=== PATIENT | female | born 1935 | race Caucasian/White ===

== ENCOUNTER 2017-08-21 16:39 | Emergency (ER) | payer OTHER ==
[~2017-08-21] VITALS: Ht 152.4 cm; Wt 101.0 kg
[~2017-08-21 16:39] MED LIST: ALBUAER2 INH; ASPCH81X PO; EFFSR75 PO; FRRG PO; LEVO137T3 PO; LOSA1TAB38 PO; METO-217 PO; MULT-190 PO; ONDA4TAB7 SL; SIMV20TA2 PO; ULT/50 PO; WARF1TAB PO
--- NOTE | 2017-08-21 16:50 | EMERGENCY ROOM VISIT NOTE ---
History Report prepared by [place]: Yashira La Under the Supervision of: Dr. Elio Nichole M.D. First contact with patient: 16:42 Chief Complaint: FALL Stated Complaint: FALL, ELBOW PAIN, SYNCOPE History of Present Illness The patient is a 82 year old female who presents to the Emergency Room with complaints of an episode of a fall beginning just PCAS. Per EMS the patient was walking out to the dumter at the [place] today and she fell and slipped on the ice. She fell on the ground onto her right hip and elbow. She reports that she has a history of a right hip replacement but she is not having any hip pain now. The patient complains of right elbow pain, LOC, and dizziness. She denies any head injury. The patient reports a history of anxiety and panic attacks. She states that she is not on any blood thinners. Source of History: patient, EMS Onset: just PCAS Position: other (global) Quality: other (fall) Timing: other (episode) Associated Symptoms: + LOC Note: Pt complains of elbow pain and dizziness. Denies any head injury and hip pain. Review of Systems See HPI for pertinent positives & negatives. A total of 10 systems reviewed and were otherwise negative. Past Medical & Surgical Medical Problems: (1) Diverticulitis (2) HYPERTENSION NOS (3) HYPOTHYROIDISM NOS (4) Kidney calculi (5) OBESITY, NOS (6) PURE HYPERCHOLESTEROLEM Family History No pertinent family history stated. Social History Smoking Status: Never Smoker Housing Status: lives with family Occupation Status: retired Current/Historical Medications Scheduled Aspirin (Aspirin Ec), 81 MG PO DAILY Baclofen (Lioresal), 10 MG PO HS Buspirone Hcl (Buspirone Hcl), 5 MG PO BID Docusate Sodium (Colace), 1 CAP PO BID Levothyroxine Sodium (Levothyroxine Sodium), 100 MCG PO QAM Losartan Potassium (Cozaar), 100 MG PO DAILY Metoprolol Succinate (Toprol Xl), 50 MG PO DAILY Ocuvite Preservision (Ocuvite Preservision), 1 TAB PO BID Pantoprazole (Protonix), 40 MG PO DAILY Sennosides (Senokot), 8.6 MG PO HS Simvastatin (Zocor), 20 MG PO DAILY Venlafaxine Hcl (Effexor Xr), 75 MG PO DAILY Venlafaxine Hcl (Effexor Xr), 150 MG PO DAILY Scheduled PRN Lorazepam (Ativan), 0.5 MG PO Q6H PRN for Anxiety Meclizine Hcl (Meclizine Hcl), 25 MG PO TID PRN for Dizziness or Vertigo Oxycodone Immediate Rel Tab (Roxicodone Ir), 1-2 TAB PO Q4H PRN for Severe Pain Tramadol Hcl (Ultram), 50 MG PO Q8 PRN for Pain Allergies Coded Allergies: Ciprofloxacin (Verified Allergy, Intermediate, rash and itchiness, 04/27/13 ) Physical Exam Vital Signs Date Time Temp Pulse Resp B/P (MAP) Pulse Ox O2 Delivery O2 Flow Rate FiO2 08/21/17 20:13 36.7 84 20 144/80 94 08/21/17 18:34 80 20 131/61 96 Room Air 08/21/17 17:04 36.7 81 20 115/61 95 Room Air 08/21/17 16:56 75 08/21/17 16:52 96 Nasal Cannula 08/21/17 16:52 96 Room Air Physical Exam GENERAL: Patient is a healthy-appearing well-nourished [] HEAD: Normocephalic atraumatic EYES: Ocular movements intact pupils equal and react to light OROPHARYNX mucous membranes are moist no exudates present no erythema or edema present NECK: Supple no nuchal rigidity CHEST: Good equal expansion LUNGS: Clear and equal to auscultation CARDIAC: Normal S1 and S2 ABDOMEN: Soft nontender no guarding BACK: No CVA tenderness EXTREMITIES: Normal muscle strength in all groups no clubbing cyanosis. Right elbow is grossly swollen, good range of motion. NEURO: Patient is following commands and answering questions appropriately. Alert and oriented x3 Cranial Nerves 2-12 grossly intact Medical Decision & Procedures ER Provider Diagnostic Interpretation: Radiology results as stated below per my review and radiologist interpretation: PELVIS 1 OR 2 VIEW ROUTINE FINDINGS: Postsurgical changes of total left hip arthroplasty, unchanged from prior. No evidence of a periprosthetic fracture. Evidence of formation of heterotopic ossification along the superior acetabulum and inferior aspect of the femoral neck component. No malalignment. No hardware complication. Degenerative change of the right hip joint has increased from prior. Pubic symphysis and sacroiliac joints congruent. Degenerative changes in the lower lumbar spine. Arcuate lines intact. Bony pelvis intact. Osteopenia suggested. Moderate stool burden in the right colon. IMPRESSION: 1. Osteopenia suggested. No acute osseous injury. 2. Postsurgical changes of total left hip arthroplasty. No hardware complication. Electronically signed by: Adarsh Gonzalez M.D. 08/21/2017 6:24 PM Dictated Date/Time: 08/21/2017 6:22 PM HEAD WITHOUT CONTRAST (CT) CT DOSE (mGy.cm): The estimated cumulative dose is 537.48 mGy.cm. FINDINGS: Stripe Matcher topogram: Unremarkable. Ventricles and sulci normal in size. Periventricular and subcortical white matter hypoattenuation, nonspecific but likely indicative of chronic small vessel ischemic change. No mass effect or midline shift. No hemorrhage or acute territorial infarct. No extra-axial fluid collection. Paranasal sinuses and mastoid air cells clear. Calvarium intact. IMPRESSION: 1. Chronic small vessel ischemic change. No acute intracranial abnormality. Electronically signed by: Adarsh Gonzalez M.D. 08/21/2017 5:47 PM Dictated Date/Time: 08/21/2017 5:45 PM R ELBOW MIN 3 VIEWS ROUTINE FINDINGS: Transversely oriented fracture across the olecranon with retraction of the olecranon apophysis and diastases of the fracture plane over 3 cm. A second fracture fragment is noted along the medial aspect of the elbow at the level of the elbow joint as well as a few small additional osseous fragments. The radiocapitellar articulation and proximal radial ulnar articulation are intact. Prominent soft tissue swelling noted along the medial elbow, likely soft tissue hematoma. IMPRESSION: Comminuted and displaced transversely oriented fracture of the olecranon. Electronically signed by: Adarsh Gonzalez M.D. 08/21/2017 6:20 PM Dictated Date/Time: 08/21/2017 6:18 PM CHEST ONE VIEW PORTABLE FINDINGS: Atherosclerosis of the aortic arch. Moderate enlargement of the cardiac silhouette, unchanged from prior. Retrocardiac double density may relate to left atrial enlargement. Mild prominence of pulmonary vasculature. Lungs and pleural spaces otherwise clear. Degenerative changes of the thoracic spine. Upper abdomen normal. IMPRESSION: 1. Cardiomegaly with left atrial enlargement. 2. Possible mild volume overload. Otherwise no acute cardiopulmonary disease. Electronically signed by: Adarsh Gonzalez M.D. 08/21/2017 6:22 PM Dictated Date/Time: 08/21/2017 6:21 PM Laboratory Results 08/21/17 18:27 Red Blood Count 4.38, Mean Corpuscular Volume 92.9, Mean Corpuscular Hemoglobin 31.3, Mean Corpuscular Hemoglobin Concent 33.7, Mean Platelet Volume 10.3, Neutrophils (%) (Auto) 71.0, Lymphocytes (%) (Auto) 17.5, Monocytes (%) (Auto) 9.9, Eosinophils (%) (Auto) 1.0, Basophils (%) (Auto) 0.3, Neutrophils # (Auto) 8.37, Lymphocytes # (Auto) 2.06, Monocytes # (Auto) 1.16, Eosinophils # (Auto) 0.12, Basophils # (Auto) 0.03 08/21/17 18:27 Test 08/21/17 16:55 08/21/17 18:27 Bedside Glucose 172 mg/dl (70-90) White Blood Count 11.77 K/uL (4.8-10.8) Red Blood Count 4.38 M/uL (4.2-5.4) Hemoglobin 13.7 g/dL (12.0-16.0) Hematocrit 40.7 % (37-47) Mean Corpuscular Volume 92.9 fL (80-100) Mean Corpuscular Hemoglobin 31.3 pg (25-34) Mean Corpuscular Hemoglobin Concent 33.7 g/dl (32-36) Platelet Count 257 K/uL (130-400) Mean Platelet Volume 10.3 fL (7.4-10.4) Neutrophils (%) (Auto) 71.0 % Lymphocytes (%) (Auto) 17.5 % Monocytes (%) (Auto) 9.9 % Eosinophils (%) (Auto) 1.0 % Basophils (%) (Auto) 0.3 % Neutrophils # (Auto) 8.37 K/uL (1.4-6.5) Lymphocytes # (Auto) 2.06 K/uL (1.2-3.4) Monocytes # (Auto) 1.16 K/uL (0.11-0.59) Eosinophils # (Auto) 0.12 K/uL (0-0.5) Basophils # (Auto) 0.03 K/uL (0-0.2) RDW Standard Deviation 45.3 fL (36.4-46.3) RDW Coefficient of Variation 13.3 % (11.5-14.5) Immature Granulocyte % (Auto) 0.3 % Immature Granulocyte # (Auto) 0.03 K/uL (0.00-0.02) Prothrombin Time 10.8 SECONDS (9.0-12.0) Prothromb Time International Ratio 1.0 (0.9-1.1) Anion Gap 9.0 mmol/L (3-11) Est Creatinine Clear Calc Drug Dose 51.6 ml/min Estimated GFR () 67.3 Estimated GFR (Non- 58.0 BUN/Creatinine Ratio 20.8 (10-20) Calcium Level 8.6 mg/dl (8.5-10.1) Total Bilirubin 0.5 mg/dl (0.2-1) Direct Bilirubin 0.1 mg/dl (0-0.2) Aspartate Amino Transf (AST/SGOT) 29 U/L (15-37) Alanine Aminotransferase (ALT/SGPT) 31 U/L (12-78) Alkaline Phosphatase 100 U/L (45-117) Total Protein 7.9 gm/dl (6.4-8.2) Albumin 3.8 gm/dl (3.4-5.0) Thyroid Stimulating Hormone (TSH) 1.660 uIu/ml (0.300-4.500) Labs reviewed by ED physician. Medications Administered Medications (Trade) Dose Ordered Sig/Ana Route Start Time Stop Time Status Last Admin Dose Admin Ondansetron HCl (Zofran Inj) 4 mg NOW STAT IV 08/21/17 17:14 08/21/17 17:15 DC 08/21/17 17:30 4 MG Meclizine HCl (Antivert Tab) 25 mg NOW STAT PO 08/21/17 17:14 08/21/17 17:15 DC 08/21/17 17:30 25 MG Lorazepam (Ativan Inj) 0.5 mg NOW STAT IV 08/21/17 17:19 08/21/17 17:21 DC 08/21/17 17:30 0.5 MG Hydromorphone HCl (Dilaudid Inj) 0.5 mg NOW STAT IV 08/21/17 18:39 08/21/17 18:41 DC 12/17/17 19:06 0.5 MG ECG Indication: other (fall) Rate (beats per minute): 76 Rhythm: normal sinus Findings: RBBB, no acute ischemic change, no ectopy ED Course 1641: Past medical records reviewed. The patient was evaluated in room B12. A complete history and physical examination was performed. 1713: Antivert Tab 25mg PO, Zofran Inj 4mg IV. 1718: Ativan Inj 0.5mg IV. 1836: I spoke to Dr. Clark of orthopedics. He recommends splinting with extra padding on the elbow. He will see her in the office on Tuesday. 1838: Dilaudid Inj 0.5mg IV. 1903: I reevaluated and updated the patient. 2013: Upon reexamination the patient is doing well. I discussed results and treatment plan with the patient. She verbalizes agreement and understanding. The patient is ready for discharge. Medical Decision Differential diagnosis: Etiologies such as fracture, dislocation, intra-abdominal, pneumothorax, intrathoracic , intracranial, neurologic, as well as other traumatic pathologies were entertained. This is an 82-year-old female who presents emergency department complaining of slipping and falling on ice. The patient is complaining of right elbow pain. This was concerning for PROCESS FRACTURE. I did discuss this with the on-call orthopedic surgeon. He has that the patient be placed in a posterior splint with follow-up in clinic on Tuesday. I recommended that the patient go to rehabilitation hospital to prevent her from falling again however the patient is adamantly refusing. She was placed in a splint and then ambulated in the emergency department. She was given Zofran and Ativan as well as Dilaudid for her pain. Repeat examination revealed improvement patient's symptoms. Patient will be given oxycodone for pain at home. Patient was in agreement with the treatment plan. Medication Reconcilliation Current Medication List: was personally reviewed by me Blood Pressure Screening Patient's blood pressure: Normal blood pressure Blood pressure disposition: Did not require urgent referral Consults Time Called: 1833 Consulting Physician: Dr. Clark - Orthopedics Returned Call: [address] Clark of orthopedics. He recommends splinting with extra padding on the elbow. He will see her in the office on Tuesday. Impression Primary Impression: Elbow fracture, right Additional Impression: Fall Scribe Attestation The scribe's documentation has been prepared under my direction and personally reviewed by me in its entirety. I confirm that the note above accurately reflects all work, treatment, procedures, and medical decision making performed by me. Departure Information Dispostion Home / Self-Care Prescriptions Docusate Sodium (COLACE) 100 Mg Cap 1 CAP PO BID for 30 Days, #60 CAP Prov: Elio Nichole MD 08/21/17 Sennosides (SENOKOT) 8.6 Mg Tab 8.6 MG PO HS for 30 Days, #30 TAB Prov: Elio Nichole MD 08/21/17 Oxycodone Immediate Rel Tab (ROXICODONE IR) 5 Mg Tab 1-2 TAB PO Q4H Y for Severe Pain, #24 TAB Prov: Elio Nichole MD 08/21/17 Referrals Trevor Mazariegos M.D. (PCP) Forms HOME CARE DOCUMENTATION FORM, IMPORTANT VISIT INFORMATION Patient Instructions ED Fx Elbow, ED ROSINA, My [facility] Additional Instructions Follow up with Dr Clark's office Cece (call tomorrow morning) You were found to have an elevated blood pressure today (>120 sytolic or >90 diastolic). Per medicare guidelines, you need to follow up with this blood pressure screening with your Primary Care Physician (PCP). For a new PCP call [phone]. You received narcotic or benzodiazepene medication while in the emergency room today. This is an addictive medication that may cause drowziness as well as constipation. Do not drive, operate heavy machinery, or drink alcohol under the influence of this medication. Take 1000 mg Tylenol every 6 hours Take Oxy IR for breakthrough pain You have been examined and treated today on an emergency basis only. This is not a substitute for, or an effort to provide, complete comprehensive medical care. It is impossible to recognize and treat all injuries or illnesses in a single emergency department visit. It is therefore important that you follow up closely with Dr Mazariegos. Call as soon as possible for an appointment. Thank you for your time and consideration. I look forward to speaking with you again soon. Please don't hesitate to call us if you have any questions. Problem Qualifiers Primary Impression: Elbow fracture, right Encounter type: initial encounter Fracture type: closed Qualified Codes: S42.401A - Unspecified fracture of lower end of right humerus, initial encounter for closed fracture Additional Impression: Fall Encounter type: initial encounter Qualified Codes: W19.XXXA - Unspecified fall, initial encounter
[2017-08-21 16:52] VITALS: O2SAT 96
[2017-08-21 17:04] VITALS: Ht 152.4 cm; Wt 101.0 kg
[2017-08-21] MEDS ORDERED: ONDANSETRON INJ 2 MG/ML 2 ML VIAL IV STA (17:14)
[2017-08-21] MEDS ORDERED: MECLIZINE HCL 25 MG TAB PO STA (17:14)
[2017-08-21] MEDS ORDERED: VENL75CA PO (17:17)
[2017-08-21] MEDS ORDERED: VENL150C PO (17:17)
[2017-08-21] MEDS ORDERED: BACL10TA PO (17:17)
[2017-08-21] MEDS ORDERED: LORA-741 PO (17:17)
[2017-08-21] MEDS ORDERED: PANT40TA PO (17:17)
[2017-08-21] MEDS ORDERED: LORAZEPAM 2 MG/ML 1 ML VIAL IV STA (17:19)
[2017-08-21] MEDS ORDERED: LEVO100T7 PO (17:23)
[2017-08-21] MEDS ORDERED: BUSP5TAB59 PO (17:23)
[2017-08-21] MEDS ORDERED: ASPI81TA28 PO (17:23)
--- NOTE | 2017-08-21 17:49 | DIAGNOSTIC IMAGING REPORT ---
HEAD WITHOUT CONTRAST (CT) CLINICAL HISTORY: 82 years-old Female presenting with Pt c/o fall, hit head syncope. TECHNIQUE: Multidetector CT imaging of the head was performed without the use of intravenous contrast. IV contrast: None. A dose lowering technique was used consistent with the principles of ALARA (as low as reasonably achievable). COMPARISON: 02/04/2010. CT DOSE (mGy.cm): The estimated cumulative dose is 537.48 mGy.cm. FINDINGS: Deli Manager topogram: Unremarkable. Ventricles and sulci normal in size. Periventricular and subcortical white matter hypoattenuation, nonspecific but likely indicative of chronic small vessel ischemic change. No mass effect or midline shift. No hemorrhage or acute territorial infarct. No extra-axial fluid collection. Paranasal sinuses and mastoid air cells clear. Calvarium intact. IMPRESSION: 1. Chronic small vessel ischemic change. No acute intracranial abnormality. Electronically signed by: Adarsh Gonzalez M.D. 08/21/2017 5:47 PM Dictated Date/Time: 08/21/2017 5:45 PM
--- NOTE | 2017-08-21 18:22 | DIAGNOSTIC IMAGING REPORT ---
R ELBOW MIN 3 VIEWS ROUTINE CLINICAL HISTORY: 82 years-old Female presenting with Pt c/o Rt elbow pain after fall. TECHNIQUE: Frontal, oblique, and lateral views of the right elbow were obtained. COMPARISON: None. FINDINGS: Transversely oriented fracture across the olecranon with retraction of the olecranon apophysis and diastases of the fracture plane over 3 cm. A second fracture fragment is noted along the medial aspect of the elbow at the level of the elbow joint as well as a few small additional osseous fragments. The radiocapitellar articulation and proximal radial ulnar articulation are intact. Prominent soft tissue swelling noted along the medial elbow, likely soft tissue hematoma. IMPRESSION: Comminuted and displaced transversely oriented fracture of the olecranon. Electronically signed by: Adarsh Gonzalez M.D. 08/21/2017 6:20 PM Dictated Date/Time: 08/21/2017 6:18 PM
--- NOTE | 2017-08-21 18:23 | DIAGNOSTIC IMAGING REPORT ---
CHEST ONE VIEW PORTABLE CLINICAL HISTORY: 82 years-old Female presenting with Pt c/o fall. TECHNIQUE: Portable supine AP view of the chest was obtained. COMPARISON: 12/10/2013. FINDINGS: Atherosclerosis of the aortic arch. Moderate enlargement of the cardiac silhouette, unchanged from prior. Retrocardiac double density may relate to left atrial enlargement. Mild prominence of pulmonary vasculature. Lungs and pleural spaces otherwise clear. Degenerative changes of the thoracic spine. Upper abdomen normal. IMPRESSION: 1. Cardiomegaly with left atrial enlargement. 2. Possible mild volume overload. Otherwise no acute cardiopulmonary disease. Electronically signed by: Adarsh Gonzalez M.D. 08/21/2017 6:22 PM Dictated Date/Time: 08/21/2017 6:21 PM
--- NOTE | 2017-08-21 18:25 | DIAGNOSTIC IMAGING REPORT ---
PELVIS 1 OR 2 VIEW ROUTINE CLINICAL HISTORY: 82 years-old Female presenting with Pt c/o fall. TECHNIQUE: Single frontal view of the pelvis and frontal view of the left hip were obtained. COMPARISON: 12/31/2013. FINDINGS: Postsurgical changes of total left hip arthroplasty, unchanged from prior. No evidence of a periprosthetic fracture. Evidence of formation of heterotopic ossification along the superior acetabulum and inferior aspect of the femoral neck component. No malalignment. No hardware complication. Degenerative change of the right hip joint has increased from prior. Pubic symphysis and sacroiliac joints congruent. Degenerative changes in the lower lumbar spine. Arcuate lines intact. Bony pelvis intact. Osteopenia suggested. Moderate stool burden in the right colon. IMPRESSION: 1. Osteopenia suggested. No acute osseous injury. 2. Postsurgical changes of total left hip arthroplasty. No hardware complication. Electronically signed by: Adarsh Gonzalez M.D. 08/21/2017 6:24 PM Dictated Date/Time: 08/21/2017 6:22 PM
[2017-08-21] MEDS ORDERED: HYDROmorphone INJ 0.5 MG/0.5 ML SYR IV STA (18:39)
[2017-08-21 18:41] LABS: BASO % 0.3 %; BASO ABS # 0.03 K/uL (0-0.2); COMPLETE YES; HEMATOCRIT 40.7 % (37-47); IG% 0.3 %; LYMPH % 17.5 %; LYMPH ABS # 2.06 K/uL (1.2-3.4); MEAN CELL VOLUME 92.9 fL (80-100); MEAN CORPUSCULAR HEMOGLOBIN 31.3 pg (25-34); MEAN CORPUSCULAR HGB CONC 33.7 g/dl (32-36); MEAN PLATELET VOLUME 10.3 fL (7.4-10.4); MONO % 9.9 %; PLATELET COUNT 257 K/uL (130-400); RED BLOOD COUNT 4.38 M/uL (4.2-5.4); WHITE BLOOD COUNT 11.77 K/uL (4.8-10.8)
[2017-08-21 18:53] LABS: PROTHROMBIN TIME (PATIENT) 10.8 SECONDS (9.0-12.0)
[2017-08-21 18:59] LABS: BUN/CREATININE RATIO 20.8 (10-20); CALCIUM 8.6 mg/dl (8.5-10.1); CREATININE 0.93 mg/dl (0.60-1.20); POTASSIUM 3.6 mmol/L (3.5-5.1)
[2017-08-21 19:18] LABS: THYROID STIMULATING HORMONE 1.66 uIu/ml (0.300-4.500)
[2017-08-21] MEDS ORDERED: DOCU-94 PO (19:56)
[2017-08-21] MEDS ORDERED: OXYC1TAB3 PO (19:56)
[2017-08-21] MEDS ORDERED: SENN1TAB77 PO (19:56)
[2017-08-21 20:13] VITALS: BP 144/80; PULSE 84; TEMP 36.7; O2SAT 94
[2017-08-21] MEDS ORDERED: MECL1TAB42 PO (22:10)
== END 2017-08-21 20:14 | disposition home or self-care (01) ==
LOC: EDBD 16:39 → C.EDB 16:40
DX: S52.021A Displaced fracture of olecranon process without intraarticular extension of right ulna, initial encounter for closed fracture (principal); W00.0XXA Fall on same level due to ice and snow, initial encounter; Y93.K1 Activity, walking an animal; Y92.008 Other place in unspecified non-institutional (private) residence as the place of occurrence of the external cause; F41.0 Panic disorder [episodic paroxysmal anxiety]; I10 Essential (primary) hypertension; E03.9 Hypothyroidism, unspecified; E78.00 Pure hypercholesterolemia, unspecified; Z79.82 Long term (current) use of aspirin

== ENCOUNTER 2017-08-25 07:51 | Observation (INO) | payer OTHER ==
--- NOTE | 2017-08-24 10:56 | HISTORY & PHYSICAL EXAMINATION ---
DATE OF ADMISSION: 08/25/2017 CHIEF COMPLAINT: Right elbow pain. HISTORY OF PRESENT ILLNESS: Yovana is a delightful. She is 82. Suffered a traumatic fracture of her right elbow, right olecranon on Tuesday, 3 days ago. Acute first-time injury. She was seen in the Emergency Room. I was consulted, evaluated and treated. We sent her to the office for definitive care. We're scheduling her for fairly urgent surgery on her right elbow. PAST MEDICAL HISTORY: Positive for hypertension, high cholesterol, obesity, sleep apnea, anxiety, kidney stones, degenerative arthritis, and acid reflux. SOCIAL HISTORY: Nonsmoker, non-ET[employer] user. PAST SURGICAL HISTORY: Hip replacement in 2014. ALLERGIES: Negative. PHYSICAL EXAMINATION: GENERAL: She is alert, oriented. Mentation normal. VITAL SIGNS: Blood pressure 130/80, pulse 80, respiratory rate 16. EKG demonstrated sinus rhythm. White cell count 11.7. CARDIAC: Normal S1, S2, no S3, and no ectopy. LUNGS: Clear. ABDOMEN: Soft, nontender, bowel sounds present. EXTREMITIES: Intact x4. Her right elbow is bundled up in a splint and soft padding and sling. NEUROLOGIC: Normal. IMPRESSION: Displaced right olecranon fracture. DISPOSITION: Surgery tomorrow semi-urgent basis on August 25 at [facility]. Instructions, precautions provided and all questions answered. MARCO A
[2017-08-24 13:24] VITALS: BMI 35.0
[2017-08-25] VITALS (9 sets, daily range): BP systolic 111–176; BP diastolic 64–81; PULSE 77–92; TEMP 36.6–36.8; O2SAT 93–98; Ht 152.4 cm; Wt 82.7 kg
[~2017-08-25] VITALS: Ht 152.4 cm; Wt 82.7 kg
[~2017-08-25 07:51] MED LIST changes: -ALBUAER2 INH; -ASPCH81X PO; +ASPI81TA28 PO; +BACL10TA PO; +BUSP5TAB59 PO; +CEFAZOLIN 2000MG IV PUSH 10 ML IV SCH; +DOCU-94 PO; -EFFSR75 PO; -FRRG PO; +LACTATED RINGER'S 1000ML 1,000 ML IV SCH; +LEVO100T7 PO; -LEVO137T3 PO; +LORA-741 PO; +MECL1TAB42 PO; +NSS 1000ML IV SCH; -ONDA4TAB7 SL; +OXYC1TAB3 PO; +PANT40TA PO; +SENN1TAB77 PO; +VENL150C PO; +VENL75CA PO; -WARF1TAB PO
[2017-08-25] MEDS ORDERED: AMLO2.5T PO (08:25)
[2017-08-25] MEDS ORDERED: FENTANYL CITRATE INJ 50 MCG/1 ML 2 ML VIAL ONE ×3 (09:51→12:51)
--- NOTE | 2017-08-25 10:29 | History & Physical Bridge Note ---
H&P Re-Evaluation Bridge Note: I have examined the patient, reviewed the History & Physical and in the interval since the performance of the History & Physical I have noted the following changes of clinical significance: No changes noted
[2017-08-25] MEDS ORDERED: ONDANSETRON INJ 2 MG/ML 2 ML VIAL IV PRN ×2 (10:30→13:15)
[2017-08-25] MEDS ORDERED: KETOROLAC TROMETHAMINE 30 MG/ML VIAL IV. PRN (10:30)
[2017-08-25] MEDS ORDERED: ATROPINE SULFATE 0.1 MG/ML 5ML SYR IV PRN (10:30)
[2017-08-25] MEDS ORDERED: LABETALOL HCL IV 5 MG/ML 20ML IV PRN (10:30)
[2017-08-25] MEDS ORDERED: HYDROmorphone INJ 2 MG/ML SYR/VIAL IV PRN (10:30)
[2017-08-25] MEDS ORDERED: ONDANSETRON INJ 2 MG/ML 2 ML VIAL ONE ×2 (10:35→13:54)
[2017-08-25] MEDS ORDERED: MIDAZOLAM HCL 1 MG/ML 2ML VIAL ONE (10:45)
--- NOTE | 2017-08-25 10:47 | History & Physical Bridge Note ---
H&P Re-Evaluation Bridge Note: I have examined the patient, reviewed the History & Physical and in the interval since the performance of the History & Physical I have noted the following changes of clinical significance: No changes noted OPEN REDUCTION INTERNAL FIXATION RIGHT OLECRONON
[2017-08-25] MEDS ORDERED: PROPOFOL IV EMULSION 10 MG/ML 20 ML VIAL IV ONE ×2 (11:53→13:19)
[2017-08-25] MEDS ORDERED: GLYCOPYRROLATE INJ 0.2 MG/ML VIAL ONE (11:53)
[2017-08-25] MEDS ORDERED: PHENYLEPHRINE 100MCG/ML 5ML SYR ONE (11:53)
[2017-08-25] MEDS ORDERED: EpHEDrine SULFATE 50MG/5ML SYR ONE (11:53)
[2017-08-25] MEDS ORDERED: NEOSTIGMINE METHYLSULFATE 1 MG/ML 10ML VIAL ONE (11:53)
[2017-08-25] MEDS ORDERED: LIDOCAINE HCL 2% 2 ML VIAL (20MG/ML) ONE (11:53)
[2017-08-25] MEDS ORDERED: DEXAMETHASONE SOD INJ 4 MG/ML VIAL ONE (11:53)
[2017-08-25] MEDS ORDERED: LABETALOL HCL IV 5 MG/ML 20ML IV ONE (12:33)
--- NOTE | 2017-08-25 12:58 | DIAGNOSTIC IMAGING REPORT ---
ELBOW 2 VIEWS CLINICAL HISTORY: RT OLECRANON OPEN REDUCTION INTERNAL FIXATION COMPARISON STUDY: Right elbow radiograph August 21, 2017. Fluoroscopy time: 13.9 seconds. FINDINGS: 3 fluoroscopic images demonstrate plate and screw fixation of the right olecranon fracture. Fracture alignment has markedly improved since exam of August 21, 2017 and is now near anatomic. IMPRESSION: Expected findings following internal fixation of the right olecranon fracture. Electronically signed by: Dick Cid M.D. 08/25/2017 12:56 PM Dictated Date/Time: 08/25/2017 12:55 PM
--- NOTE | 2017-08-25 13:07 | [facility] Post Operative Brief Note ---
Immediate Operative Summary Operative Date Aug 25, 2017. Pre-Operative Diagnosis Displaced Right Olecranon Fracture Post-Operative Diagnosis Displaced Right Olecranon Fracture Procedure(s) Performed Right Olecranon Open Reduction Internal Fixation Surgeon Dr. Mendez Clark Crisis Worker Surgeon(s) Larry Hahn PA-C Estimated Blood Loss 100ml Findings comminuted fracture Specimens none noted per Dr. Mendez Clark Complication(s) None Disposition Recovery Room / PACU
[2017-08-25] MEDS ORDERED: MECLIZINE HCL 25 MG TAB PO PRN (13:15)
[2017-08-25] MEDS ORDERED: LORAZEPAM 0.5 MG TAB PO PRN (13:15)
[2017-08-25] MEDS ORDERED: BISACODYL 10 MG SUPP PR PRN (13:15)
[2017-08-25] MEDS ORDERED: MAGNESIUM HYDROXIDE SUSP 30 ML UDC PO PRN (13:15)
--- NOTE | 2017-08-25 13:22 | OPERATIVE REPORT ---
DATE OF OPERATION: 08/25/2017 PREOPERATIVE DIAGNOSIS: Comminuted displaced fracture, right olecranon. POSTOPERATIVE DIAGNOSIS: Same. PROCEDURE: Included an open reduction internal fixation, right olecranon. SURGEON: Dr. Clark. MANAGER MED SURG: Larry Hahn PA-C. IMPLANTS USED: By the [email or web address]. ESTIMATED BLOOD LOSS: 100 mL. COMPLICATIONS: None. OPERATION AND FINDINGS: DESCRIPTION OF PROCEDURE: The patient was taken to the operating room. A general intubated anesthetic provided to the patient, placed in left lateral decubitus position, her right elbow and arm prepped and draped completely sterile. We made a dorsal skin incision dissecting the soft tissue. There are significant amount of hematoma formation and early clot formation. We irrigated out the elbow joint, I did a provisional reduction with a clamp near anatomic reduction of the olecranon. A plate was fashioned over the distal and proximal aspect of the ulna transfixed with cortical and cancellous screws, some self-tapping, some locking. The anatomic reduction was certainly satisfactory. We irrigated and closed in layers. Sterile dressings applied. The patient extubated. Returned to PACU improved stable condition. After closure I felt it was prudent to put in a Ariza catheter. A Ariza catheter was administered. I must add that a formal timeout was taken. I attest to the content of the Intraoperative Record and any orders documented therein. Any exception s are noted below.
[2017-08-25] MEDS ORDERED: HYDROmorphone INJ 1 MG/ML SYR ONE ×3 (13:23→14:09)
[2017-08-25] MEDS ORDERED: KETOROLAC TROMETHAMINE 30 MG/ML VIAL ONE (13:23)
[2017-08-25] MEDS ORDERED: IV FLUIDS COMPLETED PRN (13:45)
--- NOTE | 2017-08-25 14:28 | Anesthesiology Progress Note ---
Anesthesia Post Op Note Date & Time Aug 25, 2017 at 14:28 Vital Signs Vital Signs Past 12 Hours Date Time Temp Pulse Resp B/P (MAP) Pulse Ox O2 Delivery O2 Flow Rate FiO2 08/25/17 14:14 78 22 08/25/17 14:14 77 22 92 08/25/17 14:12 177/83 08/25/17 14:09 82 18 08/25/17 14:09 83 18 96 08/25/17 14:07 186/87 08/25/17 14:04 84 20 08/25/17 14:04 84 20 96 08/25/17 14:02 188/81 08/25/17 13:59 83 22 08/25/17 13:59 83 22 96 08/25/17 13:58 82 25 94 08/25/17 13:58 82 25 08/25/17 13:57 182/82 08/25/17 13:53 81 14 95 08/25/17 13:53 82 14 08/25/17 13:52 181/87 08/25/17 13:48 81 20 08/25/17 13:48 81 20 100 08/25/17 13:47 156/70 08/25/17 13:43 82 19 100 08/25/17 13:43 82 19 08/25/17 13:42 187/76 08/25/17 13:38 80 14 08/25/17 13:38 81 14 100 08/25/17 13:37 165/89 08/25/17 13:33 81 19 100 08/25/17 13:33 82 19 08/25/17 13:32 193/93 08/25/17 13:28 83 13 08/25/17 13:28 82 13 94 08/25/17 13:27 187/117 08/25/17 13:23 84 22 08/25/17 13:23 83 22 99 08/25/17 13:22 197/90 08/25/17 13:18 85 18 98 08/25/17 13:18 85 18 08/25/17 13:17 173/70 08/25/17 13:15 184/94 08/25/17 13:13 36.5 88 16 184/94 98 Oxymask 10 08/25/17 08:15 36.6 82 22 176/64 (101) 98 Room Air Notes Mental Status: alert / awake / arousable, participated in evaluation Pt Amnestic to Procedure: Yes Nausea / Vomiting: adequately controlled Pain: adequately controlled Airway Patency, RR, SpO2: stable & adequate BP & HR: stable & adequate Hydration State: stable & adequate Anesthetic Complications: no major complications apparent
[2017-08-25] MEDS: KETOROLAC TROMETHAMINE 30 MG/ML VIAL IV SCH ×2 (15:39→18:39)
[2017-08-25] MEDS: ACETAMINOPHEN IV 1,000 MG in EMPTY BAG 0 ML IV SCH ×2 (16:10→23:51)
[2017-08-25] MEDS: POTASSIUM CHLORIDE INJ 10 MEQ in SODIUM CHLORIDE 0.9% 1000ML 1,000 ML IV SCH (16:10)
[2017-08-25] MEDS: OXYCODONE HCL IR 5 MG TAB (IMMEDIATE RELEASE) PO PRN ×2 (17:37→23:55)
[2017-08-25] MEDS: MoRPHine SULFATE 4 MG/ML 1 ML CARP\\VIAL IV PRN (18:20)
[2017-08-25] MEDS: CEFAZOLIN IV 2,000 MG in SYRINGE 0 ML IV SCH (18:39)
[2017-08-25] MEDS: DOCUSATE SODIUM 100 MG CAP PO SCH ×2 (20:34→20:37)
[2017-08-25] MEDS: ASPIRIN 325 MG ECTAB PO SCH (20:34)
[2017-08-26] MEDS: MoRPHine SULFATE 4 MG/ML 1 ML CARP\\VIAL IV PRN (01:05)
[2017-08-26] MEDS: KETOROLAC TROMETHAMINE 30 MG/ML VIAL IV SCH ×2 (02:32→07:43)
[2017-08-26] MEDS: POTASSIUM CHLORIDE INJ 10 MEQ in SODIUM CHLORIDE 0.9% 1000ML 1,000 ML IV SCH (02:34)
[2017-08-26] MEDS: CEFAZOLIN IV 2,000 MG in SYRINGE 0 ML IV SCH (02:34)
[2017-08-26 02:49] VITALS: BP 113/68; PULSE 75; TEMP 36.9; O2SAT 95
[2017-08-26] MEDS: OXYCODONE HCL IR 5 MG TAB (IMMEDIATE RELEASE) PO PRN ×2 (05:26→11:23)
[2017-08-26] MEDS ORDERED: LEVOTHYROXINE 100 MCG TAB PO SCH (06:00)
[2017-08-26] MEDS ORDERED: RXC5 PO (07:10)
--- NOTE | 2017-08-26 07:12 | Discharge Instructions ---
Discharge Instructions Date of Service Aug 26, 2017. Admission Reason for Admission: Right Olecranon Fracture Discharge Discharge Diagnosis / Problem: same Discharge Goals Goal(s): Improve function Activity Recommendations Activity Limitations: as noted below Lifting Limitations: gradually increase as tolerated keep all dressings intact until follow up . Current Hospital Diet Patient's current hospital diet: AHA Diet (Heart Healthy) Discharge Diet Recommended Diet: Regular Diet Procedures Procedures Performed: Right Olecranon Open Reduction Internal Fixation Pending Studies Studies pending at discharge: no Medical Emergencies . Who to Call and When: Medical Emergencies: If at any time you feel your situation is an emergency, please call 911 immediately. . Non-Emergent Contact Non-Emergency issues call your: Primary Care Provider . "Provider Documentation" section prepared by Mendez Clark. . VTE Core Measure Inpt VTE Proph given/why not?: Treatment not indicated
[2017-08-26 07:24] VITALS: BP 117/66; PULSE 71; TEMP 36.8; O2SAT 91
[2017-08-26] MEDS ORDERED: COUGH DROP (SUGAR FREE) LOZ 24 LOZ/1 BOX ONE (07:29)
--- NOTE | 2017-08-26 08:02 | Anesthesiology Progress Note ---
Anesthesia Post Op Note Date & Time Aug 26, 2017 at 08:01 Vital Signs Pain Intensity: 6.0 Vital Signs Past 12 Hours Date Time Temp Pulse Resp B/P (MAP) Pulse Ox O2 Delivery O2 Flow Rate FiO2 08/26/17 07:24 36.8 71 19 117/66 (83) 91 Room Air 08/26/17 02:49 36.9 75 16 113/68 (83) 95 Room Air 08/26/17 00:00 Room Air 08/25/17 23:04 36.8 86 16 128/66 (86) 94 Room Air 08/25/17 20:48 94 Room Air Notes Mental Status: alert / awake / arousable, participated in evaluation Pt Amnestic to Procedure: Yes Nausea / Vomiting: adequately controlled Pain: adequately controlled Airway Patency, RR, SpO2: stable & adequate BP & HR: stable & adequate Hydration State: stable & adequate Anesthetic Complications: no major complications apparent
[2017-08-26] MEDS: DOCUSATE SODIUM 100 MG CAP PO SCH (09:00)
[2017-08-26] MEDS: ACETAMINOPHEN IV 1,000 MG in EMPTY BAG 0 ML IV SCH (09:16)
[2017-08-26] MEDS: LOSARTAN POTASSIUM 50 MG TAB PO SCH ×2 (09:17→10:02)
[2017-08-26] MEDS: CEROVITE ADV FORMULA TAB PO SCH ×2 (09:18→10:00)
[2017-08-26] MEDS: VENLAFAXINE HCL XR 150 MG CAPXR PO SCH ×2 (09:18→10:01)
[2017-08-26] MEDS: ASPIRIN 325 MG ECTAB PO SCH ×2 (09:18→10:00)
[2017-08-26] MEDS: SIMVASTATIN 20 MG TAB PO SCH ×2 (09:19→10:01)
[2017-08-26] MEDS: METOPROLOL SUCC 50MG EXT REL TAB PO SCH ×2 (09:19→10:01)
[2017-08-26] MEDS: PANTOprazole SOD 40 MG TAB PO SCH ×2 (09:20→09:59)
[2017-08-26] MEDS: AMLODIPINE BESYLATE 5 MG TAB PO SCH ×2 (09:21→09:59)
[2017-08-26 11:13] VITALS: BP 117/66; PULSE 71; TEMP 36.8; O2SAT 91
[2017-09-01] MEDS ORDERED: OXYC1TAB3 PO (04:17)
--- NOTE | 2017-09-07 13:39 | DISCHARGE SUMMARY ---
HOSPITAL COURSE: The patient was admitted to my service and then discharged home on the in improved, stable condition, this is August. She had a significant fracture of the right olecranon. She had an open reduction and internal fixation. She was discharged home as stated, in improved, stable. Minimal complaints of pain. Vital signs stable. No chest pain, shortness of breath or confusion. Followup examination in the office in approximately 10 days. Prescriptions given for pain.
[2017-09-07] MEDS ORDERED: LVNIS120 SQ (15:16)
[2017-09-07] MEDS ORDERED: BSP5 PO (15:16)
[2017-09-07] MEDS ORDERED: CMD5 PO (15:16)
[2017-09-07] MEDS ORDERED: BUSP-8 PO (15:40)
== END 2017-08-26 11:34 | disposition home health service (06) ==
LOC: C.ACU 07:51 → C.3E 09:00 → ENRESERV 14:22
PROVIDERS: ADMIT Orthopaedic Surgery Orthopaedic Surgery of the Spine; ATTEND Orthopaedic Surgery Orthopaedic Surgery of the Spine
DX: S52.001A Unspecified fracture of upper end of right ulna, initial encounter for closed fracture (principal); I10 Essential (primary) hypertension; E78.00 Pure hypercholesterolemia, unspecified; E66.9 Obesity, unspecified; G47.30 Sleep apnea, unspecified; F41.9 Anxiety disorder, unspecified; Z87.442 Personal history of urinary calculi; K21.9 Gastro-esophageal reflux disease without esophagitis; M06.9 Rheumatoid arthritis, unspecified; M19.90 Unspecified osteoarthritis, unspecified site; E03.9 Hypothyroidism, unspecified; X58.XXXA Exposure to other specified factors, initial encounter

== ENCOUNTER 2017-09-01 02:12 | Inpatient (IN) | payer OTHER ==
[~2017-09-01] VITALS: Ht 152.4 cm; Wt 88.3 kg
[~2017-09-01 02:12] MED LIST changes: -BSP5 PO; -BUSP-8 PO; -CMD5 PO; -DOCU100C31 PO; -ENOXAPARIN 100 MG/1ML SYR ONE; -LVNIS120 SQ; +OXYC-737 PO; -OXYC1TAB3 PO; -SENN-61 PO; -VENL150C PO; +VENL150C2 PO; -VENL75CA PO; +VENL75CA88 PO
[2017-09-01 03:26] LABS: BLOOD UREA NITROGEN 16 mg/dl (7-18); CALCIUM 8.3 mg/dl (8.5-10.1); CARBON DIOXIDE 29 mmol/L (21-32); CKMB 5.2 ng/ml (0.5-3.6); CREATININE 0.86 mg/dl (0.60-1.20); GLUCOSE 159 mg/dl (70-99); HEMATOCRIT 34.6 % (37-47); HEMOGLOBIN 11.1 g/dL (12.0-16.0); MEAN CELL VOLUME 94.3 fL (80-100); MEAN CORPUSCULAR HEMOGLOBIN 30.2 pg (25-34); MEAN CORPUSCULAR HGB CONC 32.1 g/dl (32-36); MEAN PLATELET VOLUME 9.7 fL (7.4-10.4); PLATELET COUNT 384 K/uL (130-400); POTASSIUM 3.7 mmol/L (3.5-5.1); PTT PATIENT 27.5 SECONDS (21.0-31.0); RED CELL DISTRIBUTION WIDTH CV 13.4 % (11.5-14.5); RED CELL DISTRIBUTION WIDTH SD 45.9 fL (36.4-46.3); SODIUM 140 mmol/L (136-145); WHITE BLOOD COUNT 12.89 K/uL (4.8-10.8)
[2017-09-01] MEDS ORDERED: ONDANSETRON INJ 2 MG/ML 2 ML VIAL IV STA (03:53)
[2017-09-01] MEDS ORDERED: MoRPHine SULFATE 4 MG/ML 1 ML CARP\\VIAL IV STA ×2 (03:53→07:30)
[2017-09-01] MEDS ORDERED: OPTIRAY 320 IV PRN (04:00)
[2017-09-01] MEDS ORDERED: DOCU100C31 PO (04:15)
[2017-09-01] MEDS ORDERED: OXYC-90 PO (04:17)
[2017-09-01] MEDS ORDERED: SENN-61 PO (04:21)
[2017-09-01] MEDS ORDERED: ENOXAPARIN 1 MG/KG SQ STA (05:21)
[2017-09-01] MEDS ORDERED: ENOXAPARIN 100 MG/1ML SYR SQ STA (05:31)
--- NOTE | 2017-09-01 05:37 | EMERGENCY ROOM VISIT NOTE ---
History Report prepared by [place]: Pedro Maldonado Under the Supervision of: Dr. Teresa Mejia D.O. First contact with patient: 03:29 Chief Complaint: CHEST PAIN Stated Complaint: CHEST PAIN History of Present Illness The patient is a 82 year old female who presents to the Emergency Room with complaints of worsening intermittent chest pain that began earlier this morning. She rates her pain moderate in severity. Last week, the patient experienced a fall outside. She required pins to be placed in her right arm which she tolerated well. Earlier this morning, the patient suddenly began to experience mid chest pain that radiates into her left shoulder and back. Her pain is exacerbated with deep inhalation. Her pain seems worse in the right lower chest when she takes deep breath. She denies any diagnosed cardiac disease or lung disease. She has been experiencing some cough with mucous production, but states that it is chronic. She was given 4 baby Aspirin en route via EMS. She states that she occasionally has leg cramping at night, but states that it is also chronic. Source of History: patient Onset: earlier this morning Position: chest Symptom Intensity: moderate Quality: ache Timing: constant Modifying Factors (Worsening): breathing Note: Her pain radiates into her left shoulder and back. Review of Systems See HPI for pertinent positives & negatives. A total of 10 systems reviewed and were otherwise negative. Past Medical & Surgical Medical Problems: (1) Diverticulitis (2) HYPERTENSION NOS (3) HYPOTHYROIDISM NOS (4) Kidney calculi (5) OBESITY, NOS (6) Olecranon fracture (7) Pulmonary embolism (8) PURE HYPERCHOLESTEROLEM Family History Omitted secondary to the patient's age. Social History Smoking Status: Never Smoker Smokeless Tobacco Use: No Drug Use: none Housing Status: lives with family Occupation Status: retired Current/Historical Medications Scheduled Amlodipine (Norvasc), 2.5 MG PO DAILY Aspirin (Aspirin Ec), 81 MG PO QAM Baclofen (Lioresal), 10 MG PO HS Buspirone Hcl (Buspirone Hcl), 5 MG PO BID Docusate Sodium (Docusate Sodium), 100 MG PO BID Levothyroxine Sodium (Levothyroxine Sodium), 100 MCG PO QAM Losartan Potassium (Cozaar), 100 MG PO DAILY Metoprolol Succinate (Toprol Xl), 50 MG PO DAILY Ocuvite Preservision (Ocuvite Preservision), 1 TAB PO BID Pantoprazole (Protonix), 40 MG PO QAM Senna (Senokot), 8.6 MG PO HS Simvastatin (Zocor), 20 MG PO DAILY Venlafaxine Hcl (Effexor Xr), 75 MG PO QPM Venlafaxine Hcl (Effexor Xr), 150 MG PO DAILY Scheduled PRN Lorazepam (Ativan), 0.5 MG PO Q6H PRN for Anxiety Meclizine Hcl (Meclizine Hcl), 25 MG PO TID PRN for Dizziness or Vertigo Oxycodone Ir (Roxicodone Ir), 5-10 MG PO Q4H PRN for Severe Pain Tramadol Hcl (Ultram), 50 MG PO Q8 PRN for Pain Allergies Coded Allergies: Ciprofloxacin (Verified Allergy, Intermediate, rash and itchiness, ) Physical Exam Vital Signs Date Time Temp Pulse Resp B/P (MAP) Pulse Ox O2 Delivery O2 Flow Rate FiO2 09/01/17 06:02 82 09/01/17 06:00 82 20 112/62 93 Room Air 09/01/17 05:00 83 18 131/67 97 Nasal Cannula 2.0 09/01/17 04:25 80 20 159/70 95 Room Air 09/01/17 03:24 81 20 125/66 93 Room Air Physical Exam HEENT: Head - normocephalic and atraumatic Pupils are equal, round, and reactive to light. Extraocular eye muscles are intact, and sclera are anicteric. Nose - moist nasal mucosa without discharge. Mouth - moist buccal mucosa. Oropharynx is nonerythematous and there is no tonsillar exudate or edema noted. Neck: Supple; no JVD, nuchal rigidity, cervical lymphadenopathy, or auscultated bruits. Heart: Regular rate and rhythm. There is a normal S1 and S2 with no murmurs, clicks, or gallops appreciated. Lungs: Diminished breath sounds to all lung pringle. Chest: Pain with palpation to the entire sternum. Abdomen: Soft, completely nontender, nondistended, with good bowel sounds. There are no palpable pulsatile masses or hepatosplenomegaly. There is no guarding, rigidity, or rebound noted. Extremities: RUE in a cast. Right hand has normal capillary refill with some edema to the fingers. No evidence of cyanosis, clubbing, or edema on the left . There are easily palpable peripheral pulses. No pain with palpation in the calfs. Skin: warm and dry with good turgor and no rashes. Medical Decision & Procedures ER Provider Diagnostic Interpretation: Radiology results as stated below per my review and the radiologist's interpretation: CHEST X-RAY 1 VIEW: Cardiomegaly, mild pulmonary vascular congestion, atelectasis right lung base. Per me. CTA CHEST: Breathing motion artifact limits evaluation of small peripheral arteries. Query small PE right lower lobe segmental artery. Series 4, images 86, 87. Mild basilar atelectasis. Small left pleural effusion. Radiologist: Kira Sam M.D. Laboratory Results 09/01/17 02:35 09/01/17 02:35 Test 09/01/17 02:35 Red Blood Count 3.67 M/uL (4.2-5.4) Mean Corpuscular Volume 94.3 fL (80-100) Mean Corpuscular Hemoglobin 30.2 pg (25-34) Mean Corpuscular Hemoglobin Concent 32.1 g/dl (32-36) RDW Standard Deviation 45.9 fL (36.4-46.3) RDW Coefficient of Variation 13.4 % (11.5-14.5) Mean Platelet Volume 9.7 fL (7.4-10.4) Prothrombin Time 11.0 SECONDS (9.0-12.0) Prothromb Time International Ratio 1.0 (0.9-1.1) Activated Partial Thromboplast Time 27.5 SECONDS (21.0-31.0) Partial Thromboplastin Ratio 1.1 Anion Gap 5.0 mmol/L (3-11) Estimated GFR () 73.9 Estimated GFR (Non- 63.8 BUN/Creatinine Ratio 18.2 (10-20) Calcium Level 8.3 mg/dl (8.5-10.1) Total Creatine Kinase 145 U/L (26-192) Creatine Kinase MB 5.2 ng/ml (0.5-3.6) Creatine Kinase MB Ratio 3.6 (0-3.0) Troponin I < 0.015 ng/ml (0-0.045) Laboratory results per my review. Medications Administered Medications (Trade) Dose Ordered Sig/Ana Route Start Time Stop Time Status Last Admin Dose Admin Morphine Sulfate (MoRPHine SULFATE INJ) 4 mg NOW STAT IV 09/01/17 03:53 09/01/17 03:55 DC 09/01/17 04:02 4 MG Ondansetron HCl (Zofran Inj) 4 mg NOW STAT IV 09/01/17 03:53 09/01/17 03:55 DC 09/01/17 04:01 4 MG Enoxaparin Sodium (Lovenox Inj) 90 mg NOW STAT SQ 09/01/17 05:31 09/01/17 05:32 DC 09/01/17 05:49 90 MG Procedure Zofran Inj 4 mg IV Morphine Sulfate 4 mg IV Enoxaparin Sodium 1 ea SQ Lovenox Inj 90 mg SQ ECG Indication: chest pain Rate (beats per minute): 86 Rhythm: normal sinus Findings: RBBB, no acute ischemic change, no ectopy Comparison ECG Date: 21 Aug 2017 Change: no significant change ED Course 0329: Past medical records reviewed. The patient was evaluated in room A2. A complete history and physical exam was performed. An IV lock was initiated and labs are drones above. A twelve-lead EKG was obtained as described above. The patient had chest x-ray as described above. 0352: The patient is having severe pain in her chest with any kind of movement of upper body or coughing. She is now willing to take something for her pain. 0353: Ordered Zofran Inj 4 mg IV, Morphine Sulfate 4 mg IV. She will go for CT scan of the chest to rule out PE. 0519: Upon reevaluation, I discussed findings and results with her. She verbalized agreement of the treatment plan. I spoke with Dr. Domínguez of the [facility]. The patient will be evaluated for further management and care. They also recommended Lovenox. 0531: Ordered Lovenox Inj 90 mg SQ Medical Decision The patient is an 82 year old female who presents to the ED with chest pain. Differential diagnosis includes PE, cardiac ischemia, ACS, pneumonia, costochondritis, and pleurisy. Laboratory Results: White blood cell count 12.8, hemoglobin 11.1, normal renal function, glucose 159 , total CK 145, CKMB 3.6, negative troponin, normal coagulation studies. This is an 82-year-old female patient presents to the emergency department with chest pain and shortness of breath. EKG was unremarkable. Cardiac enzymes were negative. Because of the patient's recent surgery and right upper extremity casting, was concern for PE. CT scan of chest revealed a segmental PE on the right. The patient was given a dose of subcutaneous Lovenox. I discussed the case with the [facility] and they will evaluate for further management. Medication Reconcilliation Current Medication List: was personally reviewed by me Blood Pressure Screening Patient's blood pressure: Elevated blood pressure Referred to the hospitalist Consults Time Called: 0515 Consulting Physician: Dr. Domínguez - [facility] Returned Call: 0519 Discussed the patient's case. The patient will be evaluated for further management. They recommended Lovenox. Impression Primary Impression: Right pulmonary embolus Scribe Attestation The scribe's documentation has been prepared under my direction and personally reviewed by me in its entirety. I confirm that the note above accurately reflects all work, treatment, procedures, and medical decision making performed by me. Departure Information Dispostion Being Evaluated By Hospitalist Referrals Trevor Mazariegos M.D. (PCP) Patient Instructions My [facility]
--- NOTE | 2017-09-01 06:58 | DIAGNOSTIC IMAGING REPORT ---
CHEST ONE VIEW PORTABLE CLINICAL HISTORY: CHEST PAIN dysphagia COMPARISON STUDY: 08/21/2017 FINDINGS: Moderate stable cardiomegaly. Diaphragms are smooth. Moderate prominence of pulmonary vasculature. IMPRESSION: Mild congestive heart failure. Moderate stable cardiomegaly. The above report was generated using voice recognition software. It may contain grammatical, syntax or spelling errors. Electronically signed by: Jarret Lemon M.D. 09/01/2017 6:56 AM Dictated Date/Time: 09/01/2017 6:55 AM
--- NOTE | 2017-09-01 07:27 | DIAGNOSTIC IMAGING REPORT ---
CHEST CTA for PULMONARY ARTERIES CT DOSE: 809.20 mGy.cm HISTORY: Atypical chest pain. TECHNIQUE: Multiaxial CT images of the chest were performed following the intravenous administration of contrast to evaluate the pulmonary arteries. Maximal intensity projection images were also obtained. A dose lowering technique was utilized adhering to the principles of ALARA. COMPARISON STUDY: Digitized chest CT dated 06/09/2005. FINDINGS: Heterogeneous perfusion within a single right lower lobe segmental pulmonary artery best seen on images 85 through 91. The vessel appears slightly expanded. Therefore, this could represent a small pulmonary embolus. Remaining pulmonary arteries are patent. The heart is borderline enlarged. Trace left pleural effusion. Normal caliber thoracic aorta with no evidence for dissection. No hepatic or splenic masses. Normal left adrenal gland. No mediastinal or hilar lymphadenopathy. No pneumothorax. The central airways are patent. Calcified left hilar lymph nodes. Bibasilar linear densities favor subsegmental atelectasis. IMPRESSION: 1. Possible pulmonary embolus seen within a single right lower lobe pulmonary artery. 2. Trace left pleural effusion. 3. Bibasilar subsegmental atelectasis. Electronically signed by: Ashok Quintero M.D. 09/01/2017 7:26 AM Dictated Date/Time: 09/01/2017 7:20 AM
--- NOTE | 2017-09-01 08:29 | History and Physical ---
History & Physical Date & Time of Service: Sep 01, 2017 at 08:07 Chief Complaint: Chest Pain Primary Care Physician: Trevor Mazariegos M.D. History of Present Illness Source: patient, family, hospital records 82 year old female with history of recent Olecranon fracture s/p ORIF 08/25/17 presenting with chest pain. Follows with Dr. Mazariegos for PCP and Dr. Clark for Ortho. Patient states she was doing well post op until about 2 days ago when she started to have chest pain more on the left side worsened with taking deep breaths and also associated with mild dyspnea. Denies dizziness, nausea, palpitations. No cough, fever/chills. At the ER, patient was oxygenating well and BP was stable. CT angio showed RLL pulmonary embolism. She was started on Lovenox 90mg SC. On exam, patient seen resting in bed, comfortable. States chest pain is improving. Denies active shortness of breath, palpitations, dizziness, nausea/ vomiting. Reports some pain/discomfort on the right arm, attributed to her cast/dressing. Past Medical/Surgical History Medical Problems: (1) Diverticulitis Status: Chronic (2) HYPERTENSION NOS Status: Chronic (3) HYPOTHYROIDISM NOS Status: Chronic (4) Kidney calculi Status: Chronic (5) OBESITY, NOS Status: Chronic (6) PURE HYPERCHOLESTEROLEM Status: Chronic Family History Cancer - Sister; DM - mother Social History Smoking Status: Never Smoker Smokeless Tobacco Use: No Drug Use: none Occupational Status: retired Immunizations History of Influenza Vaccine: N/A History of Tetanus Vaccine?: UTD History of Pneumococcal: Yes History of Hepatitis B Vaccine: No Multi-Drug Resistant Organisms History of MDRO: No Allergies Coded Allergies: Ciprofloxacin (Verified Allergy, Intermediate, rash and itchiness, ) Home Medications Scheduled Amlodipine (Norvasc), 2.5 MG PO DAILY Aspirin (Aspirin Ec), 81 MG PO QAM Baclofen (Lioresal), 10 MG PO HS Buspirone Hcl (Buspirone Hcl), 5 MG PO BID Docusate Sodium (Docusate Sodium), 100 MG PO BID Levothyroxine Sodium (Levothyroxine Sodium), 100 MCG PO QAM Losartan Potassium (Cozaar), 100 MG PO DAILY Metoprolol Succinate (Toprol Xl), 50 MG PO DAILY Ocuvite Preservision (Ocuvite Preservision), 1 TAB PO BID Pantoprazole (Protonix), 40 MG PO QAM Senna (Senokot), 8.6 MG PO HS Simvastatin (Zocor), 20 MG PO DAILY Venlafaxine Hcl (Effexor Xr), 75 MG PO QPM Venlafaxine Hcl (Effexor Xr), 150 MG PO DAILY Scheduled PRN Lorazepam (Ativan), 0.5 MG PO Q6H PRN for Anxiety Meclizine Hcl (Meclizine Hcl), 25 MG PO TID PRN for Dizziness or Vertigo Oxycodone Ir (Roxicodone Ir), 5-10 MG PO Q4H PRN for Severe Pain Tramadol Hcl (Ultram), 50 MG PO Q8 PRN for Pain Review of Systems Constitutional- no fever; no weight loss Eyes- no acute visual changes ENT- no sinus drainage; no pharyngitis Pulmonary- no cough, no wheezing, (+) shortness of breath Cardiac- (+) chest pain, no palpitations, no orthopnea, no dependent edema GI- no nausea, no vomiting, no diarrhea, no melena, no hematochezia - no dysuria, no hematuria Musculoskeletal- no arthralgias, no myalgias Derm- no rashes, no new skin lesions, no changing skin lesions Hematologic- no unusual bruising, no unusual bleeding Lymphatics- no adenopathy Endocrine- no polyuria or polydipsia; no heat or cold intolerance Neuro- no headaches, no focal neurologic symptoms Psych- no anxiety, no depression Physical Exam Vital Signs Date Time Temp Pulse Resp B/P (MAP) Pulse Ox O2 Delivery O2 Flow Rate FiO2 09/01/17 07:51 81 18 162/74 09/01/17 06:02 82 09/01/17 06:00 82 20 112/62 93 Room Air 09/01/17 05:00 83 18 131/67 97 Nasal Cannula 2.0 09/01/17 04:25 80 20 159/70 95 Room Air 09/01/17 03:24 81 20 125/66 93 Room Air General Appearance: WD/WN, no apparent distress Head: normocephalic, atraumatic Eyes: normal inspection, PERRL, EOMI, sclerae normal ENT: normal ENT inspection, hearing grossly normal, pharynx normal Neck: supple, no adenopathy, thyroid normal, no JVD Respiratory/Chest: chest non-tender, lungs clear, normal breath sounds, no respiratory distress, no accessory muscle use Cardiovascular: regular rate, rhythm, no edema, no JVD, no murmur Abdomen/GI: normal bowel sounds, non tender, soft Back: normal inspection, no CVA tenderness Extremities/Musculoskelatal: + pertinent finding (right arm- cast/dressing in place, no warmth/erythema/tenderness) 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, no motor/sensory deficits, alert, normal reflexes, oriented x 3 Skin: normal color, warm/dry, no rash Lymphatic: no adenopathy Diagnostics Laboratory Results Results Past 24 Hours Test 09/01/17 02:35 Range/Units White Blood Count 12.89 4.8-10.8 K/uL Red Blood Count 3.67 4.2-5.4 M/uL Hemoglobin 11.1 12.0-16.0 g/dL Hematocrit 34.6 37-47 % Mean Corpuscular Volume 94.3 80-100 fL Mean Corpuscular Hemoglobin 30.2 25-34 pg Mean Corpuscular Hemoglobin Concent 32.1 32-36 g/dl RDW Standard Deviation 45.9 36.4-46.3 fL RDW Coefficient of Variation 13.4 11.5-14.5 % Platelet Count 384 130-400 K/uL Mean Platelet Volume 9.7 7.4-10.4 fL Prothrombin Time 11.0 9.0-12.0 SECONDS Prothromb Time International Ratio 1.0 0.9-1.1 Activated Partial Thromboplast Time 27.5 21.0-31.0 SECONDS Partial Thromboplastin Ratio 1.1 Sodium Level 140 136-145 mmol/L Potassium Level 3.7 3.5-5.1 mmol/L Chloride Level 106 98-107 mmol/L Carbon Dioxide Level 29 21-32 mmol/L Anion Gap 5.0 3-11 mmol/L Blood Urea Nitrogen 16 7-18 mg/dl Creatinine 0.86 0.60-1.20 mg/dl Estimated GFR () 73.9 Estimated GFR (Non- 63.8 BUN/Creatinine Ratio 18.2 10-20 Random Glucose 159 70-99 mg/dl Calcium Level 8.3 8.5-10.1 mg/dl Total Creatine Kinase 145 26-192 U/L Creatine Kinase MB 5.2 0.5-3.6 ng/ml Creatine Kinase MB Ratio 3.6 0-3.0 Troponin I < 0.015 0-0.045 ng/ml Diagnostic Radiology CT angio: 1. Possible pulmonary embolus seen within a single right lower lobe pulmonary artery. 2. Trace left pleural effusion. 3. Bibasilar subsegmental atelectasis. CHEST ONE VIEW PORTABLE CLINICAL HISTORY: CHEST PAIN dysphagia COMPARISON STUDY: 08/21/2017 FINDINGS: Moderate stable cardiomegaly. Diaphragms are smooth. Moderate prominence of pulmonary vasculature. IMPRESSION: Mild congestive heart failure. Moderate stable cardiomegaly. EKG HR 86, sinus rhythm, no signs of acute ischemia Impression Assessment and Plan 82 year old female with history of recent Olecranon fracture s/p ORIF 08/25/17 presenting with chest pain. CHEST PAIN LIKELY SECONDARY TO PULMONARY EMBOLISM - risk factor recent surgery - Lovenox BID ordered need to be transitioned to coumadin R/O ACS - CM x 3 echo repeat EKG RIGHT OLECRANON FRACTURE S/P ORIF - patient reports discomfort with her cast will consult Ortho for re-evaluation possible adjustment of cast HTN - continue Metoprolol, Losartan HYPOTHYROIDISM - continue Lthyroxine DEPRESSION - stable FULL CODE as per patient DISPOSITION pending anticipate return to assisted living needs to establish with coumadin clinic PCP, Ortho ff up VTE Prophylaxis VTE Risk Assessment Done? Y/N: Yes Risk Level: Moderate Given or contraindicated: Enoxaparin (Lovenox)SQ
[2017-09-01] MEDS ORDERED: MECLIZINE HCL 12.5 MG TAB PO PRN (08:30)
[2017-09-01] MEDS ORDERED: OXYCODONE HCL IR 5 MG TAB (IMMEDIATE RELEASE) PO PRN (08:30)
[2017-09-01 09:11] LABS: CKMB 3.9 ng/ml (0.5-3.6)
--- NOTE | 2017-09-01 09:29 | DIAGNOSTIC IMAGING REPORT ---
VENOUS DOPPLER UPR EXT BILA HISTORY: Pain. Edema. r/o dvt COMPARISON STUDY: None. FINDINGS: The internal jugular veins are patent. There is normal flow within the subclavian veins. There is normal flow and compressibility within the bilateral axillary, basilic, brachial, radial, ulnar, and visualized cephalic veins. IMPRESSION: No DVT within the upper extremitys. The above report was generated using voice recognition software. It may contain grammatical, syntax or spelling errors. Electronically signed by: Jarret Lemon M.D. 09/01/2017 9:28 AM Dictated Date/Time: 09/01/2017 9:27 AM
--- NOTE | 2017-09-01 09:40 | NUR ---
A: Received patient into room 281-2 at this time via litter. Oriented to room and call michelle system. Code word and fall agreement signed. radiation monitor placed. OOB with 1 assist. Right arm dressing intact from previous ortho surgery. Patient states to use sling, family to bring in. VSS on room air. Will continue to monitor.
[2017-09-01 10:32] VITALS: BP 166/74; PULSE 92; TEMP 36.8; O2SAT 94; Ht 152.4 cm; Wt 88.3 kg
[2017-09-01 11:30] VITALS: BP 128/66; PULSE 99
[2017-09-01] MEDS: CEROVITE ADV FORMULA TAB PO SCH (11:31)
[2017-09-01] MEDS: DOCUSATE SODIUM 100 MG CAP PO SCH ×2 (11:32→20:28)
[2017-09-01] MEDS: LOSARTAN POTASSIUM 50 MG TAB PO SCH (11:32)
[2017-09-01] MEDS: AMLODIPINE BESYLATE 5 MG TAB PO SCH (11:33)
[2017-09-01] MEDS: PANTOprazole SOD 40 MG TAB PO SCH (11:33)
[2017-09-01] MEDS: METOPROLOL SUCC 50MG EXT REL TAB PO SCH (11:33)
[2017-09-01 11:37] VITALS: TEMP 37; O2SAT 94
--- NOTE | 2017-09-01 12:00 | NUR ---
A: Unchanged assessment from previous note. VSS on room air. Surgical dressing to right arm intact. Ortho to come see after surgical center hours. OOB with 1 assist. Tolerating diet well. cardiac monitor technician in place. Will continue to monitor.
[2017-09-01] MEDS ORDERED: NURSING VERBAL MED ORDER ONE (12:45)
[2017-09-01] MEDS ORDERED: OXYCODONE HCL IR 5 MG TAB (IMMEDIATE RELEASE) ONE (12:58)
--- NOTE | 2017-09-01 13:08 | NUR ---
A: Patient to cardiopulmonary at this time.
[2017-09-01 15:22] LABS: CKMB 4.5 ng/ml (0.5-3.6)
[2017-09-01 15:24] VITALS: BP 141/50; PULSE 75; TEMP 36.8; O2SAT 93
--- NOTE | 2017-09-01 15:54 | Medical Consult ---
Consultation Date of Consultation: Sep 01, 2017. Attending Physician: Jamilah Avila D.O. Reason for Consultation: EVALUATION OF SPLINT Past Medical/Surgical History Medical Problems: (1) Elbow fracture, right Status: Acute (2) Fall Status: Acute (3) Right pulmonary embolus Status: Acute Social History Smoking Status: Never Smoker Smokeless Tobacco Use: No Drug Use: none Housing Status: lives with family Occupation Status: retired Allergies Coded Allergies: Ciprofloxacin (Verified Allergy, Intermediate, rash and itchiness, ) Current Inpatient Medications Current Inpatient Medications Medications (Trade) Dose Ordered Sig/Ana Route Start Time Stop Time Status Last Admin Dose Admin Ioversol (Optiray 320) 100 ml UD PRN IV 09/01/17 04:00 09/05/17 03:59 Enoxaparin Sodium (Lovenox Inj) 90 mg Q12H SQ 09/01/17 18:00 10/01/17 17:59 Amlodipine Besylate (Norvasc Tab) 2.5 mg DAILY PO 09/01/17 11:00 10/01/17 10:59 09/01/17 11:33 2.5 MG Baclofen (Lioresal Tab) 10 mg HS PO 09/01/17 21:00 10/01/17 20:59 Buspirone HCl (Buspar Tab) 5 mg BID PO 09/01/17 11:00 10/01/17 10:59 09/01/17 11:32 5 MG Docusate Sodium (coLACE CAP) 100 mg BID PO 09/01/17 11:00 10/01/17 10:59 09/01/17 11:32 100 MG Levothyroxine Sodium (Synthroid Tab) 100 mcg DAILYBB PO 09/02/17 06:30 10/02/17 06:29 Lorazepam (Ativan Tab) 0.5 mg Q6H PRN PO 09/01/17 08:30 10/01/17 08:29 Losartan Potassium (coZAAR TAB) 100 mg DAILY PO 09/01/17 11:00 10/01/17 10:59 09/01/17 11:32 100 MG Meclizine HCl (Antivert Tab) 25 mg TID PRN PO 09/01/17 08:30 10/01/17 08:29 Metoprolol Succinate (Toprol Xl Tab) 50 mg DAILY PO 09/01/17 11:00 10/01/17 10:59 09/01/17 11:33 50 MG Multivitamins/ Minerals (Multivitamin W/ Minerals Tab) 1 tab DAILY PO 09/01/17 11:00 10/01/17 10:59 09/01/17 11:31 1 TAB Pantoprazole Sodium (Protonix Tab) 40 mg QAM PO 09/01/17 09:00 10/01/17 08:59 09/01/17 11:33 40 MG Senna (Senokot Tab) 8.6 mg HS PO 09/01/17 21:00 10/01/17 20:59 Simvastatin (Zocor Tab) 20 mg HS PO 09/01/17 21:00 10/01/17 20:59 Tramadol HCl (Ultram Tab) 50 mg Q8H PRN PO 09/01/17 08:30 10/01/17 08:29 Venlafaxine HCl (effeXOR EXTENDED REL CAP) 75 mg QPM PO 09/01/17 21:00 10/01/17 20:59 Venlafaxine HCl (effeXOR EXTENDED REL CAP) 150 mg PM PO 09/01/17 21:00 10/01/17 20:59 Oxycodone HCl (Roxicodone Immediate Rel Tab) Can give 5 mg for pain ra... Q4H PRN PO 09/01/17 12:00 09/15/17 08:29 Review of Systems Musculoskeletal: + joint pain, + muscle pain, + problem reported ("PAIN WITH SPLINT"), No swelling, No calf pain Neurologic: No numbness/tingling Physical Exam Date Time Temp Pulse Resp B/P (MAP) Pulse Ox O2 Delivery O2 Flow Rate FiO2 09/01/17 15:24 36.8 75 20 141/50 (80) 93 Room Air 09/01/17 12:00 Room Air 09/01/17 11:37 37.0 18 94 Room Air 09/01/17 11:30 99 128/66 (86) 09/01/17 10:32 36.8 92 20 166/74 94 Room Air 09/01/17 08:27 18 135/85 09/01/17 07:51 81 18 162/74 09/01/17 06:02 82 09/01/17 06:00 82 20 112/62 93 Room Air 09/01/17 05:00 83 18 131/67 97 Nasal Cannula 2.0 09/01/17 04:25 80 20 159/70 95 Room Air 09/01/17 03:24 81 20 125/66 93 Room Air SPLINT IS WELL FITTING. THERE ARE SOME FOREIGN MATERIALS THAT WERE APPLIED POST -OPERATIVELY BY THE PATIENT DUE TO "PRICKLY" SENSATION AT THE PROXIMAL AND DISTAL ASPECT OF THE SPLINT. SHE IS ABLE TO FLEX AND EXTEND HER FINGERS, BUT DOES HAVE MODERATE AMOUNT OF SWELLING. SPLINT AND DRESSING WAS REMOVED. SHE HAS A MODERATE AMOUNT OF SWELLING OVER THE UPPER EXTREMITY OF THE RIGHT. SHE IS INTACT TO SENSATION AND HAS LIMITED MOTION OF HER WRIST WITH FLEXION AND EXTENSION DUE TO SWELLING. THERE ARE NO SIGNS OF INFECTION. NO CURRENT DRAINAGE. Laboratory Results Last 24 Hours Test 09/01/17 02:35 09/01/17 08:40 09/01/17 14:27 White Blood Count 12.89 K/uL Red Blood Count 3.67 M/uL Hemoglobin 11.1 g/dL Hematocrit 34.6 % Mean Corpuscular Volume 94.3 fL Mean Corpuscular Hemoglobin 30.2 pg Mean Corpuscular Hemoglobin Concent 32.1 g/dl RDW Standard Deviation 45.9 fL RDW Coefficient of Variation 13.4 % Platelet Count 384 K/uL Mean Platelet Volume 9.7 fL Prothrombin Time 11.0 SECONDS Prothromb Time International Ratio 1.0 Activated Partial Thromboplast Time 27.5 SECONDS Partial Thromboplastin Ratio 1.1 Sodium Level 140 mmol/L Potassium Level 3.7 mmol/L Chloride Level 106 mmol/L Carbon Dioxide Level 29 mmol/L Anion Gap 5.0 mmol/L Blood Urea Nitrogen 16 mg/dl Creatinine 0.86 mg/dl Estimated GFR () 73.9 Estimated GFR (Non- 63.8 BUN/Creatinine Ratio 18.2 Random Glucose 159 mg/dl Calcium Level 8.3 mg/dl Total Creatine Kinase 145 U/L 128 U/L 140 U/L Creatine Kinase MB 5.2 ng/ml 3.9 ng/ml 4.5 ng/ml Creatine Kinase MB Ratio 3.6 3.0 3.2 Troponin I < 0.015 ng/ml < 0.015 ng/ml < 0.015 ng/ml Assessment & Plan THE UPPER EXTREMITY WAS RE-DRESSED WITH NEW 4X4'S WELL 4 INCH WEB-ROLL. A POSTERIOR SPLINT WAS APPLIED, AND HER WRIST WAS LEFT FREE. IT WAS THEN COVERED WITH AN PRANAV WRAP INCLUDING HER HAND. SHE CAN USE HER HAND TOLERATED. SHE IS TO KEEP THE DRESSING AND SPLINT ON UNTIL HER FOLLOW-UP WITH DR. LAM ON Tuesday09/07/2017.
[2017-09-01] MEDS ORDERED: WARFARIN SOD 5 MG TAB PO ONE (16:30)
[2017-09-01] MEDS: OXYCODONE HCL IR 5 MG TAB (IMMEDIATE RELEASE) PO PRN (16:49)
[2017-09-01] MEDS: ENOXAPARIN 100 MG/1ML SYR SQ SCH (18:22)
--- NOTE | 2017-09-01 18:42 | Progress Note ---
Medicine Progress Note Date & Time of Visit: Sep 01, 2017 at 18:40. Subjective Please refer to H&P from this AM for more details. Patient was seen and examined later in the day; states her left arm feels much better since the cast was removed. She still reports feeling anxiety attacks and gets left sided chest pain when she becomes anxious. Pain medications and anxiolytics seem to help. No other complaints at this time. Objective Last 8 Hrs Date Time Temp Pulse Resp B/P (MAP) Pulse Ox O2 Delivery O2 Flow Rate FiO2 09/01/17 16:00 Room Air 09/01/17 15:24 36.8 75 20 141/50 (80) 93 Room Air 09/01/17 12:00 Room Air 09/01/17 11:37 37.0 18 94 Room Air 09/01/17 11:30 99 128/66 (86) Physical Exam: GENERAL: Patient is in no acute distress. HEENT: No acute trauma, normocephalic atraumatic, mucous membranes moist, no nasal congestion, no scleral icterus, conjunctivae clear NECK: No stridor, trachea is midline, no jvd. LUNGS: Clear to auscultation bilaterally, no wheeze, no rhonchi, breath sounds equal. HEART: Without murmurs gallops or rubs, regular rate and rhythm. ABDOMEN: Soft, nontender, bowel sounds positive, obese EXTREMITIES: No cyanosis or edema, RUE in splint NEUROLOGIC: Oriented x 3, no acute motor or sensory deficits, no focal weakness. SKIN: No rash, no jaundice, no diaphoresis. Laboratory Results: Last 24 Hours Test 09/01/17 02:35 09/01/17 08:40 09/01/17 14:27 White Blood Count 12.89 K/uL Red Blood Count 3.67 M/uL Hemoglobin 11.1 g/dL Hematocrit 34.6 % Mean Corpuscular Volume 94.3 fL Mean Corpuscular Hemoglobin 30.2 pg Mean Corpuscular Hemoglobin Concent 32.1 g/dl RDW Standard Deviation 45.9 fL RDW Coefficient of Variation 13.4 % Platelet Count 384 K/uL Mean Platelet Volume 9.7 fL Prothrombin Time 11.0 SECONDS Prothromb Time International Ratio 1.0 Activated Partial Thromboplast Time 27.5 SECONDS Partial Thromboplastin Ratio 1.1 Sodium Level 140 mmol/L Potassium Level 3.7 mmol/L Chloride Level 106 mmol/L Carbon Dioxide Level 29 mmol/L Anion Gap 5.0 mmol/L Blood Urea Nitrogen 16 mg/dl Creatinine 0.86 mg/dl Estimated GFR () 73.9 Estimated GFR (Non- 63.8 BUN/Creatinine Ratio 18.2 Random Glucose 159 mg/dl Calcium Level 8.3 mg/dl Total Creatine Kinase 145 U/L 128 U/L 140 U/L Creatine Kinase MB 5.2 ng/ml 3.9 ng/ml 4.5 ng/ml Creatine Kinase MB Ratio 3.6 3.0 3.2 Troponin I < 0.015 ng/ml < 0.015 ng/ml < 0.015 ng/ml Assessment & Plan Current Inpatient Medications: Current Inpatient Medications Medications (Trade) Dose Ordered Sig/Ana Route Start Time Stop Time Status Last Admin Dose Admin Ioversol (Optiray 320) 100 ml UD PRN IV 09/01/17 04:00 09/05/17 03:59 Enoxaparin Sodium (Lovenox Inj) 90 mg Q12H SQ 09/01/17 18:00 10/01/17 17:59 09/01/17 18:22 90 MG Amlodipine Besylate (Norvasc Tab) 2.5 mg DAILY PO 09/01/17 11:00 10/01/17 10:59 09/01/17 11:33 2.5 MG Baclofen (Lioresal Tab) 10 mg HS PO 09/01/17 21:00 10/01/17 20:59 Buspirone HCl (Buspar Tab) 5 mg BID PO 09/01/17 11:00 10/01/17 10:59 09/01/17 11:32 5 MG Docusate Sodium (coLACE CAP) 100 mg BID PO 09/01/17 11:00 10/01/17 10:59 09/01/17 11:32 100 MG Levothyroxine Sodium (Synthroid Tab) 100 mcg DAILYBB PO 09/02/17 06:30 10/02/17 06:29 Lorazepam (Ativan Tab) 0.5 mg Q6H PRN PO 09/01/17 08:30 10/01/17 08:29 Losartan Potassium (coZAAR TAB) 100 mg DAILY PO 09/01/17 11:00 10/01/17 10:59 09/01/17 11:32 100 MG Meclizine HCl (Antivert Tab) 25 mg TID PRN PO 09/01/17 08:30 10/01/17 08:29 Metoprolol Succinate (Toprol Xl Tab) 50 mg DAILY PO 09/01/17 11:00 10/01/17 10:59 09/01/17 11:33 50 MG Multivitamins/ Minerals (Multivitamin W/ Minerals Tab) 1 tab DAILY PO 09/01/17 11:00 10/01/17 10:59 09/01/17 11:31 1 TAB Pantoprazole Sodium (Protonix Tab) 40 mg QAM PO 09/01/17 09:00 10/01/17 08:59 09/01/17 11:33 40 MG Senna (Senokot Tab) 8.6 mg HS PO 09/01/17 21:00 10/01/17 20:59 Simvastatin (Zocor Tab) 20 mg HS PO 09/01/17 21:00 10/01/17 20:59 Tramadol HCl (Ultram Tab) 50 mg Q8H PRN PO 09/01/17 08:30 10/01/17 08:29 Venlafaxine HCl (effeXOR EXTENDED REL CAP) 75 mg QPM PO 09/01/17 21:00 10/01/17 20:59 Venlafaxine HCl (effeXOR EXTENDED REL CAP) 150 mg PM PO 09/01/17 21:00 10/01/17 20:59 Oxycodone HCl (Roxicodone Immediate Rel Tab) Can give 5 mg for pain ra... Q4H PRN PO 09/01/17 12:00 09/15/17 08:29 09/01/17 16:49 10 MG Warfarin Sodium (Coumadin Tab) 5 mg DAILY@16 PO 09/02/17 16:00 10/02/17 15:59
--- NOTE | 2017-09-01 18:45 | NUR ---
A: patient alert and oriented times four. patient has no complaint of shortness of breath. Patient did report having the same pain as she did last night that radiates from around her left collar bone up through her neck. Dr is aware oral medication was given. Patient is resting with call michelle in reach.
[2017-09-01 19:37] VITALS: BP 114/58; PULSE 72; TEMP 37.1; O2SAT 91
--- NOTE | 2017-09-01 20:00 | NUR ---
A:A: See previous note assessment unchanged.
[2017-09-01] MEDS: SENNA 8.6 MG TAB PO SCH (20:28)
[2017-09-01] MEDS: VENLAFAXINE HCL XR 75 MG CAPXR PO SCH (20:28)
[2017-09-01] MEDS: VENLAFAXINE HCL XR 150 MG CAPXR PO SCH (20:28)
[2017-09-01] MEDS: BACLOFEN 10 MG TAB PO SCH (20:28)
[2017-09-01] MEDS: SIMVASTATIN 20 MG TAB PO SCH (20:28)
[2017-09-01 22:59] VITALS: BP 131/74; PULSE 78; TEMP 37; O2SAT 90
[2017-09-02] VITALS (7 sets, daily range): BP systolic 118–160; BP diastolic 73–76; PULSE 72–84; TEMP 36.6–37; O2SAT 90–95
[2017-09-02] MEDS: OXYCODONE HCL IR 5 MG TAB (IMMEDIATE RELEASE) PO PRN ×3 (01:40→17:55)
--- NOTE | 2017-09-02 04:00 | NUR ---
A: Patient admitted with pulmonary embolism. A&OX4. Denies pain, SOB, N/V. Pt is calm and cooperative. Trace BLE edema, positive pulses. NSR on the monitor. Lungs are clear on room air. Abdomen is obese, soft, nontender, nondistended. Positive bowel sounds. SL left hand. Right arm is in a soft cast/sling. Patient is a one assist OOB. Hourly rounding. Bed alarm on. Encouraged to ring for assistance. Will continue to monitor.
[2017-09-02] MEDS: LEVOTHYROXINE 100 MCG TAB PO SCH (05:44)
[2017-09-02] MEDS: ENOXAPARIN 100 MG/1ML SYR SQ SCH ×2 (05:45→17:57)
[2017-09-02 06:26] LABS: HEMATOCRIT 32.1 % (37-47); HEMOGLOBIN 10.2 g/dL (12.0-16.0); MEAN CELL VOLUME 94.7 fL (80-100); MEAN CORPUSCULAR HEMOGLOBIN 30.1 pg (25-34); MEAN CORPUSCULAR HGB CONC 31.8 g/dl (32-36); MEAN PLATELET VOLUME 9.4 fL (7.4-10.4); PLATELET COUNT 380 K/uL (130-400); RED CELL DISTRIBUTION WIDTH CV 13.6 % (11.5-14.5); WHITE BLOOD COUNT 11.36 K/uL (4.8-10.8)
[2017-09-02 06:35] LABS: INR 1.1 (0.9-1.1)
[2017-09-02 06:59] LABS: CALCIUM 8.6 mg/dl (8.5-10.1); CREATININE 0.9 mg/dl (0.60-1.20); POTASSIUM 3.5 mmol/L (3.5-5.1)
[2017-09-02] MEDS: LOSARTAN POTASSIUM 50 MG TAB PO SCH (07:50)
[2017-09-02] MEDS: CEROVITE ADV FORMULA TAB PO SCH (07:50)
[2017-09-02] MEDS: PANTOprazole SOD 40 MG TAB PO SCH (07:50)
[2017-09-02] MEDS: DOCUSATE SODIUM 100 MG CAP PO SCH ×2 (07:51→20:50)
[2017-09-02] MEDS: AMLODIPINE BESYLATE 5 MG TAB PO SCH (07:51)
[2017-09-02] MEDS: METOPROLOL SUCC 50MG EXT REL TAB PO SCH (07:52)
[2017-09-02] MEDS: TRAMADOL HCL 50 MG TAB PO PRN (07:55)
--- NOTE | 2017-09-02 08:00 | NUR ---
A: Alert and oriented x4. VSS on room air. Reports 3/10 right arm pain, Ultram given for pain. Denies chest pain or shortness of breath. NSR with IVCD noted on monitor. Dangling at bedside for breakfast at this time. Call michelle within reach. Continue to monitor.
--- NOTE | 2017-09-02 09:11 | ECHOCARDIOGRAM REPORT ---
*NOTICE TO RECEIVING LIBERTARIAN AGENCY This information is strictly Confidential and protected under [place] law. [place] law prohibits you from making any further disclosure of this information unless further disclosure is expressly permitted by the written consent of the person to whom it pertains or is authorized by law. A general authorization for the release of medical or other information is not sufficient for this purpose. Hospital accepts no responsibility if the information is made available to any other person, INCLUDING THE PATIENT. Interpretation Summary * Name: VARSHA BELTRÁN Study Date: 09/01/2017 12:55 PM BP: 135/85 mmHg * Patient Location: [facility] HR: 81 * : 1935 (M/d/yyyy) Gender: Female Height: 60 in * Age: 82 yrs Ethnicity: [place] Weight: 206 lb * Ordering Physician: Chandra Domínguez * Referring Physician: Self, Referred * Performed By: Zina Lisa RDCS * * Reason For Study: Chest Pain * BSA: 1.9 m2 * The study was technically difficult. * The study was technically limited. * -- Conclusions -- * The left ventricle is normal in size. * The left ventricular wall motion is normal. * The LV Ejection Fraction = 60-65%. * The right ventricle is normal in size and function. * Mild pulmonary hypertension is present. * The pulmonary artery systolic pressure is calculated to be 45 mm Hg, assuming a right atrial pressure of 3 mm Hg. * There is a non mobile 1 cm x 1 cm echogenicity in the right atrium adherent to the interatrial septum. * This could be due to reverberation artifact from the adjacent tricuspid annulus however, mass or thrombus cannot be excluded. * Recommend follow up limited echo with agitated saline contrast evaluation of the right atrium for further evaluation. Procedure Details * A complete two-dimensional transthoracic echocardiogram was performed (2D, M-mode, Doppler and color flow Doppler). * The study was technically difficult. * The study was technically difficult, but visualization was adequate with the administration of Definity ultrasound contrast. * There were technical limitations due to patient'sbody habitus * A contrast injection of Definity was performed to improve assessment of LV function. * Contrast was injected into an intravenous site in the left arm. * One vial of Definity ultrasound contrast was diluted in normal saline to a total volume of 10 ml. A total of '2' ml of solution was administered during imaging. * Lot # [id number] of Definity utilized for procedure. * Expiration date . * The attending nurse who injected the contrast agent was DIANA Bland. Left Ventricle * The left ventricle is normal in size. * There is no thrombus. * There is normal left ventricular wall thickness. * Ejection Fraction = 60-65%. * The left ventricular wall motion is normal. Right Ventricle * The right ventricle is normal in size and function. Atria * The left atrial size is normal. * Right atrial size is normal. * There is a non mobile 1 cm x 1 cm echogenity in the right atrium adherent to the interatrial septum. This could be due to reverberation artifact from the adjacent tricuspid annulus however, mass or thrombus cannot be excluded. * No ASD detected; PFO is not assessed. Mitral Valve * The mitral valve is not well visualized. * There is no mitral valve stenosis. * Significant mitral regurgitation is absent. Tricuspid Valve * The tricuspid valve is not well visualized. * There is no tricuspid stenosis. * There is trace tricuspid regurgitation. * Mild pulmonary hypertension is present. The pulmonary artery systolic pressure is calculated to be 45 mm Hg, assuming a right atrial pressure of 3 mm Hg. Aortic Valve * The aortic valve is not well visualized. * No hemodynamically significant valvular aortic stenosis. * There is no significant aortic regurgitation. Great Vessels * The aortic root is normal size. Pericardium/Pleural * There is no pericardial effusion. Great Vessels * Normal inferior vena cava size and collapsability with sniff indicates a normal right atrial pressure of 3 mmHg Left Ventricular Diastolic Function * Grade I diastolic dysfunction, (abnormal relaxation pattern). MMode 2D Measurements and Calculations IVSd 1.1 cm LVIDd 5.3 cm LVIDs 3.7 cm LVPWd 1.0 cm IVS/LVPW 1.1 FS 30.2 % EDV(Teich) 133.4 ml ESV(Teich) 57.2 ml EF(Teich) 57.1 % EDV(cubed) 146.1 ml ESV(cubed) 49.7 ml EF(cubed) 66.0 % LV mass(C)d 214.9 grams LV mass(C)dI 113.7 grams/m\S\2 SV(Teich) 76.1 ml SI(Teich) 40.3 ml/m\S\2 SV(cubed) 96.4 ml SI(cubed) 51.0 ml/m\S\2 Ao root diam 2.8 cm Ao root area 6.3 cm\S\2 ACS 1.6 cm LVAd ap4 22.8 cm\S\2 LVLd ap4 7.1 cm EDV(MOD-sp4) 62.8 ml EDV(sp4-el) 62.4 ml LVAs ap4 11.3 cm\S\2 LVLs ap4 5.1 cm ESV(MOD-sp4) 21.8 ml ESV(sp4-el) 21.3 ml EF(MOD-sp4) 65.3 % EF(sp4-el) 65.9 % LVAd ap2 17.6 cm\S\2 LVLd ap2 7.0 cm EDV(MOD-sp2) 38.6 ml EDV(sp2-el) 37.4 ml LVAs ap2 8.2 cm\S\2 LVLs ap2 4.7 cm ESV(MOD-sp2) 12.6 ml ESV(sp2-el) 11.9 ml EF(MOD-sp2) 67.5 % EF(sp2-el) 68.2 % LVLd %diff -1.09 % EDV(MOD-bp) 49.6 ml LVLs %diff -8.25 % ESV(MOD-bp) 17.1 ml EF(MOD-bp) 65.6 % SV(MOD-sp4) 41.0 ml SI(MOD-sp4) 21.7 ml/m\S\2 SV(MOD-sp2) 26.1 ml SI(MOD-sp2) 13.8 ml/m\S\2 SV(MOD-bp) 32.6 ml SI(MOD-bp) 17.2 ml/m\S\2 SV(sp4-el) 41.1 ml SI(sp4-el) 21.7 ml/m\S\2 SV(sp2-el) 25.5 ml SI(sp2-el) 13.5 ml/m\S\2 Doppler Measurements and Calculations MV E max lucas 87.3 cm/sec MV A max lucas 86.3 cm/sec MV E/A 1.0 MV dec time 0.16 sec Ao V2 max 166.1 cm/sec Ao max PG 11.0 mmHg Ao max PG (full) 5.0 mmHg LV V1 max PG 6.1 mmHg LV V1 max 123.2 cm/sec PA V2 max 107.5 cm/sec PA max PG 4.6 mmHg TR max lucas 324.7 cm/sec
--- NOTE | 2017-09-02 12:00 | NUR ---
A: Assessment unchanged. Pt had 7/10 left arm pain, relieved with pain meds. Resting comfortably in bed at this time. Call michelle within reach. Encouraged to ring for assistance. Continue to monitor.
--- NOTE | 2017-09-02 12:22 | NUR ---
Discharge planning consult received. I spoke with the patient at bedside, her son Josef is present, she is alert and oriented x 4. Patient states that she lives alone in her own home. She currently has a walker, wheelchair and cane. Patient had an accident a few days ago where she fell and has a fractured right wrist. She has been receiving home health through [facility]. Prior to this she has been independent with adl's however does have macular degeneration so she is unable to drive and arrange her medications. Her son Josef (POA) assists as needed. She uses the [facility] for transport. She has also been in contact with [facility] and is in the process of applying for the waiver program. Both patient and her son are requesting short term rehab at [facility] as first choice and [facility] as second, referrals made. Patient will need to participate in pt/ot for insurance auth. Case management to follow.
--- NOTE | 2017-09-02 13:21 | ECHOCARDIOGRAM REPORT ---
*NOTICE TO RECEIVING REPUBLICAN AGENCY This information is strictly Confidential and protected under [place] law. [place] law prohibits you from making any further disclosure of this information unless further disclosure is expressly permitted by the written consent of the person to whom it pertains or is authorized by law. A general authorization for the release of medical or other information is not sufficient for this purpose. Hospital accepts no responsibility if the information is made available to any other person, INCLUDING THE PATIENT. Interpretation Summary * Name: VARSHA BELTRÁN Study Date: 09/02/2017 10:35 AM BP: 145/76 mmHg * Patient Location: [facility]\S\N281\S\2 HR: 82 * : 1935 (M/d/yyy) Gender: Female Height: 60 in * Age: 82 yrs Ethnicity: [place] Weight: 199 lb * Ordering Physician: Jamilah Avila * Referring Physician: Self, Referred * Performed By: Tonia Malik RDCS * * Reason For Study: LIMITED WITH SALINE IN RV, SUBCOSTAL * BSA: 1.9 m2 * -- Conclusions -- * A focused study was performed for further visualization of the right atrium. * Limited views wer obtained. * There is a non mobile 1 cm x 1 cm echo density in the right atrium contiguous with the interatrial septum. * This may represent a normal anatomical variant versus atypical right atrial mass. * Consider JOYCE or cardiac MRI for further characterization. Procedure Details * A saline contrast injection was performed to assess for cardiac shunting. * The injection was performed through an intravenous line in the left arm. * The attending nurse who injected the saline contrast was DIANA ENNIS. * A total of 20 cc of agitated saline was given. Atria * There is a non mobile 1 cm x 1 cm echo density in the right atrium contiguous with the interatrial septum. This may represent a normal anatomical variant versus atypical right atrial mass. Consider JOYCE or cardiac MRI for further characterization.
[2017-09-02] MEDS ORDERED: NURSING DECISION MEDICATION ORDER SCH (15:00)
[2017-09-02] MEDS ORDERED: COUGH DROP (SUGAR FREE) LOZ 24 LOZ/1 BOX PO PRN (15:15)
--- NOTE | 2017-09-02 16:00 | NUR ---
A: Assessment unchanged. Son and [id number] at bedside. Pt. states that her sister is in [place] and she would like to go visit her if possible, Okayed by this RN. OOB in chair at this time. Call michelle within reach. Continue to monitor.
[2017-09-02] MEDS: WARFARIN SOD 5 MG TAB PO SCH (16:14)
--- NOTE | 2017-09-02 18:15 | NUR ---
A: Pt. in bathroom sobbing that she can't have a BM and she is scared that she will be incontinent of stool if she doesn't have one now while she is on the toilet. po ativan given for anxiety as ordered. Pt. reports that she has anxiety attacks at home. She states that she just wants to get a good nights sleep. Requested a brief to go to bed in case she is incontinent of stool stating that she is so embarrassed that she might be incontinent of stool. Continue to monitor.
[2017-09-02] MEDS: LORAZEPAM 0.5 MG TAB PO PRN (18:19)
--- NOTE | 2017-09-02 19:04 | Progress Note ---
Medicine Progress Note Date & Time of Visit: Sep 02, 2017 at 19:02. Subjective Patient is doing well, denies any complaints and feels her pain has improved. Has not been as anxious today and no panic attacks per patient. No overnight events noted. Tolerating PO without difficulty. Denies any palpations or SOB. Objective Last 8 Hrs Date Time Temp Pulse Resp B/P (MAP) Pulse Ox O2 Delivery O2 Flow Rate FiO2 09/02/17 16:00 Room Air 09/02/17 15:49 37.0 75 18 122/74 (90) 93 Room Air 09/02/17 12:00 Room Air 09/02/17 11:30 36.7 78 18 133/75 (94) 90 Room Air Physical Exam: GENERAL: Patient is in no acute distress. HEENT: No acute trauma, normocephalic atraumatic, mucous membranes moist, no nasal congestion, no scleral icterus, conjunctivae clear NECK: No stridor, trachea is midline, no jvd. LUNGS: Clear to auscultation bilaterally, no wheeze, no rhonchi, breath sounds equal. HEART: Without murmurs gallops or rubs, regular rate and rhythm. ABDOMEN: Soft, nontender, bowel sounds positive, obese EXTREMITIES: No cyanosis or edema, RUE in splint NEUROLOGIC: Oriented x 3, no acute motor or sensory deficits, no focal weakness. SKIN: No rash, no jaundice, no diaphoresis. Laboratory Results: Last 24 Hours Test 09/02/17 06:09 White Blood Count 11.36 K/uL Red Blood Count 3.39 M/uL Hemoglobin 10.2 g/dL Hematocrit 32.1 % Mean Corpuscular Volume 94.7 fL Mean Corpuscular Hemoglobin 30.1 pg Mean Corpuscular Hemoglobin Concent 31.8 g/dl RDW Standard Deviation 47.0 fL RDW Coefficient of Variation 13.6 % Platelet Count 380 K/uL Mean Platelet Volume 9.4 fL Prothrombin Time 11.6 SECONDS Prothromb Time International Ratio 1.1 Sodium Level 138 mmol/L Potassium Level 3.5 mmol/L Chloride Level 106 mmol/L Carbon Dioxide Level 26 mmol/L Anion Gap 6.0 mmol/L Blood Urea Nitrogen 18 mg/dl Creatinine 0.90 mg/dl Est Creatinine Clear Calc Drug Dose 50.0 ml/min Estimated GFR () 70.0 Estimated GFR (Non- 60.4 BUN/Creatinine Ratio 20.2 Random Glucose 143 mg/dl Calcium Level 8.6 mg/dl Assessment & Plan CHEST PAIN; LIKELY SECONDARY TO PULMONARY EMBOLISM -risk factor recent surgery -on coumadin + Lovenox bridge -check PTINR daily -serial CM negative x 3 -TTE Report: * -- Conclusions -- * The left ventricle is normal in size. * The left ventricular wall motion is normal. * The LV Ejection Fraction = 60-65%. * The right ventricle is normal in size and function. * Mild pulmonary hypertension is present. * The pulmonary artery systolic pressure is calculated to be 45 mm Hg, assuming a right atrial pressure of 3 mm Hg. * There is a non mobile 1 cm x 1 cm echogenicity in the right atrium adherent to the interatrial septum. * This could be due to reverberation artifact from the adjacent tricuspid annulus however, mass or thrombus cannot be excluded. -the echogenic structure was present on the repeat TTE done with agitated saline and patient will need a Cardiac MRI or JOYCE to further characterize this, will discuss this with Cardiology RIGHT OLECRANON FRACTURE: S/P ORIF -patient reports discomfort with her cast; -Ortho consulted and removed the cast and wrapped in a splint which has helped the pain, patient to follow up on Tuesday for re-evaluation a possible re- casting HTN: -continue Metoprolol, Losartan -controlled HYPOTHYROIDISM: -continue levothyroxine ANXIETY/DEPRESSION: -has not been controlled per patient despite being on medications as an outpatient; patient has been encouraged to see a Psychiatrist but denies the need for now -continue ativan, buspirone, and effexor Current Inpatient Medications: Current Inpatient Medications Medications (Trade) Dose Ordered Sig/Ana Route Start Time Stop Time Status Last Admin Dose Admin Ioversol (Optiray 320) 100 ml UD PRN IV 09/01/17 04:00 09/05/17 03:59 Enoxaparin Sodium (Lovenox Inj) 90 mg Q12H SQ 09/01/17 18:00 10/01/17 17:59 09/02/17 17:57 90 MG Amlodipine Besylate (Norvasc Tab) 2.5 mg DAILY PO 09/01/17 11:00 10/01/17 10:59 09/02/17 07:51 2.5 MG Baclofen (Lioresal Tab) 10 mg HS PO 09/01/17 21:00 10/01/17 20:59 09/01/17 20:28 10 MG Buspirone HCl (Buspar Tab) 5 mg BID PO 09/01/17 11:00 10/01/17 10:59 09/02/17 07:51 5 MG Docusate Sodium (coLACE CAP) 100 mg BID PO 09/01/17 11:00 10/01/17 10:59 09/02/17 07:51 100 MG Levothyroxine Sodium (Synthroid Tab) 100 mcg DAILYBB PO 09/02/17 06:30 10/02/17 06:29 09/02/17 05:44 100 MCG Lorazepam (Ativan Tab) 0.5 mg Q6H PRN PO 09/01/17 08:30 10/01/17 08:29 09/02/17 18:19 0.5 MG Losartan Potassium (coZAAR TAB) 100 mg DAILY PO 09/01/17 11:00 10/01/17 10:59 09/02/17 07:50 100 MG Meclizine HCl (Antivert Tab) 25 mg TID PRN PO 09/01/17 08:30 10/01/17 08:29 Metoprolol Succinate (Toprol Xl Tab) 50 mg DAILY PO 09/01/17 11:00 10/01/17 10:59 09/02/17 07:52 50 MG Multivitamins/ Minerals (Multivitamin W/ Minerals Tab) 1 tab DAILY PO 09/01/17 11:00 10/01/17 10:59 09/02/17 07:50 1 TAB Pantoprazole Sodium (Protonix Tab) 40 mg QAM PO 09/01/17 09:00 10/01/17 08:59 09/02/17 07:50 40 MG Senna (Senokot Tab) 8.6 mg HS PO 09/01/17 21:00 10/01/17 20:59 09/01/17 20:28 8.6 MG Simvastatin (Zocor Tab) 20 mg HS PO 09/01/17 21:00 10/01/17 20:59 09/01/17 20:28 20 MG Tramadol HCl (Ultram Tab) 50 mg Q8H PRN PO 09/01/17 08:30 10/01/17 08:29 09/02/17 07:55 50 MG Venlafaxine HCl (effeXOR EXTENDED REL CAP) 75 mg QPM PO 09/01/17 21:00 10/01/17 20:59 09/01/17 20:28 75 MG Venlafaxine HCl (effeXOR EXTENDED REL CAP) 150 mg PM PO 09/01/17 21:00 10/01/17 20:59 09/01/17 20:28 150 MG Oxycodone HCl (Roxicodone Immediate Rel Tab) Can give 5 mg for pain ra... Q4H PRN PO 09/01/17 12:00 09/15/17 08:29 09/02/17 17:55 10 MG Warfarin Sodium (Coumadin Tab) 5 mg DAILY@16 PO 09/02/17 16:00 10/02/17 15:59 09/02/17 16:14 5 MG Menthol (Nice Evelin) 1 evelin PRN PRN PO 09/02/17 15:15 10/02/17 15:14
--- NOTE | 2017-09-02 19:08 | NUR ---
A/ID: Pt is a 82 y/o female admited with pulmonary embolism. Currently on coumadin and lovenox bridge. INR 1.1 today. NSR on monitor. Currently denies pain. A/O x4, anxious. Lungs are clear on RA. States has intermittent SOB. Tolerating diet well. +constipation, stool softners ordered. OOB x1 assist. Pt/OT ordered. Splint to R wrist, sling while oob. +pulses, denies N/T. L hand SL. Pt is from independent in living, lives alone. Indpendent with aDLS at baseline. No discharge plans at this time.
[2017-09-02] MEDS: SENNA 8.6 MG TAB PO SCH (20:50)
[2017-09-02] MEDS: SIMVASTATIN 20 MG TAB PO SCH (20:50)
[2017-09-02] MEDS: BACLOFEN 10 MG TAB PO SCH (20:50)
[2017-09-02] MEDS: VENLAFAXINE HCL XR 75 MG CAPXR PO SCH (20:51)
[2017-09-02] MEDS: VENLAFAXINE HCL XR 150 MG CAPXR PO SCH (20:51)
[2017-09-03] VITALS (7 sets, daily range): BP systolic 110–170; BP diastolic 54–97; PULSE 62–80; TEMP 36.6–36.9; O2SAT 90–96
--- NOTE | 2017-09-03 | NUR ---
A: Patient is resting well. No complaints of pain or signs of distress. No signs of anxiety at this time. Patient remains on the hand polisher- NSR- no acute changes. Bed alarm on for patient safety. Right arm dressing intact. Will continue to monitor and assess patient.
--- NOTE | 2017-09-03 04:00 | NUR ---
A: Patient is resting well. No complaints of pain or signs of distress. Remains on the cardiac cath tech with no acute changes. Will continue to monitor and assess patient.
[2017-09-03] MEDS: LEVOTHYROXINE 100 MCG TAB PO SCH (05:30)
[2017-09-03] MEDS: ENOXAPARIN 100 MG/1ML SYR SQ SCH ×2 (05:30→17:37)
[2017-09-03 07:05] LABS: INR 1.2 (0.9-1.1)
--- NOTE | 2017-09-03 08:00 | NUR ---
A: Patient resting in bed with morning, denies pain. states she slept well overnight. VSS. Patient with no signs of anxiety.
[2017-09-03] MEDS: DOCUSATE SODIUM 100 MG CAP PO SCH ×2 (09:12→20:21)
[2017-09-03] MEDS: AMLODIPINE BESYLATE 5 MG TAB PO SCH (09:14)
[2017-09-03] MEDS: PANTOprazole SOD 40 MG TAB PO SCH (09:14)
[2017-09-03] MEDS: METOPROLOL SUCC 50MG EXT REL TAB PO SCH (09:14)
[2017-09-03] MEDS: CEROVITE ADV FORMULA TAB PO SCH (09:14)
[2017-09-03] MEDS: LOSARTAN POTASSIUM 50 MG TAB PO SCH (09:14)
--- NOTE | 2017-09-03 12:00 | NUR ---
A: Patient assessment unchanged at this time. Resting in bed with no complaints at this time.
--- NOTE | 2017-09-03 16:00 | NUR ---
A: Patient sleeping, assessment unchanged. NSR on monitor. VSS. arm elevated on pillows.
[2017-09-03] MEDS: WARFARIN SOD 5 MG TAB PO SCH (16:30)
[2017-09-03] MEDS ORDERED: POLYETHYLENE (MIRALAX) 17 GM PACK PO PRN (17:15)
[2017-09-03] MEDS: OXYCODONE HCL IR 5 MG TAB (IMMEDIATE RELEASE) PO PRN ×2 (17:21→21:50)
--- NOTE | 2017-09-03 17:30 | NUR ---
A: Patient with severe anxiety while MD at bedside for evaluation. Patient states "I do not want to be live alone ever again", patient states she feels like "something bad will happen to me and noone will be with me". Patient states she feels scared and has anxiety often. Tearful. Patient agreeable to see psych for consult while in hospital. Dr. Avila at bedside and stated she would call. This RN gave patient ativan for anxiety and sat with patient to provide comfort and allow patient to express her feelings.
[2017-09-03] MEDS: LORAZEPAM 0.5 MG TAB PO PRN (17:36)
--- NOTE | 2017-09-03 17:44 | Progress Note ---
Medicine Progress Note Date & Time of Visit: Sep 03, 2017 at 17:41. Subjective Patient had an anxiety attack while getting ready for her meal, she became very worried and panicky about being alone at home and worrying what would happen to her. She is agreeable to talk with Psych regarding this and titration of her meds. No overnight events noted. Pain is controlled. Objective Last 8 Hrs Date Time Temp Pulse Resp B/P (MAP) Pulse Ox O2 Delivery O2 Flow Rate FiO2 09/03/17 15:45 Room Air 09/03/17 14:53 36.7 62 18 120/80 (93) 94 Room Air 09/03/17 12:00 Room Air 09/03/17 11:47 36.7 79 18 138/78 (98) 94 Room Air 09/03/17 11:08 80 95 Physical Exam: GENERAL: Patient is in no acute distress. HEENT: No acute trauma, normocephalic atraumatic, mucous membranes moist, no nasal congestion, no scleral icterus, conjunctivae clear NECK: No stridor, trachea is midline, no jvd. LUNGS: Clear to auscultation bilaterally, no wheeze, no rhonchi, breath sounds equal. HEART: Without murmurs gallops or rubs, regular rate and rhythm. ABDOMEN: Soft, nontender, bowel sounds positive, obese EXTREMITIES: No cyanosis or edema, RUE in splint NEUROLOGIC: Oriented x 3, no acute motor or sensory deficits, no focal weakness. SKIN: No rash, no jaundice, no diaphoresis. Laboratory Results: Last 24 Hours Test 09/03/17 06:07 Prothrombin Time 12.8 SECONDS Prothromb Time International Ratio 1.2 Assessment & Plan CHEST PAIN; LIKELY SECONDARY TO PULMONARY EMBOLISM -risk factor recent surgery -on coumadin + Lovenox bridge -check PTINR daily -serial CM negative x 3 -TTE Report: * -- Conclusions -- * The left ventricle is normal in size. * The left ventricular wall motion is normal. * The LV Ejection Fraction = 60-65%. * The right ventricle is normal in size and function. * Mild pulmonary hypertension is present. * The pulmonary artery systolic pressure is calculated to be 45 mm Hg, assuming a right atrial pressure of 3 mm Hg. * There is a non mobile 1 cm x 1 cm echogenicity in the right atrium adherent to the interatrial septum. * This could be due to reverberation artifact from the adjacent tricuspid annulus however, mass or thrombus cannot be excluded. -the echogenic structure was present on the repeat TTE done with agitated saline and patient will need a Cardiac MRI or JOYCE to further characterize this, will discuss this with Cardiology RIGHT OLECRANON FRACTURE: S/P ORIF -patient reports discomfort with her cast; -Ortho consulted and removed the cast and wrapped in a splint which has helped the pain, patient to follow up on Tuesday for re-evaluation a possible re- casting HTN: -continue Metoprolol, Losartan -controlled HYPOTHYROIDISM: -continue levothyroxine ANXIETY/DEPRESSION: -has not been controlled per patient despite being on medications as an outpatient; patient has been encouraged to see a Psychiatrist but denies the need -patient has been extremely tearful and anxious and is interested in speaking with Psych/Mental health and agreeable to any suggestions they may have; she is extremely scared of living alone and also reports feel claustrophobic in the room at times. She becomes shaky, tearful, and hyperventilates during the attacks and also reports feeling left side chest pain when she becomes anxious this way. -continue ativan, buspirone, and effexor Current Inpatient Medications: Current Inpatient Medications Medications (Trade) Dose Ordered Sig/Ana Route Start Time Stop Time Status Last Admin Dose Admin Ioversol (Optiray 320) 100 ml UD PRN IV 09/01/17 04:00 09/05/17 03:59 Enoxaparin Sodium (Lovenox Inj) 90 mg Q12H SQ 09/01/17 18:00 10/01/17 17:59 09/03/17 05:30 90 MG Amlodipine Besylate (Norvasc Tab) 2.5 mg DAILY PO 09/01/17 11:00 10/01/17 10:59 09/03/17 09:14 2.5 MG Baclofen (Lioresal Tab) 10 mg HS PO 09/01/17 21:00 10/01/17 20:59 09/02/17 20:50 10 MG Buspirone HCl (Buspar Tab) 5 mg BID PO 09/01/17 11:00 10/01/17 10:59 09/03/17 09:12 5 MG Docusate Sodium (coLACE CAP) 100 mg BID PO 09/01/17 11:00 10/01/17 10:59 09/03/17 09:12 100 MG Levothyroxine Sodium (Synthroid Tab) 100 mcg DAILYBB PO 09/02/17 06:30 10/02/17 06:29 09/03/17 05:30 100 MCG Lorazepam (Ativan Tab) 0.5 mg Q6H PRN PO 09/01/17 08:30 10/01/17 08:29 09/02/17 18:19 0.5 MG Losartan Potassium (coZAAR TAB) 100 mg DAILY PO 09/01/17 11:00 10/01/17 10:59 09/03/17 09:14 100 MG Meclizine HCl (Antivert Tab) 25 mg TID PRN PO 09/01/17 08:30 10/01/17 08:29 Metoprolol Succinate (Toprol Xl Tab) 50 mg DAILY PO 09/01/17 11:00 10/01/17 10:59 09/03/17 09:14 50 MG Multivitamins/ Minerals (Multivitamin W/ Minerals Tab) 1 tab DAILY PO 09/01/17 11:00 10/01/17 10:59 09/03/17 09:14 1 TAB Pantoprazole Sodium (Protonix Tab) 40 mg QAM PO 09/01/17 09:00 10/01/17 08:59 09/03/17 09:14 40 MG Senna (Senokot Tab) 8.6 mg HS PO 09/01/17 21:00 10/01/17 20:59 09/02/17 20:50 8.6 MG Simvastatin (Zocor Tab) 20 mg HS PO 09/01/17 21:00 10/01/17 20:59 09/02/17 20:50 20 MG Tramadol HCl (Ultram Tab) 50 mg Q8H PRN PO 09/01/17 08:30 10/01/17 08:29 09/02/17 07:55 50 MG Venlafaxine HCl (effeXOR EXTENDED REL CAP) 75 mg QPM PO 09/01/17 21:00 10/01/17 20:59 09/02/17 20:51 75 MG Venlafaxine HCl (effeXOR EXTENDED REL CAP) 150 mg PM PO 09/01/17 21:00 10/01/17 20:59 09/02/17 20:51 150 MG Oxycodone HCl (Roxicodone Immediate Rel Tab) Can give 5 mg for pain ra... Q4H PRN PO 09/01/17 12:00 09/15/17 08:29 09/03/17 17:21 10 MG Warfarin Sodium (Coumadin Tab) 5 mg DAILY@16 PO 09/02/17 16:00 10/02/17 15:59 09/03/17 16:30 5 MG Menthol (Nice Evelin) 1 evelin PRN PRN PO 09/02/17 15:15 10/02/17 15:14 Polyethylene (Miralax Powder Packet) 17 gm DAILY PRN PO 09/03/17 17:15 10/03/17 17:14
--- NOTE | 2017-09-03 20:00 | NUR ---
A: Assessment completed see EMR. Pt is A&Ox4 and is OOB with an assist of one in the room. Pt admitted with pulmonary embolism. Pt has no complaints at this time. Pt was anxious before my shift per off going nurse, however pt now presenting to be calm and is able to converse appropriately. Vitals WNL. Trace edema noted to pts BLE. Right are wrapped in an siri bandage and sling. Capillary refills WNL, pt able to move finger appropriately, and denies any pain in the arm at this time. Pt presents with sinus rhythm on the monitor. Pt is a high fall risk. Call michelle within reach, pt encouraged to ring and bed alarm in use. Pt is from [facility] but states that she no longer wants to live alone. No discharge date at this time.
[2017-09-03] MEDS: VENLAFAXINE HCL XR 150 MG CAPXR PO SCH (20:21)
[2017-09-03] MEDS: SIMVASTATIN 20 MG TAB PO SCH (20:21)
[2017-09-03] MEDS: SENNA 8.6 MG TAB PO SCH (20:21)
[2017-09-03] MEDS: BACLOFEN 10 MG TAB PO SCH (20:21)
[2017-09-03] MEDS: VENLAFAXINE HCL XR 75 MG CAPXR PO SCH (20:22)
--- NOTE | 2017-09-04 | NUR ---
A: Assessment completed see EMR. Pt is resting at this time with no complaints. Vitals WNL. Pt presents with sinus rhythm with IVCD on the monitor. Call michelle within reach, pt encouraged to ring and bed alarm in use.
--- NOTE | 2017-09-04 04:00 | NUR ---
A: Assessment completed see EMR. Pt is resting at this time with no complaints. Vitals WNL. Pt presents with sinus rhythm on the monitor. Call michelle within reach, pt encouraged to ring and bed alarm in use.
[2017-09-04] MEDS: OXYCODONE HCL IR 5 MG TAB (IMMEDIATE RELEASE) PO PRN ×3 (05:04→21:15)
[2017-09-04] MEDS: ENOXAPARIN 100 MG/1ML SYR SQ SCH ×2 (05:05→16:52)
[2017-09-04 05:24] VITALS: BP 133/72; PULSE 73; TEMP 36.7; O2SAT 94
[2017-09-04] MEDS: LEVOTHYROXINE 100 MCG TAB PO SCH (06:05)
[2017-09-04 06:53] LABS: HEMATOCRIT 33.6 % (37-47); HEMOGLOBIN 10.8 g/dL (12.0-16.0); MEAN CELL VOLUME 94.1 fL (80-100); MEAN CORPUSCULAR HEMOGLOBIN 30.3 pg (25-34); MEAN CORPUSCULAR HGB CONC 32.1 g/dl (32-36); MEAN PLATELET VOLUME 9.4 fL (7.4-10.4); PLATELET COUNT 445 K/uL (130-400); RED CELL DISTRIBUTION WIDTH CV 13.4 % (11.5-14.5); RED CELL DISTRIBUTION WIDTH SD 45.9 fL (36.4-46.3); WHITE BLOOD COUNT 9.12 K/uL (4.8-10.8)
[2017-09-04 07:03] LABS: INR 1.3 (0.9-1.1)
[2017-09-04 07:16] VITALS: BP 160/73; PULSE 68; TEMP 36.7; O2SAT 95
[2017-09-04 07:26] LABS: CREATININE 0.84 mg/dl (0.60-1.20)
--- NOTE | 2017-09-04 08:00 | NUR ---
A: Patient oob to chair this morning, comfortable denies pain, patient in good spirits having no anxiety at this time. Patient excited to visit sister this morning who is admitted 2W. VSS. NSR on monitor.
[2017-09-04] MEDS: CEROVITE ADV FORMULA TAB PO SCH (08:47)
[2017-09-04] MEDS: LOSARTAN POTASSIUM 50 MG TAB PO SCH (08:47)
[2017-09-04] MEDS: DOCUSATE SODIUM 100 MG CAP PO SCH ×2 (08:47→21:17)
[2017-09-04] MEDS: PANTOprazole SOD 40 MG TAB PO SCH (08:47)
[2017-09-04] MEDS: METOPROLOL SUCC 50MG EXT REL TAB PO SCH (08:47)
[2017-09-04] MEDS: AMLODIPINE BESYLATE 5 MG TAB PO SCH (08:48)
--- NOTE | 2017-09-04 10:37 | NUR ---
PSYCHIATRIC LIAISON NURSE: Attempted twice to meet with patient but she was out of the room. Asked primary nurse to call me when she returns so that I can meet with her Addendum: 09/04/17 at 1144 by Noni Andrade RN Met with patient and he had a good conversation. She is very resistant to psychiatry involvement but does recognize she is struggling with Depression and Anxiety. She scored a 15 on PHQ-9 depression screening. She reports that Dr. Mazariegos is prescribing her medications and she would like for it to remain that way. She did sign an RODY for Dr. Mazariegos and will fax psychiatric consultation to him. She is struggling with further loss of independence due to worsening vision issues with Macular Degeneration and she fell and broke her wrist. She lives in her own apartment at [facility] where she does feel she has social support and has family close by as well. She is open to speaking with the psychiatrist about medication changes. Will continue to follow and support her
--- NOTE | 2017-09-04 12:00 | NUR ---
A: Patient with anxiety this afternoon, patient feels closed in, requests to have a room change. Patient tearful. Psych to see patient. VSS.
[2017-09-04] MEDS: LORAZEPAM 0.5 MG TAB PO PRN (13:54)
[2017-09-04 14:40] VITALS: BP 133/59; PULSE 68; TEMP 36.6; O2SAT 95
--- NOTE | 2017-09-04 16:00 | NUR ---
A: Patient sleeping. VSS. NSR. Psych eval by Dr. Marina this afternoon.
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
[2017-09-04] MEDS: WARFARIN SOD 5 MG TAB PO SCH (16:51)
--- NOTE | 2017-09-04 18:58 | Progress Note ---
Medicine Progress Note Date & Time of Visit: Sep 04, 2017 at 18:58. Subjective Patient states she feels ok, denies any new complaints other than occasional pain in her arm. No overnight events noted. Still has some panic attacks but feels as though Psych would not help her as she feels uncomfortable. Objective Last 8 Hrs Date Time Temp Pulse Resp B/P (MAP) Pulse Ox O2 Delivery O2 Flow Rate FiO2 09/04/17 15:45 Room Air 09/04/17 14:40 36.6 68 18 133/59 (83) 95 09/04/17 12:00 Room Air Physical Exam: GENERAL: Patient is in no acute distress. HEENT: No acute trauma, normocephalic atraumatic, mucous membranes moist, no nasal congestion, no scleral icterus, conjunctivae clear NECK: No stridor, trachea is midline, no jvd. LUNGS: Clear to auscultation bilaterally, no wheeze, no rhonchi, breath sounds equal. HEART: Without murmurs gallops or rubs, regular rate and rhythm. ABDOMEN: Soft, nontender, bowel sounds positive, obese EXTREMITIES: No cyanosis or edema, RUE in splint NEUROLOGIC: Oriented x 3, no acute motor or sensory deficits, no focal weakness. SKIN: No rash, no jaundice, no diaphoresis. Laboratory Results: Last 24 Hours Test 09/04/17 06:38 09/04/17 16:28 White Blood Count 9.12 K/uL Red Blood Count 3.57 M/uL Hemoglobin 10.8 g/dL Hematocrit 33.6 % Mean Corpuscular Volume 94.1 fL Mean Corpuscular Hemoglobin 30.3 pg Mean Corpuscular Hemoglobin Concent 32.1 g/dl RDW Standard Deviation 45.9 fL RDW Coefficient of Variation 13.4 % Platelet Count 445 K/uL Mean Platelet Volume 9.4 fL Prothrombin Time 14.0 SECONDS Prothromb Time International Ratio 1.3 Creatinine 0.84 mg/dl Est Creatinine Clear Calc Drug Dose 53.8 ml/min Estimated GFR () 76.1 Estimated GFR (Non- 65.6 Bedside Glucose 120 mg/dl Assessment & Plan CHEST PAIN; LIKELY SECONDARY TO PULMONARY EMBOLISM -risk factor recent surgery -on coumadin + Lovenox bridge -check PTINR daily -serial CM negative x 3 -TTE Report: * -- Conclusions -- * The left ventricle is normal in size. * The left ventricular wall motion is normal. * The LV Ejection Fraction = 60-65%. * The right ventricle is normal in size and function. * Mild pulmonary hypertension is present. * The pulmonary artery systolic pressure is calculated to be 45 mm Hg, assuming a right atrial pressure of 3 mm Hg. * There is a non mobile 1 cm x 1 cm echogenicity in the right atrium adherent to the interatrial septum. * This could be due to reverberation artifact from the adjacent tricuspid annulus however, mass or thrombus cannot be excluded. -the echogenic structure was present on the repeat TTE done with agitated saline and patient will need a Cardiac MRI or JOYCE to further characterize this, will discuss this with Cardiology; this was found to most likely be the patient' s anatomy but should have outpatient follow up with a repeat TTE and possibly further testing if needed (likely after 6 months) RIGHT OLECRANON FRACTURE: S/P ORIF -patient reports discomfort with her cast; -Ortho consulted and removed the cast and wrapped in a splint which has helped the pain, patient to follow up on Tuesday for re-evaluation a possible re- casting HTN: -continue Metoprolol, Losartan -controlled HYPOTHYROIDISM: -continue levothyroxine ANXIETY/DEPRESSION: -has not been controlled per patient despite being on medications as an outpatient; patient has been encouraged to see a Psychiatrist but denies the need -patient has been extremely tearful and anxious and is interested in speaking with Psych/Mental health and agreeable to any suggestions they may have; she is extremely scared of living alone and also reports feel claustrophobic in the room at times. She becomes shaky, tearful, and hyperventilates during the attacks and also reports feeling left side chest pain when she becomes anxious this way. -continue ativan, buspirone, and effexor -patient states she does not want to follow with Psych anymore and she wants her PCP to manage her medications despite her PCP encouraging her to see Psych as an outpatient Current Inpatient Medications: Current Inpatient Medications Medications (Trade) Dose Ordered Sig/Ana Route Start Time Stop Time Status Last Admin Dose Admin Ioversol (Optiray 320) 100 ml UD PRN IV 09/01/17 04:00 09/05/17 03:59 Enoxaparin Sodium (Lovenox Inj) 90 mg Q12H SQ 09/01/17 18:00 10/01/17 17:59 09/04/17 16:52 90 MG Amlodipine Besylate (Norvasc Tab) 2.5 mg DAILY PO 09/01/17 11:00 10/01/17 10:59 09/04/17 08:48 2.5 MG Baclofen (Lioresal Tab) 10 mg HS PO 09/01/17 21:00 10/01/17 20:59 09/03/17 20:21 10 MG Buspirone HCl (Buspar Tab) 5 mg BID PO 09/01/17 11:00 10/01/17 10:59 09/04/17 08:48 5 MG Docusate Sodium (coLACE CAP) 100 mg BID PO 09/01/17 11:00 10/01/17 10:59 09/04/17 08:47 100 MG Levothyroxine Sodium (Synthroid Tab) 100 mcg DAILYBB PO 09/02/17 06:30 10/02/17 06:29 09/04/17 06:05 100 MCG Lorazepam (Ativan Tab) 0.5 mg Q6H PRN PO 09/01/17 08:30 10/01/17 08:29 09/04/17 13:54 0.5 MG Losartan Potassium (coZAAR TAB) 100 mg DAILY PO 09/01/17 11:00 10/01/17 10:59 09/04/17 08:47 100 MG Meclizine HCl (Antivert Tab) 25 mg TID PRN PO 09/01/17 08:30 10/01/17 08:29 Metoprolol Succinate (Toprol Xl Tab) 50 mg DAILY PO 09/01/17 11:00 10/01/17 10:59 09/04/17 08:47 50 MG Multivitamins/ Minerals (Multivitamin W/ Minerals Tab) 1 tab DAILY PO 09/01/17 11:00 10/01/17 10:59 09/04/17 08:47 1 TAB Pantoprazole Sodium (Protonix Tab) 40 mg QAM PO 09/01/17 09:00 10/01/17 08:59 09/04/17 08:47 40 MG Senna (Senokot Tab) 8.6 mg HS PO 09/01/17 21:00 10/01/17 20:59 09/03/17 20:21 8.6 MG Simvastatin (Zocor Tab) 20 mg HS PO 09/01/17 21:00 10/01/17 20:59 09/03/17 20:21 20 MG Tramadol HCl (Ultram Tab) 50 mg Q8H PRN PO 09/01/17 08:30 10/01/17 08:29 09/02/17 07:55 50 MG Venlafaxine HCl (effeXOR EXTENDED REL CAP) 75 mg QPM PO 09/01/17 21:00 10/01/17 20:59 09/03/17 20:22 75 MG Venlafaxine HCl (effeXOR EXTENDED REL CAP) 150 mg PM PO 09/01/17 21:00 10/01/17 20:59 09/03/17 20:21 150 MG Oxycodone HCl (Roxicodone Immediate Rel Tab) Can give 5 mg for pain ra... Q4H PRN PO 09/01/17 12:00 09/15/17 08:29 09/04/17 13:57 10 MG Warfarin Sodium (Coumadin Tab) 5 mg DAILY@16 PO 09/02/17 16:00 10/02/17 15:59 09/04/17 16:51 5 MG Menthol (Nice Evelin) 1 evelin PRN PRN PO 09/02/17 15:15 10/02/17 15:14 Polyethylene (Miralax Powder Packet) 17 gm DAILY PRN PO 09/03/17 17:15 10/03/17 17:14
[2017-09-04 19:02] VITALS: BP 119/72; PULSE 72; TEMP 36.8; O2SAT 97
--- NOTE | 2017-09-04 20:00 | NUR ---
A: Assessment completed see EMR. Pt is A&Ox4 and is OOB with an assist of one in the room. Pt admitted with pulmonary embolism. Pt has no complaints at this time. Vitals WNL. +1 pitting edema noted to pts BLE. Right arm wrapped in an siri bandage and sling. Capillary refills WNL, pt able to move finger appropriately, and denies any pain in the arm at this time. Pt presents with sinus rhythm on the monitor. Pt is a high fall risk. Call michelle within reach, pt encouraged to ring and bed alarm in use. Pt is from [facility] but states that she no longer wants to live alone. Pt was seen by psych 09/04/17 and told the psych doctor that she did not want her medication changed at this time. However, she did state to previous nurse and to me as well that she would like it changed. Will notify morning provider of pts request. No discharge date at this time.
[2017-09-04] MEDS: SIMVASTATIN 20 MG TAB PO SCH (21:17)
[2017-09-04] MEDS: VENLAFAXINE HCL XR 75 MG CAPXR PO SCH (21:17)
[2017-09-04] MEDS: SENNA 8.6 MG TAB PO SCH (21:17)
[2017-09-04] MEDS: BACLOFEN 10 MG TAB PO SCH (21:17)
[2017-09-04] MEDS: VENLAFAXINE HCL XR 150 MG CAPXR PO SCH (21:17)
[2017-09-04 23:25] VITALS: BP 137/75; PULSE 68; TEMP 36.4; O2SAT 94
[2017-09-05] VITALS (7 sets, daily range): BP systolic 110–179; BP diastolic 56–80; PULSE 62–75; TEMP 36.4–36.8; O2SAT 95–96
[2017-09-05] MEDS: OXYCODONE HCL IR 5 MG TAB (IMMEDIATE RELEASE) PO PRN ×4 (03:00→23:59)
[2017-09-05] MEDS: LEVOTHYROXINE 100 MCG TAB PO SCH (06:11)
[2017-09-05] MEDS: ENOXAPARIN 100 MG/1ML SYR SQ SCH ×2 (06:11→18:02)
[2017-09-05 06:55] LABS: INR 1.6 (0.9-1.1)
[2017-09-05] MEDS: AMLODIPINE BESYLATE 5 MG TAB PO SCH (07:33)
[2017-09-05] MEDS: DOCUSATE SODIUM 100 MG CAP PO SCH ×2 (07:33→20:32)
[2017-09-05] MEDS: METOPROLOL SUCC 50MG EXT REL TAB PO SCH (07:34)
[2017-09-05] MEDS: PANTOprazole SOD 40 MG TAB PO SCH (07:35)
[2017-09-05] MEDS: CEROVITE ADV FORMULA TAB PO SCH (07:35)
[2017-09-05] MEDS: LOSARTAN POTASSIUM 50 MG TAB PO SCH (07:36)
--- NOTE | 2017-09-05 08:00 | NUR ---
A: pt is alert and oriented x4. having some pain in right arm. see emar. SR on lunchroom monitor. pt up to chair, watching tv. see emar for full cook morning. call michelle in reach. will continue to monitor the patient.
--- NOTE | 2017-09-05 10:11 | NUR ---
PSYCHIATRIC LIAISON NURSE: Met with patient, her room was moved. She reports not being interested in any psychiatric services and prefers that our team not continue to visit her. She did however state that she is interested in her Buspar being increased and did speak to her primary physician regarding this interest. If patient changes her mind and would like the psychiatric team to resume following her please let us know.
--- NOTE | 2017-09-05 12:00 | NUR ---
A: pt is alert and oriented x4. no complaints of pain or sob. sr on quality assurance monitor final. pt resting in the chair. see emr for full boot turner. call michelle in reach. will continue to monitor the patient.
--- NOTE | 2017-09-05 13:49 | NUR ---
quiq to Dr. Avila: [id number] Yovana Melgoza is having itching around her cast. Please can I get PO Benadryl PRN? Thanks Jason ORTIZ [phone]
--- NOTE | 2017-09-05 14:56 | Psychiatric Consultation ---
Psychiatric Consultation Date of Service: Sep 04, 2017. psychiatric consulation done on 09/04/2017 was documented under heading of psychiatric h and P, please see that note for details of the consultation
--- NOTE | 2017-09-05 14:58 | Psychiatric Consultation ---
Psychiatric Consultation Date of Service: Sep 05, 2017. pt was open to raising buspar dose to aim to better alleviate her anxiety symptoms. raised buspar to 10mg po bid
[2017-09-05] MEDS ORDERED: hydrOXYzine HCL 10 MG TAB PO PRN (15:15)
--- NOTE | 2017-09-05 16:00 | NUR ---
A: Pt in sinus rhythm with IVCD on the monitor. Denies chest pain or SOB at this time. Pt in soft cast at this time. Pt is A&Ox4. Denies pain in the arm which sustained the injury. See EMR for full assessment. Will continue to monitor.
[2017-09-05] MEDS: WARFARIN SOD 5 MG TAB PO SCH (16:02)
--- NOTE | 2017-09-05 20:00 | NUR ---
A: Assessment unchanged. Pt remains in sinus rhythm. Denies pain but is having difficulty getting comfortable. Assistance provided PRN. Pt is pleasant with care. VSS on RA. Pt is to start increased dose of buspar tonight. Denies SOB. Ambulatory with 1 assist. Vision limited due to history of macular degeneration. Will continue to monitor.
[2017-09-05] MEDS: SENNA 8.6 MG TAB PO SCH (20:32)
[2017-09-05] MEDS: VENLAFAXINE HCL XR 150 MG CAPXR PO SCH (20:34)
[2017-09-05] MEDS: BACLOFEN 10 MG TAB PO SCH (20:34)
[2017-09-05] MEDS: VENLAFAXINE HCL XR 75 MG CAPXR PO SCH (20:34)
[2017-09-05] MEDS: SIMVASTATIN 20 MG TAB PO SCH (20:34)
--- NOTE | 2017-09-05 22:17 | NUR ---
Pt. has collection hat placed in toilet, pt. missed hat when voiding. Addendum: 09/05/17 at 2218 by Keira VAIL Amended: Links added.
[2017-09-06] VITALS (11 sets, daily range): BP systolic 118–175; BP diastolic 63–83; PULSE 62–72; TEMP 36.4–36.9; O2SAT 93–97
--- NOTE | 2017-09-06 | NUR ---
A: Assessment completed see EMR. Pt is A&Ox4 and is OOB with an assist of one in the room. Pt admitted with pulmonary embolism. Pt has no complaints at this time. Vitals WNL. +1 pitting edema noted to pts BLE. Right arm wrapped in an siri bandage and sling. Capillary refills WNL, pt able to move finger appropriately, and denies any pain in the arm at this time. Pt presents with sinus rhythm on the monitor. Pt is a high fall risk. Call michelle within reach, pt encouraged to ring and bed alarm in use. Pt is from [facility] but states that she no longer wants to live alone. No discharge date at this time.
[2017-09-06] MEDS: ENOXAPARIN 100 MG/1ML SYR SQ SCH ×2 (05:18→17:46)
[2017-09-06] MEDS: LEVOTHYROXINE 100 MCG TAB PO SCH (05:18)
[2017-09-06 06:01] LABS: INR 1.8 (0.9-1.1)
--- NOTE | 2017-09-06 08:00 | NUR ---
A: Pt is alert and oriented x 4. Pt states rt arm is painful but does not need pain med at this time. Pt has good CMS to rt hand. Pt is Sinus rhythm on monitor. Pt fed self 100% for breakfast and tolerated well.
[2017-09-06] MEDS: CEROVITE ADV FORMULA TAB PO SCH (08:07)
[2017-09-06] MEDS: LOSARTAN POTASSIUM 50 MG TAB PO SCH (08:07)
[2017-09-06] MEDS: DOCUSATE SODIUM 100 MG CAP PO SCH ×2 (08:08→20:48)
[2017-09-06] MEDS: AMLODIPINE BESYLATE 5 MG TAB PO SCH (08:09)
[2017-09-06] MEDS: PANTOprazole SOD 40 MG TAB PO SCH (08:09)
[2017-09-06] MEDS: METOPROLOL SUCC 50MG EXT REL TAB PO SCH (08:09)
--- NOTE | 2017-09-06 09:23 | NUR ---
Case Management: Pt. lives home alone. She has a walker, cane and wheelchair. She is independent at baseline with ADL's but currently is open with [facility] due to a fall/fractured wrist. Her son assists as needed with medications and driving. She is currently in the process of applying for waiver services through [facility]. Referrals were made to [facility] and [facility]. Pt. has been accepted to [facility] and will need insurance auth. prior to d/c. Case management to follow. Addendum: 09/06/17 at 1355 by Keira Medina SERV Per MD ptShimon ready for discharge. Updated [facility] to apply for auth. Addendum: 09/06/17 at 1519 by Keira Medina SERV Pt. states her son or [id number] can provide transportation.
--- NOTE | 2017-09-06 12:00 | NUR ---
A: Pt denies pain or need for pain medicine. Pt remains in Sinus rhythm with IVCD. Pt denies any chest pain.
[2017-09-06] MEDS: LORAZEPAM 0.5 MG TAB PO PRN (12:51)
--- NOTE | 2017-09-06 12:55 | NUR ---
A: Pt requested and received PO ativan 0.5mg.
--- NOTE | 2017-09-06 14:32 | NUR ---
ID Note: Pt is alert and oriented x 4. Pt denies pain. Rt arm in soft cast with siri wrap. Pt has good CMS to rt hand. Possible discharge to [facility] when medically stable. Buspar increased to 10 mg BID. Pt seen by Occupational therapy and Physical therapy today.
--- NOTE | 2017-09-06 16:00 | NUR ---
A: Pt A&Ox4. Sinus rhythm on the monitor. Denies chest pain or SOB. Pt states she can be occasionally anxious. Orthopedic PA in to remove wrap and shakira at this time. See EMR for full assessment. Will continue to monitor. Addendum: 09/06/17 at 1811 by Shikha Manley RN Pt in sinus rhythm with IVCD on monitor. QRS is 0.12.
[2017-09-06] MEDS: WARFARIN SOD 5 MG TAB PO SCH (16:32)
--- NOTE | 2017-09-06 17:06 | Progress Note ---
Medicine Progress Note Date & Time of Visit: Sep 06, 2017 at 16:44. Subjective Pt was seen and examined Lying in bed with no distress Pt said that she feels much better today Denies any chest pain, palpitation and SOB Objective Last 8 Hrs Date Time Temp Pulse Resp B/P (MAP) Pulse Ox O2 Delivery O2 Flow Rate FiO2 09/06/17 14:58 36.6 63 18 118/70 (86) 93 09/06/17 14:38 97 09/06/17 12:00 94 Room Air 09/06/17 11:50 36.9 72 18 137/81 (99) 94 Room Air Physical Exam: General- No acute distress Head- atraumatic Eyes- PERRL, EOMI ENT- oropharynx clear Neck- supple, no JVD Lungs- No wheezing Heart- regular rhythm Abdomen- normal bowel sounds Extremities- no calf tenderness, Right upper extremity cast and wrap Neuro- alert, oriented x 3; PERRL, EOMI Skin- warm & dry Laboratory Results: Last 24 Hours Test 09/06/17 05:26 Prothrombin Time 19.1 SECONDS Prothromb Time International Ratio 1.8 Assessment & Plan PULMONARY EMBOLISM Present with Chest pain had recent surgery S/P ORIF Troponin negative CTA showed possible pulmonary embolus seen within a single right lower lobe pulmonary artery. On coumadin + Lovenox bridge INR 1.8 today Continue monitor PT/INR ECHO showed * The left ventricle is normal in size. * The left ventricular wall motion is normal. * The LV Ejection Fraction = 60-65%. * The right ventricle is normal in size and function. * Mild pulmonary hypertension is present. * The pulmonary artery systolic pressure is calculated to be 45 mm Hg, assuming a right atrial pressure of 3 mm Hg. * There is a non mobile 1 cm x 1 cm echogenicity in the right atrium adherent to the interatrial septum. * This could be due to reverberation artifact from the adjacent tricuspid annulus however, mass or thrombus cannot be excluded. -the echogenic structure was present on the repeat TTE done with agitated saline and patient will need a Cardiac MRI or JOYCE to further characterize this, will discuss this with Cardiology; this was found to most likely be the patient' s anatomy but should have outpatient follow up with a repeat TTE and possibly further testing if needed (likely after 6 months) RIGHT OLECRANON FRACTURE: S/P ORIF patient reports discomfort with her cast; Ortho consulted and removed the cast and wrapped in a splint which has helped the pain, patient to follow up on Tuesday for re-evaluation a possible re- casting Case discussed with Dr. Clark that will see the patient while she is in the hospital HTN: Continue Metoprolol, Losartan Controlled HYPOTHYROIDISM: Continue levothyroxine ANXIETY/DEPRESSION: Uncontrolled (anxiety attack) Continue ativan and effexor Buspar increased to 10mg BID Psych on board DVT px on Coumadin and Lovenox Disposition Waiting for insurance approval to transfer to Rehab Current Inpatient Medications: Current Inpatient Medications Medications (Trade) Dose Ordered Sig/Ana Route Start Time Stop Time Status Last Admin Dose Admin Enoxaparin Sodium (Lovenox Inj) 90 mg Q12H SQ 09/01/17 18:00 10/01/17 17:59 09/06/17 05:18 90 MG Amlodipine Besylate (Norvasc Tab) 2.5 mg DAILY PO 09/01/17 11:00 10/01/17 10:59 09/06/17 08:09 2.5 MG Baclofen (Lioresal Tab) 10 mg HS PO 09/01/17 21:00 10/01/17 20:59 09/05/17 20:34 10 MG Docusate Sodium (coLACE CAP) 100 mg BID PO 09/01/17 11:00 10/01/17 10:59 09/06/17 08:08 100 MG Levothyroxine Sodium (Synthroid Tab) 100 mcg DAILYBB PO 09/02/17 06:30 10/02/17 06:29 09/06/17 05:18 100 MCG Lorazepam (Ativan Tab) 0.5 mg Q6H PRN PO 09/01/17 08:30 10/01/17 08:29 09/06/17 12:51 0.5 MG Losartan Potassium (coZAAR TAB) 100 mg DAILY PO 09/01/17 11:00 10/01/17 10:59 09/06/17 08:07 100 MG Meclizine HCl (Antivert Tab) 25 mg TID PRN PO 09/01/17 08:30 10/01/17 08:29 Metoprolol Succinate (Toprol Xl Tab) 50 mg DAILY PO 09/01/17 11:00 10/01/17 10:59 09/06/17 08:09 50 MG Multivitamins/ Minerals (Multivitamin W/ Minerals Tab) 1 tab DAILY PO 09/01/17 11:00 10/01/17 10:59 09/06/17 08:07 1 TAB Pantoprazole Sodium (Protonix Tab) 40 mg QAM PO 09/01/17 09:00 10/01/17 08:59 09/06/17 08:09 40 MG Senna (Senokot Tab) 8.6 mg HS PO 09/01/17 21:00 10/01/17 20:59 09/04/17 21:17 8.6 MG Simvastatin (Zocor Tab) 20 mg HS PO 09/01/17 21:00 10/01/17 20:59 09/05/17 20:34 20 MG Tramadol HCl (Ultram Tab) 50 mg Q8H PRN PO 09/01/17 08:30 10/01/17 08:29 09/02/17 07:55 50 MG Venlafaxine HCl (effeXOR EXTENDED REL CAP) 75 mg QPM PO 09/01/17 21:00 10/01/17 20:59 09/05/17 20:34 75 MG Venlafaxine HCl (effeXOR EXTENDED REL CAP) 150 mg PM PO 09/01/17 21:00 10/01/17 20:59 09/05/17 20:34 150 MG Oxycodone HCl (Roxicodone Immediate Rel Tab) Can give 5 mg for pain ra... Q4H PRN PO 09/01/17 12:00 09/15/17 08:29 09/05/17 23:59 10 MG Warfarin Sodium (Coumadin Tab) 5 mg DAILY@16 PO 09/02/17 16:00 10/02/17 15:59 09/06/17 16:32 5 MG Menthol (Nice Evelin) 1 evelin PRN PRN PO 09/02/17 15:15 10/02/17 15:14 Polyethylene (Miralax Powder Packet) 17 gm DAILY PRN PO 09/03/17 17:15 10/03/17 17:14 Buspirone HCl (Buspar Tab) 10 mg BID PO 09/05/17 21:00 10/01/17 10:59 09/06/17 08:09 10 MG Hydroxyzine HCl (Vistaril Tab) 10 mg Q8 PRN PO 09/05/17 15:15 10/05/17 15:14
--- NOTE | 2017-09-06 18:27 | PROGRESS NOTE ---
DATE: 09/06/2017 CHIEF COMPLAINT: Status post ORIF of the right elbow postop day #12. PROGRESS: Yovana was seen and examined at bedside today. Her elbow was doing okay and she is not having much pain. We did remove the shakira. She seems recovering well from her pulmonary embolism. She is not having much difficulty. She is able to get up and ambulate well with physical therapy without any assistance. PHYSICAL EXAMINATION: RIGHT ELBOW: The shakira have been removed. The incision is clean and dry. She has minimal range of motion at this time but not much pain. She is neurovascularly intact. IMPRESSION: Twelve days status post open reduction external fixation of the right elbow. PLAN: Courtenay were removed. She can do minimal motion of her elbow, but I do wear her in a sling most of the time. She can use her hand and wrist while she is in the sling. I do want her sleep in a sling. She can start therapy with gentle range of motion of the elbow, but it is going to be another 4 weeks before we initiate any kind of strengthening or aggressive range of motion. The shakira were removed and she can cancel her appointment with Dr. Clark tomorrow and follow with him in 2 weeks. Office phone number is [phone]. She has been ambulating well without assistive device. However, she does live alone at home. As long as she feels stays, she should be orthopedically stable for discharge to home but if she needs to go to [facility] that is reasonable as well. She is stable for discharge tomorrow.
--- NOTE | 2017-09-06 20:00 | NUR ---
A: Assessment unchanged. No complaints of pain to the operative site. PRN anxiety medication as needed. Pt tolerating sling well. PRANAV bandage occasionally feels tight. Pt tolerating with adjustment. Clear lungs on RA. VSS. Pt in sinus rhythm with IVCD on monitor. No complaints of chest pain or SOB. Will continue to monitor.
[2017-09-06] MEDS: VENLAFAXINE HCL XR 150 MG CAPXR PO SCH (20:48)
[2017-09-06] MEDS: VENLAFAXINE HCL XR 75 MG CAPXR PO SCH (20:49)
[2017-09-06] MEDS: SIMVASTATIN 20 MG TAB PO SCH (20:49)
[2017-09-06] MEDS: BACLOFEN 10 MG TAB PO SCH (20:49)
[2017-09-06] MEDS: SENNA 8.6 MG TAB PO SCH (20:49)
[2017-09-07] VITALS (9 sets, daily range): BP systolic 109–162; BP diastolic 60–82; PULSE 44–66; TEMP 36.6–36.9; O2SAT 93–99
--- NOTE | 2017-09-07 | NUR ---
A: Patient resting in bed. Upon entering room, patient is c/o severe RT arm pain, tearful. PRANAV bandage loosened, patient states immediate relief of pain. Medication administered per MD order. A&O x4. VSS on room air. SR c IVCD on monitor. Assist of one out of bed to bathroom. Sling to RT arm AAT. Patient states she is planing to return home on discharge with PT services at home. Denies chest pain or shortness of breath at this time. Instructed to ring to assistance. Will continue to monitor.
[2017-09-07] MEDS: LORAZEPAM 0.5 MG TAB PO PRN (00:25)
[2017-09-07] MEDS: OXYCODONE HCL IR 5 MG TAB (IMMEDIATE RELEASE) PO PRN ×3 (00:25→13:07)
[2017-09-07] MEDS: LEVOTHYROXINE 100 MCG TAB PO SCH (06:07)
[2017-09-07] MEDS: ENOXAPARIN 100 MG/1ML SYR SQ SCH ×2 (06:07→17:29)
--- NOTE | 2017-09-07 08:00 | NUR ---
a:alert and oriented x 4. lungs are clear with diminished bases. heart rate is regular with normal sinus rhythm per EKG. abdomen is soft, distended, nontender, with positive bowel sounds. skin is fragile, warm, dry, and intact thus far. pt has c/o pain with a rating at 5 from the scale 0-10 with 0 no pain and 10 the worst experienced. treatment provided, right arm is elevated and resting on a pillow. continent of bowel and bladder. pt has ambulated to the bathroom with assist of one and voided clear yellow urine. tolerated breakfast and meds well this am. sitting in bedside chair at this time.
[2017-09-07] MEDS: LOSARTAN POTASSIUM 50 MG TAB PO SCH (08:53)
[2017-09-07] MEDS: DOCUSATE SODIUM 100 MG CAP PO SCH (08:53)
[2017-09-07] MEDS: PANTOprazole SOD 40 MG TAB PO SCH (08:54)
[2017-09-07] MEDS: METOPROLOL SUCC 50MG EXT REL TAB PO SCH (08:54)
[2017-09-07] MEDS: CEROVITE ADV FORMULA TAB PO SCH (08:54)
[2017-09-07] MEDS: AMLODIPINE BESYLATE 5 MG TAB PO SCH (08:55)
[2017-09-07 09:57] LABS: MEAN CELL VOLUME 93.9 fL (80-100); MEAN CORPUSCULAR HEMOGLOBIN 30.5 pg (25-34); MEAN CORPUSCULAR HGB CONC 32.4 g/dl (32-36); MEAN PLATELET VOLUME 9.5 fL (7.4-10.4); PLATELET COUNT 513 K/uL (130-400); RED CELL DISTRIBUTION WIDTH CV 13.6 % (11.5-14.5); RED CELL DISTRIBUTION WIDTH SD 46.6 fL (36.4-46.3); WHITE BLOOD COUNT 9.93 K/uL (4.8-10.8)
[2017-09-07] MEDS: TRAMADOL HCL 50 MG TAB PO PRN (10:05)
[2017-09-07 10:11] LABS: INR 1.9 (0.9-1.1)
[2017-09-07 10:17] LABS: CREATININE 1.01 mg/dl (0.60-1.20)
--- NOTE | 2017-09-07 11:06 | NUR ---
Discharge planning. I spoke with patient regarding discharge options, Dr Moctezuma present. Patient is now insisting on returning home at discharge, does not want to go to [facility]. She is agreeable to home health services and requests a referral be made to [facility], referral made. Patient will participate in pt/ot and nursing for Lovenox injections and bloodwork. Family will assist with cooking and adl's. No additional needs identified at this time, will continue to follow.
--- NOTE | 2017-09-07 12:00 | NUR ---
a;pt is sitting on edge of bed and eating her lunch. she is feeding herself and tolerating meal well thus far. pt is planning to be discharged to home.
--- NOTE | 2017-09-07 14:58 | Progress Note ---
Medicine Progress Note Date & Time of Visit: Sep 07, 2017 at 14:34. Subjective Pt was seen and examined Lying in bed with no distress Pt said that she feels much better She wants to go home with home health services Pt said that her breathing feels much better She said that her daughter and her son check on her few times a day Denies any chest pain, palpitation, dizziness and SOB Objective Last 8 Hrs Date Time Temp Pulse Resp B/P (MAP) Pulse Ox O2 Delivery O2 Flow Rate FiO2 09/07/17 12:00 94 Room Air 09/07/17 11:06 36.6 59 18 120/68 (85) 95 Room Air 09/07/17 08:04 94 Room Air 09/07/17 07:19 36.7 66 18 162/82 (108) 96 Room Air Physical Exam: General- No acute distress Head- atraumatic Eyes- PERRL, EOMI ENT- oropharynx clear Neck- supple, no JVD Lungs- No wheezing Heart- regular rhythm Abdomen- normal bowel sounds Extremities- no calf tenderness, Right upper extremity cast and wrap Neuro- alert, oriented x 3; PERRL, EOMI Skin- warm & dry Laboratory Results: Last 24 Hours Test 09/07/17 09:32 White Blood Count 9.93 K/uL Red Blood Count 3.94 M/uL Hemoglobin 12.0 g/dL Hematocrit 37.0 % Mean Corpuscular Volume 93.9 fL Mean Corpuscular Hemoglobin 30.5 pg Mean Corpuscular Hemoglobin Concent 32.4 g/dl RDW Standard Deviation 46.6 fL RDW Coefficient of Variation 13.6 % Platelet Count 513 K/uL Mean Platelet Volume 9.5 fL Prothrombin Time 20.1 SECONDS Prothromb Time International Ratio 1.9 Creatinine 1.01 mg/dl Est Creatinine Clear Calc Drug Dose 43.9 ml/min Estimated GFR () 60.9 Estimated GFR (Non- 52.5 Assessment & Plan PULMONARY EMBOLISM Present with Chest pain had recent surgery S/P ORIF Troponin negative CTA showed possible pulmonary embolus seen within a single right lower lobe pulmonary artery. On coumadin + Lovenox bridge INR 1.9 today Continue monitor PT/INR ECHO showed * The left ventricle is normal in size. * The left ventricular wall motion is normal. * The LV Ejection Fraction = 60-65%. * The right ventricle is normal in size and function. * Mild pulmonary hypertension is present. * The pulmonary artery systolic pressure is calculated to be 45 mm Hg, assuming a right atrial pressure of 3 mm Hg. * There is a non mobile 1 cm x 1 cm echogenicity in the right atrium adherent to the interatrial septum. * This could be due to reverberation artifact from the adjacent tricuspid annulus however, mass or thrombus cannot be excluded. -the echogenic structure was present on the repeat TTE done with agitated saline and patient will need a Cardiac MRI or JOYCE to further characterize this, will discuss this with Cardiology; this was found to most likely be the patient' s anatomy but should have outpatient follow up with a repeat TTE and possibly further testing if needed (likely after 6 months) RIGHT OLECRANON FRACTURE: S/P ORIF patient reports discomfort with her cast; Ortho consulted and removed the cast and wrapped in a splint which has helped the pain, patient to follow up on Tuesday for re-evaluation a possible re- casting Case discussed with Dr. Clark that will see the patient while she is in the hospital 09/07 Jagjit were removed yesterday OK to do minimal motion of her elbow and continue to wear the sling most of the time and while sleeping as per ortho OK to start physical therapy with gentle range of motion of the elbow Do not do any strengthening or aggressive range of motion after another [address] Clark's office to schedule follow up appointment in 2 weeks @ [phone]. fall precaution HTN: Continue Metoprolol, Losartan Controlled HYPOTHYROIDISM: Continue levothyroxine ANXIETY/DEPRESSION: Uncontrolled (anxiety attack) Continue ativan and effexor Continue Buspar to 10mg BID Psych on board DVT px on Coumadin and Lovenox Disposition Discharge home with home health services Follow up with Primary care provider Dr. Murcia on 09/12 @ 10:45 am Follow up with Ortho in 2 weeks Continue PT/OT Fall precaution Consultants: Ortho Current Inpatient Medications: Current Inpatient Medications Medications (Trade) Dose Ordered Sig/Ana Route Start Time Stop Time Status Last Admin Dose Admin Enoxaparin Sodium (Lovenox Inj) 90 mg Q12H SQ 09/01/17 18:00 10/01/17 17:59 09/07/17 06:07 90 MG Amlodipine Besylate (Norvasc Tab) 2.5 mg DAILY PO 09/01/17 11:00 10/01/17 10:59 09/07/17 08:55 2.5 MG Baclofen (Lioresal Tab) 10 mg HS PO 09/01/17 21:00 10/01/17 20:59 09/06/17 20:49 10 MG Docusate Sodium (coLACE CAP) 100 mg BID PO 09/01/17 11:00 10/01/17 10:59 09/07/17 08:53 100 MG Levothyroxine Sodium (Synthroid Tab) 100 mcg DAILYBB PO 09/02/17 06:30 10/02/17 06:29 09/07/17 06:07 100 MCG Lorazepam (Ativan Tab) 0.5 mg Q6H PRN PO 09/01/17 08:30 10/01/17 08:29 09/07/17 00:25 0.5 MG Losartan Potassium (coZAAR TAB) 100 mg DAILY PO 09/01/17 11:00 10/01/17 10:59 09/07/17 08:53 100 MG Meclizine HCl (Antivert Tab) 25 mg TID PRN PO 09/01/17 08:30 10/01/17 08:29 Metoprolol Succinate (Toprol Xl Tab) 50 mg DAILY PO 09/01/17 11:00 10/01/17 10:59 09/07/17 08:54 50 MG Multivitamins/ Minerals (Multivitamin W/ Minerals Tab) 1 tab DAILY PO 09/01/17 11:00 10/01/17 10:59 09/07/17 08:54 1 TAB Pantoprazole Sodium (Protonix Tab) 40 mg QAM PO 09/01/17 09:00 10/01/17 08:59 09/07/17 08:54 40 MG Senna (Senokot Tab) 8.6 mg HS PO 09/01/17 21:00 10/01/17 20:59 09/04/17 21:17 8.6 MG Simvastatin (Zocor Tab) 20 mg HS PO 09/01/17 21:00 10/01/17 20:59 09/06/17 20:49 20 MG Tramadol HCl (Ultram Tab) 50 mg Q8H PRN PO 09/01/17 08:30 1/27/18 08:29 09/07/17 10:05 50 MG Venlafaxine HCl (effeXOR EXTENDED REL CAP) 75 mg QPM PO 09/01/17 21:00 10/01/17 20:59 09/06/17 20:49 75 MG Venlafaxine HCl (effeXOR EXTENDED REL CAP) 150 mg PM PO 09/01/17 21:00 10/01/17 20:59 09/06/17 20:48 150 MG Oxycodone HCl (Roxicodone Immediate Rel Tab) Can give 5 mg for pain ra... Q4H PRN PO 09/01/17 12:00 09/15/17 08:29 09/07/17 13:07 10 MG Warfarin Sodium (Coumadin Tab) 5 mg DAILY@16 PO 09/02/17 16:00 10/02/17 15:59 09/06/17 16:32 5 MG Menthol (Nice Evelin) 1 evelin PRN PRN PO 09/02/17 15:15 10/02/17 15:14 Polyethylene (Miralax Powder Packet) 17 gm DAILY PRN PO 09/03/17 17:15 10/03/17 17:14 Buspirone HCl (Buspar Tab) 10 mg BID PO 09/05/17 21:00 10/01/17 10:59 09/07/17 08:54 10 MG Hydroxyzine HCl (Vistaril Tab) 10 mg Q8 PRN PO 09/05/17 15:15 10/05/17 15:14
[2017-09-07] MEDS ORDERED: BSP5 PO (15:16)
[2017-09-07] MEDS ORDERED: LVNIS120 SQ (15:16)
[2017-09-07] MEDS ORDERED: CMD5 PO (15:16)
--- NOTE | 2017-09-07 15:36 | Discharge Instructions ---
Discharge Instructions Date of Service Sep 07, 2017. Admission Reason for Admission: Pulmonary Embolism Discharge Discharge Diagnosis / Problem: (1) Pulmonary embolism VTE Date & Time Date of VTE Diagnosis: Sep 01, 2017 Time of VTE Diagnosis: 03:49 Discharge Goals Goal(s): Decrease discomfort, Improve function, Improve disease control Activity Recommendations Activity Limitations: as noted below OK to do minimal motion of her elbow and continue to wear the sling most of the time and while sleeping as per ortho OK to start physical therapy with gentle range of motion of the elbow Do not do any strengthening or aggressive range of motion after another 4 weeks. Instructions / Follow-Up Instructions / Follow-Up Discharge home with home health Follow up appointment with primary care provider Dr. Murcia (DR. Mazariegos's partner) on 09/12 @ 10:45 am Follow up with orthopedic, Please call Dr. Clark's office to schedule follow up appointment in 2 weeks @ [phone]. OK to do minimal motion of her elbow and continue to wear the sling most of the time and while sleeping as per ortho OK to start physical therapy with gentle range of motion of the elbow Do not do any strengthening or aggressive range of motion after another 4 weeks. Fall precaution Continue Physical therapy and occupational therapy Hold aspirin for now, Can resume next Tuesday after your follow up appointment with primary care provider Please notify your physician for any abnormal bleeding (blood in urine and in the stools) Continue Coumadin 5 mg (INR 1.9 today) Check INR tomorrow and Tuesday (with home health services tomorrow) Follow up with the Coumadin clinic Continue Lovenox injection ( Home health nurse will teach you how to inject it) (Already called for the script at the [facility] pharmacy in [facility]) Medication Instructions: * Warfarin is a medicine prescribed to prevent blood clots * Warfarin will thin your blood and help prevent new clots * Take your medications exactly as directed * Never skip a dose. Never take a double dose. If you miss a dose, take it as soon as you remember * It is important for your doctor to monitor your prothrombin time (PT). This is a lab test * Keep your appointment for lab tests Risk of Adverse Drug Reactions and Interactions: * Warfarin increases your risk of bleeding * The food you eat and other medications you take can affect how Warfarin works in your body * Ask your doctor about daily aspirin therapy * It is very important to talk with your doctor about all of the other medicines , antibiotics, vitamins or herbal products that you are taking * All of your medication must be approved by your doctor, including new medicines, as well as medicines you have taken before you started taking Warfarin Diet: * In order for Warfarin to work properly, it is important to keep your intake of Vitamin K as consistent as possible * You should avoid any sudden change in Vitamin K intake * Report any significant changes in your diet or weight to your doctor Call your Primary Care doctor if you experience any of the following: * Swelling or Pain in your leg * Sudden, continuous pain deep in a muscle * Pain that worsens when you are active or when you stand still for a long time * Chest Pain * Sudden Shortness of Breath * Rapid or pounding heart beat * Fainting * Dizziness * Cough with blood or bloody sputum * Sweating more than normal * Bruises * Heavy or uncontrolled bleeding * Blood in your urine, stool or vomit * Black or tarry stools Caring for Your Self at Home: * Avoid sitting, standing or lying down for long periods without moving your legs and feet * When traveling by car, stop to get out and move around at least once every 3 hours * On long airplane, train or bus rides, get up and move around when possible * If you can't get up, wiggle your toes and tighten your calves to keep your blood moving Follow Up: It is important for you to keep your follow up appointments with your medical provider. Current Hospital Diet Patient's current hospital diet: AHA Diet (Heart Healthy) Discharge Diet Recommended Diet: AHA Diet (Heart Healthy) Pending Studies Studies pending at discharge: no Medical Emergencies . Who to Call and When: Medical Emergencies: If at any time you feel your situation is an emergency, please call 911 immediately. . Non-Emergent Contact Non-Emergency issues call your: Primary Care Provider Call Non-Emergent contact if: your pain is not controlled, you have any medication questions . . "Provider Documentation" section prepared by Amanda Moctezuma. . VTE Core Measure Inpt VTE Proph given/why not?: Enoxaparin (Lovenox)SQ, Warfarin (Coumadin) Reason no anticoag overlap I/P: Treatment provided - N/A Reason no anticoag overlap @DC: Treatment provided - N/A
[2017-09-07] MEDS ORDERED: BUSP-8 PO (15:40)
[2017-09-07] MEDS: WARFARIN SOD 5 MG TAB PO SCH (15:49)
--- NOTE | 2017-09-07 18:44 | NUR ---
A: D/C instructions given to pt. and family. All expressed understanding. Pt. received both Coumadin 5 mg. tab and Lovenox before discharged.
--- NOTE | 2017-09-08 14:12 | NUR ---
I spoke with patients daughter in law Delmis today who states that patient is not doing well at home and needs snf. I called Dominga at [facility] to see if it were still possible for patient to be admitted if [facility] auth obtained. Per Dominga, [facility] denied insurance approval however approved snf. Patients son had been in touch with [facility] and per Radha can accept patient tomorrow and was able to obtain auth. I then spoke to Talia at [facility] who states that a nurse will visit patient today to instruct and give Lovenox injection. Discharge instructions faxed to [facility].
--- NOTE | 2017-09-11 21:05 | Discharge Summary ---
Discharge Summary Date of Service Sep 11, 2017. Discharge Summary Admission Date: Sep 01, 2017 at 06:58 Discharge Date: Sep 07, 2017 Discharge Disposition: Home with services Principal Diagnosis: PE Secondary Diagnoses/Problems: RIGHT OLECRANON FRACTURE: S/P ORIF HTN ANXIETY/DEPRESSION HYPOTHYROIDISM Procedures: VENOUS DOPPLER UPR EXT BILA HISTORY: Pain. Edema. r/o dvt COMPARISON STUDY: None. FINDINGS: The internal jugular veins are patent. There is normal flow within the subclavian veins. There is normal flow and compressibility within the bilateral axillary, basilic, brachial, radial, ulnar, and visualized cephalic veins. IMPRESSION: No DVT within the upper extremitys. The above report was generated using voice recognition software. It may contain grammatical, syntax or spelling errors. Electronically signed by: Jarret Lemon M.D. 09/01/2017 9:28 AM Dictated Date/Time: 09/01/2017 9:27 AM CHEST CTA for PULMONARY ARTERIES CT DOSE: 809.20 mGy.cm HISTORY: Atypical chest pain. TECHNIQUE: Multiaxial CT images of the chest were performed following the intravenous administration of contrast to evaluate the pulmonary arteries. Maximal intensity projection images were also obtained. A dose lowering technique was utilized adhering to the principles of ALARA. COMPARISON STUDY: Digitized chest CT dated 06/09/2005. FINDINGS: Heterogeneous perfusion within a single right lower lobe segmental pulmonary artery best seen on images 85 through 91. The vessel appears slightly expanded. Therefore, this could represent a small pulmonary embolus. Remaining pulmonary arteries are patent. The heart is borderline enlarged. Trace left pleural effusion. Normal caliber thoracic aorta with no evidence for dissection. No hepatic or splenic masses. Normal left adrenal gland. No mediastinal or hilar lymphadenopathy. No pneumothorax. The central airways are patent. Calcified left hilar lymph nodes. Bibasilar linear densities favor subsegmental atelectasis. IMPRESSION: 1. Possible pulmonary embolus seen within a single right lower lobe pulmonary artery. 2. Trace left pleural effusion. 3. Bibasilar subsegmental atelectasis. Electronically signed by: Ashok Quintero M.D. 09/01/2017 7:26 AM Dictated Date/Time: 09/01/2017 7:20 AM CHEST ONE VIEW PORTABLE CLINICAL HISTORY: CHEST PAIN dysphagia COMPARISON STUDY: 08/21/2017 FINDINGS: Moderate stable cardiomegaly. Diaphragms are smooth. Moderate prominence of pulmonary vasculature. IMPRESSION: Mild congestive heart failure. Moderate stable cardiomegaly. The above report was generated using voice recognition software. It may contain grammatical, syntax or spelling errors. Electronically signed by: Jarret Lemon M.D. 09/01/2017 6:56 AM Dictated Date/Time: 09/01/2017 6:55 AM echo Interpretation Summary * Name: VARSHA BELTRÁN Study Date: 09/02/2017 10:35 AM BP: 145/76 mmHg * Patient Location: [facility]\\S\\[id number]\\[id number]\\[id number] HR: 82 * : 1935 (M/d/yyy) Gender: Female Height: 60 in * Age: 82 yrs Ethnicity: [place] Weight: 199 lb * Ordering Physician: Jamilah Avila * Referring Physician: Self, Referred * Performed By: Tonia Malik RDCS * * Reason For Study: LIMITED WITH SALINE IN RV, SUBCOSTAL * BSA: 1.9 m2 * -- Conclusions -- * A focused study was performed for further visualization of the right atrium. * Limited views wer obtained. * There is a non mobile 1 cm x 1 cm echo density in the right atrium contiguous with the interatrial septum. * This may represent a normal anatomical variant versus atypical right atrial mass. * Consider JOYCE or cardiac MRI for further characterization. Procedure Details * A saline contrast injection was performed to assess for cardiac shunting. * The injection was performed through an intravenous line in the left arm. * The attending nurse who injected the saline contrast was DIANA ENNIS. * A total of 20 cc of agitated saline was given. Atria * There is a non mobile 1 cm x 1 cm echo density in the right atrium contiguous with the interatrial septum. This may represent a normal anatomical variant versus atypical right atrial mass. Consider JOYCE or cardiac MRI for further characterization. Consultations: Ortho Medication Reconciliation New Medications: Enoxaparin (Lovenox) 120 Mg/0.8 Ml Inj 130 ML SQ DAILY for 2 Days Warfarin Sod (Coumadin) 5 Mg Tab 5 MG PO DAILY@16 for 30 Days, TAB Changed Medications: Buspirone Hcl (Buspirone Hcl) 10 Mg Tab 1 TAB PO BID for 30 Days, #60 TAB 1 Refill (Changed from: Buspirone Hcl 5 Mg Tab 5 Mg PO BID) Continued Medications: Amlodipine (Norvasc) 2.5 Mg Tab 2.5 MG PO DAILY, TAB Baclofen (Lioresal) 10 Mg Tab 10 MG PO HS, TAB Docusate Sodium (Docusate Sodium) 100 Mg Cap 100 MG PO BID Levothyroxine Sodium (Levothyroxine Sodium) 100 Mcg Tab 100 MCG PO QAM, TAB TAKE THIS MEDICATION 30 MINUTES BEFORE BREAKFAST OR ANY OTHER MEDICATIONS Lorazepam (Ativan) 0.5 Mg Tab 0.5 MG PO Q6H PRN for Anxiety, TAB Losartan Potassium (Cozaar) 100 Mg Tab 100 MG PO DAILY, TAB Meclizine Hcl (Meclizine Hcl) 25 Mg Tab 25 MG PO TID PRN for Dizziness or Vertigo Metoprolol Succinate (Toprol Xl) 50 Mg Tabcr 50 MG PO DAILY, TAB Ocuvite Preservision (Ocuvite Preservision) 1 Tab Tab 1 TAB PO BID, TAB Oxycodone Ir (Roxicodone Ir) 5 Mg Tab 5-10 MG PO Q4H PRN for Severe Pain, TAB Pantoprazole (Protonix) 40 Mg Tab 40 MG PO QAM, TAB Senna (Senokot) 8.6 Mg Tab 8.6 MG PO HS, TAB Simvastatin (Zocor) 20 Mg Tab 20 MG PO DAILY, TAB Tramadol Hcl (Ultram) 50 Mg Tab 50 MG PO Q8 PRN for Pain, TAB Venlafaxine Hcl (Effexor Xr) 75 Mg Cap 75 MG PO QPM, CAP TAKE ONE 75 MG CAPSULE ALONG WITH ONE 150 MG CAPSULE TO EQUAL 225 MG DAILY DOSE Venlafaxine Hcl (Effexor Xr) 150 Mg Cap 150 MG PO DAILY, CAP TAKE ONE 150 MG CAPSULE ALONG WITH ONE 75 MG CAPSULE TO EQUAL 225 MG DAILY DOSE Discontinued Medications: Aspirin (Aspirin Ec) 81 Mg Tab 81 MG PO QAM Admission Information HPI (per Admitting provider): 82 year old female with history of recent Olecranon fracture s/p ORIF 08/25/17 presenting with chest pain. Follows with Dr. Mazariegos for PCP and Dr. Clark for Ortho. Patient states she was doing well post op until about 2 days ago when she started to have chest pain more on the left side worsened with taking deep breaths and also associated with mild dyspnea. Denies dizziness, nausea, palpitations. No cough, fever/chills. At the ER, patient was oxygenating well and BP was stable. CT angio showed RLL pulmonary embolism. She was started on Lovenox 90mg SC. On exam, patient seen resting in bed, comfortable. States chest pain is improving. Denies active shortness of breath, palpitations, dizziness, nausea/ vomiting. Reports some pain/discomfort on the right arm, attributed to her cast/dressing. Physical Exam (per Admitting): General Appearance: WD/WN, no apparent distress Head: normocephalic, atraumatic Eyes: normal inspection, PERRL, EOMI, sclerae normal ENT: normal ENT inspection, hearing grossly normal, pharynx normal Neck: supple, no adenopathy, thyroid normal, no JVD Respiratory/Chest: chest non-tender, lungs clear, normal breath sounds, no respiratory distress, no accessory muscle use Cardiovascular: regular rate, rhythm, no edema, no JVD, no murmur Abdomen/GI: normal bowel sounds, non tender, soft Back: normal inspection, no CVA tenderness Extremities/Musculoskelatal: + pertinent finding (right arm- cast/dressing in place, no warmth/erythema/tenderness) Neurologic/Psych: health type technician II-XII nml as tested, no motor/sensory deficits, alert , normal reflexes, oriented x 3 Skin: normal color, warm/dry, no rash Lymphatic: no adenopathy Hospital Course PULMONARY EMBOLISM Present with Chest pain had recent surgery S/P ORIF Troponin negative CTA showed possible pulmonary embolus seen within a single right lower lobe pulmonary artery. On coumadin + Lovenox bridge INR 1.9 today Continue monitor PT/INR ECHO showed * The left ventricle is normal in size. * The left ventricular wall motion is normal. * The LV Ejection Fraction = 60-65%. * The right ventricle is normal in size and function. * Mild pulmonary hypertension is present. * The pulmonary artery systolic pressure is calculated to be 45 mm Hg, assuming a right atrial pressure of 3 mm Hg. * There is a non mobile 1 cm x 1 cm echogenicity in the right atrium adherent to the interatrial septum. * This could be due to reverberation artifact from the adjacent tricuspid annulus however, mass or thrombus cannot be excluded. -the echogenic structure was present on the repeat TTE done with agitated saline and patient will need a Cardiac MRI or JOYCE to further characterize this, will discuss this with Cardiology; this was found to most likely be the patient' s anatomy but should have outpatient follow up with a repeat TTE and possibly further testing if needed (likely after 6 months) RIGHT OLECRANON FRACTURE: S/P ORIF patient reports discomfort with her cast; Ortho consulted and removed the cast and wrapped in a splint which has helped the pain, patient to follow up on Tuesday for re-evaluation a possible re- casting Case discussed with Dr. Clark that will see the patient while she is in the hospital 09/07 [place] were removed yesterday OK to do minimal motion of her elbow and continue to wear the sling most of the time and while sleeping as per ortho OK to start physical therapy with gentle range of motion of the elbow Do not do any strengthening or aggressive range of motion after another [address] Clark's office to schedule follow up appointment in 2 weeks @ [phone]. fall precaution HTN: Continue Metoprolol, Losartan Controlled HYPOTHYROIDISM: Continue levothyroxine ANXIETY/DEPRESSION: Uncontrolled (anxiety attack) Continue ativan and effexor Continue Buspar to 10mg BID Psych on board DVT px on Coumadin and Lovenox Disposition Discharge home with home health services Follow up with Primary care provider Dr. Murcia on 09/12 @ 10:45 am Follow up with Ortho in 2 weeks Continue PT/OT Fall precaution Total time spent on discharge = 40 minutes This includes examination of the patient, discharge planning, medication reconciliation, and communication with other providers. Discharge Instructions Discharge Instructions Date of Service Sep 07, 2017. Admission Reason for Admission: Pulmonary Embolism Discharge Discharge Diagnosis / Problem: (1) Pulmonary embolism VTE Date & Time Date of VTE Diagnosis: Sep 01, 2017 Time of VTE Diagnosis: 03:49 Discharge Goals Goal(s): Decrease discomfort, Improve function, Improve disease control Activity Recommendations Activity Limitations: as noted below OK to do minimal motion of her elbow and continue to wear the sling most of the time and while sleeping as per ortho OK to start physical therapy with gentle range of motion of the elbow Do not do any strengthening or aggressive range of motion after another 4 weeks. Instructions / Follow-Up Instructions / Follow-Up Discharge home with home health Follow up appointment with primary care provider Dr. Murcia (DR. Mazariegos's partner) on 09/12 @ 10:45 am Follow up with orthopedic, Please call Dr. Clark's office to schedule follow up appointment in 2 weeks @ [phone]. OK to do minimal motion of her elbow and continue to wear the sling most of the time and while sleeping as per ortho OK to start physical therapy with gentle range of motion of the elbow Do not do any strengthening or aggressive range of motion after another 4 weeks. Fall precaution Continue Physical therapy and occupational therapy Hold aspirin for now, Can resume next Tuesday after your follow up appointment with primary care provider Please notify your physician for any abnormal bleeding (blood in urine and in the stools) Continue Coumadin 5 mg (INR 1.9 today) Check INR tomorrow and Tuesday (with home health services tomorrow) Follow up with the Coumadin clinic Continue Lovenox injection ( Home health nurse will teach you how to inject it) (Already called for the script at the [facility] in [facility]) Medication Instructions: * Warfarin is a medicine prescribed to prevent blood clots * Warfarin will thin your blood and help prevent new clots * Take your medications exactly as directed * Never skip a dose. Never take a double dose. If you miss a dose, take it as soon as you remember * It is important for your doctor to monitor your prothrombin time (PT). This is a lab test * Keep your appointment for lab tests Risk of Adverse Drug Reactions and Interactions: * Warfarin increases your risk of bleeding * The food you eat and other medications you take can affect how Warfarin works in your body * Ask your doctor about daily aspirin therapy * It is very important to talk with your doctor about all of the other medicines , antibiotics, vitamins or herbal products that you are taking * All of your medication must be approved by your doctor, including new medicines, as well as medicines you have taken before you started taking Warfarin Diet: * In order for Warfarin to work properly, it is important to keep your intake of Vitamin K as consistent as possible * You should avoid any sudden change in Vitamin K intake * Report any significant changes in your diet or weight to your doctor Call your Primary Care doctor if you experience any of the following: * Swelling or Pain in your leg * Sudden, continuous pain deep in a muscle * Pain that worsens when you are active or when you stand still for a long time * Chest Pain * Sudden Shortness of Breath * Rapid or pounding heart beat * Fainting * Dizziness * Cough with blood or bloody sputum * Sweating more than normal * Bruises * Heavy or uncontrolled bleeding * Blood in your urine, stool or vomit * Black or tarry stools Caring for Your Self at Home: * Avoid sitting, standing or lying down for long periods without moving your legs and feet * When traveling by car, stop to get out and move around at least once every 3 hours * On long airplane, train or bus rides, get up and move around when possible * If you can't get up, wiggle your toes and tighten your calves to keep your blood moving Follow Up: It is important for you to keep your follow up appointments with your medical provider. Current Hospital Diet Patient's current hospital diet: AHA Diet (Heart Healthy) Discharge Diet Recommended Diet: AHA Diet (Heart Healthy) Pending Studies Studies pending at discharge: no Medical Emergencies . Who to Call and When: Medical Emergencies: If at any time you feel your situation is an emergency, please call 911 immediately. . Non-Emergent Contact Non-Emergency issues call your: Primary Care Provider Call Non-Emergent contact if: your pain is not controlled, you have any medication questions . . "Provider Documentation" section prepared by Amanda Moctezuma. . VTE Core Measure Inpt VTE Proph given/why not?: Enoxaparin (Lovenox)SQ, Warfarin (Coumadin) Reason no anticoag overlap I/P: Treatment provided - N/A Reason no anticoag overlap @DC: Treatment provided - N/A Additional Copies To Isabel Murcia D.O., Brett, M.D.
== END 2017-09-07 18:47 | disposition home health service (06) | DRG 176 ==
LOC: C.EDA 02:12 → C.MED 06:58 → ENRESERV 08:21 → C.MED 09-04 15:28
PROVIDERS: ADMIT Internal Medicine; ATTEND Internal Medicine
DX: I26.99 Other pulmonary embolism without acute cor pulmonale (principal); Z83.3 Family history of diabetes mellitus; Z79.82 Long term (current) use of aspirin; S52.021A Displaced fracture of olecranon process without intraarticular extension of right ulna, initial encounter for closed fracture; I10 Essential (primary) hypertension; X58.XXXA Exposure to other specified factors, initial encounter; E03.9 Hypothyroidism, unspecified; F41.9 Anxiety disorder, unspecified; F32.9 Major depressive disorder, single episode, unspecified

== ENCOUNTER → 2017-09-01 | Emergency (ER) | payer OTHER ==
[~2017-09-01] MED LIST changes: +AMLO2.5T PO; +BSP5 PO; +BUSP-8 PO; -CEFAZOLIN 2000MG IV PUSH 10 ML IV SCH; +CMD5 PO; +DOCU100C31 PO; +ENOXAPARIN 100 MG/1ML SYR ONE; -LACTATED RINGER'S 1000ML 1,000 ML IV SCH; +LVNIS120 SQ; -NSS 1000ML IV SCH; +RXC5 PO; +SENN-61 PO
== END ==
LOC: C.EDA 02:12
DX: I26.99 Other pulmonary embolism without acute cor pulmonale (principal); I45.10 Unspecified right bundle-branch block; I10 Essential (primary) hypertension; E03.9 Hypothyroidism, unspecified; E78.00 Pure hypercholesterolemia, unspecified; K57.92 Diverticulitis of intestine, part unspecified, without perforation or abscess without bleeding; Z86.711 Personal history of pulmonary embolism; Z87.442 Personal history of urinary calculi; Z79.82 Long term (current) use of aspirin; Z79.899 Other long term (current) drug therapy; Z88.2 Allergy status to sulfonamides

== ENCOUNTER → 2017-09-08 | Outpatient (CLI) | payer OTHER ==
[~2017-09-08] MED LIST changes: -ASPI81TA28 PO; +BUSP-8 PO; -BUSP5TAB59 PO; +CMD5 PO; -DOCU-94 PO; +DOCU100C31 PO; +LVNIS120 SQ; -OXYC-737 PO; +OXYC1TAB3 PO; -RXC5 PO; +SENN-61 PO; -SENN1TAB77 PO; +VENL150C PO; -VENL150C2 PO; +VENL75CA PO; -VENL75CA88 PO
== END | disposition home or self-care (01) ==
LOC: C.LABSPEC 14:34
PROVIDERS: ATTEND Family Medicine
DX: Z01.89 Encounter for other specified special examinations (principal)

== ENCOUNTER → 2017-09-20 | Outpatient (CLI) | payer OTHER ==
[2017-09-20 14:57] LABS: INR 2.3 (0.9-1.1)
--- NOTE | 2017-09-30 10:02 | CODING QUERY NO DIAGNOSIS ---
: 1935 Valid Physician Order Needed A valid physician order must be submitted in order to properly bill for the service(s) provided, including date of service(s), valid diagnosis, and physician signature. If these tests are done on a recurring basis the original physician order must be submitted in order to code and bill for the service(s) provided. Please fax us the original, signed physician order so that we may expedite billing to [phone] DOS 09/20/2017 - 10/06/17 * Prothrombin Time Thank you Cassie Gaffney [facility] Information Management
== END | disposition home or self-care (01) ==
LOC: C.LABSPEC 13:38
PROVIDERS: ATTEND Family Medicine
DX: Z01.89 Encounter for other specified special examinations (principal)

== ENCOUNTER → 2017-09-29 | Outpatient (CLI) | payer OTHER ==
[2017-09-29 10:12] LABS: INR 1.6 (0.9-1.1)
--- NOTE | 2017-10-03 08:35 | CODING QUERY NO DIAGNOSIS ---
: 1935 Valid Physician Order Needed A valid physician order must be submitted in order to properly bill for the service(s) provided, including date of service(s), valid diagnosis, and physician signature. If these tests are done on a recurring basis the original physician order must be submitted in order to code and bill for the service(s) provided. Please fax us the original, signed physician order so that we may expedite billing to [phone] DOS 09/29/2017 - 10/10/17 * Prothrombin Time Thank you Cassie Gaffney [facility] Information Management
== END | disposition home or self-care (01) ==
LOC: C.LABSPEC 09:53
PROVIDERS: ATTEND Family Medicine
DX: I26.99 Other pulmonary embolism without acute cor pulmonale (principal); S52.021D Displaced fracture of olecranon process without intraarticular extension of right ulna, subsequent encounter for closed fracture with routine healing; I10 Essential (primary) hypertension; X58.XXXD Exposure to other specified factors, subsequent encounter; Z88.1 Allergy status to other antibiotic agents

== ENCOUNTER → 2017-10-03 | Outpatient (CLI) | payer OTHER ==
[2017-10-03 15:25] LABS: INR 1.5 (0.9-1.1)
--- NOTE | 2017-10-07 15:01 | CODING QUERY NO DIAGNOSIS ---
: 1935 Valid Physician Order Needed A valid physician order must be submitted in order to properly bill for the service(s) provided, including date of service(s), valid diagnosis, and physician signature. If these tests are done on a recurring basis the original physician order must be submitted in order to code and bill for the service(s) provided. Please fax us the original, signed physician order so that we may expedite billing to [phone] DOS 10/03/2017 * Prothrombin Time Thank you Cassie Gaffney [facility] Information Management
== END | disposition home or self-care (01) ==
LOC: C.LABSPEC 14:57
PROVIDERS: ATTEND Family Medicine
DX: Z01.89 Encounter for other specified special examinations (principal)

== ENCOUNTER → 2017-10-06 | Outpatient (CLI) | payer OTHER ==
[2017-10-06 15:17] LABS: INR 1.9 (0.9-1.1)
== END | disposition home or self-care (01) ==
LOC: C.LABSPEC 13:44
PROVIDERS: ATTEND Family Medicine
DX: Z79.01 Long term (current) use of anticoagulants (principal)

== ENCOUNTER → 2017-10-13 | Outpatient (CLI) | payer OTHER ==
[2017-10-13 18:57] LABS: INR 1.1 (0.9-1.1)
== END | disposition home or self-care (01) ==
LOC: C.LAB 17:00
PROVIDERS: ATTEND Family Medicine
DX: Z79.01 Long term (current) use of anticoagulants (principal)

== ENCOUNTER 2020-10-24 10:57 | Inpatient (IN) ==
--- OUTSIDE RECORDS SUMMARY | 2020-10-24 10:59 | External Medical Summary | Continuity of Care Document ---
:1935 Author Name Otis Orr Address Unavailable Unavailable , Care Team Providers Name Role Phone Jaci [email or web address] Unavailable Unavailable Problems Active medical history not documented Allergies and Adverse Reactions Allergy history not documented Medications Medications not documented Procedures Procedures not documented Immunizations Immunizations not documented Plan of Treatment Planned Observations Planned Goals not documented Results No Known Results Results not documented
[2020-10-24] MEDS ORDERED: ONDANSETRON INJ 2 MG/ML 2 ML VIAL IV STA (11:04)
--- NOTE | 2020-10-24 11:23 | Emergency Department Note ---
Impression & Plan Fracture of hip, right, closed ED Provider Note NAME: VARSHA BELTRÁN AGE: 85 SEX: F : 1935 ARRIVES VIA: Ambulance INFORMANT: Patient, EMS ED PROVIDER(S): Johnnie Torres DO CHIEF COMPLAINT: Hip pain HPI: The patient is an 85-year-old female who presented to the emergency department for an evaluation of hip pain. The patient states that she did have a fall approximately 1 week ago. At that time she did strike her right hip. She continued to have right hip pain but was able to ambulate without significant pain. She has been taking pain medication with some relief. Today when she was going to walk into the [facility] she went to put her right hip pop and pull herself up using the stair railing but felt significant pain in her right lower extremity and fell to the ground. She was able to lower herself to the ground while holding onto the handrail. She states ever since that time she has been unable to ambulate or put any weight on her right lower extremity. She did not strike her head. She denies having any neck pain or chest pain. She denies having any headache nausea or vomiting at this time. She states her pain is moderate to severe especially with any movement. Her right lower extremity was placed into a position of comfort prior to arrival in the significantly improved her pain. ROS: See above HPI for pertinent positives & negatives. A total of 10 systems reviewed and were otherwise negative. PAST MEDICAL HISTORY: See Below PAST SURGICAL HISTORY: See Below FAMILY HISTORY: See Below SOCIAL HISTORY: See Below HOME MEDICATIONS: See Below ALLERGIES: See Below VITALS: See Below PHYSICAL EXAMINATION: GENERAL: The patient is awake and alert. The patient is very anxious appearing and appears to be in significant pain. EYES: The conjunctivae are clear. The pupils are round and reactive. EARS, NOSE, MOUTH AND THROAT: The nose is without any evidence of any deformity. NECK: The neck is nontender and supple. RESPIRATORY: Normal respiratory effort is noted there is no evidence of wheezing rhonchi or rales CARDIOVASCULAR: Regular rate and rhythm noted there no murmurs rubs or gallops normal S1 normal S2. GASTROINTESTINAL: The abdomen is soft. Abdomen is nontender. MUSCULOSKELETAL/EXTREMITIES: There is significant pain with any range of motion testing of the right hip. The right lower extremity is shortened. There is no pain below the right hip. SKIN: There is no obvious evidence of any rash. There are no petechiae, pallor or cyanosis noted. Pulses are symmetric in both feet. NEUROLOGIC: Patient is awake alert and oriented x 3. MEDICAL DECISION MAKING: The patient is an 85-year-old female who presented to the emergency department for an evaluation of right hip pain. The patient had a fall approximately a week ago and continued to have right hip pain. She was going up the steps today when her hip pain became significantly worse in her right hip became significantly more painful and she was unable to ambulate. I discussed the patient's laboratory and radiographic studies with her. She was found to have signs of a right sided hip fracture which was subcapital in nature. I discussed the patient's condition with the on-call [facility]. They have agreed to evaluate the patient in the emergency department for further management and disposition. The patient's pain was treated with IV pain medication. On subsequent reevaluation she was significantly improved. I dis cussed her condition with her son as well. Triage Nursing notes reviewed. Prior medical records reviewed Vital Signs: reviewed and remarkable for elevated blood pressure. Differential diagnosis: Fracture, subluxation, dislocation, contusion, ligamentous injury, neurovascular, compartment syndrome, rhabdomyolysis, as well as other pathologies. ER treatment provided: See below Diagnostics interpreted by me: ECG: EKG was obtained in the emergency department. My interpretation is sinus rhythm at 70 bpm. Right bundle branch block pattern was noted. There were no PVCs. This was compared to a tracing from December 042018. No significant changes were noted. Cardiac Monitoring: An order was placed for continuous cardiac monitoring. The monitor shows a rate of 82 bpm with sinus rhythm. Laboratory studies: As stated above and show below. Imaging studies: See below Consultation(s): 1225: I discussed this case with Juliet who is on-call for the [facility]. They have agreed to evaluate the patient in the emergency department for further management and disposition. Past Med/Surg History Medical History Anxiety and depression CKD (chronic kidney disease) stage 3, GFR 30-59 ml/min Diverticulitis Diverticulosis History of pulmonary embolism HLD (hyperlipidemia) HTN (hypertension) Hypothyroidism Kidney calculi Pulmonary embolism Renal colic T2DM (type 2 diabetes mellitus) Surgical History History of colonoscopy History of left hip replacement History of surgery on arm R ulnar surgery History of total abdominal hysterectomy and bilateral salpingo-oophorectomy History of tubal ligation Family History Brother Diabetes Mother Diabetes Father Coronary heart disease Myocardial infarction, Onset Age: 49 Social History Smoking Status: Never smoker Hx Alcohol Use: No Hx Substance Use: No Preferred Language: Azeri marital status: / Current Living Situation: Alone current occupational status: retired Feels Safe at Home: Yes Allergies Allergies Allergy/AdvReac Type Severity Reaction Status Date / Time Cipro Allergy Intermediate rash and Verified 08/25/17 08:14 itchiness Home Meds Home Medications Medication Instructions Recorded Confirmed aspirin 81 mg PO PM 10/24/20 10/24/20 baclofen 10 mg PO HS 10/24/20 10/24/20 buspirone [BuSpar] 10 mg PO TID 10/24/20 10/24/20 furosemide [Lasix] 20 mg PO Q OTHER DAY 10/24/20 10/24/20 levothyroxine 100 mcg PO DAILYBB 10/24/20 10/24/20 linagliptin [Tradjenta] 5 mg PO DAILY 10/24/20 10/24/20 lorazepam [Ativan] 0.5 mg PO HS 10/24/20 10/24/20 losartan 100 mg PO DAILY 10/24/20 10/24/20 metoprolol tartrate 50 mg PO DAILY 10/24/20 10/24/20 mirtazapine [Remeron] 30 mg PO HS 10/24/20 10/24/20 pantoprazole [Protonix] 40 mg PO DAILY 10/24/20 10/24/20 potassium chloride 20 meq PO DAILY 10/24/20 10/24/20 simvastatin [Zocor] 20 mg PO PM 10/24/20 10/24/20 tramadol 50 mg PO DAILY PRN 10/24/20 10/24/20 venlafaxine 75 mg PO PM 10/24/20 10/24/20 venlafaxine 150 mg PO DAILY 10/24/20 10/24/20 vitamins A,C,P-ehlh-xfonni 1 cap PO AMPM 10/24/20 10/24/20 [PreserVision AREDS] Results & Data (ED) Vital Signs Vital Signs - 24 hr 10/24/20 10:40 10/24/20 11:05 10/24/20 12:07 Temperature 36.9 C Temperature Source Oral Pulse Rate 72 68 71 Pulse Rate from SpO2 Sensor 69 71 Pulse Rhythm Regular Respiratory Rate 20 16 17 Respiratory Effort / Characteristics Spontaneous Blood Pressure 139/96 139/96 Blood Pressure Mean 110 110 Blood Pressure Position Sitting Pulse Oximetry 97 97 97 Oxygen Delivery Method Room Air Sepsis Recent Fever Within 48 Hours No Sepsis New/Unexplained Change in Mental Status No Sepsis Action Taken by Nursing No Action Required 10/24/20 12:30 10/24/20 12:52 10/24/20 13:00 Temperature Temperature Source Pulse Rate 70 73 74 Pulse Rate from SpO2 Sensor 71 72 73 Pulse Rhythm Respiratory Rate 16 16 14 Respiratory Effort / Characteristics Blood Pressure 146/97 H 146/85 H Blood Pressure Mean 113 105 Blood Pressure Position Pulse Oximetry 96 94 95 Oxygen Delivery Method Room Air Sepsis Recent Fever Within 48 Hours Sepsis New/Unexplained Change in Mental Status Sepsis Action Taken by Nursing 10/24/20 13:01 10/24/20 13:30 10/24/20 13:54 Temperature Temperature Source Pulse Rate 73 80 Pulse Rate from SpO2 Sensor 74 79 Pulse Rhythm Respiratory Rate 16 18 Respiratory Effort / Characteristics Blood Pressure 169/76 H Blood Pressure Mean 107 Blood Pressure Position Pulse Oximetry 93 99 Oxygen Delivery Method Room Air Sepsis Recent Fever Within 48 Hours Sepsis New/Unexplained Change in Mental Status Sepsis Action Taken by [facility] Medications Current Medication List: was personally reviewed by me Laboratory Data Attestation: I reviewed the patient's lab results. Result diagrams: 10/24/20 11:39 10/24/20 11:39 Lab Results 10/24/20 10/24/20 10/24/20 Range/Units 11:33 11:33 11:39 WBC (4.8-10.8) K/uL RBC (4.2-5.4) M/uL Hgb (12.0-16.0) g/dL Hct (37-47) % MCV (80-100) fL MCH (25-34) pg MCHC (32-36) g/dL RDW Std Deviation (36.4-46.3) fL RDW Coeff of Thea (11.5-14.5) % Plt Count (130-400) K/uL MPV (7.4-10.4) fL Immature Gran % (Auto) % Neut % (Auto) % Lymph % (Auto) % [place]ult[place] % (Auto) % Eos % (Auto) % Baso % (Auto) % Neut # (Auto) (1.4-6.5) K/uL Lymph # (Auto) (1.2-3.4) K/uL Fulton # (Auto) (0.11-0.59) K/uL Eos # (Auto) (0-0.5) K/uL Baso # (Auto) (0-0.2) K/uL Immature Gran # (Auto) (0.00-0.02) K/uL PT 10.6 (9.0-12.0) Seconds INR 1.0 (0.9-1.1) APTT 21.9 (21.0-31.0) Seconds PTT Ratio 0.8 Sodium (136-145) mmol/L Potassium (3.5-5.1) mmol/L Chloride (98-107) mmol/L Carbon Dioxide (21-32) mmol/L Anion Gap (3-11) BUN (7-18) mg/dl Creatinine (0.6-1.2) mg/dl Est Cr Clr Drug Dosing ml/min Est GFR ( Amer) Est GFR (Non-Af Amer) BUN/Creatinine Ratio (10-20) Glucose (70-99) mg/dl Calcium (8.5-10.1) mg/dl Total Bilirubin (0.2-1) mg/dl AST (15-37) U/L ALT (12-78) U/L Alkaline Phosphatase (45-117) U/L Troponin I (0-0.045) ng/ml Total Protein (6.4-8.2) gm/dl Albumin (3.4-5.0) gm/dl Globulin (2.5-4.0) gm/dl Albumin/Globulin Ratio (0.9-2) Lipase (73-393) U/L COVID-19 Eval [facility] SARS-CoV-2, RNA, NAAT NEGATIVE (NEGATIVE) 10/24/20 10/24/20 Range/Units 11:39 11:39 WBC 9.53 (4.8-10.8) K/uL RBC 4.19 L (4.2-5.4) M/uL Hgb 13.0 (12.0-16.0) g/dL Hct 39.4 (37-47) % MCV 94.0 (80-100) fL MCH 31.0 (25-34) pg MCHC 33.0 (32-36) g/dL RDW Std Deviation 45.7 (36.4-46.3) fL RDW Coeff of Thea 13.3 (11.5-14.5) % Plt Count 269 (130-400) K/uL MPV 9.9 (7.4-10.4) fL Immature Gran % (Auto) 0.2 % Neut % (Auto) 69.1 % Lymph % (Auto) 20.1 % Fult[place] % (Auto) 8.0 % Eos % (Auto) 2.3 % Baso % (Auto) 0.3 % Neut # (Auto) 6.58 H (1.4-6.5) K/uL Lymph # (Auto) 1.92 (1.2-3.4) K/uL [place] # (Auto) 0.76 H (0.11-0.59) K/uL Eos # (Auto) 0.22 (0-0.5) K/uL Baso # (Auto) 0.03 (0-0.2) K/uL Immature Gran # (Auto) 0.02 (0.00-0.02) K/uL PT (9.0-12.0) Seconds INR (0.9-1.1) APTT (21.0-31.0) Seconds PTT Ratio Sodium 141 (136-145) mmol/L Potassium 5.1 (3.5-5.1) mmol/L Chloride 113 H (98-107) mmol/L Carbon Dioxide 21 (21-32) mmol/L Anion Gap 7.0 (3-11) BUN 32 H (7-18) mg/dl Creatinine 1.27 H (0.6-1.2) mg/dl Est Cr Clr Drug Dosing 32.7 ml/min Est GFR ( Amer) 45.2 Est GFR (Non-Af Amer) 39.0 BUN/Creatinine Ratio 25.1 H (10-20) Glucose 145 H (70-99) mg/dl Calcium 9.1 (8.5-10.1) mg/dl Total Bilirubin 0.4 (0.2-1) mg/dl AST 14 L (15-37) U/L ALT 24 (12-78) U/L Alkaline Phosphatase 116 (45-117) U/L Troponin I < 0.015 (0-0.045) ng/ml Total Protein 7.5 (6.4-8.2) gm/dl Albumin 3.6 (3.4-5.0) gm/dl Globulin 3.9 (2.5-4.0) gm/dl Albumin/Globulin Ratio 0.9 (0.9-2) Lipase 330 (73-393) U/L COVID-19 Eval Order SARS-CoV-2, RNA, NAAT (NEGATIVE) Administered Medications Morphine Sulfate (Morphine Sulfate 4 Mg/Ml 1 Ml Carp\Vial) 4 mg IV Q30M PRN PRN Reason: Pain Stop: 11/07/20 11:03 Last Admin: 10/24/20 14:39 Dose: 4 mg Documented by: [id number] Admin: 10/24/20 12:52 Dose: 4 mg Documented by: [id number] Admin: 10/24/20 11:41 Dose: 4 mg Documented by: [id number] Discontinued Medications Ondansetron HCl (Ondansetron Inj 2 Mg/Ml 2 Ml Vial) 4 mg IV NOW STA Stop: 10/24/20 11:05 Last Admin: 10/24/20 11:45 Dose: 4 mg Documented by: [id number] Imaging Data Radiologist's Impression: Patient: VARSHA BELTRÁN Admit Date: 10/24/20 MR#: [id number] Address1: [address] [facility] [facility] [address] [address] [address] Acct ID:[id number] Address2: Date: 1935 [facility] Zip: [place] [address] Age: 85 Location: ED Sex: F Room/Bed: Att Phy: Diagnosis: FALL Johanne Phy: Trevor Mazariegos MD Service Date: 10/24/20 Fam Phy: Interpreting Phy: Christopher Almeida MD Admit Phy: Ordering Phy: Johnnie Torres DO cc: ~ XR chest 1V portable CLINICAL HISTORY: Atypical chest pain RIGHT HIP FRACTURE. COMPARISON STUDY: 12/04/2018 FINDINGS: The study was performed in AP orbital supine fashion.[The heart is mildly enlarged. There is no failure. There is no focal pulmonary consolidation. There are no pleural effusions. Arthritic changes are present within the left shoulder. IMPRESSION: No active disease in the chest. ACT 112: Negative or not required by law. Electronically signed by: Christopher Almeida M.D. 10/24/2020 12:27 PM Dictated: 10/24/20 1226 Transcribed: 10/24/20 1226 Patient: VARSHA BELTRÁN Admit Date: 10/24/20 MR#: [id number] Address1: [address] [place] [address] [address] Acct ID:[id number] Address2: Date: 1935 [facility] Zip: [place] [address] Age: 85 Location: ED Sex: F Room/Bed: Att Phy: Diagnosis: FALL Johanne Phy: Trevor Mazariegos MD Service Date: 10/24/20 [facility] Phy: Interpreting Phy: Ashok Quintero MD Admit Phy: Ordering Phy: Johnnie Torres DO cc: ~ XR hip RT 2V w pelvis CLINICAL HISTORY: fall. Right hip pain. COMPARISON STUDY: Pelvis 08/21/2017. FINDINGS: Evidence for prior left total hip arthroplasty. The hardware is intact. There is an oblique and displaced subtrochanteric right femoral fracture. There is soft tissue swelling within the right hip. The visualized pelvic bones appear intact. The subtrochanteric fracture demonstrates up to 2.5 cm of anterior displacement. No dislocation. Moderate osteoarthritis within the right hip. IMPRESSION: A displaced subtrochanteric right femoral fracture. ACT 112: Negative or not required by law. Electronically signed by: Ashok Quintero M.D. 10/24/2020 12:26 PM Dictated: 10/24/20 1225 Transcribed: 10/24/20 1225 Blood Pressure Blood Pressure Findings: Elevated blood pressure Blood Pressure Disposition: further management by hospitalist Discharge Plan Visit Data Chief Complaint: Fall ED Provider: Johnnie Torres Discharge Problem: Fracture of hip, right, closed Patient Disposition: Admitted As Inpatient Condition: Good Discharge Instructions Interventions: ED Discharge Assessment Last Done: 10/24/20 13:54 Forms Stand Alone Forms: My [facility] Prescriptions Prescriptions: No Action venlafaxine 75 mg Tablet 75 mg PO PM RF: 0 aspirin 81 mg Tablet,Delayed Release (Dr/Ec) 81 mg PO PM RF: 0 tramadol 50 mg Tablet 50 mg PO DAILY PRN (Reason: Pain) RF: 0 levothyroxine 100 mcg tablet 100 mcg PO DAILYBB RF: 0 lorazepam [Ativan] 0.5 mg Tablet 0.5 mg PO HS RF: 0 baclofen 10 mg Tablet 10 mg PO HS RF: 0 pantoprazole [Protonix] 40 mg Tablet,Delayed Release (Dr/Ec) 40 mg PO DAILY RF: 0 simvastatin [Zocor] 20 mg Tablet 20 mg PO PM RF: 0 mirtazapine [Remeron] 30 mg Tablet 30 mg PO HS RF: 0 buspirone [BuSpar] 10 mg Tablet 10 mg PO TID RF: 0 metoprolol tartrate 50 mg Tablet 50 mg PO DAILY RF: 0 furosemide [Lasix] 20 mg Tablet 20 mg PO Q OTHER DAY RF: 0 losartan 100 mg Tablet 100 mg PO DAILY RF: 0 PreserVision AREDS [id number] Capsule 1 cap PO AMPM RF: 0 venlafaxine 150 mg Tablet Extended Release 24hr 150 mg PO DAILY RF: 0 Tradjenta 5 mg Tablet 5 mg PO DAILY RF: 0 potassium chloride 20 mEq Tablet Extended Release 20 meq PO DAILY RF: 0 Referrals Referrals: Trevor Mazariegos MD [Primary Care Provider] - Discharge Problem: Fracture of hip, right, closed Qualifiers: Encounter type: initial encounter Qualified Code(s): S72.001A - Fracture of unspecified part of neck of right femur, initial encounter for closed fracture
[2020-10-24] MEDS: MoRPHine SULFATE 4 MG/ML 1 ML CARP\\VIAL IV PRN ×3 (11:41→14:39)
[2020-10-24 11:51] LABS: Basophils # (auto) 0.03 K/uL (0-0.2); Basophils % (auto) 0.3 %; Eosinophils # (auto) 0.22 K/uL (0-0.5); Eosinophils % (auto) 2.3 %; Hematocrit (blood only) 39.4 % (37-47); Immature Granulocytes # (auto) 0.02 K/uL (0.00-0.02); Immature Granulocytes % (auto) 0.2 %; Lymphocytes # (auto) 1.92 K/uL (1.2-3.4); Lymphocytes % (auto) 20.1 %; Mean Platelet Volume 9.9 fL (7.4-10.4); Monocytes # (auto) 0.76 K/uL (0.11-0.59); Neutrophils # (auto) 6.58 K/uL (1.4-6.5); Neutrophils % (auto) 69.1 %; Platelet Count 269 K/uL (130-400); RDW Coefficient of Variation 13.3 % (11.5-14.5); RDW Standard Deviation 45.7 fL (36.4-46.3); Red Blood Count 4.19 M/uL (4.2-5.4); White Blood Count 9.53 K/uL (4.8-10.8)
[2020-10-24 12:12] LABS: Alanine Aminotransferase 24 U/L (12-78); Albumin Level 3.6 gm/dl (3.4-5.0); Aspartate Aminotransferase 14 U/L (15-37); BUN Creatinine Ratio 25.1 (10-20); Blood Urea Nitrogen 32 mg/dl (7-18); Calcium 9.1 mg/dl (8.5-10.1); Carbon Dioxide 21 mmol/L (21-32); Chloride 113 mmol/L (98-107); Creatinine Clr Calc Pharmacy 32.7 ml/min; Est GFR (African American) 45.2; Glucose 145 mg/dl (70-99); Lipase 330 U/L (73-393); Partial Thromboplastin Ratio 0.8; Partial Thromboplastin Time 21.9 Seconds (21.0-31.0); Potassium 5.1 mmol/L (3.5-5.1); Prothrombin Time 10.6 Seconds (9.0-12.0); Sodium 141 mmol/L (136-145)
[2020-10-24 12:16] LABS: Albumin Globulin Ratio 0.9 (0.9-2); Alkaline Phosphatase 116 U/L (45-117); Bilirubin,Total 0.4 mg/dl (0.2-1); Globulin 3.9 gm/dl (2.5-4.0); Total Protein 7.5 gm/dl (6.4-8.2); Troponin I < 0.015 ng/ml (0-0.045)
--- NOTE | 2020-10-24 12:27 | XRay Report ---
XR hip RT 2V w pelvis CLINICAL HISTORY: fall. Right hip pain. COMPARISON STUDY: Pelvis 08/21/2017. FINDINGS: Evidence for prior left total hip arthroplasty. The hardware is intact. There is an oblique and displaced subtrochanteric right femoral fracture. There is soft tissue swelling within the right hip. The visualized pelvic bones appear intact. The subtrochanteric fracture demonstrates up to 2.5 cm of anterior displacement. No dislocation. Moderate osteoarthritis within the right hip. IMPRESSION: A displaced subtrochanteric right femoral fracture. ACT 112: Negative or not required by law. Electronically signed by: Ashok Quintero M.D. 10/24/2020 12:26 PM
--- NOTE | 2020-10-24 12:28 | XRay Report ---
XR chest 1V portable CLINICAL HISTORY: Atypical chest pain RIGHT HIP FRACTURE. COMPARISON STUDY: 12/04/2018 FINDINGS: The study was performed in AP orbital supine fashion.[The heart is mildly enlarged. There i s no failure. There is no focal pulmonary consolidation. There are no pleural effusions. Arthritic ch anges are present within the left shoulder. IMPRESSION: No active disease in the chest. ACT 112: Negative or not required by law. Electronically signed by: Christopher Almeida M.D. 10/24/2020 12:27 PM
--- NOTE | 2020-10-24 13:06 | History & Physical Report ---
Date of Service October 24, 2020 Assessment & Plan (1) Displaced subtrochanteric fracture of right femur: (2) Fall: This is an 85 yr old F who has a significant PMH of T2DM, HTN, HLD, IBS , hypothyroidism, AMD, GERD, hx of PE provoked by surgery 5-6 yrs ago who presents to ED today after sustaining mechanical fall. R hip/pelvis xray: IMPRESSION: A displaced subtrochanteric right femoral fracture. CXR WNL, EKG reviewed and unchanged from 12/2018 Labs stable, obtain UA Last echo 2016 revealed questionable R atrial echodensity 1cm, ? artifact vs mass vs thrombus - will repeat echo now pt able to reach METS w/o any cardiac symptoms pending echocardiogram pt will be medically cleared for surgery admit to med/surg consult ortho - Dr. Coello is going to see pt - previous L ESTHER with Dr. Coello bed rest ta placed hydrocodone prn moderate pain, IV morphine severe pain SQ Heparin x 1 this evening for dvt ppx NPO after midnight except meds, gentle IVF after midnight (3) T2DM (type 2 diabetes mellitus): lat a1c 7.0 08/27/20 hold tradjenta lantus/novolog per protocol (4) HTN (hypertension): continue metoprolol hold losartan and lasix pre operatively also hold KCL as K is 5.1 today repeat bmp in a.m. monitor BP (5) HLD (hyperlipidemia): continue statin (6) Hypothyroidism: continue levothyroxine (7) CKD (chronic kidney disease) stage 3, GFR 30-59 ml/min: baseline cr 1.1-1.3 bun/cr 25 and 1.27 today gentle IVF at midnight (8) Grief at loss of child: Pt lost her daughter yesterday and is actively grieving supportive measures (9) History of pulmonary embolism: provoked 2/2 to post op state given Heparin 7,500units x 1 this evening, re eval dvt ppx post operatively Dispo: Med/Surg, case management consulted pt likely to need rehab post op PCP: Yair FULL CODE Pt was seen and examined in collaboration with Dr. Burton, please see addendum. History of Present Illness Chief Complaint: Fall prior to arrival. Primary Care Provider: Trevor Mazariegos MD This is an 85 yr old F who has a significant PMH of T2DM, HTN, HLD, IBS , hypothyroidism, AMD, GERD, hx of PE provoked by surgery 5-6 yrs ago who presents to ED today after sustaining mechanical fall. She was going to [employer] today and son and DIL was behind her. She went to [employer] hand rail and her R knee gave out and she went down slowly. She was unable to get up on own and had significant pain. 1 week ago she also sustained a fall that was mechanical on her R side. She has been having pain to R hip for the past week but able to ambulate. She denies LOC or syncopal episode. She denies f/c/s, dizziness, lightheaded, chest pain, sob, cough, n,v,d, abdominal pain, change in bowel or bladder habits. She occasionally gets GAMBLE. Pt under a lot of stress and grief as her daughter yesterday. She denies and CP or SOB when activity level reaches ~ 4 mets. In ED pt found to have a R displaced, closed subtrochanteric hip fx. Son at bedside. She remained hemodynamically stable. Labs revealed mostly unremarkable CBC, bmp with elevated bun/cr 32 and 1.27 Allergies Allergy/AdvReac Type Severity Reaction Status Date / Time Cipro Allergy Intermediate rash and Verified 08/25/17 08:14 itchiness Home Medications Medication Instructions Recorded Confirmed Type aspirin 81 mg PO PM 10/24/20 10/24/20 History baclofen 10 mg PO HS 10/24/20 10/24/20 History buspirone [BuSpar] 10 mg PO TID 10/24/20 10/24/20 History furosemide [Lasix] 20 mg PO Q OTHER DAY 10/24/20 10/24/20 History levothyroxine 100 mcg PO DAILYBB 10/24/20 10/24/20 History linagliptin [Tradjenta] 5 mg PO DAILY 10/24/20 10/24/20 History lorazepam [Ativan] 0.5 mg PO HS 10/24/20 10/24/20 History losartan 100 mg PO DAILY 10/24/20 10/24/20 History metoprolol tartrate 50 mg PO DAILY 10/24/20 10/24/20 History mirtazapine [Remeron] 30 mg PO HS 10/24/20 10/24/20 History pantoprazole [Protonix] 40 mg PO DAILY 10/24/20 10/24/20 History potassium chloride 20 meq PO DAILY 10/24/20 10/24/20 History simvastatin [Zocor] 20 mg PO PM 10/24/20 10/24/20 History tramadol 50 mg PO DAILY PRN 10/24/20 10/24/20 History venlafaxine 75 mg PO PM 10/24/20 10/24/20 History venlafaxine 150 mg PO DAILY 10/24/20 10/24/20 History vitamins A,C,X-tfdp-ebcpzf 1 cap PO AMPM 10/24/20 10/24/20 History [PreserVision AREDS] Past Med/Surg History Medical History Anxiety and depression CKD (chronic kidney disease) stage 3, GFR 30-59 ml/min Diverticulitis Diverticulosis History of pulmonary embolism HLD (hyperlipidemia) HTN (hypertension) Hypothyroidism Kidney calculi Pulmonary embolism Renal colic T2DM (type 2 diabetes mellitus) Surgical History History of colonoscopy History of left hip replacement History of surgery on arm R ulnar surgery History of total abdominal hysterectomy and bilateral salpingo-oophorectomy History of tubal ligation Family History Brother Diabetes Mother Diabetes Father Coronary heart disease Myocardial infarction, Onset Age: 49 Social History Smoking Status: Never smoker Hx Alcohol Use: No Hx Substance Use: No Preferred Language: Somali marital status: / Current Living Situation: Alone current occupational status: retired Feels Safe at Home: Yes Review of Systems Review of Systems: All systems reviewed & are unremarkable except as noted in HPI & below Physical Exam Constitutional: WD/WN, vitals as above + obese Eyes: PERRL, conjunctivae normal, anicteric sclerae ENMT: external ear and nose normal, oropharynx normal Neck: normal visual inspection and + thick neck Respiratory: normal respiratory effort, lungs clear to auscultation Auscultation: no crackles, no rhonchi and no wheezes Cardiovascular: RRR, no murmur, no edema Chest (Breasts): Chest: normal inspection of chest Gastrointestinal (Abdomen): Inspection/Auscultation: abdomen normal to inspection and normal bowel sounds; abdomen not distended Percussion/Palpation: abdomen soft; abdomen nontender + obese abdomen Musculoskeletal: Head/Neck/Chest: normocephalic and head atraumatic moves toes w/o difficulty, moves LLE w/o difficulty, did not move RLE d/t known fracture, tender at R hip, no sensory loss noted Skin: no rashes, warm and dry Neurologic: PERRL, EOMI, accommodation nl, no face palsy, no dysarthria Psychiatric: Orientation: alert and oriented x 3 + teary at times d/t loss of her daughter Genitourinary: no CVA tenderness Lymphatic: no lymphedema Results & Data Results & Data ([facility]) Vital Signs (Past 12 Hours) Vital Signs Temp Pulse Resp BP Pulse Ox 10/24/20 12:30 70 16 96 10/24/20 12:07 71 17 97 10/24/20 11:05 68 16 139/96 97 10/24/20 10:40 36.9 C 72 20 139/96 97 Diagnostic Findings CXR: IMPRESSION: No active disease in the chest. Hip/Pelvis xray: FINDINGS: Evidence for prior left total hip arthroplasty. The hardware is intact. There is an oblique and displaced subtrochanteric right femoral fracture. There is soft tissue swelling within the right hip. The visualized pelvic bones appear intact. The subtrochanteric fracture demonstrates up to 2.5 cm of anterior displacement. No dislocation. Moderate osteoarthritis within the right hip. IMPRESSION: A displaced subtrochanteric right femoral fracture. Medications Administered Morphine Sulfate (Morphine Sulfate 4 Mg/Ml 1 Ml Carp\Vial) 4 mg IV Q30M PRN PRN Reason: Pain Stop: 11/07/20 11:03 Last Admin: 10/24/20 12:52 Dose: 4 mg Documented by: [id number] Admin: 10/24/20 11:41 Dose: 4 mg Documented by: [id number] Discontinued Medications Ondansetron HCl (Ondansetron Inj 2 Mg/Ml 2 Ml Vial) 4 mg IV NOW STA Stop: 10/24/20 11:05 Last Admin: 10/24/20 11:45 Dose: 4 mg Documented by: [id number] ECG Rate (beats per minute): 70 Findings: + RBBB Comparison ECG Date: from (12/04/2018) Change: no significant change COVID-19 Results Results COVID- Adm Lab Results: RBC 4.19 M/uL (4.2-5.4) L 10/24/20 WBC 9.53 K/uL (4.8-10.8) 10/24/20 Hgb 13.0 g/dL (12.0-16.0) 10/24/20 Hct 39.4 % (37-47) 10/24/20 Plt Count 269 K/uL (130-400) 10/24/20 Neutrophils (%) (Auto) 69.1 % 10/24/20 Lymphocytes (%) (Auto) 20.1 % 10/24/20 Monocytes # (Auto) 0.76 K/uL (0.11-0.59) H 10/24/20 Eosinophils # (Auto) 0.22 K/uL (0-0.5) 10/24/20 Immature Granulocyte % (Auto) 0.2 % 10/24/20 Neutrophils # (Auto) 6.58 K/uL (1.4-6.5) H 10/24/20 Lymphocytes # (Auto) 1.92 K/uL (1.2-3.4) 10/24/20 Monocytes # (Auto) 0.76 K/uL (0.11-0.59) H 10/24/20 Eosinophils # (Auto) 0.22 K/uL (0-0.5) 10/24/20 Basophils # (Auto) 0.03 K/uL (0-0.2) 10/24/20 Immature Granulocyte # (Auto) 0.02 K/uL (0.00-0.02) 10/24/20 Na 141 mmol/L (136-145) 10/24/20 K 5.1 mmol/L (3.5-5.1) 10/24/20 Cl 113 mmol/L (98-107) H 10/24/20 CO2 21 mmol/L (21-32) 10/24/20 Anion Gap 7.0 (3-11) 10/24/20 BUN 32 mg/dl (7-18) H 10/24/20 Creatinine 1.27 mg/dl (0.6-1.2) H 10/24/20 BUN/Creatinine Ratio 25.1 (10-20) H 10/24/20 Glucose Level 145 mg/dl (70-99) H 10/24/20 Ca 9.1 mg/dl (8.5-10.1) 10/24/20 Total Bilirubin 0.4 mg/dl (0.2-1) 10/24/20 AST/SGOT 14 U/L (15-37) L 10/24/20 ALT/SGPT 24 U/L (12-78) 10/24/20 Alkaline Phosphatase 116 U/L (45-117) 10/24/20 Total Protein 7.5 gm/dl (6.4-8.2) 10/24/20 Albumin 3.6 gm/dl (3.4-5.0) 10/24/20 Globulin 3.9 gm/dl (2.5-4.0) 10/24/20 Albumin/Globulin Ratio 0.9 (0.9-2) 10/24/20 Troponin I < 0.015 ng/ml (0-0.045) 10/24/20 PTT 21.9 Seconds (21.0-31.0) 10/24/20 INR 1.0 (0.9-1.1) 10/24/20 SARS-CoV-2, RNA, NAAT NEGATIVE (NEGATIVE) 10/24/20 Chest X-Ray 10/24/20 Code Status & VTE Plan Code Status Full Code VTE Prophylaxis Plan VTE Prophylaxis will be ordered: Yes Supervising Physician Co-Signing Physician Notes Pt seen and examined by me, care coordinated with Juliet Walton PA-C, pls refer to her note above for further detail. I adjusted my physical exam in the note. Patient seemingly had mechanical fall, remembers the entire incident, denies any loss of consciousness, chest pain shortness of breath, dizziness during her fall. She does have history of pulmonary embolism and atrial thrombus, this seems to be secondary to/provoked by previous surgery. She had another CT PE done in 2019, which was negative for PE. Atrial thrombus found on echocardiogram in 2017. Do not see any other echoes, will try to review her chart further. Will also repeat echocardiogram for further comparison. If normal patient should proceed with surgery, and if any significant abnormality noted, will further discuss with cardiology, if any other further precautions should be taken. Clearly patient is in need of surgical repair of her right femur fracture. Travis Burton MD
--- NOTE | 2020-10-24 14:40 | Orthopedic Consultation ---
Date of Service October 24, 2020 Assessment & Plan (1) Displaced subtrochanteric fracture of right femur: Her son was with her today in the emergency department. I educated her and her son on this injury talk about treatment options. Did recommend surgical fixation, specifically IM nailing of the right femur fracture. She does wish to proceed with surgery. She has been admitted to the hospitalist service. We will make her n.p.o. after midnight and plan for long trochanteric nailing of her right femur fracture tomorrow with Dr. Coello. She does live alone and is requesting to go home postoperatively. I told her this would be quite difficult and that she would likely need some rehab/assistance. History of Present Illness Reason for Consultation: . Right femur fracture Requesting Physician: . . Yovana is a 85-year-old female admitted by the hospitalist service today with a right subtrochanteric femur fracture. She states that she had a fall approximately 1 week ago and has been having some pain in the right hip area since that. Today she was going to the [facility] and was taking a step up with the right leg when she felt pain in the right hip area. She sort of just lowered herself slowly to the ground. She was brought to [facility] x-rays were obtained she is found to have a subtrochanteric femur fracture. She states that she did see her primary care provider approximately a year ago for some groin pain and had intra-articular hip injection which did help. She is been having intermittent pain in the right hip for the past year. She denies any other current injuries. She does have a history of PE approximately 3 years ago after open reduction internal fixation of the right olecranon fracture. She is on aspirin, no other anticoagulants at this time. She is approximately 7 years status post left total hip arthroplasty which is doing well. Allergies Allergy/AdvReac Type Severity Reaction Status Date / Time Cipro Allergy Intermediate rash and Verified 08/25/17 08:14 itchiness Home Medications Medication Instructions Recorded Confirmed Type aspirin 81 mg PO PM 10/24/20 10/24/20 History baclofen 10 mg PO HS 10/24/20 10/24/20 History buspirone [BuSpar] 10 mg PO TID 10/24/20 10/24/20 History furosemide [Lasix] 20 mg PO Q OTHER DAY 10/24/20 10/24/20 History levothyroxine 100 mcg PO DAILYBB 10/24/20 10/24/20 History linagliptin [Tradjenta] 5 mg PO DAILY 10/24/20 10/24/20 History lorazepam [Ativan] 0.5 mg PO HS 10/24/20 10/24/20 History losartan 100 mg PO DAILY 10/24/20 10/24/20 History metoprolol tartrate 50 mg PO DAILY 10/24/20 10/24/20 History mirtazapine [Remeron] 30 mg PO HS 10/24/20 10/24/20 History pantoprazole [Protonix] 40 mg PO DAILY 10/24/20 10/24/20 History potassium chloride 20 meq PO DAILY 10/24/20 10/24/20 History simvastatin [Zocor] 20 mg PO PM 10/24/20 10/24/20 History tramadol 50 mg PO DAILY PRN 10/24/20 10/24/20 History venlafaxine 75 mg PO PM 10/24/20 10/24/20 History venlafaxine 150 mg PO DAILY 10/24/20 10/24/20 History vitamins A,C,I-mmtz-iwfrzd 1 cap PO AMPM 10/24/20 10/24/20 History [PreserVision AREDS] Past Med/Surg History Medical History Anxiety and depression CKD (chronic kidney disease) stage 3, GFR 30-59 ml/min Diverticulitis Diverticulosis History of pulmonary embolism HLD (hyperlipidemia) HTN (hypertension) Hypothyroidism Kidney calculi Pulmonary embolism Renal colic T2DM (type 2 diabetes mellitus) Surgical History History of colonoscopy History of left hip replacement History of surgery on arm R ulnar surgery History of total abdominal hysterectomy and bilateral salpingo-oophorectomy History of tubal ligation Family History Brother Diabetes Mother Diabetes Father Coronary heart disease Myocardial infarction, Onset Age: 49 Social History Smoking Status: Never smoker Hx Alcohol Use: No Hx Substance Use: No Preferred Language: Montserratian marital status: / Current Living Situation: Alone current occupational status: retired Feels Safe at Home: Yes Review of Systems All systems reviewed & are unremarkable except as noted in HPI & below. Physical Exam . Constitutional well developed, well nourished and + acute distress Respiratory normal respiratory effort Cardiovascular Vessels: dorsalis pedis pulses present Musculoskeletal She has tenderness along the right thigh. She can dorsiflex and plantarflex appropriately. Moves her toes appropriately. I did not do any motion of her hip or knee obviously with this femur fracture. She is in obvious pain. She was dressed so I did not see her skin around the thigh area. She denies any open areas or cuts. Neurologic normal touch/pain/proprioception Psychiatric Orientation: alert and oriented x 3 Results & Data Results & Data Laboratory Results . Diagnostic Findings . X-rays of the right hip today demonstrate a displaced subtrochanteric femur fracture. PG Care Time/CCT Total # of Minutes Spent Total Time Spent with Patient: Total time spent is greater than 50% in coordination of care (as documented) at patient's floor/unit and/or counseling patient: Coding Level of Care Code 48945 Inpt Consult Level 4 Diagnoses Displaced subtrochanteric fracture of right femur S72.21XA
[2020-10-24 15:42] LABS: Appearance Urine Clear (Clear); Bacteria Urine Automated Negative (Negative); Bilirubin Urine Negative (Negative); Blood Urine Negative (Negative); Color Urine Yellow; Epithelial Cell Urine Auto 20-30 /lpf (0-5); Glucose Urine UA Negative (Negative); Ketones Urine Negative (Negative); Leukocyte Esterase Urine 1+ (Negative); Nitrite Urine Negative (Negative); Protein Urine Negative (Negative); RBC Urine Automated 0-4 /hpf (0-4); Specific Gravity Urine 1.025 (1.000-1.030); Urobilinogen Urine Negative (Negative)
--- NOTE | 2020-10-24 16:14 | Anesthesiology Consultation ---
Date of Service October 24, 2020 Assessment & Plan Chart Review Chart Review: Acceptable Risk for Surgery Consults Requested none ASA ASA3 Proposed Anesthesia Anesthesia Type: General (Bu) and MAC Spinal Regional Regional Laterality: Right Site: other (Fascia iliaca) Risk / Benefits Reviewed With: PT / POA / Parent / Guardian, Accepts Plan and Informed Consent Obtained History Surgery Operation Date: 10/25/20 09:50 Proposed Procedures p Right Long Troch Nailing - Jorge Coello MD Height/Weight Height: 5 ft Weight: 86 kg Allergies Allergy/AdvReac Type Severity Reaction Status Date / Time Cipro Allergy Intermediate rash and Verified 08/25/17 08:14 itchiness Medications Home Medications Medication Instructions Recorded Confirmed Last Taken aspirin 81 mg PO PM 10/24/20 10/24/20 10/23/20 baclofen 10 mg PO HS 10/24/20 10/24/20 10/23/20 buspirone [BuSpar] 10 mg PO TID 10/24/20 10/24/20 10/24/20 furosemide [Lasix] 20 mg PO Q OTHER DAY 10/24/20 10/24/20 10/22/20 levothyroxine 100 mcg PO DAILYBB 10/24/20 10/24/20 10/24/20 linagliptin [Tradjenta] 5 mg PO DAILY 10/24/20 10/24/20 10/24/20 lorazepam [Ativan] 0.5 mg PO HS 10/24/20 10/24/20 10/23/20 losartan 100 mg PO DAILY 10/24/20 10/24/20 10/24/20 metoprolol tartrate 50 mg PO DAILY 10/24/20 10/24/20 10/24/20 mirtazapine [Remeron] 30 mg PO HS 10/24/20 10/24/20 10/23/20 pantoprazole [Protonix] 40 mg PO DAILY 10/24/20 10/24/20 10/24/20 potassium chloride 20 meq PO DAILY 10/24/20 10/24/20 10/24/20 simvastatin [Zocor] 20 mg PO PM 10/24/20 10/24/20 10/23/20 tramadol 50 mg PO DAILY PRN 10/24/20 10/24/20 Unknown venlafaxine 75 mg PO PM 10/24/20 10/24/2010/23/21 venlafaxine 150 mg PO DAILY 10/24/20 10/24/20 10/24/20 vitamins A,C,C-iaab-hbjloy 1 cap PO AMPM 10/24/20 10/24/20 10/24/20 [PreserVision AREDS] Active Medications Generic Name Dose Route Start Last Admin Trade Name Jim PRN Reason Stop Dose Admin Hydrocodone Bitart/Acetaminophen 2 tab 10/24/20 16:37 10/25/20 07:48 Hydrocodone/Acetamophen 5/325mg Tab PO 11/07/20 16:36 2 tab Q4H PRN Administration SEVERE Pain (7,8,9,10) Aspirin 81 mg 10/24/20 21:00 10/24/20 21:04 Aspirin 81 Mg Ectab PO 11/23/20 20:59 81 mg PM PIOTR Administration Baclofen 10 mg 10/24/20 21:00 10/24/20 21:06 Baclofen 10 Mg Tab PO 11/23/20 20:59 10 mg HS PIOTR Administration Buspirone HCl 10 mg 10/24/20 17:00 10/24/20 21:05 Buspirone 5 Mg Tab PO 11/23/20 16:59 10 mg TID PIOTR Administration Sodium Chloride 1,000 mls @ 80 mls/hr 10/25/20 00:01 10/25/20 00:04 Nss 1000ml IV 10/25/20 12:30 80 mls/hr .[id number] PIOTR Administration Insulin Aspart 0 units 10/25/20 06:00 10/25/20 05:48 Insulin Aspart 100 Units/Ml 3 Ml Pen SC 11/24/20 05:59 Not Given Q6 PIOTR Insulin Glargine 0 - 5 units 10/24/20 21:00 10/24/20 21:07 Insulin Glargine Solostar 100 Units/Ml 3 Ml Pen SC 11/23/20 20:59 Not Given BID PIOTR Levothyroxine Sodium 100 mcg 10/25/20 06:30 10/25/20 05:47 Levothyroxine Sodium 100 Mcg Tablet PO 11/24/20 06:29 100 mcg DAILYBB PIOTR Administration Lorazepam 0.5 mg 10/24/20 21:00 10/24/20 21:03 Lorazepam 0.5 Mg Tab PO 11/23/20 20:59 0.5 mg HS PIOTR Administration Mirtazapine 30 mg 10/24/20 21:00 10/24/20 21:06 Mirtazapine Tab 15 Mg Tab PO 11/23/20 20:59 30 mg HS PIOTR Administration Morphine Sulfate 2 mg 10/24/20 16:37 10/25/20 07:03 Morphine Sulfate 2 Mg/Ml Carp IV 11/07/20 16:36 2 mg Q3H PRN Administration Pain (1,2,3,4,5) & Pre PT Multivitamins/Minerals 1 tab 10/24/20 21:00 10/24/20 21:06 Cerovite Adv Formula Tab PO 11/23/20 20:59 1 tab QPM PIOTR Administration Ondansetron HCl 4 mg 10/24/20 16:37 10/25/20 07:03 Ondansetron Inj 2 Mg/Ml 2 Ml Vial IV 11/23/20 16:36 4 mg Q6H PRN Administration Nausea And Vomiting Senna/Docusate Sodium 2 tab 10/24/20 21:00 10/24/20 21:06 Docusate Sodium/Senna 50/8.6mg Tab PO 11/23/20 20:59 2 tab HS PIOTR Administration Simvastatin 20 mg 10/24/20 21:00 10/24/20 21:05 Simvastatin 20 Mg Tab PO 11/23/20 20:59 20 mg PM PIOTR Administration Venlafaxine HCl 75 mg 10/24/20 21:00 10/24/20 21:04 Venlafaxine Hcl 50 Mg Tab PO 11/23/20 20:59 75 mg PM PIOTR Administration NPO Date Last Intake of Fluids: 10/24/20 Time Last Intake of Fluids: 23:00 Date Last Intake of Solids: 10/24/20 Time Last Intake of Solids: 23:59 Past Medical History Medical History (Updated 10/24/20 @ 16:12 by Sofia Lopez DO) Anxiety and depression CKD (chronic kidney disease) stage 3, GFR 30-59 ml/min Displaced subtrochanteric fracture of right femur Diverticulitis Diverticulosis History of pulmonary embolism HLD (hyperlipidemia) HTN (hypertension) Hypothyroidism Kidney calculi Pulmonary embolism Pulmonary hypertension 45mmHg 2017 Renal colic T2DM (type 2 diabetes mellitus) Exercise / Class Metabolic Activity III < 4 Walking/Shop/Light housework Past Family History Family History Brother Diabetes Mother Diabetes Father Coronary heart disease Myocardial infarction, Onset Age: 49 Past Surgical History Surgical History History of colonoscopy History of left hip replacement History of surgery on arm R ulnar surgery History of total abdominal hysterectomy and bilateral salpingo-oophorectomy History of tubal ligation Past Anesthesia History No Hx of Anesthesia Complications and No Family Hx of Anesthesia Complications History of PONV No Hx of PONV and No Hx of Motion Sickness Social History Smoking Status: Never smoker Hx Alcohol Use: No Hx Substance Use: No Physical Exam Vital Signs Last Vital Signs Temp 37.0 C 10/25/20 07:55 Pulse 83 10/25/20 07:55 Resp 17 10/25/20 07:55 BP 124/62 10/25/20 07:55 Pulse Ox 95 10/25/20 07:55 Constitutional + morbidly obese and + overweight ENMT Mouth: + small oral opening; no TMJ abnormality Thyromental Distance: > or= 3.5 Finger Breadths Mallampati Class: III Neck normal visual inspection, trachea midline, + short neck and + thick neck; neck extension not limited Respiratory normal respiratory effort Auscultation: lungs clear to auscultation bilaterally Cardiovascular Rate/Rhythm: regular rate and regular rhythm Heart Sounds: no murmur Musculoskeletal Spine: normal cervical ROM Extremities: full ROM of extremities Neurologic moves all extremities Psychiatric Orientation: alert and oriented x 3 Testing Laboratory Results 10/25/20 06:19 10/25/20 06:19 PT 10.6 Seconds (9.0-12.0) 10/24/20 11:39 INR 1.0 (0.9-1.1) 10/24/20 11:39 APTT 21.9 Seconds (21.0-31.0) 10/24/20 11:39 Urine Color Yellow 10/24/20 15:30 Urine Appearance Clear (Clear) 10/24/20 15:30 Urine pH 5.0 (4.5-7.5) 10/24/20 15:30 Ur Specific [place] 1.025 (1.000-1.030) 10/24/20 15:30 Urine Protein Negative (Negative) 10/24/20 15:30 Urine Glucose (UA) Negative (Negative) 10/24/20 15:30 Urine Ketones Negative (Negative) 10/24/20 15:30 Urine Nitrite Negative (Negative) 10/24/20 15:30 Ur Leukocyte Esterase 1+ (Negative) H 10/24/20 15:30 Urine WBC (Auto) 1-5 /hpf (0-5) 10/24/20 15:30 Urine RBC (Auto) 0-4 /hpf (0-4) 10/24/20 15:30 U Hyaline Cast (Auto) 5-10 /lpf (0-5) H 10/24/20 15:30 U Epithel Cells (Auto) 20-30 /lpf (0-5) H 10/24/20 15:30 Urine Bacteria (Auto) Negative (Negative) 10/24/20 15:30 Blood Type A Positive 10/24/20 17:00 Antibody Screen NEGATIVE 10/24/20 17:00 10/25/20 10/24/20 05:48 20:51 POC Glucose 159 H 129 H 10/24/20 COVID neg Electrocardiogram Date: 10/24/20 Findings: + NSR @ (70) and + RBBB LAD Chest X-Ray Date: 10/24/20 Findings: + NAD Echocardiogram Date: 10/24/20 EF: 60-65 LV Function: normal RWMA: + none Valvular Disease: + no significant valvular disease mod concen LVH mod pericardial effusion
[2020-10-24] MEDS ORDERED: MAGNESIUM HYDROXIDE SUSP 30 ML UDC PO PRN (16:37)
[2020-10-24] MEDS ORDERED: GLUCOSE 10 TABS/TUBE PO PRN (16:37)
[2020-10-24] MEDS ORDERED: bisacodyL 10 MG SUPP PR PRN (16:37)
[2020-10-24] MEDS ORDERED: CARBOHYDRATES FOR HYPOGLYCEMIA PO PRN (16:37)
[2020-10-24] MEDS ORDERED: HYDROCODONE/ACETAMOPHEN 5/325MG TAB PO PRN (16:37)
[2020-10-24] MEDS ORDERED: DEXTROSE 50% 50 ML SYRINGE IV PRN (16:37)
[2020-10-24] MEDS ORDERED: GLUCOSE 40% GEL 15 GM TUBE PO PRN (16:37)
[2020-10-24] MEDS ORDERED: GLUCAGON FOR INJ 1 MG VIAL SQ PRN (16:37)
[2020-10-24] MEDS ORDERED: NALOXONE HCL 0.4 MG/1 ML VIAL/CARP IV PRN (16:37)
[2020-10-24] MEDS: MoRPHine SULFATE 2 MG/ML CARP IV PRN (17:15)
[2020-10-24] MEDS: busPIRone 5 MG TAB PO SCH ×2 (17:32→21:05)
[2020-10-24] MEDS: INSULIN ASPART 100 UNITS/ML 3 ML PEN SC SCH ×2 (17:34→21:08)
[2020-10-24] MEDS: HYDROCODONE/ACETAMOPHEN 5/325MG TAB PO PRN (19:27)
[2020-10-24] MEDS ORDERED: HEPARIN SOD 5,000 UNIT/0.5 ML VIAL SC ONE (21:00)
[2020-10-24] MEDS ORDERED: HEPARIN SOD 5,000 UNIT/0.5 ML VIAL SQ ONE (21:00)
[2020-10-24] MEDS: LORazepam 0.5 MG TAB PO SCH (21:03)
[2020-10-24] MEDS: VENLAFAXINE HCL 50 MG TAB PO SCH (21:04)
[2020-10-24] MEDS: ASPIRIN 81 MG ECTAB PO SCH (21:04)
[2020-10-24] MEDS: SIMVASTATIN 20 MG TAB PO SCH (21:05)
[2020-10-24] MEDS: BACLOFEN 10 MG TAB PO SCH (21:06)
[2020-10-24] MEDS: CEROVITE ADV FORMULA TAB PO SCH (21:06)
[2020-10-24] MEDS: MIRTAZAPINE TAB 15 MG TAB PO SCH (21:06)
[2020-10-24] MEDS: DOCUSATE SODIUM/SENNA 50/8.6MG TAB PO SCH (21:06)
[2020-10-24] MEDS: INSULIN GLARGINE SOLOSTAR 100 UNITS/ML 3 ML PEN SC SCH (21:07)
[2020-10-25] MEDS ORDERED: SODIUM CHLORIDE 0.9% 1000ML 1,000 ML IV SCH (00:01)
[2020-10-25] MEDS: MoRPHine SULFATE 2 MG/ML CARP IV PRN ×4 (01:40→23:36)
[2020-10-25] MEDS ORDERED: Nursing to Pharmacy Communication SCH (02:00)
[2020-10-25] MEDS: HYDROCODONE/ACETAMOPHEN 5/325MG TAB PO PRN ×3 (02:55→19:31)
[2020-10-25] MEDS ORDERED: MoRPHine SULFATE 2 MG/ML CARP IV STA (04:04)
--- NOTE | 2020-10-25 05:18 | Electrocardiogram Report ---
Test Reason : Blood Pressure : / mmHG Vent. Rate : 070 BPM Atrial Rate : 070 BPM P-R Int : 150 ms QRS Dur : 122 ms QT Int : 434 ms P-R-T Axes : 045 -76 028 degrees QTc Int : 468 ms Poor data quality, interpretation may be adversely affected Normal sinus rhythm Left axis deviation Right bundle branch block Abnormal ECG When compared with ECG of 04-DEC-2018 12:10, No significant change was found Confirmed by Jose Roberto Greene ([id number]) on 10/25/2020 5:17:56 AM Referred By: ED Confirmed By:Jose Roberto Greene
[2020-10-25] MEDS: LEVOTHYROXINE SODIUM 100 MCG TABLET PO SCH (05:47)
[2020-10-25] MEDS: INSULIN ASPART 100 UNITS/ML 3 ML PEN SC SCH ×4 (05:48→22:03)
[2020-10-25] MEDS ORDERED: ceFAZolin 2000MG 2,000 MG/15 ML SYR IV SCH (06:00)
[2020-10-25 06:37] LABS: Hematocrit (blood only) 37.2 % (37-47); Hemoglobin 11.9 g/dL (12.0-16.0); Mean Corpuscular Hemoglobin 30.4 pg (25-34); Mean Corpuscular Volume 95.1 fL (80-100); Mean Platelet Volume 9.8 fL (7.4-10.4); Platelet Count 276 K/uL (130-400); RDW Coefficient of Variation 13.4 % (11.5-14.5); RDW Standard Deviation 46.4 fL (36.4-46.3); Red Blood Count 3.91 M/uL (4.2-5.4); White Blood Count 12.29 K/uL (4.8-10.8)
[2020-10-25] MEDS: ONDANSETRON INJ 2 MG/ML 2 ML VIAL IV PRN ×3 (07:03→21:56)
[2020-10-25 07:17] LABS: BUN Creatinine Ratio 26.1 (10-20); Calcium 8.4 mg/dl (8.5-10.1); Creatinine Clr Calc Pharmacy 36.7 ml/min; Est GFR (African American) 52.1; Est GFR (Non-African American) 44.9; Potassium 4.6 mmol/L (3.5-5.1)
[2020-10-25] MEDS ORDERED: MIDAZOLAM HCL 1 MG/ML 2ML VIAL ONE (07:58)
[2020-10-25] MEDS ORDERED: fentaNYL citrate 100 MCG/2 ML VIAL ONE ×3 (07:59→13:15)
[2020-10-25] MEDS ORDERED: ROPIVACAINE 0.5% 5 MG/ML 30 ML VIAL ONE (08:00)
[2020-10-25] MEDS ORDERED: BUPIVACAINE 0.5 % 5 MG/1 ML PF 10ML VIAL ONE (08:03)
[2020-10-25] MEDS ORDERED: MoRPHine SULFATE 10 MG/ML CARP/VIAL IV PRN (08:23)
[2020-10-25] MEDS ORDERED: ePHEDrine sulfate 50 MG/ML AMP IV PRN (08:23)
[2020-10-25] MEDS ORDERED: MEPERIDINE HCL 25 MG/ML CARP/VIAL IV PRN (08:23)
[2020-10-25] MEDS ORDERED: ATROPINE SULFATE 0.1 MG/ML 10ML SYR IV PRN (08:23)
[2020-10-25] MEDS ORDERED: fentaNYL citrate 100 MCG/2 ML VIAL IV PRN (08:23)
[2020-10-25] MEDS ORDERED: ONDANSETRON INJ 2 MG/ML 2 ML VIAL IV PRN (08:23)
--- NOTE | 2020-10-25 08:27 | History & Physical Bridge Note ---
Date of Service October 25, 2020 History & Physical Bridge Note I have examined the patient, reviewed the History & Physical and in the interval since the performance of the History & Physical I have noted the following changes of clinical significance: no changes noted
--- NOTE | 2020-10-25 08:54 | Hospitalist Progress Note ---
Date of Service October 25, 2020 Assessment & Plan (1) Displaced subtrochanteric fracture of right femur: (2) Fall: This is an 85 yr old F who has a significant PMH of T2DM, HTN, HLD, IBS , hypothyroidism, AMD, GERD, hx of PE provoked by surgery 5-6 yrs ago who presents to ED today after sustaining mechanical fall. R hip/pelvis xray: IMPRESSION: A displaced subtrochanteric right femoral fracture. CXR WNL, EKG reviewed and unchanged from 12/2018 Labs stable, UA - negative Last echo 2016 revealed questionable R atrial echodensity 1cm, ? artifact vs mass vs thrombus - echo repeated - R atrial hypodensity not visualized, there is poss. Pericardial effusion versus pericardial fat pad, no tamponade noted pt able to reach METS w/o any cardiac symptoms admitted to med/surg Orthopedic surgery consulted- Dr. Coello - previous L ESTHER with Dr. Coello as well Patient is a status post surgical repair of her right femoral fracture with Dr. Coello, October 25, 2019 bed rest ta placed hydrocodone prn moderate pain, IV morphine severe pain SQ Heparin x 1 in the evening for dvt ppx prior to surgery NPO after midnight except meds, gentle IVF after midnight DVT ppx - per orthopedics, Lovenox started, teds, as patient has history of provoked PE after surgery some years ago Hypovitaminosis D - level checked, 8.6 - Plan to start replacement prior to discharge (3) T2DM (type 2 diabetes mellitus): lat a1c 7.0 08/27/20 hold tradjenta lantus/novolog per protocol (4) HTN (hypertension): continue metoprolol hold losartan and lasix pre operatively also hold KCL as K is 5.1 on admission monitor BP (5) HLD (hyperlipidemia): continue statin (6) Hypothyroidism: continue levothyroxine (7) CKD (chronic kidney disease) stage 3, GFR 30-59 ml/min: baseline cr 1.1-1.3 bun/cr 25 and 1.27 gentle IVF (8) Grief at loss of child: Pt lost her daughter day prior to admission, and is actively grieving supportive measures (9) History of pulmonary embolism: provoked 2/2 to post op state given Heparin subq x 1 the evening prior to surgery, now started on Lovenox per ortho, TEDs applied Dispo: Med/Surg, case management consulted pt likely to need rehab post op PCP: Dr. Mazariegos FULL CODE Admission and Anticipated Discharge Date Admission Date: October 24, 2020 Subjective Patient seen in follow-up of right femur fracture, currently status post surgical repair She sitting up in bed, reports that she does not feel well, has nausea Denies any chest pain or shortness of breath or abdominal pain Denies any lower extremity pain She is asking to speak to her son, will contact him via phone and also will see if he would be able to visit the patient Review of Systems Review of Systems: All systems reviewed & are unremarkable except as noted in HPI & below Constitutional: no fever and no chills Respiratory: no cough and no dyspnea Cardiovascular: no chest pain and no palpitations Gastrointestinal: + nausea; no abdominal pain and no vomiting Physical Exam Constitutional: WD/WN, vitals as above + obese Eyes: PERRL, conjunctivae normal, anicteric sclerae ENMT: external ear and nose normal, oropharynx normal Neck: normal visual inspection and + thick neck Respiratory: normal respiratory effort, lungs clear to auscultation Auscultation: no crackles, no rhonchi and no wheezes Cardiovascular: RRR, no murmur, no edema Chest (Breasts): Chest: normal inspection of chest Gastrointestinal (Abdomen): Inspection/Auscultation: abdomen normal to inspection and normal bowel sounds; abdomen not distended Percussion/Palpation: abdomen soft; abdomen nontender Musculoskeletal: Head/Neck/Chest: normocephalic and head atraumatic TEDs applied to lower extremities Skin: no rashes, warm and dry Neurologic: PERRL, EOMI, accommodation nl, no face palsy, no dysarthria Psychiatric: Orientation: alert and oriented x 3 Genitourinary: no CVA tenderness Lymphatic: no lymphedema Results & Data Results & Data ([facility]) Vital Signs (Past 12 Hours) Vital Signs Temp Pulse Resp BP BP Pulse Ox 10/25/20 07:55 37.0 C 83 17 124/62 95 10/24/20 22:42 36.7 C 81 18 120/59 L 96 Laboratory Results 10/25/20 10/25/20 10/25/20 Range/Units 06:19 06:19 06:19 WBC 12.29 H (4.8-10.8) K/uL RBC 3.91 L (4.2-5.4) M/uL Hgb 11.9 L (12.0-16.0) g/dL Hct 37.2 (37-47) % MCV 95.1 (80-100) fL MCH 30.4 (25-34) pg MCHC 32.0 (32-36) g/dL RDW Std Deviation 46.4 H (36.4-46.3) fL RDW Coeff of Thea 13.4 (11.5-14.5) % Plt Count 276 (130-400) K/uL MPV 9.8 (7.4-10.4) fL Immature Gran % (Auto) % Neut % (Auto) % Lymph % (Auto) % Arthur % (Auto) % Eos % (Auto) % Baso % (Auto) % Neut # (Auto) (1.4-6.5) K/uL Lymph # (Auto) (1.2-3.4) K/uL Arthur # (Auto) (0.11-0.59) K/uL Eos # (Auto) (0-0.5) K/uL Baso # (Auto) (0-0.2) K/uL Immature Gran # (Auto) (0.00-0.02) K/uL PT (9.0-12.0) Seconds INR (0.9-1.1) APTT (21.0-31.0) Seconds PTT Ratio Sodium 140 (136-145) mmol/L Potassium 4.6 (3.5-5.1) mmol/L Chloride 111 H (98-107) mmol/L Carbon Dioxide 23 (21-32) mmol/L Anion Gap 6.0 (3-11) BUN 29 H (7-18) mg/dl Creatinine 1.13 (0.6-1.2) mg/dl Est Cr Clr Drug Dosing 36.7 ml/min Est GFR ( Amer) 52.1 Est GFR (Non-Af Amer) 44.9 BUN/Creatinine Ratio 26.1 H (10-20) Glucose 133 H (70-99) mg/dl POC Glucose (70-99) mg/dl Calcium 8.4 L (8.5-10.1) mg/dl Total Bilirubin (0.2-1) mg/dl AST (15-37) U/L ALT (12-78) U/L Alkaline Phosphatase (45-117) U/L Troponin I (0-0.045) ng/ml Total Protein (6.4-8.2) gm/dl Albumin (3.4-5.0) gm/dl Globulin (2.5-4.0) gm/dl Albumin/Globulin Ratio (0.9-2) Lipase (73-393) U/L 25-OH Vitamin D Total 8.6 L (30-100) ng/ml Urine Color Urine Appearance (Clear) Urine pH (4.5-7.5) Ur Specific Powell (1.000-1.030) Urine Protein (Negative) Urine Glucose (UA) (Negative) Urine Ketones (Negative) Urine Blood (Negative) Urine Nitrite (Negative) Urine Bilirubin (Negative) Urine Urobilinogen (Negative) Ur Leukocyte Esterase (Negative) Urine WBC (Auto) (0-5) /hpf Urine RBC (Auto) (0-4) /hpf U Hyaline Cast (Auto) (0-5) /lpf U Epithel Cells (Auto) (0-5) /lpf Urine Bacteria (Auto) (Negative) Nasal Screen MRSA (PCR) (Negative) COVID-19 Eval Order SARS-CoV-2, RNA, NAAT (NEGATIVE) Blood Type Antibody Screen 10/25/20 10/24/20 10/24/20 Range/Units 05:48 20:51 18:23 WBC (4.8-10.8) K/uL RBC (4.2-5.4) M/uL Hgb (12.0-16.0) g/dL Hct (37-47) % MCV (80-100) fL MCH (25-34) pg MCHC (32-36) g/dL RDW Std Deviation (36.4-46.3) fL RDW Coeff of Thea (11.5-14.5) % Plt Count (130-400) K/uL MPV (7.4-10.4) fL Immature Gran % (Auto) % Neut % (Auto) % Lymph % (Auto) % Arthur % (Auto) % Eos % (Auto) % Baso % (Auto) % Neut # (Auto) (1.4-6.5) K/uL Lymph # (Auto) (1.2-3.4) K/uL Arthur # (Auto) (0.11-0.59) K/uL Eos # (Auto) (0-0.5) K/uL Baso # (Auto) (0-0.2) K/uL Immature Gran # (Auto) (0.00-0.02) K/uL PT (9.0-12.0) Seconds INR (0.9-1.1) APTT (21.0-31.0) Seconds PTT Ratio Sodium (136-145) mmol/L Potassium (3.5-5.1) mmol/L Chloride (98-107) mmol/L Carbon Dioxide (21-32) mmol/L Anion Gap (3-11) BUN (7-18) mg/dl Creatinine (0.6-1.2) mg/dl Est Cr Clr Drug Dosing ml/min Est GFR ( Amer) Est GFR (Non-Af Amer) BUN/Creatinine Ratio (10-20) Glucose (70-99) mg/dl POC Glucose 159 H 129 H (70-99) mg/dl Calcium (8.5-10.1) mg/dl Total Bilirubin (0.2-1) mg/dl AST (15-37) U/L ALT (12-78) U/L Alkaline Phosphatase (45-117) U/L Troponin I (0-0.045) ng/ml Total Protein (6.4-8.2) gm/dl Albumin (3.4-5.0) gm/dl Globulin (2.5-4.0) gm/dl Albumin/Globulin Ratio (0.9-2) Lipase (73-393) U/L 25-OH Vitamin D Total (30-100) ng/ml Urine Color Urine Appearance (Clear) Urine pH (4.5-7.5) Ur Specific Powell (1.000-1.030) Urine Protein (Negative) Urine Glucose (UA) (Negative) Urine Ketones (Negative) Urine Blood (Negative) Urine Nitrite (Negative) Urine Bilirubin (Negative) Urine Urobilinogen (Negative) Ur Leukocyte Esterase (Negative) Urine WBC (Auto) (0-5) /hpf Urine RBC (Auto) (0-4) /hpf U Hyaline Cast (Auto) (0-5) /lpf U Epithel Cells (Auto) (0-5) /lpf Urine Bacteria (Auto) (Negative) Nasal Screen MRSA (PCR) Negative (Negative) COVID-19 Eval Order SARS-CoV-2, RNA, NAAT (NEGATIVE) Blood Type Antibody Screen 10/24/20 10/24/20 10/24/20 Range/Units 17:00 16:55 15:30 WBC (4.8-10.8) K/uL RBC (4.2-5.4) M/uL Hgb (12.0-16.0) g/dL Hct (37-47) % MCV (80-100) fL MCH (25-34) pg MCHC (32-36) g/dL RDW Std Deviation (36.4-46.3) fL RDW Coeff of Thea (11.5-14.5) % Plt Count (130-400) K/uL MPV (7.4-10.4) fL Immature Gran % (Auto) % Neut % (Auto) % Lymph % (Auto) % Arthur % (Auto) % Eos % (Auto) % Baso % (Auto) % Neut # (Auto) (1.4-6.5) K/uL Lymph # (Auto) (1.2-3.4) K/uL Arthur # (Auto) (0.11-0.59) K/uL Eos # (Auto) (0-0.5) K/uL Baso # (Auto) (0-0.2) K/uL Immature Gran # (Auto) (0.00-0.02) K/uL PT (9.0-12.0) Seconds INR (0.9-1.1) APTT (21.0-31.0) Seconds PTT Ratio Sodium (136-145) mmol/L Potassium (3.5-5.1) mmol/L Chloride (98-107) mmol/L Carbon Dioxide (21-32) mmol/L Anion Gap (3-11) BUN (7-18) mg/dl Creatinine (0.6-1.2) mg/dl Est Cr Clr Drug Dosing ml/min Est GFR ( Amer) Est GFR (Non-Af Amer) BUN/Creatinine Ratio (10-20) Glucose (70-99) mg/dl POC Glucose 133 H (70-99) mg/dl Calcium (8.5-10.1) mg/dl Total Bilirubin (0.2-1) mg/dl AST (15-37) U/L ALT (12-78) U/L Alkaline Phosphatase (45-117) U/L Troponin I (0-0.045) ng/ml Total Protein (6.4-8.2) gm/dl Albumin (3.4-5.0) gm/dl Globulin (2.5-4.0) gm/dl Albumin/Globulin Ratio (0.9-2) Lipase (73-393) U/L 25-OH Vitamin D Total (30-100) ng/ml Urine Color Yellow Urine Appearance Clear (Clear) Urine pH 5.0 (4.5-7.5) Ur Specific Powell 1.025 (1.000-1.030) Urine Protein Negative (Negative) Urine Glucose (UA) Negative (Negative) Urine Ketones Negative (Negative) Urine Blood Negative (Negative) Urine Nitrite Negative (Negative) Urine Bilirubin Negative (Negative) Urine Urobilinogen Negative (Negative) Ur Leukocyte Esterase 1+ H (Negative) Urine WBC (Auto) 1-5 (0-5) /hpf Urine RBC (Auto) 0-4 (0-4) /hpf U Hyaline Cast (Auto) 5-10 H (0-5) /lpf U Epithel Cells (Auto) 20-30 H (0-5) /lpf Urine Bacteria (Auto) Negative (Negative) Nasal Screen MRSA (PCR) (Negative) COVID-19 Eval Order SARS-CoV-2, RNA, NAAT (NEGATIVE) Blood Type A Positive Antibody Screen NEGATIVE 10/24/20 10/24/20 10/24/20 Range/Units 11:39 11:39 11:39 WBC 9.53 (4.8-10.8) K/uL RBC 4.19 L (4.2-5.4) M/uL Hgb 13.0 (12.0-16.0) g/dL Hct 39.4 (37-47) % MCV 94.0 (80-100) fL MCH 31.0 (25-34) pg MCHC 33.0 (32-36) g/dL RDW Std Deviation 45.7 (36.4-46.3) fL RDW Coeff of Thea 13.3 (11.5-14.5) % Plt Count 269 (130-400) K/uL MPV 9.9 (7.4-10.4) fL Immature Gran % (Auto) 0.2 % Neut % (Auto) 69.1 % Lymph % (Auto) 20.1 % Arthur % (Auto) 8.0 % Eos % (Auto) 2.3 % Baso % (Auto) 0.3 % Neut # (Auto) 6.58 H (1.4-6.5) K/uL Lymph # (Auto) 1.92 (1.2-3.4) K/uL Arthur # (Auto) 0.76 H (0.11-0.59) K/uL Eos # (Auto) 0.22 (0-0.5) K/uL Baso # (Auto) 0.03 (0-0.2) K/uL Immature Gran # (Auto) 0.02 (0.00-0.02) K/uL PT 10.6 (9.0-12.0) Seconds INR 1.0 (0.9-1.1) APTT 21.9 (21.0-31.0) Seconds PTT Ratio 0.8 Sodium 141 (136-145) mmol/L Potassium 5.1 (3.5-5.1) mmol/L Chloride 113 H (98-107) mmol/L Carbon Dioxide 21 (21-32) mmol/L Anion Gap 7.0 (3-11) BUN 32 H (7-18) mg/dl Creatinine 1.27 H (0.6-1.2) mg/dl Est Cr Clr Drug Dosing 32.7 ml/min Est GFR ( Amer) 45.2 Est GFR (Non-Af Amer) 39.0 BUN/Creatinine Ratio 25.1 H (10-20) Glucose 145 H (70-99) mg/dl POC Glucose (70-99) mg/dl Calcium 9.1 (8.5-10.1) mg/dl Total Bilirubin 0.4 (0.2-1) mg/dl AST 14 L (15-37) U/L ALT 24 (12-78) U/L Alkaline Phosphatase 116 (45-117) U/L Troponin I < 0.015 (0-0.045) ng/ml Total Protein 7.5 (6.4-8.2) gm/dl Albumin 3.6 (3.4-5.0) gm/dl Globulin 3.9 (2.5-4.0) gm/dl Albumin/Globulin Ratio 0.9 (0.9-2) Lipase 330 (73-393) U/L 25-OH Vitamin D Total (30-100) ng/ml Urine Color Urine Appearance (Clear) Urine pH (4.5-7.5) Ur Specific Powell (1.000-1.030) Urine Protein (Negative) Urine Glucose (UA) (Negative) Urine Ketones (Negative) Urine Blood (Negative) Urine Nitrite (Negative) Urine Bilirubin (Negative) Urine Urobilinogen (Negative) Ur Leukocyte Esterase (Negative) Urine WBC (Auto) (0-5) /hpf Urine RBC (Auto) (0-4) /hpf U Hyaline Cast (Auto) (0-5) /lpf U Epithel Cells (Auto) (0-5) /lpf Urine Bacteria (Auto) (Negative) Nasal Screen MRSA (PCR) (Negative) COVID-19 Eval Order SARS-CoV-2, RNA, NAAT (NEGATIVE) Blood Type Antibody Screen 10/24/20 10/24/20 Range/Units 11:33 11:33 WBC (4.8-10.8) K/uL RBC (4.2-5.4) M/uL Hgb (12.0-16.0) g/dL Hct (37-47) % MCV (80-100) fL MCH (25-34) pg MCHC (32-36) g/dL RDW Std Deviation (36.4-46.3) fL RDW Coeff of Thea (11.5-14.5) % Plt Count (130-400) K/uL MPV (7.4-10.4) fL Immature Gran % (Auto) % Neut % (Auto) % Lymph % (Auto) % Arthur % (Auto) % Eos % (Auto) % Baso % (Auto) % Neut # (Auto) (1.4-6.5) K/uL Lymph # (Auto) (1.2-3.4) K/uL Arthur # (Auto) (0.11-0.59) K/uL Eos # (Auto) (0-0.5) K/uL Baso # (Auto) (0-0.2) K/uL Immature Gran # (Auto) (0.00-0.02) K/uL PT (9.0-12.0) Seconds INR (0.9-1.1) APTT (21.0-31.0) Seconds PTT Ratio Sodium (136-145) mmol/L Potassium (3.5-5.1) mmol/L Chloride (98-107) mmol/L Carbon Dioxide (21-32) mmol/L Anion Gap (3-11) BUN (7-18) mg/dl Creatinine (0.6-1.2) mg/dl Est Cr Clr Drug Dosing ml/min Est GFR ( Amer) Est GFR (Non-Af Amer) BUN/Creatinine Ratio (10-20) Glucose (70-99) mg/dl POC Glucose (70-99) mg/dl Calcium (8.5-10.1) mg/dl Total Bilirubin (0.2-1) mg/dl AST (15-37) U/L ALT (12-78) U/L Alkaline Phosphatase (45-117) U/L Troponin I (0-0.045) ng/ml Total Protein (6.4-8.2) gm/dl Albumin (3.4-5.0) gm/dl Globulin (2.5-4.0) gm/dl Albumin/Globulin Ratio (0.9-2) Lipase (73-393) U/L 25-OH Vitamin D Total (30-100) ng/ml Urine Color Urine Appearance (Clear) Urine pH (4.5-7.5) Ur Specific Powell (1.000-1.030) Urine Protein (Negative) Urine Glucose (UA) (Negative) Urine Ketones (Negative) Urine Blood (Negative) Urine Nitrite (Negative) Urine Bilirubin (Negative) Urine Urobilinogen (Negative) Ur Leukocyte Esterase (Negative) Urine WBC (Auto) (0-5) /hpf Urine RBC (Auto) (0-4) /hpf U Hyaline Cast (Auto) (0-5) /lpf U Epithel Cells (Auto) (0-5) /lpf Urine Bacteria (Auto) (Negative) Nasal Screen MRSA (PCR) (Negative) COVID-19 Eval [facility] SARS-CoV-2, RNA, NAAT NEGATIVE (NEGATIVE) Blood Type Antibody Screen Medications Administered Current Inpatient Medications Acetaminophen (Acetaminophen 325 Mg Tab) 650 mg PO Q6H PRN PRN Reason: Pain & Pre PT Stop: 11/23/20 16:36 Hydrocodone Bitart/Acetaminophen (Hydrocodone/Acetamophen 5/325mg Tab) 1 tab PO Q4H PRN PRN Reason: MODERATE Pain (4,5,6) & Pre PT Stop: 11/07/20 16:36 Hydrocodone Bitart/Acetaminophen (Hydrocodone/Acetamophen 5/325mg Tab) 2 tab PO Q4H PRN PRN Reason: SEVERE Pain (7,8,9,10) Stop: 11/07/20 16:36 Last Admin: 10/25/20 07:48 Dose: 2 tab Documented by: Aspirin (Aspirin 81 Mg Ectab) 81 mg PO PM PIOTR Stop: 11/23/20 20:59 Last Admin: 10/24/20 21:04 Dose: 81 mg Documented by: Atropine Sulfate (Atropine Sulfate 0.1 Mg/Ml 10ml Syr) 0.5 mg IV Q1M PRN PRN Reason: PACU Use-HR<40 &/or Bradycardi Stop: 10/25/20 16:23 Baclofen (Baclofen 10 Mg Tab) 10 mg PO HS PIOTR Stop: 11/23/20 20:59 Last Admin: 10/24/20 21:06 Dose: 10 mg Documented by: Bisacodyl (Bisacodyl 10 Mg Supp) 10 mg AK DAILY PRN PRN Reason: Constipation Stop: 11/23/20 16:36 Buspirone HCl (Buspirone 5 Mg Tab) 10 mg PO TID PIOTR Stop: 11/23/20 16:59 Last Admin: 10/24/20 21:05 Dose: 10 mg Documented by: Dextrose (Dextrose 50% 50 Ml Syringe) 25 - 50 ml IV UD PRN; Protocol PRN Reason: Hypoglycemia Protocol Stop: 11/23/20 16:36 Ephedrine Sulfate (Ephedrine Sulfate 50 Mg/Ml Amp) 5 mg IV Q5M PRN PRN Reason: PACU Use Only-SBP<90 mmHg Stop: 10/25/20 16:23 Fentanyl Citrate (Fentanyl Citrate 100 Mcg/2 Ml Vial) 25 mcg IV Q5M PRN PRN Reason: PACU Use Only-Pain Stop: 10/25/20 16:23 Glucagon (Glucagon For Inj 1 Mg Vial) 1 mg SQ UD PRN; Protocol PRN Reason: Hypoglycemia Protocol Stop: 11/23/20 16:36 Glucose (Glucose 10 Tabs/Tube) 4 - 8 tabs PO UD PRN; Protocol PRN Reason: Hypoglycemia Protocol Stop: 11/23/20 16:36 Glucose (Glucose 40% Gel 15 Gm Tube) 15 - 30 gm PO UD PRN; Protocol PRN Reason: Hypoglycemia Protocol Stop: 11/23/20 16:36 Cefazolin Sodium (Ancef 2000mg) 2,000 mg in 15 mls @ 3.75 mls/min IV PREOP PIOTR; Protocol Stop: 10/25/20 18:00 Sodium Chloride (Nss 1000ml) 1,000 mls @ 80 mls/hr IV .[id number] [facility] Stop: 10/25/20 12:30 Last Admin: 10/25/20 00:04 Dose: 80 mls/hr Documented by: Insulin Aspart (Insulin Aspart 100 Units/Ml 3 Ml Pen) 0 units SC Q6 [facility] Stop: 11/24/20 05:59 Last Admin: 10/25/20 05:48 Dose: Not Given Documented by: Insulin Glargine (Insulin Glargine Solostar 100 Units/Ml 3 Ml Pen) 0 - 5 units SC BID [facility] Stop: 11/23/20 20:59 Last Admin: 10/24/20 21:07 Dose: Not Given Documented by: Levothyroxine Sodium (Levothyroxine Sodium 100 Mcg Tablet) 100 mcg PO DAILYBB [facility] Stop: 11/24/20 06:29 Last Admin: 10/25/20 05:47 Dose: 100 mcg Documented by: Lorazepam (Lorazepam 0.5 Mg Tab) 0.5 mg PO [facility] Stop: 11/23/20 20:59 Last Admin: 10/24/20 21:03 Dose: 0.5 mg Documented by: Magnesium Hydroxide (Magnesium Hydroxide Susp 30 Ml Udc) 30 ml PO DAILY PRN PRN Reason: Constipation Stop: 11/23/20 16:36 Meperidine HCl (Meperidine Hcl 25 Mg/Ml Carp/Vial) 12.5 mg IV Q5M PRN PRN Reason: PACU Use Only-Pain/Shivering Stop: 10/25/20 16:24 Metoprolol Tartrate (Metoprolol Tartrate 50 Mg Tab) 50 mg PO DAILY [facility] Stop: 11/24/20 08:59 Mirtazapine (Mirtazapine Tab 15 Mg Tab) 30 mg PO HS PIOTR Stop: 11/23/20 20:59 Last Admin: 10/24/20 21:06 Dose: 30 mg Documented by: Miscellaneous (Carbohydrates For Hypoglycemia ) 15 - 30 gm PO UD PRN PRN Reason: Hypoglycemia Protocol Stop: 11/23/20 16:36 Morphine Sulfate (Morphine Sulfate 2 Mg/Ml Carp) 2 mg IV Q3H PRN PRN Reason: Pain (1,2,3,4,5) & Pre PT Stop: 11/07/20 16:36 Last Admin: 10/25/20 07:03 Dose: 2 mg Documented by: Morphine Sulfate (Morphine Sulfate 10 Mg/Ml Carp/Vial) 2 mg IV Q5M PRN PRN Reason: PACU Use Only-Pain Stop: 10/25/20 16:23 Multivitamins/Minerals (Cerovite Adv Formula Tab) 1 tab PO QPM PIOTR Stop: 11/23/20 20:59 Last Admin: 10/24/20 21:06 Dose: 1 tab Documented by: Naloxone HCl (Naloxone Hcl 0.4 Mg/1 Ml Vial/Carp) 0.1 mg IV UD PRN PRN Reason: Opiate Overdose Stop: 11/23/20 16:36 Ondansetron HCl (Ondansetron Inj 2 Mg/Ml 2 Ml Vial) 4 mg IV Q6H PRN PRN Reason: Nausea And Vomiting Stop: 11/23/20 16:36 Last Admin: 10/25/20 07:03 Dose: 4 mg Documented by: Ondansetron HCl (Ondansetron Inj 2 Mg/Ml 2 Ml Vial) 4 mg IV ONCE PRN PRN Reason: PACU Use Only-Nausea/Vomiting Stop: 10/25/20 16:24 Pantoprazole Sodium (Pantoprazole 40 Mg Tab) 40 mg PO DAILY PIOTR Stop: 11/24/20 08:59 Senna/Docusate Sodium (Docusate Sodium/Senna 50/8.6mg Tab) 2 tab PO HS PIOTR Stop: 11/23/20 20:59 Last Admin: 10/24/20 21:06 Dose: 2 tab Documented by: Simvastatin (Simvastatin 20 Mg Tab) 20 mg PO PM PIOTR Stop: 11/23/20 20:59 Last Admin: 02/19/21 21:05 Dose: 20 mg Documented by: Venlafaxine HCl (Venlafaxine Hcl 50 Mg Tab) 75 mg PO PM PIOTR Stop: 11/23/20 20:59 Last Admin: 10/24/20 21:04 Dose: 75 mg Documented by: Venlafaxine HCl (Venlafaxine Hcl Xr 150 Mg Capxr) 150 mg PO DAILY PIOTR Stop: 11/24/20 08:59
--- NOTE | 2020-10-25 09:18 | Progress Notes ---
DATE: 10/25/2020 SUBJECTIVE: An 85-year-old white female with a right subtrochanteric femur fracture. She is scheduled for surgery today. She has no real new complaints. Pretty painful with any type of motion of her leg. OBJECTIVE: VITAL SIGNS: Temperature 37.0. Vital signs stable. GENERAL: Shows a pleasant elderly female. She is awake, alert and oriented. She is lying in bed and talking on the phone when I first went in the room today. EXTREMITIES: Examination of the right leg reveals it to be slightly shortened. Some moderate swelling. She can dorsiflex and plantarflex her foot appropriately. LABORATORY DATA: Hemoglobin today is 11.9. Electrolytes are stable. ASSESSMENT: An 85-year-old female with right displaced subtrochanteric femur fracture. Scheduled for surgery today. Does have a history of pulmonary embolism in the past. She has got some heparin last evening. PLAN: We are going to take her to the operating room today and do an IM nail. We will likely have to do an open reduction due to the displaced nature of the fracture. The risks and benefits of this procedure have been explained and she understands and desires to proceed. We will plan on postoperative DVT prophylaxis including thigh-high TEDs, SCDs, and likely some Lovenox. She may need a brief rehab stay. Continue medical management.
[2020-10-25] MEDS: VENLAFAXINE HCL XR 150 MG CAPXR PO SCH (09:50)
[2020-10-25] MEDS: INSULIN GLARGINE SOLOSTAR 100 UNITS/ML 3 ML PEN SC SCH (09:50)
[2020-10-25] MEDS: busPIRone 5 MG TAB PO SCH ×3 (09:50→21:26)
[2020-10-25] MEDS: METOPROLOL TARTRATE 50 MG TAB PO SCH (09:50)
[2020-10-25] MEDS: PANTOprazole 40 MG TAB PO SCH (09:51)
[2020-10-25] MEDS ORDERED: BUPIVACAINE 0.5 % 5 MG/1 ML MPF 30ML VIAL ONE (10:00)
--- NOTE | 2020-10-25 10:07 | Cardiology Consultation ---
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) Allergies Allergy/AdvReac Type Severity Reaction Status Date / Time Cipro Allergy Intermediate rash and Verified 08/25/17 08:14 itchiness Home Medications Medication Instructions Recorded Confirmed Type aspirin 81 mg PO PM 10/24/20 10/24/20 History baclofen 10 mg PO HS 10/24/20 10/24/20 History buspirone [BuSpar] 10 mg PO TID 10/24/20 10/24/20 History furosemide [Lasix] 20 mg PO Q OTHER DAY 10/24/20 10/24/20 History levothyroxine 100 mcg PO DAILYBB 10/24/20 10/24/20 History linagliptin [Tradjenta] 5 mg PO DAILY 10/24/20 10/24/20 History lorazepam [Ativan] 0.5 mg PO HS 10/24/20 10/24/20 History losartan 100 mg PO DAILY 10/24/20 10/24/20 History metoprolol tartrate 50 mg PO DAILY 10/24/20 10/24/20 History mirtazapine [Remeron] 30 mg PO HS 10/24/20 10/24/20 History pantoprazole [Protonix] 40 mg PO DAILY 10/24/20 10/24/20 History potassium chloride 20 meq PO DAILY 10/24/20 10/24/20 History simvastatin [Zocor] 20 mg PO PM 10/24/20 10/24/20 History tramadol 50 mg PO DAILY PRN 10/24/20 10/24/20 History venlafaxine 75 mg PO PM 10/24/20 10/24/20 History venlafaxine 150 mg PO DAILY 10/24/20 10/24/20 History vitamins A,C,L-xgfb-zvgdrh 1 cap PO AMPM 10/24/20 10/24/20 History [PreserVision AREDS] Patient History Medical History (Updated 10/24/20 @ 16:12 by Sofia Lopez DO) Anxiety and depression CKD (chronic kidney disease) stage 3, GFR 30-59 ml/min Displaced subtrochanteric fracture of right femur Diverticulitis Diverticulosis History of pulmonary embolism HLD (hyperlipidemia) HTN (hypertension) Hypothyroidism Kidney calculi Pulmonary embolism Pulmonary hypertension 45mmHg 2017 Renal colic T2DM (type 2 diabetes mellitus) Surgical History History of colonoscopy History of left hip replacement History of surgery on arm R ulnar surgery History of total abdominal hysterectomy and bilateral salpingo-oophorectomy History of tubal ligation Family History Brother Diabetes Mother Diabetes Father Coronary heart disease Myocardial infarction, Onset Age: 49 Social History Smoking Status: Never smoker Second Hand Exposure: No; Do You Dip or Chew Tobacco: No; Tobacco Cessation Education Requested by Patient: No Hx Alcohol Use: No Hx Substance Use: No Preferred Language: Uzbek Communication Ability: Effective Supervisor Quality Control Required: No Beliefs That Will Affect Care: None marital status: / Current Living Situation: Alone current occupational status: retired Feels Safe at Home: Yes Safety Concerns: Feels Safe At This Time Assistive Devices: None Results & Data ([facility]) Vital Signs (Past 12 Hours) Vital Signs Temp Pulse Resp BP BP Pulse Ox 10/25/20 08:49 37 C 80 18 130/69 91 10/25/20 07:55 37.0 C 83 17 124/62 95 10/24/20 22:42 36.7 C 81 18 120/59 L 96
[2020-10-25] MEDS ORDERED: PHENYLEPHRINE HCL 10 MG/ML VIAL ONE (11:45)
[2020-10-25] MEDS ORDERED: ePHEDrine sulfate 50 MG/ML SYR ONE (11:45)
[2020-10-25] MEDS ORDERED: GLYCOPYRROLATE 0.2 MG/ML VIAL ONE (11:45)
[2020-10-25] MEDS ORDERED: SUCCINYLCHOLINE 100MG/5ML SYR IV ONE (11:45)
[2020-10-25] MEDS ORDERED: PROPOFOL IV EMULSION 10 MG/ML 20 ML VIAL IV ONE (11:45)
[2020-10-25] MEDS ORDERED: ONDANSETRON INJ 2 MG/ML 2 ML VIAL ONE (11:45)
[2020-10-25] MEDS ORDERED: ROCURONIUM BROMIDE 10 MG/ML 5 ML VIAL IV ONE (11:45)
--- NOTE | 2020-10-25 12:10 | Communication Note ---
Date of Service: October 25, 2020 I was here this morning to see the patient for preoperative risk assessment prior to surgery. Unfortunately, she was already taken to the OR. Please r econsult if necessary.
--- NOTE | 2020-10-25 13:32 | Fluoroscopy Report ---
FL femur RT 2V CLINICAL HISTORY: RIGHT TROCH NAIL COMPARISON STUDY: Right hip radiographs October 24, 2020. FLUOROSCOPY TIME: 3 minutes and 59 seconds. FLUOROSCOPIC IMAGES: 5 FINDINGS: These images demonstrate internal fixation of the subtrochanteric fracture of the right fem ur with trochanteric nail and intramedullary pilar with cerclage wires. A distal screw is present. The hardware is intact. There are no unexpected radiopaque foreign bodies. Fracture alignment has markedl y improved and is near anatomic. IMPRESSION: Fluoroscopy provided during internal fixation of the subtrochanteric right femur fractur e. ACT 112: Negative or not required by law. Electronically signed by: Dick Cid M.D. 10/25/2020 1:30 PM
--- NOTE | 2020-10-25 14:06 | Operative Report ---
Post Operative Report Pre & Post Diagnosis Operation Date: 10/25/20 09:50 Pre-Op Diagnosis: R SUBTROCHANTERIC FEMUR FX Post-Op Diagnosis: R SUBTROCHANTERIC FEMUR FX I identified the patient and participated in the time-out.: Yes Procedure Operation Date: 10/25/20 09:50 Actual Procedures p Right Long Troch Nailing(Right) - Jorge Coello MD Surgeon Jorge Coello MD Business Account Specialist nONE Estimated Blood Loss 400 Findings Consistent with Post-Op Diagnosis Fluids 1500 CC Specimens nONE. Complications none Disposition Accompanied Patient To Recovery: Yes Disposition: Recovery Room Indications The patient is an 85-year-old female well-known to me from a previous left total hip replacement.She is fairly active and independent ambulator sustained a fall yesterday. She does have some underlying hip arthritis. She was brought to emergency room where x-rays were a right subtrochanteric femur fracture..There was no underlying signs of a bone pathology.Patient was admitted by the medicine service, medically optimized, and indicated for surgical treatment. Description of Procedure Operative implants consist of: 1.Synthes right 340 mm x 10 mm long trochanteric nail. 2. Synthes 85 mm helical blade. 3. 5 mm x 44 mm distal interlocking screw. 4. Synthes 1.7 mm stainless steel cables x2. The patient was taken to the operating identified and placed on the operating table supine position but all contact areas were properly padded. IV antibiotics were 5 by anesthesia team. They did attempt a spinal in the holding area but were unsuccessful. A general anesthetic was implemented. The patient then placed on the fracture table. The right leg was placed in Boot traction. The left leg was placed in a well leg aguero. I applied some longitudinal traction to the femur and internally rotated the foot so the kneecap pointed to the ceiling. X-ray was then brought in. The fracture continue to be markedly displaced.There was marked displacement of the proximal segment. The right hip was then scrubbed with Hibiclens and then prepped with ChloraPrep and draped in usual sterile fashion. There is no way to reduce this fracture Short of open reduction. Therefore A lateral incision was made over the fracture site for about 10 cm in length. Sharp dissection carried through subcutaneous tissue down to the IT band. The IT band was incised longitudinally. I then retracted the vastus lateralis anteriorly without stripping it. We then manipulated the fracture multiple ways to try and get into the best reduction. The spike approximately was very far medial and very difficult to reduce perfectly. I spent quite a bit of time manipulating this and then held it reduced with 2 reduction clamps. I did place 2 Synthes cables around the fracture site in order to hold it reduced as the proximal segment wanted to flex.Once the cables were placed I removed the reduction forceps and the fracture was nearly anatomically aligned. Attention drawn the IM nailing. A curvilinear incision was made proximal to the greater trochanter. Sharp dust was got through subcutaneous tissues down the level gluteal fascia the gluteal fascia incised longitudinally in line with skin incision. A guidewire was placed just lateral to the tip of the trochanter and in line with the IM canal P was advanced down the IM canal. It was overreamed to 17 mm reamer. I then exchanged the guidewire for a ball-tipped guidewire. I placed this down the canal. I measured for nail length and a 340 mm nail was selected. We then reamed over the guidewire with a 10 mm reamer up to . We got pretty good chatter so I elected a 10 mm nail. A Synthes right 10 mm x 340 mm nail was selected advanced down the IM canal P was tapped in position. A lateral aiming arm was placed. The lateral aiming arm advanced to the lateral aspect the femur and guidewire was placed in the area of the femoral head on both the AP and lateral planes. This was then measured, the cortical strep drill was used to breach the cortex and a triple reamer was used to ream over the guidewire. 85 mm blade was placed. The proximal setscrew was tightened. The proximal aiming arm was removed and some final x-rays were obtained. Attention drawn toward distal interlocking. Using the perfect upper sioux technique a distal interlocking screw was placed in the dynamic hole in the distal aspect to allow some dynamization. I did release traction before placing this screw. It was placed through a stab incision. Some final x-rays were obtained. Attention drawn toward closing. All wounds were irrigated with copious amounts of pulsatile lavage solution. I injected locally with 30 cc of half percent Marcaine with epinephrine around the fracture site. The IT band gluteal fascia then closed with #1 Vicryl suture. The subcutaneous tissue was then closed with 2 Dexon suture in a buried interrupted fashion skin was closed skin shakira. Leg was then cleaned dried a sterile dressed composed Xeroform, 4 x 4's, ABD pad and foam tape was applied. The patient then brought out of general anesthesia and transferred to the recovery room in stable condition. The patient tolerated the procedure well and no complications. I attest to the content of the Intraoperative Record and any orders documented therein. Any exceptions are noted below.
--- NOTE | 2020-10-25 14:48 | Anesthesiology Progress Note ---
Date of Service October 25, 2020 Anesthesia Post Procedure Vital Signs Vital Signs: Temp Pulse Pulse Resp BP BP Pulse Ox 10/25/20 14:45 97 H 21 126/80 99 10/25/20 14:35 36.6 C 103 H 21 159/53 H 93 10/25/20 14:25 99 H 21 128/67 99 10/25/20 14:15 96 H 21 128/111 H 99 10/25/20 14:05 92 H 14 169/86 H 96 10/25/20 13:55 95 H 16 140/84 97 10/25/20 13:49 36.7 C 91 H 18 173/75 H 100 10/25/20 08:49 37 C 80 18 130/69 91 10/25/20 07:55 37.0 C 83 17 124/62 95 10/24/20 22:42 36.7 C 81 18 120/59 L 96 10/24/20 16:39 36.6 C 75 14 171/63 H 94 Pulse Ox 10/25/20 14:45 10/25/20 14:35 10/25/20 14:25 10/25/20 14:15 10/25/20 14:05 10/25/20 13:55 10/25/20 13:49 10/25/20 08:49 10/25/20 07:55 10/24/20 22:42 10/24/20 16:39 94 Pain Intensity Right Hip: Pain Intensity: 6 Transfer of Care Handoff Completed per policy Notes Mental Status: alert / awake / arousable and participated in evaluation Nausea / Vomiting: adequately controlled Pain: adequately controlled Airway Patency, RR, SpO2: stable & adequate BP & HR: stable & adequate Hydration State: stable & adequate Anesthetic Complications: no major complications apparent and Pt Satisfied with anesthetic care
[2020-10-25] MEDS ORDERED: NALOXONE HCL 0.4 MG/1 ML VIAL/CARP IV PRN (15:14)
[2020-10-25] MEDS ORDERED: bisacodyL 10 MG SUPP PR PRN (15:14)
[2020-10-25] MEDS ORDERED: METOCLOPRAMIDE HCL INJ 5 MG/ML 2 ML VIAL IV PRN (15:14)
[2020-10-25] MEDS ORDERED: MAGNESIUM HYDROXIDE SUSP 30 ML UDC PO PRN (15:14)
[2020-10-25] MEDS: SODIUM CHLORIDE 0.9% 1000ML 1,000 ML IV SCH (15:27)
[2020-10-25] MEDS ORDERED: PHARMACY GLYCEMIC MGMT CONSULT PRN (15:36)
--- NOTE | 2020-10-25 15:43 | Pharmacy Report ---
Pharmacy Glycemic Short Note 2 - Date of Service October 25, 2020 - Glycemic Short BSG Results (Last 24 hours): 10/24/20 10/24/20 10/25/20 16:55 20:51 05:48 Glucose POC Glucose 133 H 129 H 159 H 10/25/20 10/25/20 06:19 14:00 Glucose 133 H POC Glucose 191 H OUTPATIENT ANTIDIABETIC REGIMEN: * Tradjenta 5 mg PO daily * HbA1c ordered ASSESSMENT: * DF is an 85 year old female who presented to ED on 10/24/20 following a mechanical fall. Patient subsequently found to have right displaced subtrochanteric femur fracture * Now POD #0 s/p right long troch nailing * Pharmacy consulted for glycemic management postoperatively * No perioperative steroids administered * Patient received 1 unit of insulin yesterday (BSGs of 133 and 129 mg/dL) * Fasting BSG this morning of 159 mg/dL -> will add basal dose now * Postoperative BSG of 191 mg/dL PLAN FOR INPATIENT GLYCEMIC CONTROL: * Hold outpatient oral diabetes medications - consider restarting Tradjenta t omorrow morning * Basal insulin * Lantus 8 units SC x 1 (~0.1 unit/kg) * Bolus insulin * NovoLog per scale ACHS or Q6hrs while NPO * Goal Range: Low 120 mg/dL - High 160 mg/dL * Correction Factor: 35 mg/dL/unit * Nutritional / Prandial insulin per carb ratio of 1 unit per 12 grams CHO consumed PLAN FOR DISCHARGE: * tbd
[2020-10-25] MEDS ORDERED: INSULIN GLARGINE SOLOSTAR 100 UNITS/ML 3 ML PEN SC ONE (15:45)
[2020-10-25] MEDS ORDERED: PROMETHAZINE HCL 6.25 MG in SODIUM CHLORIDE 0.9% 50 ML IV STA (15:53)
[2020-10-25] MEDS: KETOROLAC TROMETHAMINE 15 MG/ML VIAL IV SCH ×2 (15:57→21:55)
[2020-10-25] MEDS: FERROUS GLUCONATE 324 MG TAB PO SCH (17:06)
[2020-10-25] MEDS: ASCORBIC ACID 500 MG TAB PO SCH (17:06)
[2020-10-25] MEDS: ceFAZolin 2000MG 2,000 MG/15 ML SYR IV SCH (17:44)
[2020-10-25] MEDS: ACETAMINOPHEN 325 MG TAB PO PRN (18:41)
[2020-10-25] MEDS ORDERED: SODIUM CHLORIDE 0.9% 1000ML 500 ML IV ONE (18:47)
[2020-10-25] MEDS ORDERED: TRANEXAMIC ACID / 0.7% NACL 1,000 MG/100 ML BAG IV SCH (20:00)
[2020-10-25] MEDS: MIRTAZAPINE TAB 15 MG TAB PO SCH (21:26)
[2020-10-25] MEDS: BACLOFEN 10 MG TAB PO SCH (21:26)
[2020-10-25] MEDS: SIMVASTATIN 20 MG TAB PO SCH (21:26)
[2020-10-25] MEDS: ASPIRIN 81 MG ECTAB PO SCH (21:26)
[2020-10-25] MEDS: SENNA 8.6 MG TAB PO SCH (21:26)
[2020-10-25] MEDS: VENLAFAXINE HCL 50 MG TAB PO SCH (21:27)
[2020-10-25] MEDS: DOCUSATE SODIUM 100 MG CAP PO SCH (21:27)
[2020-10-25] MEDS: CEROVITE ADV FORMULA TAB PO SCH (21:28)
[2020-10-25] MEDS: LORazepam 0.5 MG TAB PO SCH (21:32)
[2020-10-25] MEDS: DOCUSATE SODIUM/SENNA 50/8.6MG TAB PO SCH (23:41)
[2020-10-26] MEDS ORDERED: INSULIN ASPART 100 UNITS/ML 3 ML PEN SC SCH (02:00)
[2020-10-26] MEDS: ceFAZolin 2000MG 2,000 MG/15 ML SYR IV SCH (02:00)
[2020-10-26] MEDS: SODIUM CHLORIDE 0.9% 1000ML 1,000 ML IV SCH ×3 (03:24→22:39)
[2020-10-26] MEDS: KETOROLAC TROMETHAMINE 15 MG/ML VIAL IV SCH ×2 (03:24→08:23)
[2020-10-26] MEDS: LEVOTHYROXINE SODIUM 100 MCG TABLET PO SCH (05:50)
[2020-10-26 06:04] LABS: Mean Corpuscular Hemoglobin 30.7 pg (25-34); Mean Corpuscular Volume 95.8 fL (80-100); Mean Platelet Volume 10.1 fL (7.4-10.4); Platelet Count 219 K/uL (130-400); RDW Coefficient of Variation 13.4 % (11.5-14.5); RDW Standard Deviation 46.4 fL (36.4-46.3); Red Blood Count 2.61 M/uL (4.2-5.4); White Blood Count 9.76 K/uL (4.8-10.8)
[2020-10-26 06:25] LABS: BUN Creatinine Ratio 21.9 (10-20); Calcium 7.1 mg/dl (8.5-10.1); Creatinine Clr Calc Pharmacy 23.5 ml/min; Est GFR (African American) 30.3; Est GFR (Non-African American) 26.1; Magnesium 2.1 mg/dl (1.8-2.4); Phosphorus 3.9 mg/dl (2.5-4.9); Potassium 4.8 mmol/L (3.5-5.1)
--- NOTE | 2020-10-26 07:24 | Hospitalist Progress Note ---
Date of Service October 26, 2020 Assessment & Plan (1) Displaced subtrochanteric fracture of right femur: (2) Fall: This is an 85 yr old F who has a significant PMH of T2DM, HTN, HLD, IBS , hypothyroidism, AMD, GERD, hx of PE provoked by surgery 5-6 yrs ago who presents to ED after sustaining mechanical fall. R hip/pelvis xray: IMPRESSION: A displaced subtrochanteric right femoral fracture. CXR WNL, EKG reviewed and unchanged from 12/2018 Labs stable, UA - negative Last echo 2016 revealed questionable R atrial echodensity 1cm, ? artifact vs mass vs thrombus - echo repeated - R atrial hypodensity not visualized, there is poss. Pericardial effusion versus pericardial fat pad, no tamponade noted pt able to reach METS w/o any cardiac symptoms admitted to med/surg Orthopedic surgery consulted- Dr. Coello - previous L ESTHER with Dr. Coello as well Patient is a status post surgical repair of her right femoral fracture with Dr. Coello, October 25, 2019 bed rest ta placed hydrocodone prn moderate pain, IV morphine severe pain SQ Heparin x 1 in the evening for dvt ppx prior to surgery NPO after midnight except meds, gentle IVF after midnight DVT ppx - per orthopedics, Lovenox started, teds, as patient has history of provoked PE after surgery some years ago Hypovitaminosis D - level checked, 8.6 - Plan to start replacement prior to discharge Anemia (acute blood loss/dilutional) Post-op Hemoglobin 8.0 today No need for transfusion right now, continue to monitor EFRAIN Creatinine elevated today, 1.8 Likely secondary to volume loss, hypotension noted post-op Continue IV fluids, avoid NSAIDs Hold any diuretic (3) T2DM (type 2 diabetes mellitus): lat a1c 7.0 08/27/20 hold tradjenta lantus/novolog per protocol (4) HTN (hypertension): continue metoprolol hold losartan and lasix pre operatively also hold KCL as K is 5.1 on admission monitor BP (5) HLD (hyperlipidemia): continue statin (6) Hypothyroidism: continue levothyroxine (7) CKD (chronic kidney disease) stage 3, GFR 30-59 ml/min: baseline cr 1.1-1.3 bun/cr 25 and 1.27 gentle IVF Creatinine elevated., Due to volume loss, hypotension Continue to closely monitor and support as above (8) Grief at loss of child: Pt lost her daughter day prior to admission, and is actively grieving supportive measures (9) History of pulmonary embolism: provoked 2/2 to post op state given Heparin subq x 1 the evening prior to surgery, now started on Lovenox per ortho, TEDs applied Dispo: Med/Surg, case management consulted pt likely to need rehab post op PCP: Dr. Mazariegos FULL CODE Admission and Anticipated Discharge Date Admission Date: October 24, 2020 Subjective Patient seen in follow-up of right femur fracture, currently status post claus gical repair Pt is lying in bed, reports that she feels well overall, however has some left wrist pain/discomfort, her wrist was x-rayed earlier this morning, does not show any fracture Denies any chest pain or shortness of breath or abdominal pain Denies any lower extremity pain She is asking if her son can visit again Hemoglobin down to 8.0 Creatinine elevated at 1.8 Review of Systems Review of Systems: All systems reviewed & are unremarkable except as noted in HPI & below Constitutional: no fever and no chills Respiratory: no cough and no dyspnea Cardiovascular: no chest pain and no palpitations Gastrointestinal: no abdominal pain, no nausea and no vomiting Physical Exam Constitutional: WD/WN, vitals as above + obese Eyes: PERRL, conjunctivae normal, anicteric sclerae ENMT: external ear and nose normal, oropharynx normal Neck: normal visual inspection and + thick neck Respiratory: normal respiratory effort, lungs clear to auscultation Auscultation: no crackles, no rhonchi and no wheezes Cardiovascular: RRR, no murmur, no edema Chest (Breasts): Chest: normal inspection of chest Gastrointestinal (Abdomen): Inspection/Auscultation: abdomen normal to inspection and normal bowel sounds; abdomen not distended Percussion/Palpation: abdomen soft; abdomen nontender Musculoskeletal: Head/Neck/Chest: normocephalic and head atraumatic + Teds applied to LEs Skin: no rashes, warm and dry Neurologic: PERRL, EOMI, accommodation nl, no face palsy, no dysarthria Psychiatric: Orientation: alert and oriented x 3 Genitourinary: no CVA tenderness Lymphatic: no lymphedema Results & Data Results & Data ([facility]) Vital Signs (Past 12 Hours) Vital Signs Temp Pulse Pulse Resp BP Pulse Ox 10/26/20 05:59 94 H 102/46 L 10/26/20 02:06 36.3 C L 99 H 18 122/56 L 93 10/25/20 22:15 97 H 105/60 10/25/20 21:41 99/62 L 93 10/25/20 20:47 36.6 C 98 H 16 95/57 L 100 Laboratory Results 10/26/20 10/26/20 10/26/20 Range/Units 05:21 05:21 05:21 WBC 9.76 (4.8-10.8) K/uL RBC 2.61 L (4.2-5.4) M/uL Hgb 8.0 L D (12.0-16.0) g/dL Hct 25.0 L (37-47) % MCV 95.8 (80-100) fL MCH 30.7 (25-34) pg MCHC 32.0 (32-36) g/dL RDW Std Deviation 46.4 H (36.4-46.3) fL RDW Coeff of Thea 13.4 (11.5-14.5) % Plt Count 219 (130-400) K/uL MPV 10.1 (7.4-10.4) fL Sodium 142 (136-145) mmol/L Potassium 4.8 (3.5-5.1) mmol/L Chloride 113 H (98-107) mmol/L Carbon Dioxide 22 (21-32) mmol/L Anion Gap 7.0 (3-11) BUN 39 H (7-18) mg/dl Creatinine 1.77 H D (0.6-1.2) mg/dl Est Cr Clr Drug Dosing 23.5 ml/min Est GFR ( Amer) 30.3 Est GFR (Non-Af Amer) 26.1 BUN/Creatinine Ratio 21.9 H (10-20) Glucose 132 H (70-99) mg/dl POC Glucose (70-99) mg/dl Estimat Average Glucose Pending Hemoglobin A1c Pending Calcium 7.1 L D (8.5-10.1) mg/dl Phosphorus 3.9 (2.5-4.9) mg/dl Magnesium 2.1 (1.8-2.4) mg/dl 25-OH Vitamin D Total (30-100) ng/ml 10/26/20 10/25/20 10/25/20 Range/Units 01:58 20:43 17:03 WBC (4.8-10.8) K/uL RBC (4.2-5.4) M/uL Hgb (12.0-16.0) g/dL Hct (37-47) % MCV (80-100) fL MCH (25-34) pg MCHC (32-36) g/dL RDW Std Deviation (36.4-46.3) fL RDW Coeff of Thea (11.5-14.5) % Plt Count (130-400) K/uL MPV (7.4-10.4) fL Sodium (136-145) mmol/L Potassium (3.5-5.1) mmol/L Chloride (98-107) mmol/L Carbon Dioxide (21-32) mmol/L Anion Gap (3-11) BUN (7-18) mg/dl Creatinine (0.6-1.2) mg/dl Est Cr Clr Drug Dosing ml/min Est GFR ( Amer) Est GFR (Non-Af Amer) BUN/Creatinine Ratio (10-20) Glucose (70-99) mg/dl POC Glucose 149 H 149 H 187 H (70-99) mg/dl Estimat Average Glucose Hemoglobin A1c Calcium (8.5-10.1) mg/dl Phosphorus (2.5-4.9) mg/dl Magnesium (1.8-2.4) mg/dl 25-OH Vitamin D Total (30-100) ng/ml 10/25/20 10/25/20 Range/Units 14:00 06:19 WBC (4.8-10.8) K/uL RBC (4.2-5.4) M/uL Hgb (12.0-16.0) g/dL Hct (37-47) % MCV (80-100) fL MCH (25-34) pg MCHC (32-36) g/dL RDW Std Deviation (36.4-46.3) fL RDW Coeff of Thea (11.5-14.5) % Plt Count (130-400) K/uL MPV (7.4-10.4) fL Sodium (136-145) mmol/L Potassium (3.5-5.1) mmol/L Chloride (98-107) mmol/L Carbon Dioxide (21-32) mmol/L Anion Gap (3-11) BUN (7-18) mg/dl Creatinine (0.6-1.2) mg/dl Est Cr Clr Drug Dosing ml/min Est GFR ( Amer) Est GFR (Non-Af Amer) BUN/Creatinine Ratio (10-20) Glucose (70-99) mg/dl POC Glucose 191 H (70-99) mg/dl Estimat Average Glucose Hemoglobin A1c Calcium (8.5-10.1) mg/dl Phosphorus (2.5-4.9) mg/dl Magnesium (1.8-2.4) mg/dl 25-OH Vitamin D Total 8.6 L (30-100) ng/ml Medications Administered Current Inpatient Medications Acetaminophen (Acetaminophen 325 Mg Tab) 650 mg PO Q6H PRN PRN Reason: Pain & Pre PT Stop: 11/23/20 16:36 Last Admin: 10/25/20 18:41 Dose: 650 mg Documented by: Hydrocodone Bitart/Acetaminophen (Hydrocodone/Acetamophen 5/325mg Tab) 1 tab PO Q4H PRN PRN Reason: MODERATE Pain (4,5,6) & Pre PT Stop: 11/07/20 16:36 Hydrocodone Bitart/Acetaminophen (Hydrocodone/Acetamophen 5/325mg Tab) 2 tab PO Q4H PRN PRN Reason: SEVERE Pain (7,8,9,10) Stop: 11/07/20 16:36 Last Admin: 10/25/20 19:31 Dose: 2 tab Documented by: Al Hydrox/Mg Hydrox/Simethicone (Aluminum/Magnesium Susp 30 Ml Udc) 15 ml PO Q4H PRN PRN Reason: Heartburn Stop: 11/24/20 15:13 Ascorbic Acid (Ascorbic Acid 500 Mg Tab) 500 mg PO BIDM PIOTR Stop: 11/24/20 16:59 Last Admin: 10/25/20 17:06 Dose: Not Given Documented by: Aspirin (Aspirin 81 Mg Ectab) 81 mg PO PM PIOTR Stop: 11/23/20 20:59 Last Admin: 10/25/20 21:26 Dose: 81 mg Documented by: Baclofen (Baclofen 10 Mg Tab) 10 mg PO HS PIOTR Stop: 11/23/20 20:59 Last Admin: 10/25/20 21:26 Dose: 10 mg Documented by: Bisacodyl (Bisacodyl 10 Mg Supp) 10 mg [place] DAILY PRN PRN Reason: Constipation Stop: 11/24/20 15:13 Buspirone HCl (Buspirone 5 Mg Tab) 10 mg PO TID PIOTR Stop: 11/23/20 16:59 Last Admin: 10/25/20 21:26 Dose: 10 mg Documented by: Dextrose (Dextrose 50% 50 Ml Syringe) 25 - 50 ml IV UD PRN; Protocol PRN Reason: Hypoglycemia Protocol Stop: 11/23/20 16:36 Docusate Sodium (Docusate Sodium 100 Mg Cap) 100 mg PO BID PIOTR Stop: 11/24/20 20:59 Last Admin: 10/25/20 21:27 Dose: Not Given Documented by: Enoxaparin Sodium (Enoxaparin Inj 30 Mg/0.3 Ml Syr) 30 mg SQ Q24H PIOTR Stop: 11/25/20 13:59 Ferrous Gluconate (Ferrous Gluconate 324 Mg Tab) 324 mg PO BIDM PIOTR Stop: 11/24/20 16:59 Last Admin: 10/25/20 17:06 Dose: Not Given Documented by: Glucagon (Glucagon For Inj 1 Mg Vial) 1 mg SQ UD PRN; Protocol PRN Reason: Hypoglycemia Protocol Stop: 11/23/20 16:36 Glucose (Glucose 10 Tabs/Tube) 4 - 8 tabs PO UD PRN; Protocol PRN Reason: Hypoglycemia Protocol Stop: 11/23/20 16:36 Glucose (Glucose 40% Gel 15 Gm Tube) 15 - 30 gm PO UD PRN; Protocol PRN Reason: Hypoglycemia Protocol Stop: 11/23/20 16:36 Sodium Chloride (Nss 1000ml) 1,000 mls @ 100 mls/hr IV .Q10H PIOTR Stop: 11/24/20 15:13 Last Admin: 10/26/20 03:24 Dose: 100 mls/hr Documented by: Insulin Aspart (Insulin Aspart 100 Units/Ml 3 Ml Pen) 0 units SC ACHS PIOTR Stop: 11/24/20 05:59 Last Admin: 10/25/20 22:03 Dose: Not Given Documented by: Ketorolac Tromethamine (Ketorolac Tromethamine 15 Mg/Ml Vial) 15 mg IV Q6H PIOTR Stop: 10/27/20 10:01 Last Admin: 10/26/20 03:24 Dose: 15 mg Documented by: Levothyroxine Sodium (Levothyroxine Sodium 100 Mcg Tablet) 100 mcg PO DAILYBB ON LICENSE OF [facility] Stop: 11/24/20 06:29 Last Admin: 10/26/20 05:50 Dose: 100 mcg Documented by: Lorazepam (Lorazepam 0.5 Mg Tab) 0.5 mg PO HS ON LICENSE OF [facility] Stop: 11/23/20 20:59 Last Admin: 10/25/20 21:32 Dose: 0.5 mg Documented by: Magnesium Hydroxide (Magnesium Hydroxide Susp 30 Ml Udc) 30 ml PO Q6H PRN PRN Reason: Constipation Stop: 11/24/20 15:13 Metoclopramide HCl (Metoclopramide Hcl Inj 5 Mg/Ml 2 Ml Vial) 10 mg IV Q6H PRN PRN Reason: Nausea And Vomiting Stop: 11/24/20 15:13 Metoprolol Tartrate (Metoprolol Tartrate 50 Mg Tab) 50 mg PO DAILY ON LICENSE OF [facility] Stop: 11/24/20 08:59 Last Admin: 10/25/20 09:50 Dose: Not Given Documented by: Mirtazapine (Mirtazapine Tab 15 Mg Tab) 30 mg PO [facility] Stop: 11/23/20 20:59 Last Admin: 10/25/20 21:26 Dose: 30 mg Documented by: Miscellaneous (Carbohydrates For Hypoglycemia ) 15 - 30 gm PO UD PRN PRN Reason: Hypoglycemia Protocol Stop: 11/23/20 16:36 Miscellaneous Information (Pharmacy Glycemic Mgmt Consult) 1 ea N/A UD PRN PRN Reason: Consult Stop: 11/24/20 15:35 Morphine Sulfate (Morphine Sulfate 2 Mg/Ml Carp) 2 mg IV Q3H PRN PRN Reason: Pain (1,2,3,4,5) & Pre PT Stop: 11/07/20 16:36 Last Admin: 10/25/20 23:36 Dose: 2 mg Documented by: Multivitamins (Multivitamin Tab) 1 tab PO QAM ON LICENSE OF [facility] Stop: 11/25/20 08:59 Multivitamins/Minerals (Cerovite Adv Formula Tab) 1 tab PO QPM ON LICENSE OF [facility] Stop: 11/23/20 20:59 Last Admin: 10/25/20 21:28 Dose: 1 tab Documented by: Naloxone HCl (Naloxone Hcl 0.4 Mg/1 Ml Vial/Carp) 0.1 mg IV Q5M PRN PRN Reason: Oversedation/Resp Depression Stop: 11/24/20 15:13 Ondansetron HCl (Ondansetron Inj 2 Mg/Ml 2 Ml Vial) 4 mg IV Q6H PRN PRN Reason: Nausea And Vomiting Stop: 11/24/20 15:13 Last Admin: 10/25/20 21:56 Dose: 4 mg Documented by: Pantoprazole Sodium (Pantoprazole 40 Mg Tab) 40 mg PO DAILY PIOTR Stop: 11/24/20 08:59 Last Admin: 10/25/20 09:51 Dose: Not Given Documented by: Sennosides (Senna 8.6 Mg Tab) 17.2 mg PO HS ON LICENSE OF [facility] Stop: 11/24/20 20:59 Last Admin: 10/25/20 21:26 Dose: Not Given Documented by: Simvastatin (Simvastatin 20 Mg Tab) 20 mg PO PM PIOTR Stop: 11/23/20 20:59 Last Admin: 10/25/20 21:26 Dose: 20 mg Documented by: Venlafaxine HCl (Venlafaxine Hcl 50 Mg Tab) 75 mg PO PM PIOTR Stop: 11/23/20 20:59 Last Admin: 10/25/20 21:27 Dose: 75 mg Documented by: Venlafaxine HCl (Venlafaxine Hcl Xr 150 Mg Capxr) 150 mg PO DAILY PIOTR Stop: 11/24/20 08:59 Last Admin: 10/25/20 09:50 Dose: Not Given Documented by:
--- NOTE | 2020-10-26 08:04 | XRay Report ---
XR hand LT min 3V routine HISTORY: 85 years-old Female fall. 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 There is no acute fracture, dislocation or opaque foreign body. Mild diffuse soft tissue prominence. IMPRESSION: No acute fracture or dislocation. ACT 112: Negative or not required by law. The above report was generated using voice recognition software. It may contain grammatical, syntax o r spelling errors. Electronically signed by: Ramiro London M.D. 10/26/2020 8:02 AM
[2020-10-26] MEDS ORDERED: dexAMETHasone 4 MG TAB PO ONE (08:17)
[2020-10-26] MEDS: PANTOprazole 40 MG TAB PO SCH (08:21)
[2020-10-26] MEDS: METOPROLOL TARTRATE 50 MG TAB PO SCH (08:21)
[2020-10-26] MEDS: VENLAFAXINE HCL XR 150 MG CAPXR PO SCH (08:21)
[2020-10-26] MEDS: busPIRone 5 MG TAB PO SCH ×3 (08:21→20:24)
[2020-10-26] MEDS: ASCORBIC ACID 500 MG TAB PO SCH ×2 (08:22→18:00)
[2020-10-26] MEDS: DOCUSATE SODIUM 100 MG CAP PO SCH ×3 (08:22→20:25)
[2020-10-26] MEDS: MULTIVITAMIN TAB PO SCH (08:22)
[2020-10-26] MEDS: FERROUS GLUCONATE 324 MG TAB PO SCH ×2 (08:23→18:00)
[2020-10-26] MEDS: INSULIN ASPART 100 UNITS/ML 3 ML PEN SC SCH ×4 (08:52→21:47)
[2020-10-26] MEDS ORDERED: INSULIN GLARGINE SOLOSTAR 100 UNITS/ML 3 ML PEN SC SCH ×2 (09:00→21:00)
[2020-10-26] MEDS ORDERED: INSULIN GLARGINE SOLOSTAR 100 UNITS/ML 3 ML PEN SC ONE (09:00)
--- NOTE | 2020-10-26 09:12 | Progress Notes ---
DATE: 10/26/2020 SUBJECTIVE: An 85-year-old female postop day 1 from ORIF and IM nailing of a right subtrochanteric femur fracture. Her leg is doing pretty well this morning. Her major complaint is hand pain and discomfort. She has got bilateral hand pain, left side greater than right. It sounds like she had some carpal tunnel-like symptoms before surgery. It seems like it is worse now. Also, some underlying arthritis. Not really familiar with any trauma that she has had other than the fall. OBJECTIVE: VITAL SIGNS: Temperature 36.9. Vital signs stable. EXTREMITIES: Examination of both hands reveals no real significant swelling. She has got some minor arthritic changes throughout. She can flex and extend her fingers with just a little bit of limited motion. No triggering or Domi. No visible deformity other than arthritic change. Examination of the right lower extremity reveals the leg to be well aligned. Leg lengths are equal. Dressing is clean, dry and intact. Some mild swelling of the thigh. She is neurologically intact. X-RAYS: X-rays of the left hand were reviewed. Shows some mild arthritic changes. No signs of acute fracture. LABORATORY DATA: Hemoglobin is 8.0. Hematocrit 25.0. Electrolytes are pretty stable. Creatinine is a little bit elevated at 1.77. ASSESSMENT: An 85-year-old white female postop day 1 from ORIF and IM nailing of a right subtrochanteric femur fracture, doing reasonably well. She has got this bilateral hand pain, most likely related to an exacerbation of carpal tunnel as it sounds like she has had some of this before and the fluid shifts of surgery can often makes that worse. Unfortunately, she really cannot take NSAIDs at this point due to her elevated creatinine. PLAN: 1. DVT prophylaxis including thigh-high TEDs, SCDs, and we are going to put her on some Lovenox. She does have a history of a DVT/PE in the past and she needs prophylactic management. Either Lovenox or Xarelto would be fine with me. I feel she needs something more than aspirin. 2. PT/OT. She can fully weightbear on the right lower extremity. 3. Bilateral hand pain. I am going to try her on some prednisone and see if that helps. I would like to use maybe some Toradol, but with elevated creatinine, I think we should hold on that. 4. Medical management as per the medicine service. 5. Disposition: She will be orthopedically okay for discharge any time after today, likely tomorrow. May take a little longer to set up her social situation whether she goes home versus rehab. Either situation is okay with me. I need to see her back in 2-3 weeks out from surgery date. Any orthopedic questions can be directed to me at [phone].
--- NOTE | 2020-10-26 09:39 | Pharmacy Report ---
Pharmacy Glycemic Short Note 2 - Date of Service October 26, 2020 - Glycemic Short BSG Results (Last 24 hours): 10/25/20 10/25/20 10/25/20 14:00 17:03 20:43 Glucose POC Glucose 191 H 187 H 149 H 10/26/20 10/26/20 10/26/20 01:58 05:21 08:20 Glucose 132 H POC Glucose 149 H 153 H OUTPATIENT ANTIDIABETIC REGIMEN: * Tradjenta 5 mg PO daily * HbA1c ordered ASSESSMENT: 10/26/20 * Patient's BSGs yesterday were [phone] mg/dL. She received 9 units total (8 units of basal and 1 unit of bolus due to poor appetite). * Fasting this morning was 153 mg/dL... similar to previous day's fasting BSG. * Patient to start dexamethasone 4 mg PO daily x 5 days. * For steroid hyperglycemia, will provide a load of Lantus 16 units this morning (full weight-based stress of 1) with additional 8 units available this evening. Prefer to utilize stronger bolus coverage. Will hold off on NPH at this time to prevent titration of too many different insulins. * Will tighten Novolog to weight-based stress of 3. Expect carbohydrate ratio to require tightening. 10/25/20 * DF is an 85 year old female who presented to ED on 10/24/20 following a mechanical fall. Patient subsequently found to have right displaced subtrochanteric femur fracture * Now POD #0 s/p right long troch nailing * Pharmacy consulted for glycemic management postoperatively * No perioperative steroids administered * Patient received 1 unit of insulin yesterday (BSGs of 133 and 129 mg/dL) * Fasting BSG this morning of 159 mg/dL -> will add basal dose now * Postoperative BSG of 191 mg/dL PLAN FOR INPATIENT GLYCEMIC CONTROL: * Hold outpatient oral diabetes medications * Basal insulin * Lantus 16 units SQ x 1 then 8 units tonight if BSG > 160 mg/dL. * Further dosing based upon fasting BSG * Bolus insulin * NovoLog per scale ACHS or Q6hrs while NPO * Goal Range: Low 110 mg/dL - High 140 mg/dL * Correction Factor: 20 mg/dL/unit * Nutritional / Prandial insulin per carb ratio of 1 unit per 6 grams CHO consumed PLAN FOR DISCHARGE: * tbd
[2020-10-26] MEDS: ONDANSETRON INJ 2 MG/ML 2 ML VIAL IV PRN (10:07)
[2020-10-26] MEDS: ALUMINUM/MAGNESIUM SUSP 30 ML UDC PO PRN (11:16)
[2020-10-26] MEDS ORDERED: SIMETHICONE 80 MG CHEW PO PRN (12:34)
[2020-10-26] MEDS: ACETAMINOPHEN 325 MG TAB PO PRN (12:58)
[2020-10-26] MEDS: POLYETHYLENE (MIRALAX) 17 GM PACK PO PRN ×2 (12:58→13:12)
[2020-10-26] MEDS: ENOXAPARIN INJ 30 MG/0.3 ML SYR SQ SCH (13:40)
[2020-10-26] MEDS ORDERED: SODIUM CHLORIDE 0.9% 1000ML 500 ML IV ONE (16:27)
[2020-10-26] MEDS: ALBUMIN 25% 12.5 GM/50 ML VIAL IV SCH ×2 (16:58→17:54)
[2020-10-26] MEDS: HYDROCODONE/ACETAMOPHEN 5/325MG TAB PO PRN (18:07)
[2020-10-26] MEDS: SENNA 8.6 MG TAB PO SCH (20:24)
[2020-10-26] MEDS: MIRTAZAPINE TAB 15 MG TAB PO SCH (20:24)
[2020-10-26] MEDS: ASPIRIN 81 MG ECTAB PO SCH (20:25)
[2020-10-26] MEDS: CEROVITE ADV FORMULA TAB PO SCH (20:25)
[2020-10-26] MEDS: BACLOFEN 10 MG TAB PO SCH (20:25)
[2020-10-26] MEDS: SIMVASTATIN 20 MG TAB PO SCH (20:25)
[2020-10-26] MEDS: VENLAFAXINE HCL 50 MG TAB PO SCH (20:26)
[2020-10-26] MEDS: LORazepam 0.5 MG TAB PO SCH (20:27)
[2020-10-26] MEDS: MoRPHine SULFATE 2 MG/ML CARP IV PRN (21:28)
[2020-10-27] MEDS: HYDROCODONE/ACETAMOPHEN 5/325MG TAB PO PRN ×2 (05:30→19:32)
[2020-10-27] MEDS: LEVOTHYROXINE SODIUM 100 MCG TABLET PO SCH (05:31)
[2020-10-27 05:55] LABS: Hematocrit (blood only) 23.3 % (37-47); Hemoglobin 7.6 g/dL (12.0-16.0); Mean Corpuscular Hgb Conc 32.6 g/dL (32-36); Mean Corpuscular Volume 95.1 fL (80-100); Platelet Count 217 K/uL (130-400); RDW Coefficient of Variation 13.8 % (11.5-14.5); RDW Standard Deviation 48.1 fL (36.4-46.3); Red Blood Count 2.45 M/uL (4.2-5.4); White Blood Count 11.56 K/uL (4.8-10.8)
[2020-10-27 06:11] LABS: Estimated Average Glucose 140 mg/dl; Hemoglobin A1C 6.5 % (4.5-5.6)
[2020-10-27 06:26] LABS: BUN Creatinine Ratio 27.3 (10-20); Calcium 7.5 mg/dl (8.5-10.1); Creatinine Clr Calc Pharmacy 32.7 ml/min; Est GFR (African American) 45.2; Potassium 4.3 mmol/L (3.5-5.1)
--- NOTE | 2020-10-27 07:28 | Hospitalist Progress Note ---
Date of Service October 27, 2020 Assessment & Plan (1) Displaced subtrochanteric fracture of right femur: (2) Fall: This is an 85 yr old F who has a significant PMH of T2DM, HTN, HLD, IBS , hypothyroidism, AMD, GERD, hx of PE provoked by surgery 5-6 yrs ago who presents to ED after sustaining mechanical fall. R hip/pelvis xray: IMPRESSION: A displaced subtrochanteric right femoral fracture. CXR WNL, EKG reviewed and unchanged from 12/2018 Labs stable, UA - negative Last echo 2016 revealed questionable R atrial echodensity 1cm, ? artifact vs mass vs thrombus - echo repeated - R atrial hypodensity not visualized, there is poss. Pericardial effusion versus pericardial fat pad, no tamponade noted pt able to reach METS w/o any cardiac symptoms Orthopedic surgery consulted- Dr. Coello - previous L ESTHER with Dr. Coello as well Patient is a status post surgical repair of her right femoral fracture with Dr. Coello, October 25, 2019 ta placed hydrocodone prn moderate pain, IV morphine severe pain SQ Heparin x 1 in the evening for dvt ppx prior to surgery DVT ppx - per orthopedics, Lovenox started, teds, as patient has history of provoked PE after surgery some years ago Hypovitaminosis D - level checked, 8.6 - Plan to start replacement prior to discharge Anemia (acute blood loss/dilutional) Post-op Hemoglobin 8.0 Current Hgb 7.6 Will transfuse 1 unit of PRBCs (10/27), continue to monitor H&H EFRAIN Creatinine elevated 1.8 (10/26) Likely secondary to volume loss, hypotension noted post-op Continue IV fluids, avoid NSAIDs Hold any diuretic Cr now improved to 1.3 (10/27) (3) T2DM (type 2 diabetes mellitus): Hgb A1c 7.0 08/27/20 hold tradjenta lantus/novolog per protocol Current A1c 6.5% Follow up as outpt for DM (4) HTN (hypertension): continue metoprolol hold losartan and lasix pre operatively also hold KCL as K is 5.1 on admission monitor BP (5) HLD (hyperlipidemia): continue statin (6) Hypothyroidism: continue levothyroxine (7) CKD (chronic kidney disease) stage 3, GFR 30-59 ml/min: baseline cr 1.1-1.3 bun/cr 25 and 1.27 gentle IVF Creatinine elevated., Due to volume loss, hypotension Continue to closely monitor and support as above (8) Grief at loss of child: Pt lost her daughter day prior to admission, and is actively grieving supportive measures (9) History of pulmonary embolism: provoked 2/2 to post op state given Heparin subq x 1 the evening prior to surgery, now started on Lovenox per ortho, TEDs applied Dispo: Med/Surg, case management consulted pt likely to need rehab post op PCP: Dr. Mazariegos FULL CODE Admission and Anticipated Discharge Date Admission Date: October 24, 2020 Subjective Patient seen in follow-up of right femur fracture, currently status post s urgical repair Pt is lying in bed, reports that she feels well overall, R wrist feels much better today Denies any chest pain or shortness of breath or abdominal pain Denies any lower extremity painn Hemoglobin down to 7.6, plan for 1 unit of pRBCs Creatinine improved to 1.3 from 1.8 yesterday Review of Systems Review of Systems: All systems reviewed & are unremarkable except as noted in HPI & below Constitutional: no fever and no chills Respiratory: no cough and no dyspnea Cardiovascular: no chest pain and no palpitations Gastrointestinal: no abdominal pain, no nausea and no vomiting Physical Exam Constitutional: WD/WN, vitals as above + obese Eyes: PERRL, conjunctivae normal, anicteric sclerae ENMT: external ear and nose normal, oropharynx normal Neck: normal visual inspection and + thick neck Respiratory: normal respiratory effort, lungs clear to auscultation Auscultation: no crackles, no rhonchi and no wheezes Cardiovascular: RRR, no murmur, no edema Chest (Breasts): Chest: normal inspection of chest Gastrointestinal (Abdomen): Inspection/Auscultation: abdomen normal to inspection and normal bowel sounds; abdomen not distended Percussion/Palpation: abdomen soft; abdomen nontender Musculoskeletal: Head/Neck/Chest: normocephalic and head atraumatic Skin: no rashes, warm and dry Neurologic: PERRL, EOMI, accommodation nl, no face palsy, no dysarthria Psychiatric: Orientation: alert and oriented x 3 Genitourinary: no CVA tenderness Lymphatic: no lymphedema Results & Data Results & Data (MN) Vital Signs (Past 12 Hours) Vital Signs Temp Pulse Resp BP Pulse Ox Pulse Ox 10/27/20 04:00 95 10/27/20 00:00 95 10/26/20 23:30 37.0 C 92 H 16 101/51 L 92 10/26/20 20:00 96 Laboratory Results 10/27/20 10/27/20 10/26/20 Range/Units 05:25 05:25 20:48 WBC 11.56 H (4.8-10.8) K/uL RBC 2.45 L (4.2-5.4) M/uL Hgb 7.6 L (12.0-16.0) g/dL Hct 23.3 L (37-47) % MCV 95.1 (80-100) fL MCH 31.0 (25-34) pg MCHC 32.6 (32-36) g/dL RDW Std Deviation 48.1 H (36.4-46.3) fL RDW Coeff of Thea 13.8 (11.5-14.5) % Plt Count 217 (130-400) K/uL MPV 10.0 (7.4-10.4) fL Sodium 143 (136-145) mmol/L Potassium 4.3 (3.5-5.1) mmol/L Chloride 115 H (98-107) mmol/L Carbon Dioxide 22 (21-32) mmol/L Anion Gap 6.0 (3-11) BUN 35 H (7-18) mg/dl Creatinine 1.27 H D (0.6-1.2) mg/dl Est Cr Clr Drug Dosing 32.7 ml/min Est GFR ( Amer) 45.2 Est GFR (Non-Af Amer) 39.0 BUN/Creatinine Ratio 27.3 H (10-20) Glucose 135 H (70-99) mg/dl POC Glucose 138 H (70-99) mg/dl Estimat Average Glucose mg/dl Hemoglobin A1c (4.5-5.6) % Calcium 7.5 L (8.5-10.1) mg/dl 10/26/20 10/26/20 10/26/20 Range/Units 16:51 16:44 12:04 WBC (4.8-10.8) K/uL RBC (4.2-5.4) M/uL Hgb 8.0 L (12.0-16.0) g/dL Hct 25.0 L (37-47) % MCV (80-100) fL MCH (25-34) pg MCHC (32-36) g/dL RDW Std Deviation (36.4-46.3) fL RDW Coeff of Thea (11.5-14.5) % Plt Count (130-400) K/uL MPV (7.4-10.4) fL Sodium (136-145) mmol/L Potassium (3.5-5.1) mmol/L Chloride (98-107) mmol/L Carbon Dioxide (21-32) mmol/L Anion Gap (3-11) BUN (7-18) mg/dl Creatinine (0.6-1.2) mg/dl Est Cr Clr Drug Dosing ml/min Est GFR ( Amer) Est GFR (Non-Af Amer) BUN/Creatinine Ratio (10-20) Glucose (70-99) mg/dl POC Glucose 131 H 167 H (70-99) mg/dl Estimat Average Glucose mg/dl Hemoglobin A1c (4.5-5.6) % Calcium (8.5-10.1) mg/dl 10/26/20 10/26/20 Range/Units 08:20 05:21 WBC (4.8-10.8) K/uL RBC (4.2-5.4) M/uL Hgb (12.0-16.0) g/dL Hct (37-47) % MCV (80-100) fL MCH (25-34) pg MCHC (32-36) g/dL RDW Std Deviation (36.4-46.3) fL RDW Coeff of Thea (11.5-14.5) % Plt Count (130-400) K/uL MPV (7.4-10.4) fL Sodium (136-145) mmol/L Potassium (3.5-5.1) mmol/L Chloride (98-107) mmol/L Carbon Dioxide (21-32) mmol/L Anion Gap (3-11) BUN (7-18) mg/dl Creatinine (0.6-1.2) mg/dl Est Cr Clr Drug Dosing ml/min Est GFR ( Amer) Est GFR (Non-Af Amer) BUN/Creatinine Ratio (10-20) Glucose (70-99) mg/dl POC Glucose 153 H (70-99) mg/dl Estimat Average Glucose 140 mg/dl Hemoglobin A1c 6.5 H (4.5-5.6) % Calcium (8.5-10.1) mg/dl Medications Administered Current Inpatient Medications Acetaminophen (Acetaminophen 325 Mg Tab) 650 mg PO Q6H PRN PRN Reason: Pain & Pre PT Stop: 11/23/20 16:36 Last Admin: 10/26/20 12:58 Dose: 650 mg Documented by: Hydrocodone Bitart/Acetaminophen (Hydrocodone/Acetamophen 5/325mg Tab) 1 tab PO Q4H PRN PRN Reason: MODERATE Pain (4,5,6) & Pre PT Stop: 11/07/20 16:36 Hydrocodone Bitart/Acetaminophen (Hydrocodone/Acetamophen 5/325mg Tab) 2 tab PO Q4H PRN PRN Reason: SEVERE Pain (7,8,9,10) Stop: 11/07/20 16:36 Last Admin: 10/27/20 05:30 Dose: 2 tab Documented by: Al Hydrox/Mg Hydrox/Simethicone (Aluminum/Magnesium Susp 30 Ml Udc) 15 ml PO Q4H PRN PRN Reason: Heartburn Stop: 11/24/20 15:13 Last Admin: 10/26/20 11:16 Dose: 15 ml Documented by: Ascorbic Acid (Ascorbic Acid 500 Mg Tab) 500 mg PO BIDM PIOTR Stop: 11/24/20 16:59 Last Admin: 10/26/20 18:00 Dose: 500 mg Documented by: Aspirin (Aspirin 81 Mg Ectab) 81 mg PO PM PIOTR Stop: 11/23/20 20:59 Last Admin: 10/26/20 20:25 Dose: 81 mg Documented by: Baclofen (Baclofen 10 Mg Tab) 10 mg PO HS [facility] Stop: 11/23/20 20:59 Last Admin: 10/26/20 20:25 Dose: 10 mg Documented by: Bisacodyl (Bisacodyl 10 Mg Supp) 10 mg DE DAILY PRN PRN Reason: Constipation Stop: 11/24/20 15:13 Buspirone HCl (Buspirone 5 Mg Tab) 10 mg PO TID [facility] Stop: 11/23/20 16:59 Last Admin: 10/26/20 20:24 Dose: 10 mg Documented by: Dexamethasone (Dexamethasone 4 Mg Tab) 4 mg PO QAM [facility] Stop: 10/30/20 09:01 Dextrose (Dextrose 50% 50 Ml Syringe) 25 - 50 ml IV UD PRN; Protocol PRN Reason: Hypoglycemia Protocol Stop: 11/23/20 16:36 Docusate Sodium (Docusate Sodium 100 Mg Cap) 100 mg PO BID PIOTR Stop: 11/24/20 20:59 Last Admin: 10/26/20 20:25 Dose: 100 mg Documented by: Enoxaparin Sodium (Enoxaparin Inj 30 Mg/0.3 Ml Syr) 30 mg SQ Q24H [facility] Stop: 11/25/20 13:59 Last Admin: 10/26/20 13:40 Dose: 30 mg Documented by: Ferrous Gluconate (Ferrous Gluconate 324 Mg Tab) 324 mg PO BIDM [facility] Stop: 11/24/20 16:59 Last Admin: 10/26/20 18:00 Dose: 324 mg Documented by: Glucagon (Glucagon For Inj 1 Mg Vial) 1 mg SQ UD PRN; Protocol PRN Reason: Hypoglycemia Protocol Stop: 11/23/20 16:36 Glucose (Glucose 10 Tabs/Tube) 4 - 8 tabs PO UD PRN; Protocol PRN Reason: Hypoglycemia Protocol Stop: 11/23/20 16:36 Glucose (Glucose 40% Gel 15 Gm Tube) 15 - 30 gm PO UD PRN; Protocol PRN Reason: Hypoglycemia Protocol Stop: 11/23/20 16:36 Sodium Chloride (Nss 1000ml) 1,000 mls @ 100 mls/hr IV .Q10H [facility] Stop: 11/24/20 15:13 Last Admin: 10/26/20 22:39 Dose: 100 mls/hr Documented by: Insulin Aspart (Insulin Aspart 100 Units/Ml 3 Ml Pen) 0 units SC ACHS [facility] Stop: 11/24/20 05:59 Last Admin: 10/26/20 21:47 Dose: Not Given Documented by: Insulin Glargine (Insulin Glargine Solostar 100 Units/Ml 3 Ml Pen) 16 units SC DAILY [facility] Stop: 11/26/20 08:59 Ketorolac Tromethamine (Ketorolac Tromethamine 15 Mg/Ml Vial) 15 mg IV Q6H [facility] Last Admin: 10/26/20 08:23 Dose: 15 mg Documented by: Levothyroxine Sodium (Levothyroxine Sodium 100 Mcg Tablet) 100 mcg PO DAILYBB [facility] Stop: 11/24/20 06:29 Last Admin: 10/27/20 05:31 Dose: 100 mcg Documented by: Lorazepam (Lorazepam 0.5 Mg Tab) 0.5 mg PO HS [facility] Stop: 11/23/20 20:59 Last Admin: 10/26/20 20:27 Dose: 0.5 mg Documented by: Magnesium Hydroxide (Magnesium Hydroxide Susp 30 Ml Udc) 30 ml PO Q6H PRN PRN Reason: Constipation Stop: 11/24/20 15:13 Metoclopramide HCl (Metoclopramide Hcl Inj 5 Mg/Ml 2 Ml Vial) 10 mg IV Q6H PRN PRN Reason: Nausea And Vomiting Stop: 11/24/20 15:13 Metoprolol Tartrate (Metoprolol Tartrate 50 Mg Tab) 50 mg PO DAILY [facility] Stop: 11/24/20 08:59 Last Admin: 10/26/20 08:21 Dose: 50 mg Documented by: Mirtazapine (Mirtazapine Tab 15 Mg Tab) 30 mg PO [facility] Stop: 11/23/20 20:59 Last Admin: 10/26/20 20:24 Dose: 30 mg Documented by: Miscellaneous (Carbohydrates For Hypoglycemia ) 15 - 30 gm PO UD PRN PRN Reason: Hypoglycemia Protocol Stop: 11/23/20 16:36 Miscellaneous Information (Pharmacy Glycemic Mgmt Consult) 1 ea N/A UD PRN PRN Reason: Consult Stop: 11/24/20 15:35 Morphine Sulfate (Morphine Sulfate 2 Mg/Ml Carp) 2 mg IV Q3H PRN PRN Reason: Pain (1,2,3,4,5) & Pre PT Stop: 11/07/20 16:36 Last Admin: 10/26/20 21:28 Dose: 2 mg Documented by: Multivitamins (Multivitamin Tab) 1 tab PO QAM [facility] Stop: 11/25/20 08:59 Last Admin: 10/26/20 08:22 Dose: 1 tab Documented by: Multivitamins/Minerals (Cerovite Adv Formula Tab) 1 tab PO QPM [facility] Stop: 11/23/20 20:59 Last Admin: 10/26/20 20:25 Dose: 1 tab Documented by: Naloxone HCl (Naloxone Hcl 0.4 Mg/1 Ml Vial/Carp) 0.1 mg IV Q5M PRN PRN Reason: Oversedation/Resp Depression Stop: 11/24/20 15:13 Ondansetron HCl (Ondansetron Inj 2 Mg/Ml 2 Ml Vial) 4 mg IV Q6H PRN PRN Reason: Nausea And Vomiting Stop: 11/24/20 15:13 Last Admin: 10/26/20 10:07 Dose: 4 mg Documented by: Pantoprazole Sodium (Pantoprazole 40 Mg Tab) 40 mg PO DAILY PIOTR Stop: 11/24/20 08:59 Last Admin: 10/26/20 08:21 Dose: 40 mg Documented by: Polyethylene Glycol (Polyethylene (Miralax) 17 Gm Pack) 17 gm PO DAILY PRN PRN Reason: Constipation Stop: 11/25/20 12:33 Last Admin: 10/26/20 13:12 Dose: 17 gm Documented by: Sennosides (Senna 8.6 Mg Tab) 17.2 mg PO HS PIOTR Stop: 11/24/20 20:59 Last Admin: 10/26/20 20:24 Dose: 17.2 mg Documented by: Simethicone (Simethicone 80 Mg Chew) 80 mg PO Q6H PRN PRN Reason: bloating Stop: 11/25/20 12:33 Simvastatin (Simvastatin 20 Mg Tab) 20 mg PO PM PIOTR Stop: 11/23/20 20:59 Last Admin: 10/26/20 20:25 Dose: 20 mg Documented by: Venlafaxine HCl (Venlafaxine Hcl 50 Mg Tab) 75 mg PO PM PIOTR Stop: 11/23/20 20:59 Last Admin: 10/26/20 20:26 Dose: 75 mg Documented by: Venlafaxine HCl (Venlafaxine Hcl Xr 150 Mg Capxr) 150 mg PO DAILY PIOTR Stop: 11/24/20 08:59 Last Admin: 10/26/20 08:21 Dose: 150 mg Documented by:
[2020-10-27] MEDS ORDERED: SODIUM CHLORIDE 0.9% 250 ML IV PRN ×2 (07:32→07:34)
[2020-10-27] MEDS: SODIUM CHLORIDE 0.9% 1000ML 1,000 ML IV SCH ×2 (08:05→21:26)
[2020-10-27] MEDS ORDERED: INSULIN GLARGINE SOLOSTAR 100 UNITS/ML 3 ML PEN SC SCH (09:00)
[2020-10-27] MEDS: INSULIN ASPART 100 UNITS/ML 3 ML PEN SC SCH ×4 (09:23→21:26)
[2020-10-27] MEDS: FERROUS GLUCONATE 324 MG TAB PO SCH ×2 (09:28→17:43)
[2020-10-27] MEDS: busPIRone 5 MG TAB PO SCH ×3 (09:30→21:18)
[2020-10-27] MEDS: ASCORBIC ACID 500 MG TAB PO SCH ×2 (09:30→17:43)
[2020-10-27] MEDS: dexAMETHasone 4 MG TAB PO SCH (09:31)
[2020-10-27] MEDS: DOCUSATE SODIUM 100 MG CAP PO SCH ×2 (09:31→21:19)
[2020-10-27] MEDS: VENLAFAXINE HCL XR 150 MG CAPXR PO SCH (09:32)
[2020-10-27] MEDS: MULTIVITAMIN TAB PO SCH (09:33)
[2020-10-27] MEDS: PANTOprazole 40 MG TAB PO SCH (09:33)
--- NOTE | 2020-10-27 10:16 | Progress Notes ---
DATE: 10/27/2020 SUBJECTIVE: An 85-year-old female postop day 2 from ORIF and IM nailing of a right subtrochanteric femur fracture. She is doing pretty well. She says her pain is controlled. Her hand pain is much improved today. She said she did get out and do some walking, which was reasonable pain gil. OBJECTIVE: VITAL SIGNS: Temperature 36.7. Vital signs stable. GENERAL: Shows a pleasant elderly female. She is lying in bed. She is awake, alert and oriented. EXTREMITIES: Examination of the right leg reveals the leg to be well aligned. Dressing is clean, dry and intact. Some mild thigh swelling. She can dorsiflex and plantarflex her foot appropriately. Examination of both hands reveals minimal arthritic change. She certainly can move her fingers pretty normally today. LABORATORY DATA: Hemoglobin is 7.6. Hematocrit 23.3. White cell count 11.56. Creatinine is improved at 1.27. ASSESSMENT: An 85-year-old female postoperative day 2 from open reduction-internal fixation and intramedullary nailing of right subtrochanteric femur fracture. She is doing pretty well. Creatinine is improved. She is still anemic. Relatively asymptomatic, but she is currently getting a unit of blood. Her hand pain is improved after giving some Decadron. PLAN: 1. DVT prophylaxis including thigh-high TEDs, SCDs, and Lovenox for at least 2 weeks postop. 2. PT/OT. She can weightbear as tolerated in the right leg. 3. Pain control, doing okay with current pain regimen. 4. Medical management as per the medicine service. 5. Hand pain. Markedly improved after the Decadron. Likely some underlying carpal tunnel. 6. Disposition: She is orthopedically okay for discharge at any time. She is weightbearing as tolerated. I do think she would benefit from a rehab stay. I need to see her back somewhere between 2 and 3 weeks from the surgery date. Any orthopedic questions can be directed to me at [phone].
--- NOTE | 2020-10-27 10:39 | Pharmacy Report ---
Pharmacy Glycemic Short Note 2 - Date of Service October 27, 2020 - Glycemic Short BSG Results (Last 24 hours): 10/26/20 10/26/20 10/26/20 12:04 16:51 20:48 Glucose POC Glucose 167 H 131 H 138 H 10/27/20 10/27/20 05:25 08:13 Glucose 135 H POC Glucose 137 H OUTPATIENT ANTIDIABETIC REGIMEN: * Tradjenta 5 mg PO daily * HbA1c = 6.5% ASSESSMENT: 10/27/20 * Patient's BSG yesterday were [phone] mg/dL. She received 31 units (16 units of basal insulin and 15 units of bolus insulin). * Fasting BSG was 137 mg/dL ... similar to previous day's fasting BSG. * For Lantus, continue same regimen today. Will order lower dose of Lantus if fasting BSG trends below 120 mg/dL. * Continue Novolog as only one BSG slightly out of range yesterday. 10/26/20 * Patient's BSGs yesterday were [phone] mg/dL. She received 9 units total (8 units of basal and 1 unit of bolus due to poor appetite). * Fasting this morning was 153 mg/dL... similar to previous day's fasting BSG. * Patient to start dexamethasone 4 mg PO daily x 5 days. * For steroid hyperglycemia, will provide a load of Lantus 16 units this morning (full weight-based stress of 1) with additional 8 units available this evening. Prefer to utilize stronger bolus coverage. Will hold off on NPH at this time to prevent titration of too many different insulins. * Will tighten Novolog to weight-based stress of 3. Expect carbohydrate ratio to require tightening. 10/25/20 * DF is an 85 year old female who presented to ED on 10/24/20 following a mechanical fall. Patient subsequently found to have right displaced subtrochanteric femur fracture * Now POD #0 s/p right long troch nailing * Pharmacy consulted for glycemic management postoperatively * No perioperative steroids administered * Patient received 1 unit of insulin yesterday (BSGs of 133 and 129 mg/dL) * Fasting BSG this morning of 159 mg/dL -> will add basal dose now * Postoperative BSG of 191 mg/dL PLAN FOR INPATIENT GLYCEMIC CONTROL: * Hold outpatient oral diabetes medications * Basal insulin * Lantus 16 units SQ daily (13 units if BSG less than 120 mg/dL) * Bolus insulin * NovoLog per scale ACHS or Q6hrs while NPO * Goal Range: Low 110 mg/dL - High 140 mg/dL * Correction Factor: 20 mg/dL/unit * Nutritional / Prandial insulin per carb ratio of 1 unit per 6 grams CHO consumed PLAN FOR DISCHARGE: * HbA1C well controlled (goal HbA1C < 7% whereas current HbA1C is 6.5%). * Continue current home regimen.
[2020-10-27] MEDS ORDERED: COUGH DROP (SUGAR FREE) LOZ 24 LOZ/1 BOX BUCCAL ONE (10:46)
[2020-10-27 13:23] LABS: Blood Urine 1+ (Negative); RBC Urine Automated >30 /hpf (0-4)
[2020-10-27] MEDS: METOPROLOL TARTRATE 50 MG TAB PO SCH (15:24)
[2020-10-27] MEDS: ENOXAPARIN INJ 30 MG/0.3 ML SYR SQ SCH (15:25)
[2020-10-27 20:11] LABS: Hematocrit (blood only) 21.9 % (37-47); Hemoglobin 7.2 g/dL (12.0-16.0)
[2020-10-27] MEDS: LORazepam 0.5 MG TAB PO SCH (21:17)
[2020-10-27] MEDS: VENLAFAXINE HCL 50 MG TAB PO SCH (21:20)
[2020-10-27] MEDS: ASPIRIN 81 MG ECTAB PO SCH (21:20)
[2020-10-27] MEDS: BACLOFEN 10 MG TAB PO SCH (21:21)
[2020-10-27] MEDS: SIMVASTATIN 20 MG TAB PO SCH (21:22)
[2020-10-27] MEDS: CEROVITE ADV FORMULA TAB PO SCH (21:22)
[2020-10-27] MEDS: SENNA 8.6 MG TAB PO SCH (21:22)
[2020-10-27] MEDS: MIRTAZAPINE TAB 15 MG TAB PO SCH (21:23)
[2020-10-28] MEDS ORDERED: INSULIN ASPART 100 UNITS/ML 3 ML PEN SC ONE (02:00)
[2020-10-28] MEDS: LEVOTHYROXINE SODIUM 100 MCG TABLET PO SCH (05:23)
[2020-10-28] MEDS: SODIUM CHLORIDE 0.9% 1000ML 1,000 ML IV SCH (05:24)
[2020-10-28 06:55] LABS: Hematocrit (blood only) 24.5 % (37-47); Mean Corpuscular Hemoglobin 31.1 pg (25-34); Mean Corpuscular Hgb Conc 32.7 g/dL (32-36); Mean Corpuscular Volume 95.3 fL (80-100); Mean Platelet Volume 9.8 fL (7.4-10.4); Nucleated RBC # (auto) 0.03 K/uL (0-0); Nucleated RBC % (auto) 0.2 %; Platelet Count 239 K/uL (130-400); RDW Coefficient of Variation 14.5 % (11.5-14.5); RDW Standard Deviation 49.6 fL (36.4-46.3); Red Blood Count 2.57 M/uL (4.2-5.4); White Blood Count 11.66 K/uL (4.8-10.8)
[2020-10-28 07:28] LABS: BUN Creatinine Ratio 29.3 (10-20); Calcium 7.9 mg/dl (8.5-10.1); Creatinine Clr Calc Pharmacy 42.8 ml/min; Est GFR (African American) 62.6; Potassium 4.3 mmol/L (3.5-5.1)
--- NOTE | 2020-10-28 07:58 | Hospitalist Progress Note ---
Date of Service October 28, 2020 Assessment & Plan (1) Displaced subtrochanteric fracture of right femur: (2) Fall: This is an 85 yr old F who has a significant PMH of T2DM, HTN, HLD, IBS , hypothyroidism, AMD, GERD, hx of PE provoked by surgery 5-6 yrs ago who presents to ED after sustaining mechanical fall. R hip/pelvis xray: IMPRESSION: A displaced subtrochanteric right femoral fracture. CXR WNL, EKG reviewed and unchanged from 12/2018 Labs stable, UA - negative Last echo 2016 revealed questionable R atrial echodensity 1cm, ? artifact vs mass vs thrombus - echo repeated - R atrial hypodensity not visualized, there is poss. Pericardial effusion versus pericardial fat pad, no tamponade noted pt able to reach METS w/o any cardiac symptoms Orthopedic surgery consulted- Dr. Coello - previous L ESTHER with Dr. Coello as well Patient is a status post surgical repair of her right femoral fracture with Dr. Coello, October 25, 2019 ta placed hydrocodone prn moderate pain, IV morphine severe pain SQ Heparin x 1 in the evening for dvt ppx prior to surgery DVT ppx - per orthopedics, Lovenox started, teds, as patient has history of provoked PE after surgery some years ago Plan to continue lovenox for at least 2 weeks after surgery Orthopedic surgery follow-up in 2 to 3 weeks (with Dr. Coello) Hypovitaminosis D - level checked, 8.6 - Plan to start replacement prior to discharge - gave 50,000 units, will need to continue q7days - follow up as outpt Anemia (acute blood loss/dilutional) Post-op Hemoglobin 8.0 Hgb 7.6 on 03/26 Attempted to transfuse, however after about half unit of PRBCs, patient's blood pressure increased, possible reaction, therefore stopped transfusion (03/26) Current hemoglobin 8.0, stable (10/28) Continue to monitor EFRAIN Creatinine elevated 1.8 (10/26) Likely secondary to volume loss, hypotension noted post-op Continue IV fluids, avoid NSAIDs Hold any diuretic Cr now improved to 0.9 (10/28) Resolved (3) T2DM (type 2 diabetes mellitus): Hgb A1c 7.0 08/27/20 hold tradjenta lantus/novolog per protocol Current A1c 6.5% Follow up as outpt for DM (4) HTN (hypertension): continue metoprolol hold losartan and lasix pre operatively also hold KCL as K is 5.1 on admission monitor BP (5) HLD (hyperlipidemia): continue statin (6) Hypothyroidism: continue levothyroxine (7) CKD (chronic kidney disease) stage 3, GFR 30-59 ml/min: baseline cr 1.1-1.3 bun/cr 25 and 1.27 gentle IVF Creatinine elevated., Due to volume loss, hypotension Continue to closely monitor and support as above (8) Grief at loss of child: Pt lost her daughter day prior to admission, and is actively grieving supportive measures (9) History of pulmonary embolism: provoked 2/2 to post op state given Heparin subq x 1 the evening prior to surgery, now started on Lovenox per ortho, TEDs applied Dispo: Med/Surg, case management consulted pt likely to need rehab post op PCP: Dr. Mazariegos FULL CODE Admission and Anticipated Discharge Date Admission Date: October 24, 2020 Subjective Patient seen in follow-up of right femur fracture, currently status post surgical repair Pt is lying in bed, reports that she feels well overall, but has poor appetite Denies any chest pain or shortness of breath or abdominal pain Denies any lower extremity pain Hemoglobin stable, received about half unit pRBC yesterday then her BP increased -possible reaction and therefore transfusion was stopped Creatinine normalized Review of Systems Review of Systems: All systems reviewed & are unremarkable except as noted in HPI & below Constitutional: no fever and no chills Respiratory: no cough and no dyspnea Cardiovascular: no chest pain and no palpitations Gastrointestinal: no abdominal pain, no nausea and no vomiting Physical Exam Constitutional: WD/WN, vitals as above + obese Eyes: PERRL, conjunctivae normal, anicteric sclerae ENMT: external ear and nose normal, oropharynx normal Neck: normal visual inspection and + thick neck Respiratory: normal respiratory effort, lungs clear to auscultation Auscultation: no crackles, no rhonchi and no wheezes Cardiovascular: RRR, no murmur, no edema Chest (Breasts): Chest: normal inspection of chest Gastrointestinal (Abdomen): Inspection/Auscultation: abdomen normal to inspection and normal bowel sounds; abdomen not distended Percussion/Palpation: abdomen soft; abdomen nontender Musculoskeletal: Head/Neck/Chest: normocephalic and head atraumatic + Clean dressings applied over right hip/thigh, patient moves extremities Skin: no rashes, warm and dry Neurologic: PERRL, EOMI, accommodation nl, no face palsy, no dysarthria Psychiatric: Orientation: alert and oriented x 3 Genitourinary: no CVA tenderness Lymphatic: no lymphedema Results & Data Results & Data ([facility]) Vital Signs (Past 12 Hours) Vital Signs Temp Pulse Resp BP Pulse Ox 10/27/20 23:16 36.2 C L 81 17 147/70 H 94 Laboratory Results 10/28/20 10/28/20 10/28/20 Range/Units 06:22 06:22 02:18 WBC 11.66 H (4.8-10.8) K/uL RBC 2.57 L (4.2-5.4) M/uL Hgb 8.0 L (12.0-16.0) g/dL Hct 24.5 L (37-47) % MCV 95.3 (80-100) fL MCH 31.1 (25-34) pg MCHC 32.7 (32-36) g/dL RDW Std Deviation 49.6 H (36.4-46.3) fL RDW Coeff of Thea 14.5 (11.5-14.5) % Plt Count 239 (130-400) K/uL MPV 9.8 (7.4-10.4) fL Absolute Nucleated RBC 0.03 H (0-0) K/uL Nucleated RBC % (auto) 0.2 % Sodium 144 (136-145) mmol/L Potassium 4.3 (3.5-5.1) mmol/L Chloride 117 H (98-107) mmol/L Carbon Dioxide 22 (21-32) mmol/L Anion Gap 4.0 (3-11) BUN 28 H (7-18) mg/dl Creatinine 0.97 D (0.6-1.2) mg/dl Est Cr Clr Drug Dosing 42.8 ml/min Est GFR ( Amer) 62.6 Est GFR (Non-Af Amer) 54.0 BUN/Creatinine Ratio 29.3 H (10-20) Glucose 109 H (70-99) mg/dl POC Glucose 166 H (70-99) mg/dl Calcium 7.9 L (8.5-10.1) mg/dl Urine Blood (Negative) Urine RBC (Auto) (0-4) /hpf Blood Type Antibody Screen Crossmatch Transfusion React Date Transfusion React Time Tx React Symptoms Reaction Clerical Check Lab Clerical Err Check React Component Return Volume Returned Pre-Trans Blood Type Pre-Trans Vis Hemolysis Pre-Trans THO (Negative) Pre-Trans THO IgG (Negative) Pre-Trans THO Poly (Negative) Pre-Trans THO C3b, C3d (Negative) Post-Trans Blood Type Post-Tx Visible Hemolys Post-Trans THO (Negative) Post-Trans THO IgG (Negative) Post-Trans THO Poly (Negative) Post-Trans THO C3b, C3d (Negative) Post-Trans Ur Hemoglobin Reaction Path Interpret Transfusion Serv Com 10/27/20 10/27/20 10/27/20 Range/Units Unknown 21:16 19:45 WBC (4.8-10.8) K/uL RBC (4.2-5.4) M/uL Hgb 7.2 L (12.0-16.0) g/dL Hct 21.9 L (37-47) % MCV (80-100) fL MCH (25-34) pg MCHC (32-36) g/dL RDW Std Deviation (36.4-46.3) fL RDW Coeff of Thea (11.5-14.5) % Plt Count (130-400) K/uL MPV (7.4-10.4) fL Absolute Nucleated RBC (0-0) K/uL Nucleated RBC % (auto) % Sodium (136-145) mmol/L Potassium (3.5-5.1) mmol/L Chloride (98-107) mmol/L Carbon Dioxide (21-32) mmol/L Anion Gap (3-11) BUN (7-18) mg/dl Creatinine (0.6-1.2) mg/dl Est Cr Clr Drug Dosing ml/min Est GFR ( Amer) Est GFR (Non-Af Amer) BUN/Creatinine Ratio (10-20) Glucose (70-99) mg/dl POC Glucose 149 H (70-99) mg/dl Calcium (8.5-10.1) mg/dl Urine Blood 1+ H (Negative) Urine RBC (Auto) >30 H (0-4) /hpf Blood Type Antibody Screen Crossmatch Transfusion React Date Transfusion React Time Tx React Symptoms Reaction Clerical Check Lab Clerical Err Check React Component Return Volume Returned Pre-Trans Blood Type Pre-Trans Vis Hemolysis Pre-Trans THO (Negative) Pre-Trans THO IgG (Negative) Pre-Trans THO Poly (Negative) Pre-Trans THO C3b, C3d (Negative) Post-Trans Blood Type Post-Tx Visible Hemolys Post-Trans THO (Negative) Post-Trans THO IgG (Negative) Post-Trans THO Poly (Negative) Post-Trans THO C3b, C3d (Negative) Post-Trans Ur Hemoglobin Reaction Path Interpret Transfusion Serv Com 10/27/20 10/27/20 10/27/20 Range/Units 16:59 12:58 11:54 WBC (4.8-10.8) K/uL RBC (4.2-5.4) M/uL Hgb (12.0-16.0) g/dL Hct (37-47) % MCV (80-100) fL MCH (25-34) pg MCHC (32-36) g/dL RDW Std Deviation (36.4-46.3) fL RDW Coeff of Thea (11.5-14.5) % Plt Count (130-400) K/uL MPV (7.4-10.4) fL Absolute Nucleated RBC (0-0) K/uL Nucleated RBC % (auto) % Sodium (136-145) mmol/L Potassium (3.5-5.1) mmol/L Chloride (98-107) mmol/L Carbon Dioxide (21-32) mmol/L Anion Gap (3-11) BUN (7-18) mg/dl Creatinine (0.6-1.2) mg/dl Est Cr Clr Drug Dosing ml/min Est GFR ( Amer) Est GFR (Non-Af Amer) BUN/Creatinine Ratio (10-20) Glucose (70-99) mg/dl POC Glucose 255 H 299 H (70-99) mg/dl Calcium (8.5-10.1) mg/dl Urine Blood (Negative) Urine RBC (Auto) (0-4) /hpf Blood Type Antibody Screen Crossmatch Transfusion React Date 10/27/2020 Transfusion React Time 1210 Tx React Symptoms Reaction Clerical Check None Found Lab Clerical Err Check None Found React Component Return PCLR Volume Returned 155 Pre-Trans Blood Type A POSITIVE Pre-Trans Vis Hemolysis No Pre-Trans THO Negative (Negative) Pre-Trans THO IgG Neg (Negative) Pre-Trans THO Poly Neg (Negative) Pre-Trans THO C3b, C3d Neg (Negative) Post-Trans Blood Type A POSITIVE Post-Tx Visible Hemolys No Post-Trans THO Negative (Negative) Post-Trans THO IgG Neg (Negative) Post-Trans THO Poly Neg (Negative) Post-Trans THO C3b, C3d Neg (Negative) Post-Trans Ur Hemoglobin Reaction Path Interpret Transfusion Serv Com NONE 10/27/20 10/27/20 Range/Units 08:13 07:42 WBC (4.8-10.8) K/uL RBC (4.2-5.4) M/uL Hgb (12.0-16.0) g/dL Hct (37-47) % MCV (80-100) fL MCH (25-34) pg MCHC (32-36) g/dL RDW Std Deviation (36.4-46.3) fL RDW Coeff of Thea (11.5-14.5) % Plt Count (130-400) K/uL MPV (7.4-10.4) fL Absolute Nucleated RBC (0-0) K/uL Nucleated RBC % (auto) % Sodium (136-145) mmol/L Potassium (3.5-5.1) mmol/L Chloride (98-107) mmol/L Carbon Dioxide (21-32) mmol/L Anion Gap (3-11) BUN (7-18) mg/dl Creatinine (0.6-1.2) mg/dl Est Cr Clr Drug Dosing ml/min Est GFR ( Amer) Est GFR (Non-Af Amer) BUN/Creatinine Ratio (10-20) Glucose (70-99) mg/dl POC Glucose 137 H (70-99) mg/dl Calcium (8.5-10.1) mg/dl Urine Blood (Negative) Urine RBC (Auto) (0-4) /hpf Blood Type A Positive Antibody Screen NEGATIVE Crossmatch See Detail Transfusion React Date Transfusion React Time Tx React Symptoms Reaction Clerical Check Lab Clerical Err Check React Component Return Volume Returned Pre-Trans Blood Type Pre-Trans Vis Hemolysis Pre-Trans THO (Negative) Pre-Trans THO IgG (Negative) Pre-Trans THO Poly (Negative) Pre-Trans THO C3b, C3d (Negative) Post-Trans Blood Type Post-Tx Visible Hemolys Post-Trans THO (Negative) Post-Trans THO IgG (Negative) Post-Trans THO Poly (Negative) Post-Trans THO C3b, C3d (Negative) Post-Trans Ur Hemoglobin Reaction Path Interpret Transfusion Serv Com Medications Administered Current Inpatient Medications Acetaminophen (Acetaminophen 325 Mg Tab) 650 mg PO Q6H PRN PRN Reason: Pain & Pre PT Stop: 11/23/20 16:36 Last Admin: 10/26/20 12:58 Dose: 650 mg Documented by: Hydrocodone Bitart/Acetaminophen (Hydrocodone/Acetamophen 5/325mg Tab) 1 tab PO Q4H PRN PRN Reason: MODERATE Pain (4,5,6) & Pre PT Stop: 11/07/20 16:36 Last Admin: 10/27/20 12:18 Dose: 1 tab Documented by: Hydrocodone Bitart/Acetaminophen (Hydrocodone/Acetamophen 5/325mg Tab) 2 tab PO Q4H PRN PRN Reason: SEVERE Pain (7,8,9,10) Stop: 11/07/20 16:36 Last Admin: 10/27/20 19:32 Dose: 2 tab Documented by: Al Hydrox/Mg Hydrox/Simethicone (Aluminum/Magnesium Susp 30 Ml Udc) 15 ml PO Q4H PRN PRN Reason: Heartburn Stop: 11/24/20 15:13 Last Admin: 10/26/20 11:16 Dose: 15 ml Documented by: Ascorbic Acid (Ascorbic Acid 500 Mg Tab) 500 mg PO BIDM [facility] Stop: 11/24/20 16:59 Last Admin: 10/27/20 17:43 Dose: 500 mg Documented by: Aspirin (Aspirin 81 Mg Ectab) 81 mg PO PM [facility] Stop: 11/23/20 20:59 Last Admin: 10/27/20 21:20 Dose: 81 mg Documented by: Baclofen (Baclofen 10 Mg Tab) 10 mg PO HS [facility] Stop: 11/23/20 20:59 Last Admin: 10/27/20 21:21 Dose: 10 mg Documented by: Bisacodyl (Bisacodyl 10 Mg Supp) 10 mg NM DAILY PRN PRN Reason: Constipation Stop: 11/24/20 15:13 Buspirone HCl (Buspirone 5 Mg Tab) 10 mg PO TID [facility] Stop: 11/23/20 16:59 Last Admin: 10/27/20 21:18 Dose: 10 mg Documented by: Dexamethasone (Dexamethasone 4 Mg Tab) 4 mg PO QAM [facility] Stop: 10/30/20 09:01 Last Admin: 10/27/20 09:31 Dose: 4 mg Documented by: Dextrose (Dextrose 50% 50 Ml Syringe) 25 - 50 ml IV UD PRN; Protocol PRN Reason: Hypoglycemia Protocol Stop: 11/23/20 16:36 Docusate Sodium (Docusate Sodium 100 Mg Cap) 100 mg PO BID [facility] Stop: 11/24/20 20:59 Last Admin: 10/27/20 21:19 Dose: 100 mg Documented by: Enoxaparin Sodium (Enoxaparin Inj 30 Mg/0.3 Ml Syr) 30 mg SQ Q24H [facility] Stop: 11/25/20 13:59 Last Admin: 10/27/20 15:25 Dose: 30 mg Documented by: Ferrous Gluconate (Ferrous Gluconate 324 Mg Tab) 324 mg PO BIDM [facility] Stop: 11/24/20 16:59 Last Admin: 10/27/20 17:43 Dose: 324 mg Documented by: Glucagon (Glucagon For Inj 1 Mg Vial) 1 mg SQ UD PRN; Protocol PRN Reason: Hypoglycemia Protocol Stop: 11/23/20 16:36 Glucose (Glucose 10 Tabs/Tube) 4 - 8 tabs PO UD PRN; Protocol PRN Reason: Hypoglycemia Protocol Stop: 11/23/20 16:36 Glucose (Glucose 40% Gel 15 Gm Tube) 15 - 30 gm PO UD PRN; Protocol PRN Reason: Hypoglycemia Protocol Stop: 11/23/20 16:36 Sodium Chloride (Nss 1000ml) 1,000 mls @ 100 mls/hr IV .Q10H [facility] Stop: 11/24/20 15:13 Last Admin: 10/28/20 05:24 Dose: 100 mls/hr Documented by: Insulin Aspart (Insulin Aspart 100 Units/Ml 3 Ml Pen) 0 units SC ACHS [facility] Stop: 11/24/20 05:59 Last Admin: 10/27/20 21:26 Dose: 1 units Documented by: Insulin Glargine (Insulin Glargine Solostar 100 Units/Ml 3 Ml Pen) 0 units SC DAILY [facility]; Protocol Stop: 11/27/20 08:59 Ketorolac Tromethamine (Ketorolac Tromethamine 15 Mg/Ml Vial) 15 mg IV Q6H [facility] Last Admin: 10/26/20 08:23 Dose: 15 mg Documented by: Levothyroxine Sodium (Levothyroxine Sodium 100 Mcg Tablet) 100 mcg PO DAILYBB [facility] Stop: 11/24/20 06:29 Last Admin: 10/28/20 05:23 Dose: 100 mcg Documented by: Lorazepam (Lorazepam 0.5 Mg Tab) 0.5 mg PO HS [facility] Stop: 11/23/20 20:59 Last Admin: 10/27/20 21:17 Dose: 0.5 mg Documented by: Magnesium Hydroxide (Magnesium Hydroxide Susp 30 Ml Udc) 30 ml PO Q6H PRN PRN Reason: Constipation Stop: 11/24/20 15:13 Metoclopramide HCl (Metoclopramide Hcl Inj 5 Mg/Ml 2 Ml Vial) 10 mg IV Q6H PRN PRN Reason: Nausea And Vomiting Stop: 11/24/20 15:13 Metoprolol Tartrate (Metoprolol Tartrate 50 Mg Tab) 50 mg PO DAILY [facility] Stop: 11/24/20 08:59 Last Admin: 10/27/20 15:24 Dose: 50 mg Documented by: Mirtazapine (Mirtazapine Tab 15 Mg Tab) 30 mg PO [facility] Stop: 11/23/20 20:59 Last Admin: 10/27/20 21:23 Dose: 30 mg Documented by: Miscellaneous (Carbohydrates For Hypoglycemia ) 15 - 30 gm PO UD PRN PRN Reason: Hypoglycemia Protocol Stop: 11/23/20 16:36 Miscellaneous Information (Pharmacy Glycemic Mgmt Consult) 1 ea N/A UD PRN PRN Reason: Consult Stop: 11/24/20 15:35 Morphine Sulfate (Morphine Sulfate 2 Mg/Ml Carp) 2 mg IV Q3H PRN PRN Reason: Pain (1,2,3,4,5) & Pre PT Stop: 11/07/20 16:36 Last Admin: 10/26/20 21:28 Dose: 2 mg Documented by: Multivitamins (Multivitamin Tab) 1 tab PO QAM [facility] Stop: 11/25/20 08:59 Last Admin: 10/27/20 09:33 Dose: 1 tab Documented by: Multivitamins/Minerals (Cerovite Adv Formula Tab) 1 tab PO QPM [facility] Stop: 11/23/20 20:59 Last Admin: 10/27/20 21:22 Dose: 1 tab Documented by: Naloxone HCl (Naloxone Hcl 0.4 Mg/1 Ml Vial/Carp) 0.1 mg IV Q5M PRN PRN Reason: Oversedation/Resp Depression Stop: 11/24/20 15:13 Ondansetron HCl (Ondansetron Inj 2 Mg/Ml 2 Ml Vial) 4 mg IV Q6H PRN PRN Reason: Nausea And Vomiting Stop: 11/24/20 15:13 Last Admin: 10/26/20 10:07 Dose: 4 mg Documented by: Pantoprazole Sodium (Pantoprazole 40 Mg Tab) 40 mg PO DAILY [facility] Stop: 11/24/20 08:59 Last Admin: 10/27/20 09:33 Dose: 40 mg Documented by: Polyethylene Glycol (Polyethylene (Miralax) 17 Gm Pack) 17 gm PO DAILY PRN PRN Reason: Constipation Stop: 11/25/20 12:33 Last Admin: 10/26/20 13:12 Dose: 17 gm Documented by: Sennosides (Senna 8.6 Mg Tab) 17.2 mg PO HS [facility] Stop: 11/24/20 20:59 Last Admin: 10/27/20 21:22 Dose: 17.2 mg Documented by: Simethicone (Simethicone 80 Mg Chew) 80 mg PO Q6H PRN PRN Reason: bloating Stop: 11/25/20 12:33 Simvastatin (Simvastatin 20 Mg Tab) 20 mg PO PM [facility] Stop: 11/23/20 20:59 Last Admin: 10/27/20 21:22 Dose: 20 mg Documented by: Venlafaxine HCl (Venlafaxine Hcl 50 Mg Tab) 75 mg PO PM [facility] Stop: 11/23/20 20:59 Last Admin: 10/27/20 21:20 Dose: 75 mg Documented by: Venlafaxine HCl (Venlafaxine Hcl Xr 150 Mg Capxr) 150 mg PO DAILY [facility] Stop: 11/24/20 08:59 Last Admin: 10/27/20 09:32 Dose: 150 mg Documented by:
[2020-10-28] MEDS ORDERED: INSULIN GLARGINE SOLOSTAR 100 UNITS/ML 3 ML PEN SC SCH (09:00)
[2020-10-28] MEDS: INSULIN ASPART 100 UNITS/ML 3 ML PEN SC SCH ×4 (09:21→21:26)
[2020-10-28] MEDS: DOCUSATE SODIUM 100 MG CAP PO SCH ×2 (09:41→21:20)
[2020-10-28] MEDS: busPIRone 5 MG TAB PO SCH ×3 (09:42→21:21)
[2020-10-28] MEDS: MULTIVITAMIN TAB PO SCH (09:42)
[2020-10-28] MEDS: FERROUS GLUCONATE 324 MG TAB PO SCH ×2 (09:42→17:52)
[2020-10-28] MEDS: METOPROLOL TARTRATE 50 MG TAB PO SCH (09:42)
[2020-10-28] MEDS: dexAMETHasone 4 MG TAB PO SCH (09:42)
[2020-10-28] MEDS: PANTOprazole 40 MG TAB PO SCH (09:43)
[2020-10-28] MEDS: ASCORBIC ACID 500 MG TAB PO SCH ×2 (09:43→17:52)
[2020-10-28] MEDS: VENLAFAXINE HCL XR 150 MG CAPXR PO SCH (09:43)
[2020-10-28] MEDS ORDERED: ERGOCALCIFEROL 50,000 UNITS 1250 MCG CAP PO SCH (09:45)
[2020-10-28] MEDS: HYDROCODONE/ACETAMOPHEN 5/325MG TAB PO PRN ×2 (11:42→23:22)
[2020-10-28] MEDS: ENOXAPARIN INJ 30 MG/0.3 ML SYR SQ SCH (15:05)
[2020-10-28] MEDS: ALUMINUM/MAGNESIUM SUSP 30 ML UDC PO PRN (18:18)
[2020-10-28] MEDS: SENNA 8.6 MG TAB PO SCH (21:20)
[2020-10-28] MEDS: LORazepam 0.5 MG TAB PO SCH (21:21)
[2020-10-28] MEDS: ASPIRIN 81 MG ECTAB PO SCH (21:22)
[2020-10-28] MEDS: CEROVITE ADV FORMULA TAB PO SCH (21:22)
[2020-10-28] MEDS: MIRTAZAPINE TAB 15 MG TAB PO SCH (21:22)
[2020-10-28] MEDS: BACLOFEN 10 MG TAB PO SCH (21:23)
[2020-10-28] MEDS: SIMVASTATIN 20 MG TAB PO SCH (21:23)
[2020-10-28] MEDS: VENLAFAXINE HCL 50 MG TAB PO SCH (21:24)
[2020-10-29] MEDS: LEVOTHYROXINE SODIUM 100 MCG TABLET PO SCH (05:23)
[2020-10-29 07:15] LABS: Hematocrit (blood only) 24.9 % (37-47); Mean Corpuscular Hemoglobin 30.5 pg (25-34); Mean Corpuscular Hgb Conc 32.1 g/dL (32-36); Mean Platelet Volume 9.7 fL (7.4-10.4); Platelet Count 287 K/uL (130-400); RDW Coefficient of Variation 14.3 % (11.5-14.5); RDW Standard Deviation 49.3 fL (36.4-46.3); Red Blood Count 2.62 M/uL (4.2-5.4); White Blood Count 11.79 K/uL (4.8-10.8)
[2020-10-29 07:42] LABS: BUN Creatinine Ratio 29.3 (10-20); Calcium 8.4 mg/dl (8.5-10.1); Creatinine Clr Calc Pharmacy 44.2 ml/min; Est GFR (Non-African American) 56.1; Potassium 4.2 mmol/L (3.5-5.1)
[2020-10-29] MEDS: INSULIN ASPART 100 UNITS/ML 3 ML PEN SC SCH ×2 (08:44→12:41)
[2020-10-29] MEDS: DOCUSATE SODIUM 100 MG CAP PO SCH (08:46)
[2020-10-29] MEDS: ASCORBIC ACID 500 MG TAB PO SCH (08:48)
[2020-10-29] MEDS: PANTOprazole 40 MG TAB PO SCH (08:48)
[2020-10-29] MEDS: VENLAFAXINE HCL XR 150 MG CAPXR PO SCH (08:48)
[2020-10-29] MEDS: METOPROLOL TARTRATE 50 MG TAB PO SCH (08:48)
[2020-10-29] MEDS: FERROUS GLUCONATE 324 MG TAB PO SCH (08:48)
[2020-10-29] MEDS: busPIRone 5 MG TAB PO SCH ×2 (08:48→15:10)
[2020-10-29] MEDS: dexAMETHasone 4 MG TAB PO SCH (08:48)
[2020-10-29] MEDS: MULTIVITAMIN TAB PO SCH (08:48)
--- NOTE | 2020-10-29 08:53 | Progress Notes ---
DATE: 10/29/2020 SUBJECTIVE: An 85-year-old female postop day 4 from ORIF and IM nailing of a right subtrochanteric femur fracture. She is doing pretty well this morning. Pain is controlled. She is hoping to get out of the hospital. No new complaints. Hand pain seems to be improved. OBJECTIVE: VITAL SIGNS: Temperature 36.8. Vital signs stable. GENERAL: Shows an elderly pleasant female. She is lying in bed, looks pretty comfortable today. EXTREMITIES: Examination of the right leg reveals the dressing to be clean, dry and intact. Very mild swelling. No significant drainage. She can dorsiflex and plantarflex her foot appropriately. LABORATORY DATA: Hemoglobin is 8.0. Hematocrit 24.9. Electrolytes are stable. Creatinine is improved. ASSESSMENT: An 85-year-old female postop day 4 from ORIF and IM nailing of right subtrochanteric femur fracture. Pain gil, she is doing well. She is anemic, but without symptoms. Vital signs are stable. PLAN: 1. DVT prophylaxis including thigh-high TEDs, SCDs, and Lovenox. I would recommend for a month. Certainly Xarelto, would also be acceptable, but needs to be on more aggressive anticoagulation at a prophylactic dose. 2. PT/OT. She can weightbear as tolerated, right lower extremity. 3. Pain control, doing okay with current pain regimen. 4. Disposition. This patient will be best served by a rehab stay, I believe. I need to see her back in 2-3 weeks out from surgery. Any orthopedic questions can be directed to me at [phone].
[2020-10-29] MEDS ORDERED: INSULIN GLARGINE SOLOSTAR 100 UNITS/ML 3 ML PEN SC SCH ×2 (09:00)
--- NOTE | 2020-10-29 09:19 | Pharmacy Report ---
Pharmacy Glycemic Short Note 2 - Date of Service October 29, 2020 - Glycemic Short BSG Results (Last 24 hours): 10/28/20 10/28/20 10/28/20 12:14 17:11 20:40 Glucose POC Glucose 139 H 138 H 143 H 10/29/20 10/29/20 06:47 08:15 Glucose 99 POC Glucose 86 OUTPATIENT ANTIDIABETIC REGIMEN: * Tradjenta 5 mg PO daily * HbA1c = 6.5% ASSESSMENT: 10/29/20 * BSGs well-controlled yesterday at 102, 139, 138, and 143 mg/dL * Fasting BSG of 86 mg/dL this morning - will decrease Lantus by ~20% today * To be given with PO dexamethasone * Continue tightened Novolog this morning - will loosen starting at lunchtime today 10/27/20 * Patient's BSG yesterday were [phone] mg/dL. She received 31 units (16 units of basal insulin and 15 units of bolus insulin). * Fasting BSG was 137 mg/dL ... similar to previous day's fasting BSG. * For Lantus, continue same regimen today. Will order lower dose of Lantus if fasting BSG trends below 120 mg/dL. * Continue Novolog as only one BSG slightly out of range yesterday. 10/25/20 * DF is an 85 year old female who presented to ED on 10/24/20 following a mechanical fall. Patient subsequently found to have right displaced subtrochanteric femur fracture * Now POD #0 s/p right long troch nailing * Pharmacy consulted for glycemic management postoperatively * No perioperative steroids administered * Patient received 1 unit of insulin yesterday (BSGs of 133 and 129 mg/dL) * Fasting BSG this morning of 159 mg/dL -> will add basal dose now * Postoperative BSG of 191 mg/dL PLAN FOR INPATIENT GLYCEMIC CONTROL: * Hold outpatient oral diabetes medications * Basal insulin - decrease * Lantus 10 units SC daily with dexamethasone * Bolus insulin * NovoLog per scale ACHS or Q6hrs while NPO * Goal Range: Low 110 mg/dL - High 140 mg/dL * Correction Factor: 20 mg/dL/unit * Nutritional / Prandial insulin per carb ratio of 1 unit per 7 grams CHO consumed PLAN FOR DISCHARGE: * HbA1C well controlled (goal HbA1C < 7% whereas current HbA1C is 6.5%). * Continue current home regimen.
[2020-10-29] MEDS: HYDROCODONE/ACETAMOPHEN 5/325MG TAB PO PRN ×2 (09:27→15:23)
--- NOTE | 2020-10-29 12:30 | Hospitalist Progress Note ---
Date of Service October 29, 2020 Assessment & Plan (1) Displaced subtrochanteric fracture of right femur: (2) Fall: Patient is an 85 yr female with H/O DM ii, HTN, HLD, IBS , hypothyroidism, AMD, GERD, hx of PE provoked by surgery 5-6 yrs ago who presents to ED after sustaining mechanical fall. Displaced subtrochanteric right femur fracture Hip X ray:A displaced subtrochanteric right femoral fracture. S/P ORIF by Dr.James Coello on 10/25/20 Pain control Continue PT OT Appreciate orthopedics input Bowel regimen to prevent constipation On Lovenox for DVT prophylaxis--plan to continue with rehab facility for 1 month Needs follow-up with orthopedics upon discharge Hypovitaminosis D Continue Vit D supplements Anemia (acute blood loss/dilutional) As per prior Provider Attempted to transfuse, however after about half unit of PRBCs, patient's blood pressure increased, possible reaction, therefore stopped transfusion (03/26) Hb stable Continue to monitor EFRAIN Renal function back to normal with IV fluids Avoid nephrotoxic agents as able Monitor (3) T2DM (type 2 diabetes mellitus): Hgb A1c 7.0 08/27/20 hold tradjenta lantus/novolog per protocol while hospitalized Current A1c 6.5% (4) HTN (hypertension): continue metoprolol Resume losartan and lasix upon discharge monitor (5) HLD (hyperlipidemia): continue statin (6) Hypothyroidism: continue levothyroxine (7) CKD (chronic kidney disease) stage 3, GFR 30-59 ml/min: Baseline cr 1.1-1.3 Monitor renal function (8) Grief at loss of child: As per prior provider Pt lost her daughter day prior to admission, and is actively grieving supportive measures (9) History of pulmonary embolism: Provoked 2/2 to post op state Continue Lovenox SQ for 1 month to prevent recurrence Disposition: SNF Code Status FULL CODE Admission and Anticipated Discharge Date Admission Date: October 24, 2020 Subjective Patient is seen and examined at bedside States having some pain at surgical site Denies chest pain, shortness of breath, dizziness, nausea, abdominal pain Offers no other complaints Review of Systems Review of Systems: All systems reviewed & are unremarkable except as noted in HPI & below Physical Exam Physical Exam: Physical Exam: Vitals signs as noted above General Appearance:Obese, no apparent distress Head: normocephalic, Atraumatic Eyes: normal inspection, EOMI Neck: supple, Trachea midline Respiratory/Chest: Normal breath sounds, CTA Cardiovascular: S1, S2, No murmur Abdomen/GI:Soft, Non tender, Bowel sounds present Extremities/Musculoskelatal:normal inspection, no edema, +R hip dressing Neurologic/Psych:AAOX3, grossly no focal neurological deficits Skin: normal color, warm Results & Data Results & Data ([facility]) Vital Signs (Past 12 Hours) Vital Signs Temp Pulse Resp BP Pulse Ox 10/29/20 07:44 36.8 C 86 16 170/79 H 94 Laboratory Results Short CBC 10/29/20 Range/Units 06:47 WBC 11.79 H (4.8-10.8) K/uL Hgb 8.0 L (12.0-16.0) g/dL Hct 24.9 L (37-47) % Plt Count 287 (130-400) K/uL BMP 10/29/20 06:47 Sodium 144 Potassium 4.2 Chloride 117 H Carbon Dioxide 23 BUN 28 H Creatinine 0.94 Glucose 99 Calcium 8.4 L
--- NOTE | 2020-10-29 13:31 | Discharge Summary ---
Date of Service October 29, 2020 Admission HPI Per Admitting Provider This is an 85 yr old F who has a significant PMH of T2DM, HTN, HLD, IBS , hypothyroidism, AMD, GERD, hx of PE provoked by surgery 5-6 yrs ago who presents to ED today after sustaining mechanical fall. She was going to [employer] today and son and DIL was behind her. She went to [employer] hand rail and her R knee gave out and she went down slowly. She was unable to get up on own and had significant pain. 1 week ago she also sustained a fall that was mechanical on her R side. She has been having pain to R hip for the past week but able to ambulate. She denies LOC or syncopal episode. She denies f/c/s, dizziness, l ightheaded, chest pain, sob, cough, n,v,d, abdominal pain, change in bowel or bladder habits. She occasionally gets GAMBLE. Pt under a lot of stress and grief as her daughter yesterday. She denies and CP or SOB when activity level reaches ~ 4 mets. In ED pt found to have a R displaced, closed subtrochanteric hip fx. Son at bedside. She remained hemodynamically stable. Labs revealed mostly unremarkable CBC, bmp with elevated bun/cr 32 and 1.27 Admission Exam Per Admitting Provider Physical Exam Constitutional: WD/WN, vitals as above + obese Eyes: PERRL, conjunctivae normal, anicteric sclerae ENMT: external ear and nose normal, oropharynx normal Neck: normal visual inspection and + thick neck Respiratory: normal respiratory effort, lungs clear to auscultation Auscultation: no crackles, no rhonchi and no wheezes Cardiovascular: RRR, no murmur, no edema Chest (Breasts): Chest: normal inspection of chest Gastrointestinal (Abdomen): Inspection/Auscultation: abdomen normal to inspection and normal bowel sounds; abdomen not distended Percussion/Palpation: abdomen soft; abdomen nontender + obese abdomen Musculoskeletal: Head/Neck/Chest: normocephalic and head atraumatic moves toes w/o difficulty, moves LLE w/o difficulty, did not move RLE d/t known fracture, tender at R hip, no sensory loss noted Skin: no rashes, warm and dry Neurologic: PERRL, EOMI, accommodation nl, no face palsy, no dysarthria Psychiatric: Orientation: alert and oriented x 3 + teary at times d/t loss of her daughter Genitourinary: no CVA tenderness Lymphatic: no lymphedema Principal Diagnosis IM Nailing of Right Femur Fracture Hypovitaminosis D Acute Kidney Injury Discharge Data Allergies Allergy/AdvReac Type Severity Reaction Status Date / Time Cipro Allergy Intermediate rash and Verified 08/25/17 08:14 itchiness Consultations 10/24/20 12:24 ED Decision to Admit Stat 10/24/20 13:52 Consult Anesthesiology Routine 10/24/20 13:53 Consult Orthopedic Surgery Routine 10/24/20 16:37 Consult Case Management - Discharge Planning Routine 10/25/20 08:00 Consult Cardiology Routine 10/25/20 15:14 Consult Case Management - Discharge Planning Routine Procedures Performed Operation Date: 10/25/20 09:50 Actual Procedures p Right Long Troch Nailing(Right) - Jorge Coello MD HIP X ray: A displaced subtrochanteric right femoral fracture. CXR: No active disease in the chest. Ordered Studies 10/25/20 US - OR guided needle placemen Routine 10/25/20 09:50 FL femur RT 2V Routine FL fluoroscopy <1hr Routine Hospital Course (1) Displaced subtrochanteric fracture of right femur: (2) Fall: Patient is an 85 yr female with H/O DM ii, HTN, HLD, IBS , hypothyroidism, AMD, GERD, hx of PE provoked by surgery 5-6 yrs ago who presents to ED after sustaining mechanical fall. Displaced subtrochanteric right femur fracture Hip X ray:A displaced subtrochanteric right femoral fracture. S/P ORIF by Dr.James Coello on 10/25/20 Pain control Continue PT OT Appreciate orthopedics input Bowel regimen to prevent constipation On Lovenox for DVT prophylaxis--plan to continue with rehab facility for 1 month Needs follow-up with orthopedics upon discharge Hypovitaminosis D Continue Vit D supplements Anemia (acute blood loss/dilutional) As per prior Provider Attempted to transfuse, however after about half unit of PRBCs, patient's blood pressure increased, possible reaction, therefore stopped transfusion (03/26) Hb stable Continue to monitor EFRAIN Renal function back to normal with IV fluids Avoid nephrotoxic agents as able Monitor (3) T2DM (type 2 diabetes mellitus): Hgb A1c 7.0 08/27/20 hold tradjenta lantus/novolog per protocol while hospitalized Current A1c 6.5% (4) HTN (hypertension): continue metoprolol Resume losartan and lasix upon discharge monitor (5) HLD (hyperlipidemia): continue statin (6) Hypothyroidism: continue levothyroxine (7) CKD (chronic kidney disease) stage 3, GFR 30-59 ml/min: Baseline cr 1.1-1.3 Monitor renal function (8) Grief at loss of child: As per prior provider Pt lost her daughter day prior to admission, and is actively grieving supportive measures (9) History of pulmonary embolism: Provoked 2/2 to post op state Continue Lovenox SQ for 1 month to prevent recurrence Disposition: SNF Code Status FULL CODE Total Time Total Time Spent Total Time Spent (In Minutes): 45 minutes Total Time Includes: Examination of the Patient, Discharge Planning, Medication Reconciliation, Communication With Other Providers and Other Discharge Plan Discharge Items Patient Disposition: Transfer [facility] Reason For Visit: R SUBTROCHANTERIC FEMUR FX Discharge Diagnosis: IM Nailing of Right Femur Fracture Hypovitaminosis D Acute Kidney Injury Condition on Discharge: Good Activity: Per Instructions section Activity Comment: Weightbear as tolerated on right leg Weightbearing: Full weightbearing Non-emergency contact: Primary Care Provider and Surgeon Call non-emergency contact if: you have any medication questions, your symptoms worsen, your pain is not controlled, your pain is worsening, your pain is unusual for you, your pain is concerning for you, you have a fever, your wound has increased redness, your wound has increased drainage and your wound pain has increased Follow-up/Referrals: Jorge Coello MD [Physician] - (Orthopedic follow-up 2-3 weeks from surgery date.) Trevor Mazariegos MD [Primary Care Provider] - Diet: Carb Consistent or DM2 and Heart Healthy Addtl Attending Provider Instructions: May fully weightbear on right leg. Follow-up with your primary care physician Dr. Mazariegos in 1 week upon discharge from rehab facility Follow-up with your orthopedic surgeon Dr. Jorge Coello in 2 weeks Continue Lovenox 30mg SQ for for 1 month for DVT Prophylaxis as recommended by your surgeon. Seek immediate medical attention if your symptoms reoccur or worsen Pending Studies at Discharge: No Stand-Alone Forms: My [facility] Skilled Items Patient informed of condition?: Yes DNR: No Discharge Level of Care: Skilled Communicable Disease: No Discharge Prognosis: Stable Lines: None Urinary Catheter: No Medications and DC Order Prescriptions: New enoxaparin [Lovenox] 30 mg/0.3 mL Syringe 30 mg subcut Q24H 30 Days Qty: 9 RF: 0 ferrous gluconate 324 mg (38 mg iron) Tablet 324 mg PO BIDM Qty: 60 RF: 0 hydrocodone-acetaminophen 5-325 mg Tablet 1 tab PO Q8H PRN (Reason: pain) Qty: 10 RF: 0 docusate sodium 100 mg Capsule 100 mg PO BID PRN (Reason: constipation) Qty: 60 RF: 0 polyethylene glycol 3350 [Miralax] 17 gram Powder In Packet 17 g PO DAILY PRN (Reason: constipation) Qty: 30 RF: 0 ascorbic acid (vitamin C) [Vitamin C] 500 mg Tablet 500 mg PO BIDM Qty: 60 RF: 0 ergocalciferol (vitamin D2) 1,250 mcg (50,000 unit) Capsule 50,000 unit PO Q7D@0945 Qty: 5 RF: 0 Continued venlafaxine 75 mg Tablet 75 mg PO PM RF: 0 aspirin 81 mg Tablet,Delayed Release (Dr/Ec) 81 mg PO PM RF: 0 levothyroxine 100 mcg tablet 100 mcg PO DAILYBB RF: 0 baclofen 10 mg Tablet 10 mg PO HS RF: 0 pantoprazole [Protonix] 40 mg Tablet,Delayed Release (Dr/Ec) 40 mg PO DAILY RF: 0 simvastatin [Zocor] 20 mg Tablet 20 mg PO PM RF: 0 mirtazapine [Remeron] 30 mg Tablet 30 mg PO HS RF: 0 buspirone 10 mg Tablet 10 mg PO TID RF: 0 metoprolol tartrate 50 mg Tablet 50 mg PO DAILY RF: 0 furosemide [Lasix] 20 mg Tablet 20 mg PO Q OTHER DAY RF: 0 losartan 100 mg Tablet 100 mg PO DAILY RF: 0 PreserVision AREDS [id number] mpoc-ga-iaih Capsule 1 cap PO AMPM RF: 0 venlafaxine 150 mg Tablet Extended Release 24hr 150 mg PO DAILY RF: 0 Tradjenta 5 mg Tablet 5 mg PO DAILY RF: 0 potassium chloride 20 mEq Tablet Extended Release 20 meq PO DAILY RF: 0 lorazepam [Ativan] 0.5 mg Tablet 0.5 mg PO HS Qty: 2 RF: 0 Discontinued tramadol 50 mg Tablet 50 mg PO DAILY PRN (Reason: Pain) RF: 0 Discharge Orders: Discharge Order (Routine); Ordered 10/29/20 Ordered By: Angel Bailey/Other Patient Handouts: Managing Type 2 Diabetes Admission Data Admit Date/Time: 10/24/20 12:43 Attending Provider: Angel Rodriguez Admit Provider: Hector Burton Primary Care Provider: Trevor Mazariegos Other Providers: Hector Burton ; Denys Vogt James S. ; Jason Martinez ; [facility] ; Dominick [place] Other Interventions: Discharge Summary Assessment (RN) Last Done: 10/29/20 13:16
[2020-10-29] MEDS: ENOXAPARIN INJ 30 MG/0.3 ML SYR SQ SCH (15:10)
== END 2020-10-29 17:33 | DRG 481 ==
LOC: ED 10:57 → 3W 12:43 → SUATTDRO 12:43 → 3W 13:54

== ENCOUNTER 2024-08-10 08:24 | Inpatient (IN) ==
[2024-08-10] MEDS: MoRPHine SULFATE 2 MG/ML CARP IV STA ×3 (08:57→13:46)
[2024-08-10] MEDS: ONDANSETRON INJ 2 MG/ML 2 ML VIAL IV STA (08:58)
[2024-08-10 09:16] LABS: Basophils # (auto) 0.04 K/uL (0.00-0.20); Basophils % (auto) 0.3 %; Eosinophils % (auto) 2.4 %; Hematocrit (blood only) 35.9 % (37.0-47.0); Hemoglobin 11.4 g/dl (12.0-16.0); Immature Granulocytes % (auto) 0.8 %; Lymphocytes # (auto) 2.09 K/uL (1.20-3.40); Lymphocytes % (auto) 16.5 %; Mean Corpuscular Hemoglobin 31.4 pg (25.0-34.0); Mean Corpuscular Hgb Conc 31.8 g/dL (32.0-36.0); Mean Corpuscular Volume 98.9 fL (80.0-100.0); Mean Platelet Volume 9.6 fL (9.4-12.4); Monocytes % (auto) 9.5 %; Neutrophils # (auto) 8.95 K/uL (1.40-6.50); Neutrophils % (auto) 70.5 %; Platelet Count 279 K/uL (130-400); RDW Standard Deviation 46.9 fL (36.4-46.3); Red Blood Count 3.63 M/uL (4.20-5.40); White Blood Count 12.68 K/ul (4.8-10.8)
--- NOTE | 2024-08-10 09:38 | CT Scan Report ---
CT OF THE HEAD WITHOUT CONTRAST CLINICAL HISTORY: fall, dizzy COMPARISON STUDY: Head CT August 21, 2017. TECHNIQUE: Helical axial images of the head were obtained without IV contrast. Automated exposure con trol was utilized for the study. A dose lowering technique was utilized adhering to the principles o f ALARA. FINDINGS: No acute intracranial hemorrhage, midline shift or mass effect is present. White matter hyp odensities are similar to prior exam and favor small vessel disease. The ventricular system is unrema rkable. The basal cisterns are patent. No extra-axial collections are present. There are no findings to suggest acute dural sinus thrombosis or acute territorial infarct. No significant calvarial abnorm alities are present. Visualized portions of the sinuses and mastoid air cells are clear. IMPRESSION: 1. No acute intracranial findings. 2. No calvarial fractures. ACT 112: Negative or not required by law. Electronically signed by: Dick Cid M.D. 08/10/2024 9:36 AM
--- NOTE | 2024-08-10 09:42 | CT Scan Report ---
CT cervical spine wo con CT DOSE: 1026.07 mGy.cm CLINICAL HISTORY: 89 years-old Female with fall, dizzy. Acute head and neck trauma status post fall COMPARISON: Head CT of same day TECHNIQUE: Multiple axial CT images of the cervical spine were obtained without contrast. A dose low ering technique was utilized adhering to the principles of ALARA. FINDINGS: Straightening of the normal cervical lordosis. Moderate multilevel bridging osteophytosis w ith severe facet arthrosis and mild intervertebral disc space narrowing. There is mild asymmetric hypoattenuation/edema within the right longus coli muscle on image 201 serie s 7 which is likely chronic with the adjacent tissues appearing normal. Tracheobronchial secretions. The visualized lung apices appear clear. IMPRESSION: No acute cervical spine fracture or subluxation. ACT 112: Negative or not required by law. The above report was generated using voice recognition software. It may contain grammatical, syntax o r spelling errors. Electronically signed by: Se London M.D. 08/10/2024 9:40 AM
[2024-08-10 09:46] LABS: Alanine Aminotransferase 19 U/L (7-52); Albumin Globulin Ratio 1.2 (0.9-2); Albumin Level 3.7 gm/dl (3.4-5.0); Alkaline Phosphatase 71 U/L (34-104); Anion Gap 5 (3-11); BUN Creatinine Ratio 30.4 (10-20); Bilirubin,Total 0.4 mg/dl (0.2-1.0); Blood Urea Nitrogen 41 mg/dl (6-23); Calcium 8.8 mg/dl (8.6-10.3); Carbon Dioxide 25 mmol/L (21-32); Chloride 108 mmol/L (98-107); Globulin 3.1 gm/dl (2.5-4.0); Glucose 118 mg/dl (70-99(Fasting)); Sodium 138 mmol/L (136-145); Total Protein 6.8 gm/dl (6.0-8.3); Troponin I High Sensitivity 6.9 pg/ml (0-14)
--- NOTE | 2024-08-10 09:52 | XRay Report ---
XR chest 1V portable CLINICAL HISTORY: fall COMPARISON STUDY: Chest CT December 04, 2018. Chest radiograph October 24, 2020. FINDINGS: A displaced impacted left humeral head and neck fracture is better depicted on the left wolf ulder radiographs. There is no pneumothorax thorax. There is a possible small left pleural effusion. Left basilar opacity favors atelectasis. Cardiomegaly is unchanged. There is pulmonary vascular conge stion without overt pulmonary edema. IMPRESSION: 1. Displaced impacted left humeral head and neck fracture better depicted on the left shoulder radiog raphs. 2. Cardiomegaly with pulmonary vascular congestion. 3. Possible small left pleural effusion. Left basilar opacity suggestive of atelectasis. ACT 112: Negative or not required by law. Electronically signed by: Dick Cid M.D. 08/10/2024 9:50 AM
[2024-08-10] MEDS: fentaNYL citrate PF 100 MCG/2 ML VIAL IV STA (09:53)
--- NOTE | 2024-08-10 09:56 | XRay Report ---
XR shoulder LT min 2V routine HISTORY: 89 years-old Female fall, shoulder pain COMPARISON: Chest radiograph of same day TECHNIQUE: 3 views of the left shoulder FINDINGS: Severe glenohumeral osteoarthritis. Moderate AC joint osteoarthritis. There is an acute to subacute a ppearing comminuted, impacted and displaced proximal humeral fracture involving the surgical neck and greater tuberosity. The lesser tuberosity may also be involved. No dislocation. IMPRESSION: Acute to subacute appearing comminuted, impacted and mildly displaced proximal humeral fr acture. ACT 112: Negative or not required by law. The above report was generated using voice recognition software. It may contain grammatical, syntax o r spelling errors. Electronically signed by: Se London M.D. 08/10/2024 9:55 AM
--- NOTE | 2024-08-10 09:57 | XRay Report ---
XR knee RT 3V HISTORY: 89 years-old Female fall, injury acute right knee pain status post fall COMPARISON: Femur radiographs 07/20/2024 TECHNIQUE: 3 views of the right knee FINDINGS: Partially imaged hardware within the femoral diaphysis with chronic appearing femoral cortical thicke dayana. Demineralized appearance of the bones. No acute fracture or dislocation. Mild tricompartmental osteoarthritis of the knee. No large joint effusion. IMPRESSION: No acute fracture or dislocation. ACT 112: Negative or not required by law. The above report was generated using voice recognition software. It may contain grammatical, syntax o r spelling errors. Electronically signed by: Se London M.D. 08/10/2024 9:56 AM
[2024-08-10] MEDS: LORazepam 1 MG/1 ML SYR ED Inj Use IV STA (11:11)
--- NOTE | 2024-08-10 11:42 | Electrocardiogram Report ---
Test Reason : Blood Pressure : */* mmHG Vent. Rate : 73 BPM Atrial Rate : 73 BPM P-R Int : 158 ms QRS Dur : 126 ms QT Int : 410 ms P-R-T Axes : 38 -77 57 degrees QTcB Int : 451 ms Normal sinus rhythm Left axis deviation Right bundle branch block Abnormal ECG When compared with ECG of 24-Oct-2020 11:28, No significant change was found Confirmed by Johnnie Mark ([id number]) on 08/10/2024 11:41:43 AM Referred By: REFERRED SELF Confirmed By: Johnnie Mark
[2024-08-10] MEDS: ACETAMINOPHEN 1,000 MG/100 ML VIAL IV STA (12:26)
--- NOTE | 2024-08-10 12:55 | History & Physical Report ---
<Statement entered by Heber Oakes, DO - 08/10/24 16:14> I have seen and examined the patient and have discussed the case with the provider above. I have reviewed the advanced practitioner's documentation, and I agree with, and take responsibility for that plan of care. Patient seen and examined while still in ED. Physical exam: Lungs: Clear CV: S1-S2 Musculoskeletal: Left upper extremity in sling immobilizer patient states that she often gets lightheaded and dizzy when she gets up out of bed. Today had a little trouble reaching her walker when she went to get out of bed. Fell as she was getting out of bed. Definitely had some lightheadedness and dizziness. Diagnostics reviewed High suspicion patient may be having orthostatic syncope/near syncope as e tiology for her falls. Discussed plan of care as outlined below with RAVEN Date of Service August 10, 2024 Assessment & Plan (1) Fracture of humerus, left, closed: (2) Fracture of radius, distal, left, closed: (3) Fall: Plan: Patient is 89 year old female with PMH HTN, HLD, DM II, CKD III, depression, anxiety, hypothyroidism presented to ER with complaint of ground level fall this morning after getting up out of bed and feeling lightheaded. Denies LOC, CP, SOB In ER afebrile, P: 74, R: 20, BP 124/67, 93% on room air Negative troponin EKG: sinus rhythm, rate 73, RBBB per my interpretation. Per chart review chronic RBBB CT Head: No acute intracranial abnormality CT C-Spine: no acute fracture Left Shoulder xray: Acute to subacute appearing comminuted, impacted and mildly displaced proximal humeral fracture. Right knee x-ray: No acute fracture CXR: Cardiomegaly, pulmonary vascular congestion, possible small left pleural effusion, left basilar opacity suggestive of atelectasis In ER given IV Tylenol, total morphine 4 mg IV, fentanyl 50 mcg IV, Zofran Placed in splint in ER Ice NPO midnight Pain control hydrocodone, morphine as needed pain. Patient reports in past oxycodone made her "feel weird" so prefers hydrocodone Hold home aspirin pending possible surgical procedure Ortho consult. ER provider spoke to Dr Cook Fall precautions PT/OT eval CBC, BMP in am #Peripheral neuropathy Continue gabapentin (4) Dizziness: Plan: Chronic dizziness with sitting up, standing and walking Suspect orthostatic component Obtain orthostatic vitals Fall precautions (5) T2DM (type 2 diabetes mellitus): Plan: A1c: 6.2 on 03/13/24 Hold home Tradjenta Novolog sliding scale correction per protocol (6) CKD (chronic kidney disease) stage 3, GFR 30-59 ml/min: Plan: BUN: 41, Cr: 1.35. Baseline Cr: ~1.3 Monitor renal functions, avoid nephrotoxic agents when possible (7) HTN (hypertension): Plan: Hold home Lasix Continue metoprolol succinate, losartan with holding parameters (8) HLD (hyperlipidemia): Plan: Continue simvastatin (9) History of pulmonary embolism: Plan: Reported history of PE several weeks after hip replacement years ago Will do SCDs for now pending possible procedure but will need to consider possible anticoagulation post op (10) Hypothyroidism: Plan: TSH in am Continue home levothyroxine (11) Anxiety and depression: Plan: Continue home venlafaxine, buspirone DVT Prophylaxis SCDs for now Admit med tele DNR/DNI as per discussion with pt Follows with Dr Mazariegos for routine care Pt was seen and care coordinated with Dr Oakes. See addendum I spent a total of 70 minutes reviewing notes, outpatient records, labs, medication, coordinating, documenting and providing care for this patient excluding time spent in the performance of separately billed services. History of Present Illness Chief Complaint: Fall, left shoulder pain Primary Care Provider: Trevor Mazariegos MD Patient is 89 year old female with PMH HTN, HLD, DM II, CKD III, depression, anxiety, hypothyroidism presented to ER with complaint of fall this morning. Patient reports chronic dizziness and lightheadedness with sitting up, standing and walking. States typically will sit up at edge of bed for awhile prior to standing. States today woke up and sat up and attempted to ambulate to bathroom. When she stood up she felt lightheaded and off balance and fell onto left arm. Complains of pain to left shoulder that radiates down to left hand and fingers. States fingers feel tingling. Reports unable to move left arm or left wrist of fingers as causes pain. Denies history prior LUE injury. Doesn't think she hit her head and denies LOC. Denies CP, SOB prior to fall. She states wasn't able to get herself up off floor so used her fall alert button to call for help. Reports chronic balance issues and ambulates with walker at baseline. Has caregivers 8a- 1:30p Mon-Fri and 9a-2p on sat & sun to help get her dressed, cook meals, clean. Reports last fall was in summer 2023. Right hand dominant. Chronic poor vision and denies any acute vision changes. Denies fever/chills, diaphoresis, N/V/D/C, WASHBURN, dizziness, syncope, neck pain, CP, SOB, palpitations, cough, rhinorrhea, abdominal pain, RUE pain, LLE pain or RLE pain, extremity edema, rashes, urinary symptoms. Allergies Allergy/AdvReac Type Severity Reaction Status Date / Time Cipro Allergy Intermediate rash and Verified 08/25/17 08:14 itchiness ciprofloxacin [Cipro] Allergy Unknown rash and Verified 06/30/21 10:57 itchiness Home Medications Medication Instructions Recorded Confirmed Type aspirin 81 mg tablet,delayed 81 mg PO QPM 10/24/20 08/10/24 History release baclofen 10 mg tablet 10 mg PO HS 10/24/20 08/10/24 History buspirone 10 mg tablet 10 mg PO TID 10/24/20 08/10/24 History furosemide 20 mg tablet (Lasix) 20 mg PO Q OTHER DAY 10/24/20 08/10/24 History levothyroxine 100 mcg tablet 112 mcg PO DAILYBB 10/24/20 08/10/24 History linagliptin 5 mg tablet (Tradjenta) 5 mg PO QAM 10/24/20 08/10/24 History losartan 100 mg tablet 100 mg PO QAM 10/24/20 08/10/24 History mirtazapine 30 mg tablet (Remeron) 30 mg PO PM 10/24/20 08/10/24 History pantoprazole 40 mg tablet,delayed 40 mg PO QAM 10/24/20 08/10/24 History release (Protonix) simvastatin 20 mg tablet (Zocor) 20 mg PO QPM 10/24/20 08/10/24 History venlafaxine 150 mg tablet,extended 150 mg PO QAM 10/24/20 08/10/24 History release 24 hr venlafaxine 75 mg tablet 75 mg PO QAM 10/24/20 08/10/24 History vitamins A,C,S-clne-wvalkx 4,296 1 cap PO BID 10/24/20 08/10/24 History mcg-226 mg-90 mg capsule (PreserVision AREDS) gabapentin 100 mg capsule 100 mg PO BID 08/10/24 08/10/24 History lorazepam 0.5 mg tablet (Ativan) 0.5 mg PO .AFTERNOON 08/10/24 08/10/24 History metoprolol succinate 50 mg 50 mg PO DAILY 08/10/24 08/10/24 History tablet,extended release 24 hr Past Med/Surg History Problem List Dizziness Fracture of radius, distal, left, closed Fracture of humerus, left, closed Disorder of left rotator cuff Encounter for pre-operative examination Fall (Acute) Grief at loss of child DVT prophylaxis Fracture of hip, right, closed (Acute) Anxiety and depression Medical History 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 "ALL MY LIFE" - 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 Macular degeneration Acid reflux Colitis "BORN WITH" Dizzy spells "JUST ONCE IN AWHILE" - ONGOING FOR YEARS - NONE RECENT, WILL HAPPEN IF GET UP TO QUICK History of colon polyps Family history of reaction to anesthesia DAUGHTER - NAUSEA History of anesthesia reaction COULDN'T GIVE ME A SPINAL; TRIED MULTIPLE TIMES - PT NOT SURE WITH WHAT SURGERY Carpal tunnel syndrome on both sides Pulmonary hypertension 45mmHg 2016 T2DM (type 2 diabetes mellitus) Displaced subtrochanteric fracture of right femur HX - SX FOR OCT 2020 Diverticulosis NO CURRENT PROBLEM WITH CKD (chronic kidney disease) stage 3, GFR 30-59 ml/min PT DENIES KIDNEY PROBLEMS OTHER THAN HX KIDNEY STONES Hypothyroidism HLD (hyperlipidemia) HTN (hypertension) History of pulmonary embolism "ONE IN LUNGS AND ONE IN HEART" 4-5 YRS AGO ? Anxiety and depression Diverticulitis NO CURRENT PROBLEMS WITH Kidney calculi HX Surgical History History of hip surgery RIGHT OCT 2020. right long troch nail done by Dr. Coello. Patient made ASA 3. Unable to get SAB and did GETA with fascia iliaca block. History of tubal ligation History of surgery on arm R ulnar surgery History of left hip replacement History of colonoscopy History of total abdominal hysterectomy and bilateral salpingo-oophorectomy Family History Brother Diabetes Mother Diabetes Father Coronary heart disease Myocardial infarction, Onset Age: 49 Daughter Diabetes Social History Smoking Status: Never smoker Second Hand Exposure: No; Do You Dip or Chew Tobacco: No; Hx Alcohol Use: Yes (OCASSIONAL GLASS OF WINE , NONE IN A YR OR MORE) Alcohol type: wine Hx Substance Use: No Preferred Language: British Communication Ability: Effective 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 Caustic Cresylate Required: No Beliefs That Will Affect Care: None marital status: / Current Living Situation: Alone Current Living Situation Comment: INDEPENDENT LIVING FOR THE ELDERLY - HAVE OWN APARTMENT current occupational status: retired Feels Safe at Home: Yes Assistive Devices: Glasses and Walker Review of Systems Review of Systems: All systems reviewed & are unremarkable except as noted in HPI & below Physical Exam Physical Exam: General: mild distress secondary to pain, obese elderly female Head: normocephalic, atraumatic Eyes: PERRL, EOM's intact, conjunctiva non-injected, anicteric ENT: normal inspection external ears, nose, mucous membranes mildly dry Neck: supple, trachea midline, non-tender to palpation Lungs: clear, no respiratory distress, no wheezing/rhonchi/rales CV: RRR, no pretibial edema Abd: protuberant, normal BS, soft, non-tender Ext: LUE: +sling in place. +tenderness to palpation entire shoulder and proximal humerus, +tenderness to palpation distal forearm and wrist, minimal active ROM of fingers secondary to reported pain, distal pulses palpable, sensation to light touch intact. RUE with normal appearance and non-tender. LLE and RLE normal appearance and non-tender. no cyanosis, no calf tenderness Neuro: A&O x 3, no focal deficits noted, mildly anxious affect Skin: warm, dry Results & Data Results & Data Vital Signs (Past 12 Hours) Vital Signs Temp Pulse Pulse Resp BP BP Pulse Ox 08/10/24 11:12 85 21 08/10/24 11:00 123/85 08/10/24 10:48 82 20 95 08/10/24 10:27 82 17 93 08/10/24 10:19 78 08/10/24 10:00 81 18 143/71 H 96 08/10/24 08:54 93 08/10/24 08:38 36.5 C 74 20 124/67 93 O2 Del Method 08/10/24 11:12 08/10/24 11:00 08/10/24 10:48 08/10/24 10:27 08/10/24 10:19 08/10/24 10:00 Room Air 08/10/24 08:54 Room Air 08/10/24 08:38 Room Air Laboratory Results Short CBC 08/10/24 Range/Units 08:56 WBC 12.68 H (4.8-10.8) K/ul Hgb 11.4 L (12.0-16.0) g/dl Hct 35.9 L (37.0-47.0) % Plt Count 279 (130-400) K/uL BMP 08/10/24 08:56 Sodium 138 Potassium TNP Chloride 108 H Carbon Dioxide 25 BUN 41 H Creatinine 1.35 H Glucose 118 H Calcium 8.8 Liver Function 08/10/24 Range/Units 08:56 Total Bilirubin 0.4 (0.2-1.0) mg/dl AST TNP ALT 19 (7-52) U/L Alkaline Phosphatase 71 (34-104) U/L Albumin 3.7 (3.4-5.0) gm/dl Diagnostic Findings Cervical Spine CT 08/10/24 08:48 CT cervical spine wo con CT DOSE: 1026.07 mGy.cm CLINICAL HISTORY: 89 years-old Female with fall, dizzy. Acute head and neck trauma status post fall COMPARISON: Head CT of same day TECHNIQUE: Multiple axial CT images of the cervical spine were obtained without contrast. A dose lowering technique was utilized adhering to the principles of ALARA. FINDINGS: Straightening of the normal cervical lordosis. Moderate multilevel bridging osteophytosis with severe facet arthrosis and mild intervertebral disc space narrowing. There is mild asymmetric hypoattenuation/edema within the right longus coli muscle on image 201 series 7 which is likely chronic with the adjacent tissues appearing normal. Tracheobronchial secretions. The visualized lung apices appear clear. IMPRESSION: No acute cervical spine fracture or subluxation. ACT 112: Negative or not required by law. The above report was generated using voice recognition software. It may contain grammatical, syntax or spelling errors. Electronically signed by: Se London M.D. 08/10/2024 9:40 AM Chest X-Ray 08/10/24 08:48 XR chest 1V portable CLINICAL HISTORY: fall COMPARISON STUDY: Chest CT December 04, 2018. Chest radiograph October 24, 2020. FINDINGS: A displaced impacted left humeral head and neck fracture is better depicted on the left shoulder radiographs. There is no pneumothorax thorax. There is a possible small left pleural effusion. Left basilar opacity favors atelectasis. Cardiomegaly is unchanged. There is pulmonary vascular congestion without overt pulmonary edema. IMPRESSION: 1. Displaced impacted left humeral head and neck fracture better depicted on the left shoulder radiographs. 2. Cardiomegaly with pulmonary vascular congestion. 3. Possible small left pleural effusion. Left basilar opacity suggestive of atelectasis. ACT 112: Negative or not required by law. Electronically signed by: Dick Cid M.D. 08/10/2024 9:[address] 08/10/24 08:48 CT OF THE HEAD WITHOUT CONTRAST CLINICAL HISTORY: fall, dizzy COMPARISON STUDY: Head CT August 21, 2017. TECHNIQUE: Helical axial images of the head were obtained without IV contrast. Automated exposure control was utilized for the study. A dose lowering technique was utilized adhering to the principles of ALARA. FINDINGS: No acute intracranial hemorrhage, midline shift or mass effect is present. White matter hypodensities are similar to prior exam and favor small vessel disease. The ventricular system is unremarkable. The basal cisterns are patent. No extra-axial collections are present. There are no findings to suggest acute dural sinus thrombosis or acute territorial infarct. No significant calvarial abnormalities are present. Visualized portions of the sinuses and mastoid air cells are clear. IMPRESSION: 1. No acute intracranial findings. 2. No calvarial fractures. ACT 112: Negative or not required by law. Electronically signed by: Dick Cid M.D. 08/10/2024 9:36 AM Knee X-Ray 08/10/24 08:48 XR knee RT 3V HISTORY: 89 years-old Female fall, injury acute right knee pain status post fall COMPARISON: Femur radiographs 07/20/2024 TECHNIQUE: 3 views of the right knee FINDINGS: Partially imaged hardware within the femoral diaphysis with chronic appearing femoral cortical thickening. Demineralized appearance of the bones. No acute fracture or dislocation. Mild tricompartmental osteoarthritis of the knee. No large joint effusion. IMPRESSION: No acute fracture or dislocation. ACT 112: Negative or not required by law. The above report was generated using voice recognition software. It may contain grammatical, syntax or spelling errors. Electronically signed by: Se London M.D. 08/10/2024 9:56 AM Shoulder X-Ray 08/10/24 08:48 XR shoulder LT min 2V routine HISTORY: 89 years-old Female fall, shoulder pain COMPARISON: Chest radiograph of same day TECHNIQUE: 3 views of the left shoulder FINDINGS: Severe glenohumeral osteoarthritis. Moderate AC joint osteoarthritis. There is an acute to subacute appearing comminuted, impacted and displaced proximal humeral fracture involving the surgical neck and greater tuberosity. The lesser tuberosity may also be involved. No dislocation. IMPRESSION: Acute to subacute appearing comminuted, impacted and mildly displaced proximal humeral fracture. ACT 112: Negative or not required by law. The above report was generated using voice recognition software. It may contain grammatical, syntax or spelling errors. Electronically signed by: Se London M.D. 08/10/2024 9:55 AM Hand X-Ray 08/10/24 12:35 XR hand LT min 3V routine HISTORY: 89 years-old Female hand pain, fall acute left hand pain status post fall COMPARISON: Wrist radiographs of same day TECHNIQUE: 3 views of the left hand FINDINGS: Demineralized appearance of the bones. Multifocal osteoarthritis is probably mild to moderate. There is an acute intra-articular nondisplaced distal radial fracture better seen on the corresponding wrist films. Circumferential soft tissue swelling of the wrist without additional acute fracture or dislocation. IMPRESSION: Acute comminuted intra-articular and displaced distal radial fracture. ACT 112: Negative or not required by law. The above report was generated using voice recognition software. It may contain grammatical, syntax or spelling errors. Electronically signed by: Se London M.D. 08/10/2024 1:13 PM Wrist X-Ray 08/10/24 12:35 XR wrist LT min 3V routine CLINICAL HISTORY: wrist pain, fall COMPARISON: Left hand radiographs October 26, 2020. FINDINGS: There is an acute moderately comminuted mildly displaced distal left radial fracture with intra-articular extension. There is dorsal tilt of the distal component. No distal left ulnar fracture is present with there is left wrist soft tissue swelling. No carpal bone fractures are identified. There are moderate degenerative changes within the left wrist. IMPRESSION: Acute comminuted mildly displaced intra-articular distal left radial fracture. ACT 112: Negative or not required by law. Electronically signed by: Dick Cid M.D. 08/10/2024 1:25 PM
--- NOTE | 2024-08-10 13:19 | XRay Report ---
XR hand LT min 3V routine HISTORY: 89 years-old Female hand pain, fall acute left hand pain status post fall COMPARISON: Wrist radiographs of same day TECHNIQUE: 3 views of the left hand FINDINGS: Demineralized appearance of the bones. Multifocal osteoarthritis is probably mild to moderate. There is an acute intra-articular nondisplaced distal radial fracture better seen on the corresponding wris t films. Circumferential soft tissue swelling of the wrist without additional acute fracture or dislo cation. IMPRESSION: Acute comminuted intra-articular and displaced distal radial fracture. ACT 112: Negative or not required by law. The above report was generated using voice recognition software. It may contain grammatical, syntax o r spelling errors. Electronically signed by: Se London M.D. 08/10/2024 1:13 PM
--- NOTE | 2024-08-10 13:31 | XRay Report ---
XR wrist LT min 3V routine CLINICAL HISTORY: wrist pain, fall COMPARISON: Left hand radiographs October 26, 2020. FINDINGS: There is an acute moderately comminuted mildly displaced distal left radial fracture with intra-articular extension. There is dorsal tilt of the distal component. No distal left ulnar fractur e is present with there is left wrist soft tissue swelling. No carpal bone fractures are identified. There are moderate degenerative changes within the left wrist. IMPRESSION: Acute comminuted mildly displaced intra-articular distal left radial fracture. ACT 112: Negative or not required by law. Electronically signed by: Dick Cid M.D. 08/10/2024 1:25 PM
[2024-08-10] MEDS ORDERED: CARBOHYDRATES FOR HYPOGLYCEMIA PO PRN (14:24)
[2024-08-10] MEDS ORDERED: GLUCAGON FOR INJ 1 MG VIAL SQ PRN (14:24)
[2024-08-10] MEDS ORDERED: DEXTROSE 50% 50 ML SYRINGE IV PRN (14:24)
[2024-08-10] MEDS ORDERED: GLUCOSE 10 TAB/TUBE PO PRN (14:24)
[2024-08-10] MEDS ORDERED: MAGNESIUM HYDROXIDE SUSP 30 ML UDC PO PRN (14:24)
[2024-08-10] MEDS ORDERED: GLUCOSE 40% GEL 15 GM TUBE PO PRN (14:24)
[2024-08-10] MEDS: oxyCODONE HCL IR 5 MG TAB (IMMEDIATE RELEASE) PO STA (14:43)
[2024-08-10] MEDS: ONDANSETRON INJ 2 MG/ML 2 ML VIAL IV PRN (14:46)
[2024-08-10] MEDS: MoRPHine SULFATE 2 MG/ML CARP IV PRN (14:56)
[2024-08-10] MEDS: busPIRone 5 MG TAB PO SCH (15:27)
[2024-08-10] MEDS: VENLAFAXINE HCL XR 75 MG CAPXR PO SCH (15:27)
[2024-08-10] MEDS: VENLAFAXINE HCL XR 150 MG CAPXR PO SCH (15:27)
[2024-08-10] MEDS: PANTOprazole 40 MG TAB PO STA (15:28)
[2024-08-10] MEDS: METOPROLOL SUCC 50MG EXT REL TAB PO STA (15:28)
[2024-08-10] MEDS: FAMOTIDINE 20MG IV PUSH 20 MG/5 ML SYR IV STA (15:42)
--- NOTE | 2024-08-10 16:29 | Emergency Department Note ---
ED Visit Note I was consulted by the Advanced Practice Provider. I personally approved the management plan and take responsibility for the patient management. This includes the aspects of: -History/Physical -MDM -I independently interpreted the following studies:Studies and results .
[2024-08-10] MEDS ORDERED: INSULIN ASPART PER UNIT CHARGE SC SCH (16:30)
--- NOTE | 2024-08-10 16:44 | Orthopedic Consultation ---
Date of Service August 10, 2024 Assessment & Plan (1) Fracture of radius, distal, left, closed: With regards to her left wrist, she is in a coaptation splint. She can wiggle her fingers. She will likely need some sort of splinting for 4 to 6 weeks. This can be treated nonoperatively. (2) Fracture of humerus, left, closed: With regards to her left shoulder, she is wearing a left arm sling. This can be treated nonoperatively. This will take 4 to 6 weeks before starts to heal in 3 months to heal completely. She should be nonweightbearing on her left upper extremity. She can follow-up with orthopedics in the office in 2 weeks for repeat x-rays to ensure there is been no further displacement of the fractures. Full orthopedic discharge instructions were placed in the discharge summary. History of Present Illness Reason for Consultation: Proximal humeral fracture and left distal radius fracture. Requesting Physician: . Attending Physician: Heber Oakes DO Yovana is a pleasant 89-year-old female who got up out of bed this morning was feeling lightheaded. She had a fall onto her left outstretched hand. Unfortunately she injured her left wrist and her left shoulder. She came to the emergency room and radiographs demonstrated a left distal radius fracture and a left proximal humerus fracture. She was placed in a coaptation splint and a left arm sling. She was admitted to the medical service. Orthopedics was consulted to evaluate and treat.. Allergies Allergy/AdvReac Type Severity Reaction Status Date / Time Cipro Allergy Intermediate rash and Verified 08/25/17 08:14 itchiness ciprofloxacin [Cipro] Allergy Unknown rash and Verified 06/30/21 10:57 itchiness Home Medications Medication Instructions Recorded Confirmed Type aspirin 81 mg tablet,delayed 81 mg PO QPM 10/24/20 08/10/24 History release baclofen 10 mg tablet 10 mg PO HS 10/24/20 08/10/24 History buspirone 10 mg tablet 10 mg PO TID 10/24/20 08/10/24 History furosemide 20 mg tablet (Lasix) 20 mg PO Q OTHER DAY 10/24/20 08/10/24 History levothyroxine 100 mcg tablet 112 mcg PO DAILYBB 10/24/20 08/10/24 History linagliptin 5 mg tablet (Tradjenta) 5 mg PO QAM 10/24/20 08/10/24 History losartan 100 mg tablet 100 mg PO QAM 10/24/20 08/10/24 History mirtazapine 30 mg tablet (Remeron) 30 mg PO PM 10/24/20 08/10/24 History pantoprazole 40 mg tablet,delayed 40 mg PO QAM 10/24/20 08/10/24 History release (Protonix) simvastatin 20 mg tablet (Zocor) 20 mg PO QPM 10/24/20 08/10/24 History venlafaxine 150 mg tablet,extended 150 mg PO QAM 10/24/20 08/10/24 History release 24 hr venlafaxine 75 mg tablet 75 mg PO QAM 10/24/20 08/10/24 History vitamins A,C,Z-mgrf-psfrdy 4,296 1 cap PO BID 10/24/20 08/10/24 History mcg-226 mg-90 mg capsule (PreserVision AREDS) gabapentin 100 mg capsule 100 mg PO BID 08/10/24 08/10/24 History lorazepam 0.5 mg tablet (Ativan) 0.5 mg PO .AFTERNOON 08/10/24 08/10/24 History metoprolol succinate 50 mg 50 mg PO DAILY 08/10/24 08/10/24 History tablet,extended release 24 hr Past Med/Surg History Problem List Dizziness Fracture of radius, distal, left, closed Fracture of humerus, left, closed Disorder of left rotator cuff Encounter for pre-operative examination Fall (Acute) Grief at loss of child DVT prophylaxis Fracture of hip, right, closed (Acute) Anxiety and depression Medical History 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 "ALL MY LIFE" - 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 Macular degeneration Acid reflux Colitis "BORN WITH" Dizzy spells "JUST ONCE IN AWHILE" - ONGOING FOR YEARS - NONE RECENT, WILL HAPPEN IF GET UP TO QUICK History of colon polyps Family history of reaction to anesthesia DAUGHTER - NAUSEA History of anesthesia reaction COULDN'T GIVE ME A SPINAL; TRIED MULTIPLE TIMES - PT NOT SURE WITH WHAT SURGERY Carpal tunnel syndrome on both sides Pulmonary hypertension 45mmHg 2016 T2DM (type 2 diabetes mellitus) Displaced subtrochanteric fracture of right femur HX - SX FOR OCT 2020 Diverticulosis NO CURRENT PROBLEM WITH CKD (chronic kidney disease) stage 3, GFR 30-59 ml/min PT DENIES KIDNEY PROBLEMS OTHER THAN HX KIDNEY STONES Hypothyroidism HLD (hyperlipidemia) HTN (hypertension) History of pulmonary embolism "ONE IN LUNGS AND ONE IN HEART" 4-5 YRS AGO ? Anxiety and depression Diverticulitis NO CURRENT PROBLEMS WITH Kidney calculi HX Surgical History History of hip surgery RIGHT OCT 2020. right long troch nail done by Dr. Coello. Patient made ASA 3. Unable to get SAB and did GETA with fascia iliaca block. 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 Physical Exam On physical exam of the left arm, she is wearing a sling as instructed. She is active motion of her fingers. She does have a lot of pain in her left shoulder.. Constitutional WD/WN, vitals as above Eyes PERRL, conjunctivae normal, anicteric sclerae ENMT external ear and nose normal, oropharynx normal Neck trachea midline, no thyromegaly Respiratory normal respiratory effort Cardiovascular RRR, no murmur, no edema Gastrointestinal (Abdomen) normal bowel sounds, soft, nontender, no hepatosplenomegaly Psychiatric A+Ox3, euthymic affect Results & Data Results & Data Laboratory Results . Diagnostic Findings X-rays of the left shoulder do show advanced glenohumeral arthritis. There is a mildly displaced 2 part left proximal humerus fracture. X-rays reviewed of the left wrist do show a comminuted and slightly dorsally angulated left distal radius fracture.. PG Care Time/CCT Total # of Minutes Spent Total Time Spent with Patient: Total time spent is greater than 50% in coordination of care (as documented) at patient's floor/unit and/or counseling patient: Coding Level of Care Code 14550 IN/OBS CONSULT LVL 4,60M Diagnoses Fracture of radius, distal, left, closed S52.502A Fracture of humerus, left, closed S42.302A
[2024-08-10] MEDS: HYDROCODONE/ACETAMOPHEN 5/325MG TAB PO PRN (18:09)
[2024-08-10] MEDS: LORazepam 0.5 MG TAB PO PRN (20:30)
[2024-08-10] MEDS: BACLOFEN 10 MG TAB PO SCH (21:28)
[2024-08-10] MEDS: GABAPENTIN 100 MG CAP PO SCH (21:29)
[2024-08-10] MEDS: MIRTAZAPINE TAB 15 MG TAB PO SCH (21:29)
[2024-08-10] MEDS: SIMVASTATIN 20 MG TAB PO SCH (21:29)
[2024-08-11 06:25] LABS: Appearance Urine Clear (Clear); Bilirubin Urine Negative (Negative); Blood Urine Negative (Negative); Color Urine Yellow; Glucose Urine UA Negative (Negative); Ketones Urine Negative (Negative); Leukocyte Esterase Urine Negative (Negative); Nitrite Urine Negative (Negative); Protein Urine Negative (Negative); Specific Gravity Urine 1.019 (1.000-1.030); Urobilinogen Urine Negative (Negative)
[2024-08-11] MEDS: LEVOTHYROXINE SODIUM 112 MCG TABLET PO SCH (08:08)
[2024-08-11] MEDS: PANTOprazole 40 MG TAB PO SCH (08:10)
[2024-08-11] MEDS: METOPROLOL SUCC 50MG EXT REL TAB PO SCH (08:10)
[2024-08-11] MEDS: LOSARTAN POTASSIUM 50 MG TAB PO SCH (08:10)
[2024-08-11 08:16] LABS: Basophils # (auto) 0.01 K/uL (0.00-0.20); Basophils % (auto) 0.1 %; Eosinophils # (auto) 0.15 K/uL (0.00-0.50); Eosinophils % (auto) 1.4 %; Hemoglobin 10.6 g/dl (12.0-16.0); Immature Granulocytes # (auto) 0.04 K/uL (0.01-0.20); Immature Granulocytes % (auto) 0.4 %; Lymphocytes # (auto) 1.76 K/uL (1.20-3.40); Mean Corpuscular Hemoglobin 31.4 pg (25.0-34.0); Mean Corpuscular Hgb Conc 32.1 g/dL (32.0-36.0); Mean Corpuscular Volume 97.6 fL (80.0-100.0); Mean Platelet Volume 9.8 fL (9.4-12.4); Monocytes # (auto) 1.73 K/uL (0.11-0.59); Monocytes % (auto) 16.7 %; Neutrophils # (auto) 6.68 K/uL (1.40-6.50); Neutrophils % (auto) 64.4 %; Platelet Count 249 K/uL (130-400); RDW Standard Deviation 46.5 fL (36.4-46.3); Red Blood Count 3.38 M/uL (4.20-5.40); White Blood Count 10.37 K/ul (4.8-10.8)
[2024-08-11 08:30] LABS: BUN Creatinine Ratio 28.9 (10-20); Calcium 8.8 mg/dl (8.6-10.3)
[2024-08-11 08:36] LABS: Estimated Average Glucose 140 mg/dl; Hemoglobin A1C 6.5 % (4.5-5.6)
[2024-08-11 08:46] LABS: Thyroid Stimulating Hormone 0.89 uIu/ml (0.300-4.500)
[2024-08-11] MEDS: ACETAMINOPHEN 1,000 MG/100 ML VIAL IV PRN (11:31)
--- NOTE | 2024-08-11 14:02 | Hospitalist Progress Note ---
Date of Service August 11, 2024 Assessment & Plan (1) Fracture of humerus, left, closed: (2) Fracture of radius, distal, left, closed: (3) Fall: Plan: Patient is 89 year old female with PMH HTN, HLD, DM II, CKD III, depression, anxiety, hypothyroidism presented to ER with complaint of ground level fall this morning after getting up out of bed and feeling lightheaded. Denies LOC, CP, SOB Fracture of the Left Humerus and left distal Radius CT Head: No acute intracranial abnormality CT C-Spine: no acute fracture Left Shoulder xray: Acute to subacute appearing comminuted, impacted and mildly displaced proximal humeral fracture. Right knee x-ray: No acute fracture In ER given IV Tylenol, total morphine 4 mg IV, fentanyl 50 mcg IV, Zofran Placed in splint in ER Pain control hydrocodone, morphine as needed pain. Patient reports in past oxycodone made her "feel weird" so prefers hydrocodone Hold home aspirin pending possible surgical procedure Appreciate Ortho input and recommendation The left upper extremity is in a sling for continued conservative management with a follow-up in orthopedic office in 2 weeks The patient complains more pain and will be given additional pain medications Continue PT OT Severe pain in the right hip Right hip movement is moderately painful Right knee x-ray did not show any fracture Will get x-ray of the right hip to rule out any fracture #Peripheral neuropathy Continue gabapentin (4) Dizziness: Plan: Chronic dizziness with sitting up, standing and walking Suspect orthostatic component Negative troponin EKG: sinus rhythm, rate 73, RBBB per my interpretation. Per chart review chronic RBBB CXR: Cardiomegaly, pulmonary vascular congestion, possible small left pleural effusion, left basilar opacity suggestive of atelectasis Obtain orthostatic vitals Fall precautions (5) T2DM (type 2 diabetes mellitus): Plan: A1c: 6.2 on 03/13/24 Hold home Tradjenta Novolog sliding scale correction per protocol (6) CKD (chronic kidney disease) stage 3, GFR 30-59 ml/min: Plan: BUN: 41, Cr: 1.35. Baseline Cr: ~1.3 Monitor renal functions, avoid nephrotoxic agents when possible (7) HTN (hypertension): Plan: Hold home Lasix Continue metoprolol succinate, losartan with holding parameters Hypotension Blood pressure is noted to be low since this morning with systolic around 96/59 Will hold losartan and continue beta-beata for now with hold parameters (8) HLD (hyperlipidemia): Plan: Continue simvastatin (9) History of pulmonary embolism: Plan: Reported history of PE several weeks after hip replacement years ago Will do SCDs for now pending possible procedure but will need to consider poss ible anticoagulation post op Will restart aspirin from tomorrow if there is no drop in hemoglobin (10) Hypothyroidism: Plan: TSH in am Continue home levothyroxine (11) Anxiety and depression: Plan: Continue home venlafaxine, buspirone DVT Prophylaxis SCDs for now Admit med tele DNR/DNI as per discussion with pt Follows with Dr Mazariegos for routine care Admission and Anticipated Discharge Date Admission Date: August 10, 2024 Subjective 08/11/2024 The patient was seen and examined in medical telemetry unit She was lightheaded and dizzy when trying to get out of bed and ended up with a fall at home She has not been able to get up by herself and was brought into the emergency room by the EMS Noted to have Left upper extremity fractures with the humerus and the radius Complains pain in left upper extremity Review of Systems Review of Systems: All systems reviewed and are unremarkable except as noted below Physical Exam Physical Exam: Lying in bed with acute distress due to pain involving the left upper extremity mainly Constitutional: well developed, well nourished, + ill appearing and + obese Eyes: PERRL, conjunctivae normal, anicteric sclerae ENMT: external ear and nose normal, oropharynx normal Neck: trachea midline, no thyromegaly Respiratory: no respiratory distress Auscultation: + diminished lung sounds and + crackles (Bibasilar crackles) Cardiovascular: Rate/Rhythm: regular rate and regular rhythm; not tachycardic Heart Sounds: normal S1 and normal S2; no murmur Extremities: + edema (Trace edema bilateral eye) Gastrointestinal (Abdomen): Inspection/Auscultation: normal bowel sounds; abdomen not distended Percussion/Palpation: abdomen soft; abdomen nontender Musculoskeletal: Acute pain in the left forearm and also on with any movement. Left upper extremity is in a sling Neurologic: normal touch/pain/proprioception and moves all extremities; no focal motor deficits Lymphatic: no cervical or axillary lymphadenopathy Results & Data Results & Data Vital Signs (Past 12 Hours) Vital Signs Temp Pulse Pulse Pulse Resp BP Pulse Ox 08/11/24 08:24 37.0 C 83 18 142/78 H 94 08/11/24 07:42 36.7 C 82 18 141/75 H 95 08/11/24 07:26 80 08/11/24 02:44 36.6 C 78 18 142/92 H 95 O2 Del Method 08/11/24 08:24 Room Air 08/11/24 07:42 Room Air 08/11/24 07:26 08/11/24 02:44 Room Air Laboratory Results Short CBC 08/11/24 Range/Units 07:35 WBC 10.37 (4.8-10.8) K/ul Hgb 10.6 L (12.0-16.0) g/dl Hct 33.0 L (37.0-47.0) % Plt Count 249 (130-400) K/uL BMP 08/10/24 08/11/24 14:06 07:35 Sodium 138 Potassium 4.9 5.0 Chloride 105 Carbon Dioxide 26 BUN 37 H Creatinine 1.28 H Glucose 137 H Calcium 8.8 Urine 08/11/24 Range/Units 06:00 Urine Color Yellow Urine Appearance Clear (Clear) Urine pH 5.0 (4.5-7.5) Ur Specific [place] 1.019 (1.000-1.030) Urine Protein Negative (Negative) Urine Glucose (UA) Negative (Negative) Medications Administered Current Inpatient Medications Acetaminophen (Acetaminophen 325 Mg Tab) 650 mg PO Q8H PRN PRN Reason: pain or fever Stop: 09/09/24 14:23 Hydrocodone Bitart/Acetaminophen (Hydrocodone/Acetamophen 5/325mg Tab) 1 tab PO Q6H PRN PRN Reason: Moderate Pain (Scale 4, 5, 6) Stop: 08/24/24 14:23 Last Admin: 08/11/24 09:36 Dose: 1 tab Baclofen (Baclofen 10 Mg Tab) 10 mg PO HS [facility] Stop: 09/09/24 20:59 Last Admin: 08/10/24 21:28 Dose: 10 mg Buspirone HCl (Buspirone 5 Mg Tab) 10 mg PO TID PIOTR Stop: 09/09/24 14:23 Last Admin: 08/11/24 08:10 Dose: 10 mg Gabapentin (Gabapentin 100 Mg Cap) 100 mg PO BID PIOTR Stop: 09/09/24 20:59 Last Admin: 08/11/24 08:09 Dose: 100 mg Acetaminophen (Ofirmev) 1,000 mg in 100 mls @ 400 mls/hr IV Q8H PRN PRN Reason: Pain Stop: 08/14/24 11:09 Last Infusion: 08/11/24 12:08 Dose: Infused Levothyroxine Sodium (Levothyroxine Sodium 112 Mcg Tablet) 112 mcg PO DAILYBB [facility] Stop: 09/10/24 06:29 Last Admin: 08/11/24 08:08 Dose: 112 mcg Lorazepam (Lorazepam 0.5 Mg Tab) 0.5 mg PO .AFTERNOON PRN PRN Reason: Anxiety Stop: 09/09/24 14:23 Last Admin: 08/10/24 20:30 Dose: 0.5 mg Losartan Potassium (Losartan Potassium 50 Mg Tab) 100 mg PO QAM [facility] Stop: 09/10/24 08:59 Last Admin: 08/11/24 08:10 Dose: 100 mg Magnesium Hydroxide (Magnesium Hydroxide Susp 30 Ml Udc) 30 ml PO Q12H PRN PRN Reason: Constipation Stop: 09/09/24 14:23 Metoprolol Succinate (Metoprolol Succ 50mg Ext Rel Tab) 50 mg PO DAILY [facility] Stop: 09/10/24 08:59 Last Admin: 08/11/24 08:10 Dose: 50 mg Mirtazapine (Mirtazapine Tab 15 Mg Tab) 30 mg PO PM [facility] Stop: 09/09/24 20:59 Last Admin: 08/10/24 21:29 Dose: 30 mg Morphine Sulfate (Morphine Sulfate 2 Mg/Ml Carp) 2 mg IV Q4H PRN PRN Reason: Severe Pain (Scale 7, 8, 9,10) Stop: 08/24/24 14:23 Last Admin: 08/11/24 03:31 Dose: 2 mg Ondansetron HCl (Ondansetron Inj 2 Mg/Ml 2 Ml Vial) 4 mg IV Q6H PRN PRN Reason: Nausea Stop: 09/09/24 14:23 Last Admin: 08/10/24 14:46 Dose: 4 mg Pantoprazole Sodium (Pantoprazole 40 Mg Tab) 40 mg PO QAM [facility] Stop: 09/10/24 08:59 Last Admin: 08/11/24 08:10 Dose: 40 mg Polyethylene Glycol (Polyethylene (Miralax) 17 Gm Pack) 17 gm PO DAILY PRN PRN Reason: Constipation Stop: 09/09/24 14:23 Simvastatin (Simvastatin 20 Mg Tab) 20 mg PO QPM [facility] Stop: 09/09/24 20:59 Last Admin: 08/10/24 21:29 Dose: 20 mg Venlafaxine HCl (Venlafaxine Hcl Xr 75 Mg Capxr) 75 mg PO QAM [facility] Stop: 09/09/24 14:23 Last Admin: 08/11/24 08:10 Dose: 75 mg Venlafaxine HCl (Venlafaxine Hcl Xr 150 Mg Capxr) 150 mg PO QAM [facility] Stop: 09/09/24 14:23 Last Admin: 08/11/24 08:09 Dose: 150 mg Losartan send the blood pressure blood pressure diastolic blood pressures below 9095 but they have not changed that 824 blood pressure is still persisting we have intended the nurses aide to take the blood pressure may take the blood pressure and give it to the nurse nurse does not have daily given the patient is very low or very high Updated Formation, thoracic and pulmonary unit this nurse should not hold things lisinopril and not sure blood pressure room
[2024-08-11] MEDS: SODIUM CHLORIDE 0.9% 1,000 ML IV SCH (14:45)
--- NOTE | 2024-08-11 14:59 | XRay Report ---
EXAM: Radiographs of the Right Hip 2 views INDICATION: History Reason For Study TECHNIQUE: AP and frog-leg lateral views of the right hip obtained. COMPARISON: No relevant prior studies available. FINDINGS: Limitations: None. Bones/joints: Visualized portion of the femoral nail and locking distal bolt and cerclage wires around the proximal nail intact and well-seated. There is healed fracture of the proximal femoral shaft with trabecular thickening. There is no acute fracture. There is no dislocation. There is mild acetabular joint space narrowing. Soft tissues: No abnormality noted. No radiopaque foreign body noted. IMPRESSION: Old, healed proximal femoral fracture with intact hardware. Mild arthritic change of the right hip. ACT 112: Negative or not required by law. Electronically signed by Kristin Truong 08-11-2024 2:59 PM
--- NOTE | 2024-08-11 16:37 | Urology Consultation ---
Date of Consultation August 11, 2024 Assessment & Plan (1) Prolapse of female pelvic organs: (2) Urinary retention: Plan 89 yo F admitted for a humerus and wrist fracture. Required straight catheterization this morning has not voided since. Nursing attempted to place a catheter this afternoon but was unsuccessful. Urology consulted for catheter placement. Procedure: Patient was prepped and draped in a sterile fashion. Physical exam revealed pelvic organ prolapse, grade 3 which was making catheterization difficult. With the help of 2 female dietist's, I was able to get her in a position with better visualization and reduce the prolapse with my left hand in place a 16 Tristanian Ariza catheter with my right hand. Yellow urine was returned to the balloon was inflated with 10 cc of sterile water. This was set to gravity drainage. Catheterization was difficult due to prolapse but a catheter was placed without issue Ariza management per primary team. If patient has a void trial, recommend doing this early in the morning in the event that she goes into retention and requires replacement of catheter Urology to sign off. Patient does not need any urologic follow-up as she is not having any voiding issues outside of during this hospitalization History of Present Illness Attending Physician: Cony Rodríguez MD History of Present Illness 89 yo F admitted for a humerus and wrist fracture. Required straight catheterization this morning has not voided since. Nursing attempted to place a catheter this afternoon but was unsuccessful. Low bladder scans but patient feels as if she is leaking. Patient is confused so difficult to get an accurate history. Patient denies any previous urologic issues or difficult catheterization in the past Allergies Allergy/AdvReac Type Severity Reaction Status Date / Time Cipro Allergy Intermediate rash and Verified 08/25/17 08:14 itchiness ciprofloxacin [Cipro] Allergy Unknown rash and Verified 06/30/21 10:57 itchiness Home Medications Medication Instructions Recorded Confirmed Type aspirin 81 mg tablet,delayed 81 mg PO QPM 10/24/20 08/10/24 History release baclofen 10 mg tablet 10 mg PO HS 10/24/20 08/10/24 History buspirone 10 mg tablet 10 mg PO TID 10/24/20 08/10/24 History furosemide 20 mg tablet (Lasix) 20 mg PO Q OTHER DAY 10/24/20 08/10/24 History levothyroxine 100 mcg tablet 112 mcg PO DAILYBB 10/24/20 08/10/24 History linagliptin 5 mg tablet (Tradjenta) 5 mg PO QAM 10/24/20 08/10/24 History losartan 100 mg tablet 100 mg PO QAM 10/24/20 08/10/24 History mirtazapine 30 mg tablet (Remeron) 30 mg PO PM 10/24/20 08/10/24 History pantoprazole 40 mg tablet,delayed 40 mg PO QAM 10/24/20 08/10/24 History release (Protonix) simvastatin 20 mg tablet (Zocor) 20 mg PO QPM 10/24/20 08/10/24 History venlafaxine 150 mg tablet,extended 150 mg PO QAM 10/24/20 08/10/24 History release 24 hr venlafaxine 75 mg tablet 75 mg PO QAM 10/24/20 08/10/24 History vitamins A,C,I-ijfm-csyxid 4,296 1 cap PO BID 10/24/20 08/10/24 History mcg-226 mg-90 mg capsule (PreserVision AREDS) gabapentin 100 mg capsule 100 mg PO BID 08/10/24 08/10/24 History lorazepam 0.5 mg tablet (Ativan) 0.5 mg PO .AFTERNOON 08/10/24 08/10/24 History metoprolol succinate 50 mg 50 mg PO DAILY 08/10/24 08/10/24 History tablet,extended release 24 hr Patient History Medical History 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 "ALL MY LIFE" - 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 Macular degeneration Acid reflux Colitis "BORN WITH" Dizzy spells "JUST ONCE IN AWHILE" - ONGOING FOR YEARS - NONE RECENT, WILL HAPPEN IF GET UP TO QUICK History of colon polyps Family history of reaction to anesthesia DAUGHTER - NAUSEA History of anesthesia reaction COULDN'T GIVE ME A SPINAL; TRIED MULTIPLE TIMES - PT NOT SURE WITH WHAT SURGERY Carpal tunnel syndrome on both sides Pulmonary hypertension 45mmHg 2016 T2DM (type 2 diabetes mellitus) Displaced subtrochanteric fracture of right femur HX - SX FOR OCT 2020 Diverticulosis NO CURRENT PROBLEM WITH CKD (chronic kidney disease) stage 3, GFR 30-59 ml/min PT DENIES KIDNEY PROBLEMS OTHER THAN HX KIDNEY STONES Hypothyroidism HLD (hyperlipidemia) HTN (hypertension) History of pulmonary embolism "ONE IN LUNGS AND ONE IN HEART" 4-5 YRS AGO ? Anxiety and depression Diverticulitis NO CURRENT PROBLEMS WITH Kidney calculi HX Surgical History History of hip surgery RIGHT OCT 2020. right long troch nail done by Dr. Coello. Patient made ASA 3. Unable to get SAB and did GETA with fascia iliaca block. History of tubal ligation History of surgery on arm R ulnar surgery History of left hip replacement History of colonoscopy History of total abdominal hysterectomy and bilateral salpingo-oophorectomy Family History Brother Diabetes Mother Diabetes Father Coronary heart disease Myocardial infarction, Onset Age: 49 Daughter Diabetes Social History Smoking Status: Never smoker Second Hand Exposure: No; Do You Dip or Chew Tobacco: No; Hx Alcohol Use: No Hx Substance Use: No Preferred Language: Mauritian Communication Ability: Effective Maker Up Folding Required: No Beliefs That Will Affect Care: None marital status: / Current Living Situation: Alone Current Living Situation Comment: INDEPENDENT LIVING FOR THE ELDERLY - HAVE OWN APARTMENT current occupational status: retired Feels Safe at Home: Yes Assistive Devices: Walker Physical Exam Physical Exam: General: Alert and oriented, no acute distress HEENT: Normocephalic, mucous membranes moist Pulmonary: Nonlabored respirations Abdomen: Nondistended : Normal external female genitalia but grade 3 pelvic organ prolapse obscuring the urethra Extremities: Moves all 4 spontaneously Neuro: No gross deficits Skin: Warm, dry, no rashes noted Results & Data Vital Signs (Past 12 Hours) Vital Signs Temp Pulse Pulse Pulse Resp BP Pulse Ox 08/11/24 15:19 68 08/11/24 15:10 36.6 C 64 18 106/66 94 08/11/24 13:00 37.2 C 70 16 96/59 L 95 08/11/24 11:08 97/50 L 08/11/24 11:05 89/49 L 08/11/24 08:24 37.0 C 83 18 142/78 H 94 08/11/24 07:42 36.7 C 82 18 141/75 H 95 08/11/24 07:26 80 O2 Del Method 08/11/24 15:19 08/11/24 15:10 Room Air 08/11/24 13:00 Room Air 08/11/24 11:08 08/11/24 11:05 08/11/24 08:24 Room Air 08/11/24 07:42 Room Air 08/11/24 07:26 PG Care Time/CCT Total # of Minutes Spent Total Time Spent with Patient: Total time spent is greater than 50% in coordination of care (as documented) at patient's floor/unit and/or counseling patient: Coding Level of Care Code 65349 INT INP/OBS CARE 2/55MIN Diagnoses Prolapse of female pelvic organs N81.9 Urinary retention R33.9
[2024-08-12 06:49] LABS: Basophils # (auto) 0.03 K/uL (0.00-0.20); Basophils % (auto) 0.2 %; Eosinophils # (auto) 0.27 K/uL (0.00-0.50); Eosinophils % (auto) 2.2 %; Hematocrit (blood only) 30.7 % (37.0-47.0); Hemoglobin 9.6 g/dl (12.0-16.0); Immature Granulocytes # (auto) 0.05 K/uL (0.01-0.20); Immature Granulocytes % (auto) 0.4 %; Lymphocytes # (auto) 2.07 K/uL (1.20-3.40); Lymphocytes % (auto) 16.9 %; Mean Corpuscular Hemoglobin 31.2 pg (25.0-34.0); Mean Corpuscular Hgb Conc 31.3 g/dL (32.0-36.0); Mean Corpuscular Volume 99.7 fL (80.0-100.0); Mean Platelet Volume 9.8 fL (9.4-12.4); Monocytes # (auto) 1.65 K/uL (0.11-0.59); Monocytes % (auto) 13.4 %; Neutrophils # (auto) 8.21 K/uL (1.40-6.50); Neutrophils % (auto) 66.9 %; Platelet Count 215 K/uL (130-400); RDW Coefficient of Variation 13.2 % (11.5-14.5); RDW Standard Deviation 48.2 fL (36.4-46.3); Red Blood Count 3.08 M/uL (4.20-5.40); White Blood Count 12.28 K/ul (4.8-10.8)
[2024-08-12 07:14] LABS: BUN Creatinine Ratio 27.5 (10-20); Calcium 8.5 mg/dl (8.6-10.3); Creatinine Clr Calc Pharmacy 22.7 ml/min; Potassium 4.7 mmol/L (3.5-5.1)
--- OUTSIDE RECORDS SUMMARY | 2024-08-12 08:02 | External Medical Summary | Summary of Care ---
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 Name Role Phone Trevor Mazariegos MD Primary Care Provider [phone] Reason for Referral * Precert (Within 10 days (routine)) - Authorized Specialty Diagnoses / Procedures Referred By Contjanna t Referred To Contact Radiology Diagnoses Sciatica of right side Chronic bilateral low back pain with right-sided sciatica Weakness of right lower extremity Procedures MRI L SPINE WO CONTRAST Harrison Grant MD [address] [place] [address] Phone: tel: fax: Referral ID Status Reason Start Date Expiration Date V isits Requested Visits Authorized [id number] Authorized 07/20/2024 999 999 Reason for Visit * Reason Comments Status Check Pt here today to dis cuss possible cortisone shot to hip Encounter Details Date Type Department Care Team (Latest Contact Info) Description 07/20/2024 12:00 PM EST Office Visit [facility] [place] [address] [place] [facility] [place] [id number] Harrison Grant MD [address] [place] [facility] [place] [id number] Sciatica of right side*; Risk and functional assessment; Chronic bilateral low back pain with right-sided sciatica; Primary osteoarthritis of right hip; Weakness of right lower extremity; Type 2 diabetes mellitus with stage 3b chronic kidney disease, 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 6 Active acetaminophen (TYLENOL) 325 MG Tablet Take 2 Tablets by mouth every 6 hours as needed for Pain. Active Zoster Vac Recomb Adjuvanted 50 MCG/0.5ML Intramuscular Suspension Reconstituted (SHINGRIX) Inject 0.5 mL into a large muscle now 1 Each 0 Active Aspirin 81 MG Oral Capsule Take by mouth . Active Losartan Potassium 100 MG Oral Tablet (Cozaar)Indicatio ns:HTN, goal below 140/90 Take 1 tablet by mouth once daily 100 Tablet 3 3 Active Tradjenta 5 MG Oral Tablet (linaGLIPtin) Take 1 tablet by mouth once daily 90 Tablet 3 4 Active busPIRone HCl 10 MG Oral Tablet (Buspar)Indicatio ns:Anxiety TAKE 1 TABLET BY MOUTH THREE TIMES DAILY 270 Tablet 3 4 Active Metoprolol Succinate ER 50 MG Oral Tablet Extended Release 24 Hour (toPROL XL)Indications:Es sential hypertension Take 1 tablet by mouth once daily 90 Tablet 3 4 Active Pantoprazole Sodium 40 MG Oral Tablet Delayed Release (Protonix)Indicat ions:GERD (gastroesophageal reflux disease) Take 1 tablet by mouth once daily 90 Tablet 3 4 Active Baclofen 10 MG Oral Tablet (Lioresal)Indicat ions:Other osteoporosis without current pathological fracture TAKE 1 TABLET BY MOUTH ONCE DAILY AT BEDTIME 90 Tablet 1 4 Active Furosemide 20 MG Oral Tablet (Lasix) TAKE 1 TABLET BY MOUTH ONCE DAILY IN THE MORNING NEEDED 90 Tablet 1 4 Active Levothyroxine Sodium 112 MCG Oral Tablet (Levoxyl)Indicati ons:Hypothyroidis m, unspecified type Take 1 Tablet by mouth in the morning. (at least 30 min prior to breakfast or other meds). 30 Tablet 11 4 Active Simvastatin 20 MG Oral Tablet (Zocor) Take 1 tablet by mouth once daily 90 Tablet 3 4 Active Venlafaxine HCl ER 75 MG Oral Capsule Extended Release 24 Hour (Effexor XR)Indications:Ad justment disorder with depressed mood,Anxiety TAKE 1 CAPSULE BY MOUTH ONCE DAILY ALONG WITH THE 150MG 90 Capsule 1 4 Active Venlafaxine HCl ER 150 MG Oral Capsule Extended Release 24 Hour (Effexor XR) Take 1 capsule by mouth once daily 90 Capsule 1 4 Active LORazepam 0.5 MG Oral Tablet (Ativan)Indicatio ns:Stress reaction TAKE 1 TABLET BY MOUTH EVERY 6 HOURS NEEDED 90 Tablet 4 Active Mirtazapine 30 MG Oral Tablet (Remeron) TAKE 1 TABLET BY MOUTH AT BEDTIME 90 Tablet 3 4 Active traMADol HCl 50 MG Oral Tablet (Ultram)Indicatio ns:Primary osteoarthritis, unspecified site Take 1 Tablet by mouth every 8 hours as needed for Pain, Severe. For pain. 90 Tablet 4 Active Gabapentin 100 MG Oral Capsule (Neurontin) Take 100mg to 200 mg three times per day for leg pain 90 Capsule 5 4 Active Amoxicillin 500 MG Oral Capsule (Amoxil) one pill three times a day 30 Capsule 2 024 Discontin ued(Patie nt preferenc e/discont inuation) Hospital, Clinic, or Other Facility Administered Medication Ordered Dose Route Frequency Start Date End Date Status methylPREDNISolone acetate (Depo-Medrol) 40 MG/ML inj 40 mgIndications:Sciatic a of right side,Chronic bilateral low back pain with right-sided sciatica,Weakness of right lower extremity 40 mg IM ONCE 07/20/2024 07/20/2024 Dis continued methylPREDNISolone sodium succ (SOLU-Medrol) inj 40 mgIndications:Sciatic a of right side,Chronic bilateral low back pain with right-sided sciatica,Primary osteoarthritis of right hip,Weakness of right lower extremity 40 mg IM ONCE 07/20/2024 07/20/2024 End ed documented as of this encounter (statuses as of 07/20/2024) Active Problems Problem Noted Date Diagnosed Date Type 2 diabetes mellitus wit h stage 3b chronic kidney disease 01/10/2023 Overview: Per CKD protocol Hypertensive kidney disease with stage 3b chronic kidney disease 01/10/2023 Overview: Per CKD protocol Chronic kidney disease, stage 3b 01/10/2023 Overview: Per CKD protocol 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 01/05/2023 Other osteoporosis without current pathological fracture 01/05/2023 Moderate episode of recurrent major depressive d isorder 03/04/2021 Anxiety, generalized 03/04/2021 Diabetic gastroparalysis 01/03/2019 Type 2 diabetes mellitus 01/03/2019 Macular degeneration 07/05/2017 HTN, goal below 140/90 11/05/2014 History of total hip replacement 01/14/2014 Gastroparesis 11/12/2008 Hypothyroidism 11/22/2003 Dyslipidemia, goal to be determined 06/07/2001 Chronic rhinitis 07/26/2000 Insomnia 06/01/2000 Overview (06/06/2017): ICD-10 update of inactive term Gastroesophageal reflux disease without esophagi tis Diaphragmatic hernia Irritable bowel syndrome OCULAR HYPERTENSION documented as of this encounter (statuses as of 07/20/2024) Resolved Problems Problem Noted Date Diagnosed Date Resolved Date Type 2 diabetes mellitus wit h stage 3a chronic kidney disease, without long-term current use of insulin 03/04/2021 01/12/2023 Overview: Per CKD protocol Hypertensive kidney disease with stage 3a chronic kidney disease 03/04/2021 01/12/2023 Overview: Per CKD protocol Stage 3a chronic kidney disease 07/14/2020 01/12/2023 Overview: Per CKD protocol - Per CKD protocol Kidney disease, chronic, sta ge III (GFR 30-59 ml/min) 08/13/2019 07/17/2020 Overview: Per CKD protocol Mild major depression 01/03/20192021 Overview (12/15/2021): Higher specificity on PL Pulmonary embolism and infarction 09/08/2017 2018 Essential hypertension 06/06/201411/05 Overview (06/06/2017): ICD-10 update of inactive term Cough 09/22/2009 07/05/2017 Acute URI 09/22/2009 07/05/2017 Acute sinusitis 09/22/2009 07/05/2017 COPD, severity to be determined 09/22/2009 07/05/2017 COSTOCHONDRITIS 09/22/2009 07/05/2017 Renal colic 04/18/2009 07/05/2017 PULMONARY NODULE - STABLE 04/04/2006 Overview (04/04/2006): last CT was 06/09. Stable nodule. Repeate needed in November 2006. (pt aware) Other osteoporosis without c urrent pathological fracture 08/05/2005 12/29/2021 Overview (06/28/2017): ICD-10 update of inactive term ADVANCE DIRECTIVE INFORMATION 04/30/2005 07/05/2017 Overview (04/30/2005): No, Advance Directive brochure offered , patient declined. Other seborrheic keratosis 06/25/2002 1 10/06/2004 Encounter for long-term (cur rent) use of medications 06/19/2002 08/05/2005 Overview (06/28/2017): ICD-10 update of inactive term WEIGHT GAIN 06/07/2001 07/05/2017 Elevated blood pressure, situational 06/07/2001 07/05/2017 FAM HX-DIABETES MELLITUS 06/07/2001 Chest pain 07/26/2000 08/05/2005 GASTRITIS 07/26/2000 08/05/2005 Dyslipidemia, goal to be determined 07/05/2017 Major depressive disorder Overview (07/18/2019): history STRESS REACT, EMOTIONAL 06/07 Calculus of gallbladder with out mention of cholecystitis or obstruction 09/22/2017 Diverticulosis of colon 12/06 Disorder of liver 09/22/2017 Overview (04/21/2009): fatty liver documented as of this encounter (statuses as of 07/20/2024) Immunizations Name Administration Dates Next Due COVID-19 mRNA, LNP-s, No Pre serve, 2-Dose Series (Moderna) 10/28/2020,09/24/2020 Pneumococcal Conjugate Vacc, 13 Valent (Prevnar) 05/31/2016 Seasonal Influenza Vac., MDV , IM, 0.5 mL (Fluzone) 05/14/2014,06/08/2013,06/22/2010,2008,07/05/2008,07/10/2007,07/15/2006 Seasonal Influenza, High Dos e, Trivalent, PF, IM (Fluzone HD) 06/19/2019,05/15/2018 Seasonal Influenza, PF, 6 M & above, IM , (FluLaval or Fluzone) 07/13/2023,06/19/2019,06/27/2017 Seasonal Influenza, Quadriva lent Hd, 65+ Yrs 05/19/2024,06/08/2022,05/29/2021,2019 Seasonal Influenza, Quadriva lent, No Preserve, IM 05/31/2016 TD, Preservative Free 09/19/2008 TDAP (age 10 and older)(Boostrix) 04/19/2016 Zoster Vaccine Recombinant (Shingrix) 08/19/2020 ,05/23/2020 documented as of this encounter Social History Tobacco Use Types Packs/Day Years Used Date Smoking Tobacco: Never Passive Smoke Exposure: Never Smokeless Tobacco: Never Tobacco Cessation:Counseling Given: Not Answered Comments:significant second hand smoke exposure Alcohol Use Standard Drinks/Week Comments Yes 0 (1 standard drink = 0.6 oz pur e alcohol) wine occ PHQ-2 Answer Date Recorded PHQ Adult Total Score 2 11/04/2023 Hunger Vital Sign Answer Date Recorded Within the past 12 months, y ou worried that your food would run out before you got the money to buy more. Never true 11/04/19 24 Within the past 12 months, t he food you bought just didn't last and you didn't have money to get more. Never true 11/04/2023 Childcare Answer Date Recorded Do you feel overwhelmed with taking care of a child, family member or friend? No 11/04/2023 Does your family need help f inding childcare? (Household - for ages 0-17 years) Not on file 11/04/2023 Clothing Answer Date Recorded Have you been unable to get clothing when it was really needed? No 11/04/2023 Is your family able to get c lothes or diapers when needed? (Household - for ages 0-17 years) Not on file 11/04/2023 Personal Safety Answer Date Recorded Do you feel unsafe or have concerns for your saf ety? No 11/04/2023 Do you have concerns for you r family's safety? (Household - for ages 0-17 years) Not on file 11/04/2023 Utilities Answer Date Recorded Do you have trouble paying y our heating, water, or electric bill? No 11/04/2023 Is your family able to pay t he heat, water, or electric bill? (Household - for ages 0-17 years) Not on file 11/04/2023 Does your family have access to good internet? (Household - for ages 0-17 years) Not on file 11/04/2023 Employment Status Answer Date Recorded Are you unemployed or without regular income? No 11/04/2023 Does the household have a re gular source of income? (Household - for ages 0-17 years) Not on file 11/04/2023 Social Connections Answer Date Recorded How often do you feel lonely or isolated from those around you? Sometimes 11/04/2023 Financial Resource Strain Answer Date R ecorded Do you have any trouble payi ng for your medications, or do you think you might in the future? No 11/04/2023 Does your family have troubl e paying for medicine? (Household - for ages 0-17 years) Not on file 11/04/2023 Transportation Needs Answer Date Record ed READ ONLY Do you have troubl e getting a ride to medical visits or work? Never True 11/04/2023 Does your family have a hard time getting a ride to doctors visits? (Household - for ages 0-17 years) Not on file 11/04/2023 Has lack of transportation k ept you from medical appointments, meetings, work, or from getting things needed for daily living? Check all that apply. (Adult - for ages 18 years and over) Not on file 11/04/2023 Do you (or your family) have trouble finding or paying for a ride (transportation)? (Household - for ages 0-17 years) Not on file 11/04/2023 Housing Stability Answer Date Recorded Do you currently live in a s helter or have no steady place to sleep at night? No 11/04/2023 READ ONLY Do you think you a re at risk of becoming homeless? No 11/04/2023 Does your family worry about paying for your home or becoming homeless? (Household - for ages 0-17 years) Not on file 0 11/04/2023 Are you homeless or worried that you might be in the future? (Adult - for ages 18 years and over) Not on file Are you (or your family) summer eless or worried that you might be in the future? (Household - for ages 0-17 years) Not on file Food Insecurity Answer Date Recorded Do you need food for this week? No 11/04/2023 Are you able to get enough f ood for your family? (Household - for ages 0-17 years) Not on file 11/04/2023 Does your family need food t his week? (Household - for ages 0-17 years) Not on file 11/04/2023 Do you always have enough fo od for your family? (Household - for ages 0-17 years) Not on file 11/04/2023 Comments No Sex and Gender Information Value Date Recorded Sex Assigned at Not on file Legal Sex Female 7:11 AM EST Gender Identity Female 12/21/2022 10:56 AM EDT Sexual Orientation Not on file Occupation Industry Job Start Date Job End Date WORKed AT [employer] Not on file Not on file Not on chayo e documented as of this encounter Last Filed Vital Signs Vital Sign Reading Time Taken Comments Blood Pressure 118/62 07/20/2024 11:53 AM EST Pulse 96 07/20/2024 11:53 AM EST Temperature 37.1 C (98.8 F) 07/20/2024 11:[address] Respiratory Rate 22 07/20/2024 11:53 AM EST Oxygen Saturation 99% 07/20/2024 11:53 AM EST Inhaled Oxygen Concentration - - Weight - - Height - - Body Mass Index - - documented in this encounter Patient Instructions * Patient Instructions* Gretchen Aguilar LPN - 07/20/2024 11:58 AM EST Patient Instructions - Fall Prevention (This education is for all patients over 65 regardless of symptoms) Remember to take your current medications as prescribed. In order to prevent falls, you are encouraged to: Exercise Utilize assistive/adaptive devices Avoid multifocal lenses when walking Avoid hazards in home Maintain a regular toileting schedule Any questions please contact our office. Preventing Falls in the Home (This education is for all patients over 65 regardless of symptoms) As you get older, falls are more likely. Thats because your reaction time slows. Your muscles and joints may also get stiffer, making them less flexible. Illness, medications, and vision changes can also affect your balance. A fall could leave you unable to live on your own. To make your home safer, follow these tips: Floors Put nonskid pads under area rugs Remove throw rugs Replace worn floor coverings Tack carpets firmly to each step on carpeted stairs. Put nonskid strips on the edges of uncarpeted stairs Keep floors and stairs free of clutter and cords Arrange furniture so there are clear pathways Clean up any spills right away Bathrooms Install grab bars in the tub or shower Apply nonskid strips or put a nonskid rubber mat in the tub or shower Sit on a bath chair to bathe Use bathmats with nonskid backing Lighting Keep a flashlight in each room Put a nightlight along the pathway between the bedroom and the bathroom [employer] Patient Education Copyright 2008 - 2010 Leo except where otherwise noted Preventing Falls: Exercises to Improve Balance, Flexibility, Strength, and Staying Power (This education is for all patients over 65 regardless of symptoms) Certain types of exercises may help make you less likely to fall. Try the ones below. Or do other exercises that your healthcare provider suggests. Depending on your health, you may need to start slowly. Dont let that stop you. Even small amounts of exercise can help you. Be sure to talk to yourhealthcare provider before starting any exercise program. Improve Balance Many types of exercise can help improve balance. Gallito chi and yoga are good examples. Heres another one to try. You can do it anytime and almost anywhere. Stand next to a counter or solid support. Push yourself up onto your tiptoes. Hold for 5 seconds. If you start to lose your balance, hold on to the counter. Rest and repeat 5 times. Work up to holding for 20 to 30 seconds, if you can. Increase Flexibility Being more flexible makes it easier for you to move around safely. Try exercises like the seated hamstring stretch. Sit in a chair and put one foot on a stool. Straighten your leg and reach with both hands down either side of your leg. Reach as far down your leg as you can. Hold for about 20 seconds. Go back to the starting position. Then repeat 5 times. Switch legs. Build Strength Resistance exercises help build strength. You can do them without equipment. Or you can use weights, elastic bands, or special machines. One such exercise is called the biceps curl. You can hold a 1 pound weight or even a can of soup. Do this exercise at least 3 times a week. Strive for everyday. Sit up straight in a chair. Keep your elbow close to your body and your wrist straight. Bend your arm, moving your hand up to your shoulder. Then slowly lower your arm. Repeat 5 times. Switch to the other arm. Build Your Staying Power Aerobic exercises make your heart and lungs stronger so you can keep moving longer. Walking and swimming are two of the best types of exercises you can do. Using a stationary bike is great, too. Find an aerobic exercise that you enjoy. Start slowly and build up. Even 5 minutes is helpful. Aimfor a goal of 30 minutes, at least 3 times a week. You dont have to do 30 minutes in one session. Break it up and walk a little throughout the day. More Helpful Tips Start easy. Slowly work up to doing more. Talk with your healthcare provider about the best exercises for you. Call senior centers or health clubs about exercise programs. If needed, have a family member watch you walk every so often to check your stability. Exercise with a friend. Choose an activity you both enjoy. Try exercises that you can do anytime, anywhere. Here are two examples. Have someone with you when you first try these: Practice walking by placing one foot right in front of the other. Stand up and sit down 10 times. Repeat this throughout the day. Leo Patient Education Copyright 2009 - 2010 Leo except where otherwise noted. Preventing Falls: Moving Safely Using a Cane or Walker (This education is for all patients over 65 regardless of symptoms) Keep the cane away from your feet so you dont trip. A walking aid, such as a cane or walker, can help you stay more independent and avoid falls. Remember to keep your walking aid within easy reach when youre in a chair or in bed. And learn how to use it safely so you dont injure yourself. Using a Cane If you have a stronger side, hold the cane on that side. Get your balance. Move the cane and your weaker leg forward. Support your weight on both the cane and your weaker side. Step with your stronger leg. Start again from step 1. If youre using a folding walker, be sure you know how to lock it open. Check that its locked open before each use. Using a Walker Roll the walker (or lift it, if youre using one without wheels) forward about 12 inches. Step forward with your weaker leg first. Use the walker to help keep your balance. Bring your other foot forward to the center of the walker. Start again from step 1. Helpful Tips Check with your healthcare provider about the right walking aid to use. Ask about a walker with a seat attached. Check the tips of your cane or walker to make sure they have nonskid covers. Move slowly from room to room. Dont jackson. Sit down to get dressed. Use a liudmila pack or backpack to keep your hands free. Get help for jobs that mean climbing, even on a stepstool. Leo Patient Education Copyright 2008 - 2010 Leo except where otherwise noted. Urinary Incontinence Plan of Care Documentation: (This education is for all patients over 65 regardless of symptoms) Current medications reconciled. Patient encouraged to: Practice kegal exercises Provide education materials Use the restroom every 2 hours throughout the day Limit caffeine, alcohol, spicy foods and acidic foods Keep a bladder diary Limit fluid intake 3-4 hours before bed Lose weight Prevent constipation Take fluid pills at a time when you can get to the bathroom quickly Control sugar better if diabetic Limit fluid intake to 60 oz. per day Wear support stockings (TEDs)if you have edema Gretchen Aguilar LPN 07/20/2024 Kegel Exercises Kegel exercises dont require special clothing or equipment. Theyre easy to learn and simple to do. And if you do them right, no one can tell youre doing them, so they can be done almost anywhere. Your doctor, nurse, or physical therapist can answer any questions you have and help you get started. A Weak Pelvic Floor The pelvic floor muscles may weaken due to aging, and vaginal childbirth, injury, surgery, chronic cough, or lack of exercise. If the pelvic floor is weak, your bladder and other pelvic organs may sag out of place. The urethra may also open too easily and allow urine to leak out. Kegel exercises can help you strengthen your pelvic floor muscles so they can better support the pelvic organs and control urine flow. How Kegel Exercises Are Done Try each of the Kegel exercises described below. When youre doing them, try not to move your leg, buttock, or stomach muscles. While youre urinating, try to stop the flow of urine. Start and stop it as often as you can. Contract as if you were stopping your urine stream, but do it when youre not urinating. Tighten your rectum as if trying not to pass gas. Contract your anus, but dont move your buttocks. Helpful Hints Do your Kegels as often as you can. The more you do them, the faster youll feel the results. Pick an activity you do often as a reminder. For instance, do your Kegels every time you sit down. Tighten your pelvic floor before you sneeze, get up from a chair, cough, laugh, or lift. This protects your pelvic floor from injury and can help prevent urine leakage. Try to hold each Kegel for a slow count to five. You probably wont be able to hold them for thatlong at first, but keep practicing. It will get easier as your pelvic floor gets stronger. Eventually, special weights that you place in your vagina may be recommended to help make your Kegels even more effective. Leo Patient Education Copyright 2009 - 2011 Leo except where otherwise noted. Here are some helpful tips for your urinary incontinence: (This education is for all patients over 65 regardless of symptoms) Practice Kegel exercises Use the restroom every 2 hours throughout the day Limit caffeine, alcohol, spicy foods, and acidic foods Keep a bladder diary Limit fluid intake 3-4 hours before bed Lose weight Prevent constipation Take fluid pills at a time when can get to the bathroom quickly Control sugar better if diabetic Limit fluid intake to 60 oz. per day Any questions, please feel free to contact our office. documented in this encounter Progress Notes * Harrison Grant MD - 07/20/2024 12:15 PM EST Subjective Yovana Melgoza is a 89 year old female. Chief Complaint Patient presents with Status Check Pt here today to discuss possible cortisone shot to hip HPI: Here for severe rt lower back, rt leg pain, hip pain Known lumbar DDD, advanced rt hip OA Wheelchair , not able to stand up or walk due to severe pain Chronic progressing Rt leg pain is severe , possible from back issue Known type 2 DM, neuropathy, CKD Controlled, taking med Already has tried tramadol , does not help Taking muscle relaxor Used to get rt hip injection but her current sx is more related to back and sciatica PMH: Patient Active Problem List Diagnosis Insomnia Chronic rhinitis Dyslipidemia, goal to be determined Hypothyroidism Gastroesophageal reflux disease without esophagitis Diaphragmatic hernia Irritable bowel syndrome OCULAR HYPERTENSION Gastroparesis History of total hip replacement HTN, goal below 140/90 Macular degeneration Diabetic gastroparalysis (HCC) Type 2 diabetes mellitus (HCC) Moderate episode of recurrent major depressive disorder (HCC) Anxiety, generalized 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 acetaminophen (TYLENOL) 325 MG Tablet Take 2 Tablets by mouth every 6 hours as needed for Pain. Zoster Vac Recomb Adjuvanted 50 MCG/0.5ML Intramuscular Suspension Reconstituted (SHINGRIX) Inject 0.5 mL into a large muscle now 1 Each 0 Aspirin 81 MG Oral Capsule Take by mouth . Losartan Potassium 100 MG Oral Tablet (Cozaar) Take 1 tablet by mouth once daily 100 Tablet 3 Tradjenta 5 MG Oral Tablet (linaGLIPtin) Take 1 tablet by mouth once daily 90 Tablet 3 busPIRone HCl 10 MG Oral Tablet (Buspar) TAKE 1 TABLET BY MOUTH THREE TIMES DAILY 270 Tablet 3 Metoprolol Succinate ER 50 MG Oral Tablet Extended Release 24 Hour (toPROL XL) Take 1 tablet by mouth once daily 90 Tablet 3 Pantoprazole Sodium 40 MG Oral Tablet Delayed Release (Protonix) Take 1 tablet by mouth once daily 90 Tablet 3 Baclofen 10 MG Oral Tablet (Lioresal) TAKE 1 TABLET BY MOUTH ONCE DAILY AT BEDTIME 90 Tablet 1 Furosemide 20 MG Oral Tablet (Lasix) TAKE 1 TABLET BY MOUTH ONCE DAILY IN THE MORNING NEEDED 90 Tablet 1 Levothyroxine Sodium 112 MCG Oral Tablet (Levoxyl) Take 1 Tablet by mouth in the morning. (at least30 min prior to breakfast or other meds). 30 Tablet 11 Simvastatin 20 MG Oral Tablet (Zocor) Take 1 tablet by mouth once daily 90 Tablet 3 Venlafaxine HCl ER 75 MG Oral Capsule Extended Release 24 Hour (Effexor XR) TAKE 1 CAPSULE BY MOUTHONCE DAILY ALONG WITH THE 150MG 90 Capsule 1 Venlafaxine HCl ER 150 MG Oral Capsule Extended Release 24 Hour (Effexor XR) Take 1 capsule by mouth once daily 90 Capsule 1 LORazepam 0.5 MG Oral Tablet (Ativan) TAKE 1 TABLET BY MOUTH EVERY 6 HOURS NEEDED 90 Tablet 0 Mirtazapine 30 MG Oral Tablet (Remeron) TAKE 1 TABLET BY MOUTH AT BEDTIME 90 Tablet 3 traMADol HCl 50 MG Oral Tablet (Ultram) Take 1 Tablet by mouth every 8 hours as needed for Pain, Severe. For pain. 90 Tablet 0 Gabapentin 100 MG Oral Capsule (Neurontin) Take 100mg to 200 mg three times per day for leg pain 90Capsule 5 Current Facility-Administered Medications Medication Dose Route Frequency Provider Last Rate Last Admin methylPREDNISolone sodium succ (SOLU-Medrol) inj 40 mg 40 mg Intramuscular Once Past Medical History: Diagnosis Date Calculus of gallbladder without mention of cholecystitis or obstruction 03/13 Depressive disorder, not elsewhere classified Diaphragmatic hernia Disorder of liver fatty liver Diverticulosis of colon Dyslipidemia, goal to be determined Esophageal reflux HTN, goal below 140/90 Hypothyroidism 11/22/2003 Irritable bowel syndrome Ocular hypertension PULMONARY NODULE - STABLE 04/04/[address] was 06/09. Stable nodule. Repeate needed in November 2006. (pt aware) Stress reaction, emotional post traumatic stress disorder Past Surgical History: Procedure Laterality Date COLONOSCOPY W/ LESION REMOVAL, SNARE 06/04/09 done one polyp 4mm, inflammatory tissue, diverticulosisrepeat in 10years EMG & NCV, 1 EXTREMITY Mateer normal LIGATE/CUT OVIDUCT(S) Tubal Ligation REMOVE CATARACT, INSERT LENS PROSTH Left 01/26/2022 Left EXTRACAPSULAR CATARACT REMOVAL WITH INTRAOCULAR LENS performed by Rashard Ricardo MD at OR [facility] REMOVE CATARACT, INSERT LENS PROSTH Right 02/11/2022 RIGHT EXTRACAPSULAR CATARACT REMOVAL WITH INTRAOCULAR LENS performed by Rashard Ricardo MD at OR [facility] TOTAL HIP REPLACEMENT & PROSTHESIS Left TOTAL HYSTERECTOMY TAHBSO reason unclear ULNAR FX PROXIMAL, REPAIR Right 08/25/2017 Dr. Clark, [facility] Review of patient's allergies indicates: Allergen Reactions Ciprofloxacin Rash Family History Problem Relation Name Age of Onset Diabetes Mother TYPE 2 Hypertension Mother @ 69 YEARS OLD Heart Disorder Mother Eye Problems Mother AMD Heart Disorder Father OF mi AND tb @ 40 YEARS OLD Lung Disorder Father TB Diabetes Grandmother (Maternal) Diabetes Daughter TYPE 2 Cancer Sister Stroke Sister Thyroid Disorder Daughter Eye Problems Sister AMD Eye Problems Brother AMD Eye Problems None Patient denies HX glaucoma, retinal detachments Eye Problems Sister Bind Family Status Relation Status Mo at age 69 ASCVD Fa at age 49 [place] MGMA (Not Specified) Chuy (Not Specified) Sis (Not Specified) Sis (Not Specified) Chuy (Not Specified) Sis (Not Specified) Bro (Not Specified) NONE (Not Specified) Sis (Not Specified) Social History Socioeconomic History Marital status: Spouse name: Not on file Number of children: 3 Years of education: Not on file Highest education level: Not on file Occupational History Occupation: WORKed AT [employer] Comment: retired Tobacco Use Smoking status: Never Passive exposure: Never Smokeless tobacco: Never Tobacco comments: significant second hand smoke exposure Vaping Use Vaping status: Never Used Substance and Sexual Activity Alcohol use: Yes Comment: wine occ Drug use: No Sexual activity: Not Currently Comment: LIVES ALONE [place] Other Topics Concern Service Not Asked Blood Transfusions Not Asked Caffeine Concern Not Asked Occupational Exposure Not Asked Hobby Hazards Not Asked Sleep Concern Not Asked Stress Concern Not Asked Weight Concern Not Asked Special Diet Not Asked Back Care Not Asked Exercise Not Asked Comment: walking 4-5 times weekly about 2 miles, breaks it up 1 in morning, 1 in evening, busy in yard Bike Helmet Not Asked Seat Belt Yes Self-Exams Not Asked Social History Narrative Live in [place], near sister, very close. Social Needs Financial Resource Strain: Low Risk (11/04/2023) Financial Resource Strain Do you have any trouble paying for your medications, or do you think you might in the future? (Adult - for ages 18 years and over): No Does your family have trouble paying for medicine? (Household - for ages 0-17 years): Not on file Food Insecurity: No Food Insecurity (11/04/2023) Food Insecurity Do you need food for this week? (Adult - for ages 18 years and over): No Are you able to get enough food for your family? (Household - for ages 0-17 years): Not on file Does your family need food this week? (Household - for ages 0-17 years): Not on file Do you always have enough food for your family? (Household - for ages 0-17 years): Not on file Transportation Needs: No Transportation Needs (11/04/2023) Transportation Needs Do you have trouble getting a ride to medical visits or work? (Adult - for ages 18 years and over):Never True Does your family have a hard time getting a ride to doctors visits? (Household - for ages 0-17 years): Not on file Has lack of transportation kept you from medical appointments, meetings, work, or from getting things needed for daily living? Check all that apply. (Adult - for ages 18 years and over): Not on file Do you (or your family) have trouble finding or paying for a ride (transportation)? (Household - for ages 0-17 years): Not on file Social Connections: Socially Integrated (11/04/2023) Social Connections How often do you feel lonely or isolated from those around you? (Adult - for ages 18 years and over): Sometimes Housing Stability: Low Risk (11/04/2023) Housing Stability Do you currently live in a fpc or have no steady place to sleep at night? (Adult - for ages 18 years and over): No Do you think you are at risk of becoming homeless? (Adult - for ages 18 years and over): No Does your family worry about paying for your home or becoming homeless? (Household - for ages 0-17 years): Not on file Are you homeless or worried that you might be in the future? (Adult - for ages 18 years and over): Not on file Are you (or your family) homeless or worried that you might be in the future? (Household - for ages0-17 years): Not on file Review of Systems Constitutional: Positive for activity change (declinging) and fatigue. Negative for appetite change, chills, diaphoresis, fever and unexpected weight change. Respiratory: Negative for shortness of breath. Cardiovascular: Negative for leg swelling. Gastrointestinal: Positive for abdominal pain (radiating pain from lower back to lower abd). Endocrine: Negative. Genitourinary: Positive for pelvic pain. Musculoskeletal: Positive for arthralgias (rt hip , knee), back pain and gait problem (rt leg weakness, so painful). Neurological: Positive for weakness (rt leg) and numbness (rt leg). Psychiatric/Behavioral: Positive for sleep disturbance. Negative for agitation and behavioral problems. The patient is nervous/anxious. Objective BP 118/62 | Pulse 96 | Temp 37.1 C (98.8 F) (Tympanic) | Resp 22 | SpO2 99% Physical Exam Constitutional: General: She is in acute distress. Appearance: Normal appearance. She is obese. She is not toxic-appearing or diaphoretic. HENT: Head: Normocephalic and atraumatic. Nose: Nose normal. Eyes: Extraocular Movements: Extraocular movements intact. Musculoskeletal: General: Tenderness (lower back , rt hip) present. Right lower leg: No edema. Left lower leg: No edema. Neurological: Mental Status: She is alert. Cranial Nerves: No cranial nerve deficit. Sensory: Sensory deficit (rt thigh) present. Motor: Weakness (rt leg) present. Psychiatric: Comments: Anxiety ASSESSMENT/PLAN: Sciatica of right side (Primary) - XR L SPINE 2-3 VIEWS - MRI L SPINE WO CONTRAST; Future; Expected date: 07/20/2024 - methylPREDNISolone sodium succ (SOLU-Medrol) inj 40 mg Risk and functional assessment Chronic bilateral low back pain with right-sided sciatica - XR L SPINE 2-3 VIEWS - MRI L SPINE WO CONTRAST; Future; Expected date: 07/20/2024 - methylPREDNISolone sodium succ (SOLU-Medrol) inj 40 mg Primary osteoarthritis of right hip - methylPREDNISolone sodium succ (SOLU-Medrol) inj 40 mg Weakness of right lower extremity - XR L SPINE 2-3 VIEWS - MRI L SPINE WO CONTRAST; Future; Expected date: 07/20/2024 - methylPREDNISolone sodium succ (SOLU-Medrol) inj 40 mg Type 2 diabetes mellitus with stage 3b chronic kidney disease, unspecified whether 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) 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) Chronic kidney disease, stage 3b (HCC) Other orders - Gabapentin 100 MG Oral Capsule (Neurontin); Take 100mg to 200 mg three times per day for leg pain Trial of gabapentin Needs to get MRI most likely If pain is not getting better, go to ER Harrison Grant MD * Gretchen Aguilar LPN - 07/20/2024 11:58 AM EST Fall Risk Plan of Care Documentation: - Current medications reconciled Patient encouraged to: - Exercise - Provide education materials for Core strengthening - Utilize assistive/adaptive devices - Provide education materials - Avoid multifocal lenses when walking - Avoid hazards in home - Provide education materials - Maintain a regular toileting schedule Gretchen Aguilar LPN 07/20/2024 Immunization Administration Documentation Time Out Procedure Performed: Yes Patient Identified (Ask Name/Date of ): Yes Does the patient have a fever greater than 101 degrees today? No Patient allergic to latex? No VFC Stock: No Injection(s) verified: Yes, Injection Name: Solu-medrol 40 mg Verified Side and Site: Yes Verified Shot(s) with Parent(s)/Patient: Yes documented in this encounter Nursing Notes * Gretchen Aguilar LPN - 07/20/2024 11:50 AM EST Chief Complaint Patient presents with Status Check Pt here today to discuss possible cortisone shot to hip documented in this encounter Plan of Treatment Upcoming Encounters Date Type Department Care Team (Late st Contact Info) Description 10/08/2024 9:00 AM EST [facility] [address] [id number] Trevor Mazariegos MD [address] [facility] [place] [address] Scheduled Orders Name Type Priority Associated Diagnoses Orde r Schedule XR L SPINE 2-3 VIEWS Medical Imaging Routine Sciatica of right side Chronic bilateral low back pain with right-sided sciatica Weakness of right lower extremity Ordered: 07/20/2024 MRI L SPINE WO CONTRAST Medical Imaging Routine Sciatica of right side Chronic bilateral low back pain with right-sided sciatica Weakness of right lower extremity Expected: 07/20/2024, Expires: 08/19/2025 Health Maintenance Due Date Last Done Comments *BISPHONATE OR OTHER ACCEPTABLE MEDICATION NEEDED FOR OSTEOPOROSIS (REFER TO SMARTSET #1146) 01/07/2023 DXA Scan 04/01/2023 04/01/2021, 11/04, 11/24/2009, Additional history exists Adult Wellness Visit 12/22/2023 12/21/2022 COVID-19 Vaccine ( season) 2024 10/28/2020, 09/24/2020 HbA1c 09/13/2024 03/13/2024, 10/07, 07/18/2023, Additional history exists Albumin/Creatinine Ratio 10/28/2024 024, 07/07/2022, 10/24/2020 CKD HGB USE SMARTSET 69842 10/28/202410/28, 01/05/2023, 12/28/2021, Additional history exists CKD PHOS USE SMARTSET 73392 10/28/202410/07, 01/05/2023, 12/28/2021 Depression Monitoring 11/03/2024 11/04/2023 Diabetic Eye Exam 12/05/2024 12/06/2023, , 01/01/2022, Additional history exists Diabetic Foot Exam 12/05/2024 12/06/2023, 0 12/21/2022, 07/20/2019 TSH 03/13/2025 03/13/2024, 07/06, 01/05/2023, Additional history exists DTap/Tdap Vaccines (2 - Td or Tdap) 04/19/2026 04/19/2016, 09/19/2008, 01/17/1998 VITAMIN D LEVEL ONCE IN A LIFETIME-USE SMARTSET# [id number] Completed 01/12/2011, 10/27/2009 Pneumococcal Vaccine: 65+ Years Completed 05/31/2016, 06/19/2002 Zoster Vaccines Completed 08/19/2020, 05/23/2020 Influenza Vaccine (FLU shot) Completed , 07/13/2023, 06/08/2022, Additional history exists HPV (Gardasil) Vaccine Aged Out No lo nger eligible based on patient's age to complete this topic Hepatitis B Vaccine Aged Out No longe r eligible based on patient's age to complete this topic MENINGOCOCCAL (MENACTRA/MENVEO) Aged Out No longer eligible based on patient's age to complete this topic documented as of this encounter Medical Devices Implanted Type Area Personal Banking Advisor Device Identifier Shelf Expiration Date Model / Serial / Lot Lens Intraoc 24.0 - [id number] - [id number] Implanted:Qty: 1 on 01/26/2022 by Rashard Ricardo MD at OR [facility] Left: Eye [employer] 10/05/2026 [id number] / [id number] / [id number] Lens Intraoc 19.5 - [id number] - [id number] Implanted:Qty: 1 on 02/11/2022 by Rashard Ricardo MD at OR [facility] Right: Eye [employer] 09/04/2026 [id number] / [id number] / [id number] documented as of this encounter Visit Diagnoses Diagnosis Sciatica of right side- Primary Sciatica Risk and functional assessment Screening for unspecified condition 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 Primary localized osteoarthrosis, pelvic region and thigh Weakness of right lower extremity Type 2 diabetes mellitus with stage 3b chronic kidney disease, unspecified whether fci insulin use (HCC) 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) Chronic kidney disease, stage 3b (HCC) documented in this encounter Administered Medications Inactive Administered Medications - up to 3 most recent administrations Medication Order MAR Action Action Date Dose Rate Site methylPREDNISolone sodium succ (SOLU-Medrol) inj 40 mg 40 mg, Intramuscular, ONCE, On Tue07/20/24 at 1300, For 1 doseIndications:Sciatica of right side,Chronic bilateral low back pain with right-sided sciatica,Primary osteoarthritis of right hip,Weakness of right lower extremity Given 07/20/2024 12:24 PM EST 40 mg Dorsogluteal Right documented in this encounter Advance Directives Documents on File Type Date Recorded Patient 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
--- OUTSIDE RECORDS SUMMARY | 2024-08-12 08:02 | External Medical Summary | Summary of Care ---
Author Name Unknown Organization [facility] Address [address] [place] [address] Phone [phone] Care Team Providers Care Layout Operator Name Role Phone Ann Friedman MD Primary Care Provider [phone] Reason for Visit * Reason Comments eRx-Medication Refill Encounter Details Date Type Department Care Team (Late st Contact Info) Description 08/04/2024 Refill [facility] [address] [place] [address] Ann Friedman MD [address] [place] [address] Other osteoporosis without current pathological fracture Allergies Active Allergy Reactions Criticality Noted Date Comments Ciprofloxacin Rash 08/01/2013 documented as of this encounter (statuses as of 08/06/2024) Medications Multiple Vitamins-Minerals (PRESERVISION AREDS) Capsule Take 1 Capsule by mouth in the morning. 09/17/19 16 Active acetaminophen (TYLENOL) 325 MG Tablet Take 2 Tablets by mouth every 6 hours as needed for Pain. Active Zoster Vac Recomb Adjuvanted 50 MCG/0.5ML Intramuscular Suspension Reconstituted (SHINGRIX) Inject 0.5 mL into a large muscle now 1 Each 08/07/20 20 Active Aspirin 81 MG Oral Capsule Take by mouth . Active Losartan Potassium 100 MG Oral Tablet (Cozaar)Indicatio ns:HTN, goal below 140/90 Take 1 tablet by mouth once daily 100 Tablet 3 08/16/20 23 Active Tradjenta 5 MG Oral Tablet (linaGLIPtin) Take 1 tablet by mouth once daily 90 Tablet 3 11/29/19 24 Active busPIRone HCl 10 MG Oral Tablet (Buspar)Indicatio ns:Anxiety TAKE 1 TABLET BY MOUTH THREE TIMES DAILY 270 Tablet 3 01/26/20 24 Active Metoprolol Succinate ER 50 MG Oral Tablet Extended Release 24 Hour (toPROL XL)Indications:Es sential hypertension Take 1 tablet by mouth once daily 90 Tablet 3 02/08/20 24 Active Pantoprazole Sodium 40 MG Oral Tablet Delayed Release (Protonix)Indicat ions:GERD (gastroesophageal reflux disease) Take 1 tablet by mouth once daily 90 Tablet 3 02/08/20 24 Active Furosemide 20 MG Oral Tablet (Lasix) TAKE 1 TABLET BY MOUTH ONCE DAILY IN THE MORNING NEEDED 90 Tablet 03/19/20 24 Active Levothyroxine Sodium 112 MCG Oral Tablet (Levoxyl)Indicati ons:Hypothyroidis m, unspecified type Take 1 Tablet by mouth in the morning. (at least 30 min prior to breakfast or other meds). 30 Tablet 03/28/20 24 Active Simvastatin 20 MG Oral Tablet (Zocor) Take 1 tablet by mouth once daily 90 Tablet 3 03/31/20 24 Active Venlafaxine HCl ER 75 MG Oral Capsule Extended Release 24 Hour (Effexor XR)Indications:Ad justment disorder with depressed mood,Anxiety TAKE 1 CAPSULE BY MOUTH ONCE DAILY ALONG WITH THE 150MG 90 Capsule 04/02/20 24 Active Venlafaxine HCl ER 150 MG Oral Capsule Extended Release 24 Hour (Effexor XR) Take 1 capsule by mouth once daily 90 Capsule 1 04/02/20 24 Active LORazepam 0.5 MG Oral Tablet (Ativan)Indicatio ns:Stress reaction TAKE 1 TABLET BY MOUTH EVERY 6 HOURS NEEDED 90 Tablet 05/11/20 24 Active Mirtazapine 30 MG Oral Tablet (Remeron) TAKE 1 TABLET BY MOUTH AT BEDTIME 90 Tablet 3 05/21/20 24 Active traMADol HCl 50 MG Oral Tablet (Ultram)Indicatio ns:Primary osteoarthritis, unspecified site Take 1 Tablet by mouth every 8 hours as needed for Pain, Severe. For pain. 90 Tablet 07/19/20 24 Active Gabapentin 100 MG Oral Capsule (Neurontin) Take 100mg to 200 mg three times per day for leg pain 90 Capsule 5 07/20/20 24 Active Baclofen 10 MG Oral Tablet (Lioresal)Indicat ions:Other osteoporosis without current pathological fracture TAKE 1 TABLET BY MOUTH ONCE DAILY AT BEDTIME 90 Tablet 1 08/06/20 24 Active Baclofen 10 MG Oral Tablet (Lioresal)Indicat ions:Other osteoporosis without current pathological fracture TAKE 1 TABLET BY MOUTH ONCE DAILY AT BEDTIME 90 Tablet 1 02/16/20 24 024 Discontinued documented as of this encounter (statuses as of 08/06/2024) Active Problems Problem Noted Date Diagnosed Date [...] as of this encounter (statuses as of 08/06/2024) Resolved Problems Problem Noted Date Diagnosed Date [...] as of this encounter (statuses as of 08/06/2024) Immunizations Name Administration Dates Next Due COVID-19 [...] Passive Smoke Exposure: Never Smokeless Tobacco: Never Comments:significant second hand smoke exposure Alcohol Use [...] Start Date Job End Date WORKed AT [employer] Not on file Not on file Not on chayo e documented as of this encounter Miscellaneous Notes * Telephone Encounter - Ann Friedman MD - 08/06/2024 10:49 AM ESTSigned Prescriptions: Disp Refills Baclofen 10 MG Oral Tablet (Lioresal) 90 Tab*1 Sig: TAKE 1 TABLET BY MOUTH ONCE DAILY AT BEDTIMEAuthorizing Provider: ANN FRIEDMAN * Telephone Encounter - Jeannine Foster [facility] - 08/06/2024 6:36 AM EST Pending Prescriptions: Disp Refills Baclofen 10 MG Oral Tablet 90 Tab*0 Sig: TAKE 1 TABLET BY MOUTH ONCE DAILY AT BEDTIME * Telephone Encounter - Jeannine Foster [facility] - 08/06/2024 6:36 AM EST Telepharmacy is currently not authorized to approve refills for this class of medication per refillprotocol. Thank you, Jeannine Foster, PharmD Staff Pharmacist Refill Call Center [phone] 08/06/2024, 6:36 AM Pending Prescriptions: Disp Refills Baclofen 10 MG Oral Tablet 90 Tab*0 Sig: TAKE 1 TABLET BY MOUTH ONCE DAILY AT BEDTIME Last Visit: 07/20/2024 (in office), Visit date not found (telemedicine) Next Visit: Visit date not found If no future appointments scheduled, and last appointment is greater than a year ago, please schedule patient for a follow-up appointment Last date the medication was ordered: 02/16/24 Pharmacy: [facility] [address] [address] [place] Is this request for a controlled substance?No Urine Drug Screen:No results found. However, due to the size of the patient record, not all encounters were searched. Please check Results Review for a complete set of results. Patient Phone Numbers Labs: Lab Results Component Value Date/Time CREAT 1.3 (H) 03/13/2024 08:49 AM CREAT 1.27 (A) 10/24/2020 12:00 AM CREAT 1.3 (H) 08/27/2020 07:56 AM POTASSIUM 5.6 (H) 03/13/2024 08:49 AM POTASSIUM 5.1 10/24/2020 12:00 AM POTASSIUM 4.5 08/27/2020 07:56 AM TSH 5.12 (H) 03/13/2024 08:49 AM TSH 0.59 08/27/2020 07:56 AM LDL 68 03/13/2024 08:49 AM LDL 100 08/27/2020 07:56 AM LDL 98 07/06/2018 09:57 AM LDL 82 08/05/2014 10:32 AM LDL 146. (H) 11/09/1996 08:40 AM ALT 17 01/05/2023 10:01 AM ALT 18 04/29/2020 09:03 AM ALT 31 11/09/1996 08:40 AM HGBA1C 6.2 (H) 03/13/2024 08:49 AM HGBA1C 7.0 (H) 08/27/2020 07:56 AM documented in this encounter Plan of Treatment Upcoming Encounters Date Type Department Care Team (Late st Contact Info) Description 10/08/2024 9:00 AM EST Office Visit [facility] [address] [phone] Ann Friedman MD [address] [address] Health Maintenance Due Date Last Done Comments *BISPHONATE OR OTHER ACCEPTABLE MEDICATION NEEDED FOR OSTEOPOROSIS (REFER TO SMARTSET #1146) 01/07/2023 DXA Scan 04/01/2023 04/01/2021, 11/04, 11/24/2009, Additional history exists Adult Wellness Visit 12/22/2023 12/21/2022 COVID-19 Vaccine ( season) 2024 10/28/2020, 09/24/2020 HbA1c 09/13/2024 03/13/2024, 10/07, 07/18/2023, Additional history exists Albumin/Creatinine Ratio 10/28/2024 024, 07/07/2022, 10/24/2020 CKD HGB USE SMARTSET 68985 10/28/202410/28, 01/05/2023, 12/28/2021, Additional history exists CKD PHOS USE SMARTSET 10308 10/28/202410/07, 01/05/2023, 12/28/2021 Depression Monitoring 11/03/2024 11/04/2023 Diabetic Eye Exam 12/05/2024 12/06/2023, , 01/01/2022, Additional history exists Diabetic Foot Exam 12/05/2024 12/06/2023, 0 12/21/2022, 07/20/2019 TSH 03/13/2025 03/13/2024, 07/06, 01/05/2023, Additional history exists DTap/Tdap Vaccines (2 - Td or Tdap) 04/19/2026 04/19/2016, 09/19/2008, 01/17/1998 VITAMIN D LEVEL ONCE IN A LIFETIME-USE SMARTSET# 83448 Completed 01/12/2011, 10/27/2009 Pneumococcal Vaccine: 65+ Years [...] this encounter Medical Devices Implanted Type Area Communications Project Manager Device Identifier Shelf Expiration Date Model / Serial / Lot Lens Intraoc 24.0 - [id number] - [id number] Implanted:Qty: 1 on 01/26/2022 by Rashard Ricardo MD at [facility] Left: Eye [employer] 10/05/2026 [id number] / [id number] / [id number] Lens Intraoc 19.5 - [id number] - [id number] Implanted:Qty: 1 on 02/11/2022 by Rashard Ricardo MD at [facility] Right: Eye [employer] 09/04/2026 [id number] / [id number] / [id number] documented as of this encounter Visit Diagnoses Diagnosis Other osteoporosis without current pathological fracture documented in this encounter Advance Directives Documents on File Type Date Recorded Patient Transmission Rebuilder Expl anation Power of Superintendent [employer] 09/29/2017 Gregory Melgoza POWER OF NEWS DEPARTMENT INTERN Care Teams Layout Operator Relationship Specialty Start Date End Date Ann Friedman MD [address] [place] [address] PCP - General Family Medicine 07/09/13 documented as of this encounter
--- NOTE | 2024-08-12 08:23 | Electrocardiogram Report ---
Test Reason : Blood Pressure : */* mmHG Vent. Rate : 64 BPM Atrial Rate : 64 BPM P-R Int : 154 ms QRS Dur : 124 ms QT Int : 422 ms P-R-T Axes : -11 -77 6 degrees QTcB Int : 435 ms Normal sinus rhythm Left anterior fascicular block Right bundle branch block Abnormal ECG When compared with ECG of 10-Aug-2024 08:48, No significant change Confirmed by Neville Prado ([id number]) on 08/12/2024 8:22:24 AM Referred By: REFERRED SELF Confirmed By: Neville Prado
--- NOTE | 2024-08-12 13:14 | Orthopedic Progress Note ---
Date of Service August 12, 2024 Assessment & Plan (1) Fracture of radius, distal, left, closed: (2) Fracture of humerus, left, closed: Overall she is doing about as well as expected. She will be in the arm sling for about 6 weeks. She is orthopedically stable for discharge when medically ready. She can follow-up with orthopedics in 2 weeks. Will remove her splint and get x-rays at that time. Full orthopedic discharge instructions were placed in the discharge summary. Latanya Yen was seen and examined at bedside this morning. Overall she is doing fairly well. She is having some pain in her left arm which is to be expected. Her daughter was with her in the room today.. Review of Systems All systems reviewed & are unremarkable except as noted in HPI & below. Physical Exam On physical exam of the left shoulder, she is wearing her sling as instructed. The coaptation splint is in place. She has active motion of her fingers.. Results & Data Results & Data Laboratory Results . Diagnostic Findings . PG Care Time/CCT Total # of Minutes Spent Total Time Spent with Patient: Total time spent is greater than 50% in coordination of care (as documented) at patient's floor/unit and/or counseling patient: Coding Level of Care Code 49959 Post Operative Follow-Up Diagnoses Fracture of radius, distal, left, closed S52.502A Fracture of humerus, left, closed S42.302A
--- NOTE | 2024-08-12 13:14 | Hospitalist Progress Note ---
Date of Service August 12, 2024 Assessment & Plan (1) Fracture of humerus, left, closed: (2) Fracture of radius, distal, left, closed: (3) Fall: Plan: Patient is 89 year old female with PMH HTN, HLD, DM II, CKD III, depression, anxiety, hypothyroidism presented to ER with complaint of ground level fall this morning after getting up out of bed and feeling lightheaded. Denies LOC, CP, SOB Fracture of the Left Humerus and left distal Radius CT Head: No acute intracranial abnormality CT C-Spine: no acute fracture Left Shoulder xray: Acute to subacute appearing comminuted, impacted and mildly displaced proximal humeral fracture. Right knee x-ray: No acute fracture In ER given IV Tylenol, total morphine 4 mg IV, fentanyl 50 mcg IV, Zofran Placed in splint in ER Pain control hydrocodone, morphine as needed pain. Patient reports in past oxycodone made her "feel weird" so prefers hydrocodone Hold home aspirin pending possible surgical procedure Appreciate Ortho input and recommendation The left upper extremity is in a sling for continued conservative management with a follow-up in orthopedic office in 2 weeks The patient complains more pain and will be given additional pain medications Continue PT OT Complains of increasing pain in the left upper extremity Her doses of morphine have been increased to 4 mg Q4 hourly as needed Severe pain in the right hip Right hip movement is moderately painful Right knee x-ray did not show any fracture Will get x-ray of the right hip to rule out any fracture X-ray of the right hip did show old healed proximal femoral fracture with intact hardware and mild arthritic changes of the right hipno fracture identified Will continue with physical therapy #Peripheral neuropathy Continue gabapentin Discussed with the daughter and she will have her usual doses of gabapentin as an outpatient (4) Dizziness: Plan: Chronic dizziness with sitting up, standing and walking Suspect orthostatic component Negative troponin EKG: sinus rhythm, rate 73, RBBB per my interpretation. Per chart review chronic RBBB CXR: Cardiomegaly, pulmonary vascular congestion, possible small left pleural effusion, left basilar opacity suggestive of atelectasis Obtain orthostatic vitals Fall precautions (5) T2DM (type 2 diabetes mellitus): Plan: A1c: 6.2 on 03/13/24 Hold home Tradjenta Novolog sliding scale correction per protocol (6) CKD (chronic kidney disease) stage 3, GFR 30-59 ml/min: Plan: BUN: 41, Cr: 1.35. Baseline Cr: ~1.3 Monitor renal functions, avoid nephrotoxic agents when possible (7) HTN (hypertension): Plan: Hold home Lasix Continue metoprolol succinate, losartan with holding parameters Hypotension Blood pressure is noted to be low since this morning with systolic around 96/59 Will hold losartan and continue beta-beata for now with hold parameters (8) HLD (hyperlipidemia): Plan: Continue simvastatin (9) History of pulmonary embolism: Plan: Reported history of PE several weeks after hip replacement years ago Will do SCDs for now pending possible procedure but will need to consider possible anticoagulation post op Will restart aspirin from tomorrow if there is no drop in hemoglobin Had aspirin has been started from today (10) Hypothyroidism: Plan: TSH in am Continue home levothyroxine (11) Anxiety and depression: Plan: Continue home venlafaxine, buspirone DVT Prophylaxis SCDs for now Admit med tele DNR/DNI as per discussion with pt Follows with Dr Mazariegos for routine care Admission and Anticipated Discharge Date Admission Date: August 10, 2024 Subjective 08/11/2024 The patient was seen and examined in medical telemetry unit She was lightheaded and dizzy when trying to get out of bed and ended up with a fall at home She has not been able to get up by herself and was brought into the emergency room by the EMS Noted to have Left upper extremity fractures with the humerus and the radius Complains pain in left upper extremity 08/12/2024 The patient was seen and examined in medical telemetry unit in presence of the daughter She has been complaining of more pain with any movement of the left upper extremity She was noted to be minimally confused following the doses of morphine which is resolving Denies any other significant symptoms Review of Systems Review of Systems: All systems reviewed and are unremarkable except as noted below Physical Exam Physical Exam: Sitting on a chair and remains free from any distress Constitutional: well developed, well nourished, + ill appearing and + obese Eyes: PERRL, conjunctivae normal, anicteric sclerae ENMT: external ear and nose normal, oropharynx normal Neck: trachea midline, no thyromegaly Respiratory: no respiratory distress Auscultation: + diminished lung sounds and + crackles (Bibasilar crackles) Cardiovascular: Rate/Rhythm: regular rate and regular rhythm; not tachycardic Heart Sounds: normal S1 and normal S2; no murmur Extremities: + edema (Trace edema bilateral eye) Gastrointestinal (Abdomen): Inspection/Auscultation: normal bowel sounds; abdomen not distended Percussion/Palpation: abdomen soft; abdomen nontender Neurologic: normal touch/pain/proprioception and moves all extremities; no focal motor deficits Lymphatic: no cervical or axillary lymphadenopathy Results & Data Results & Data Vital Signs (Past 12 Hours) Vital Signs Temp Pulse Pulse Pulse Resp BP Pulse Ox 08/12/24 12:13 36.6 C 84 16 108/68 96 08/12/24 08:18 36.5 C 76 18 126/78 93 08/12/24 07:30 74 08/12/24 02:59 36.5 C 71 18 129/76 95 O2 Del Method 08/12/24 12:13 Room Air 08/12/24 08:18 Room Air 08/12/24 07:30 08/12/24 02:59 Room Air Laboratory Results Short CBC 08/12/24 Range/Units 06:30 WBC 12.28 H (4.8-10.8) K/ul Hgb 9.6 L (12.0-16.0) g/dl Hct 30.7 L (37.0-47.0) % Plt Count 215 (130-400) K/uL BMP 08/12/24 06:30 Sodium 139 Potassium 4.7 Chloride 108 H Carbon Dioxide 25 BUN 44 H Creatinine 1.60 H D Glucose 110 H Calcium 8.5 L Medications Administered Current Inpatient Medications Acetaminophen (Acetaminophen 325 Mg Tab) 650 mg PO Q8H PRN PRN Reason: pain or fever Stop: 09/09/24 14:23 Hydrocodone Bitart/Acetaminophen (Hydrocodone/Acetamophen 5/325mg Tab) 1 tab PO Q6H PRN PRN Reason: Moderate Pain (Scale 4, 5, 6) Stop: 08/24/24 14:23 Last Admin: 08/12/24 11:54 Dose: 1 tab Aspirin (Aspirin 81 Mg Ectab) 81 mg PO QPM PIOTR Stop: 09/11/24 20:59 Baclofen (Baclofen 10 Mg Tab) 10 mg PO HS PIOTR Stop: 09/09/24 20:59 Last Admin: 08/11/24 20:01 Dose: 10 mg Buspirone HCl (Buspirone 5 Mg Tab) 10 mg PO TID [facility] Stop: 09/09/24 14:23 Last Admin: 08/12/24 09:08 Dose: 10 mg Gabapentin (Gabapentin 100 Mg Cap) 100 mg PO BID [facility] Stop: 09/09/24 20:59 Last Admin: 08/12/24 09:08 Dose: 100 mg Acetaminophen (Ofirmev) 1,000 mg in 100 mls @ 400 mls/hr IV Q8H PRN PRN Reason: Pain Stop: 08/14/24 11:09 Last Infusion: 08/11/24 21:21 Dose: Infused Sodium Chloride (Nss) 1,000 mls @ 80 mls/hr IV .[id number] [facility] Stop: 08/12/24 15:29 Last Admin: 08/12/24 04:15 Dose: 80 mls/hr Levothyroxine Sodium (Levothyroxine Sodium 112 Mcg Tablet) 112 mcg PO DAILYBB [facility] Stop: 09/10/24 06:29 Last Admin: 08/12/24 06:04 Dose: 112 mcg Lorazepam (Lorazepam 0.5 Mg Tab) 0.5 mg PO .AFTERNOON PRN PRN Reason: Anxiety Stop: 09/09/24 14:23 Last Admin: 08/12/24 09:07 Dose: 0.5 mg Losartan Potassium (Losartan Potassium 50 Mg Tab) 100 mg PO QAM [facility] Stop: 09/10/24 08:59 Last Admin: 08/11/24 08:10 Dose: 100 mg Magnesium Hydroxide (Magnesium Hydroxide Susp 30 Ml Udc) 30 ml PO Q12H PRN PRN Reason: Constipation Stop: 09/09/24 14:23 Metoprolol Succinate (Metoprolol Succ 50mg Ext Rel Tab) 50 mg PO DAILY [facility] Stop: 09/10/24 08:59 Last Admin: 08/12/24 09:08 Dose: 50 mg Mirtazapine (Mirtazapine Tab 15 Mg Tab) 30 mg PO PM [facility] Stop: 09/09/24 20:59 Last Admin: 08/11/24 19:53 Dose: 30 mg Morphine Sulfate (Morphine Sulfate 2 Mg/Ml Carp) 4 mg IV Q4H PRN PRN Reason: Severe Pain (Scale 7, 8, 9,10) Stop: 08/24/24 14:23 Ondansetron HCl (Ondansetron Inj 2 Mg/Ml 2 Ml Vial) 4 mg IV Q6H PRN PRN Reason: Nausea Stop: 09/09/24 14:23 Last Admin: 08/11/24 21:25 Dose: 4 mg Pantoprazole Sodium (Pantoprazole 40 Mg Tab) [facility]: 09/10/24 08:59 Last Admin: 08/12/24 09:08 Dose: 40 mg Polyethylene Glycol (Polyethylene (Miralax) 17 Gm Pack) 17 gm PO DAILY PRN PRN Reason: Constipation Stop: 09/09/24 14:23 Simvastatin (Simvastatin 20 Mg Tab) 20 mg PO QPM [facility] Stop: 09/09/24 20:59 Last Admin: 08/11/24 19:53 Dose: 20 mg Venlafaxine HCl (Venlafaxine Hcl Xr 75 Mg Capxr) [facility] Stop: 09/09/24 14:23 Last Admin: 08/12/24 09:08 Dose: 75 mg Venlafaxine HCl (Venlafaxine Hcl Xr 150 Mg Capxr) 150 mg PO [facility] Stop: 09/09/24 14:23 Last Admin: 08/12/24 09:08 Dose: 150 mg
[2024-08-12] MEDS: ASPIRIN 81 MG ECTAB PO STA (13:36)
[2024-08-12] MEDS: MoRPHine SULFATE 2 MG/ML CARP IV PRN (13:37)
[2024-08-12] MEDS: LIDOCAINE 5% 1 PATCH TD STA (16:44)
[2024-08-12] MEDS: ASPIRIN 81 MG ECTAB PO SCH (20:27)
[2024-08-13 06:38] LABS: Basophils # (auto) 0.03 K/uL (0.00-0.20); Basophils % (auto) 0.3 %; Eosinophils # (auto) 0.29 K/uL (0.00-0.50); Eosinophils % (auto) 2.9 %; Hematocrit (blood only) 30.9 % (37.0-47.0); Hemoglobin 9.6 g/dl (12.0-16.0); Immature Granulocytes # (auto) 0.08 K/uL (0.01-0.20); Immature Granulocytes % (auto) 0.8 %; Lymphocytes # (auto) 1.95 K/uL (1.20-3.40); Lymphocytes % (auto) 19.4 %; Mean Corpuscular Hemoglobin 31.2 pg (25.0-34.0); Mean Corpuscular Hgb Conc 31.1 g/dL (32.0-36.0); Mean Corpuscular Volume 100.3 fL (80.0-100.0); Mean Platelet Volume 10.1 fL (9.4-12.4); Monocytes # (auto) 1.45 K/uL (0.11-0.59); Monocytes % (auto) 14.4 %; Neutrophils # (auto) 6.26 K/uL (1.40-6.50); Neutrophils % (auto) 62.2 %; Platelet Count 211 K/uL (130-400); RDW Coefficient of Variation 13.2 % (11.5-14.5); RDW Standard Deviation 48.6 fL (36.4-46.3); Red Blood Count 3.08 M/uL (4.20-5.40); White Blood Count 10.06 K/ul (4.8-10.8)
[2024-08-13 06:58] LABS: BUN Creatinine Ratio 30.3 (10-20); Calcium 8.6 mg/dl (8.6-10.3); Creatinine Clr Calc Pharmacy 27.8 ml/min; Potassium 4.6 mmol/L (3.5-5.1)
--- NOTE | 2024-08-13 12:49 | Hospitalist Progress Note ---
Date of Service August 13, 2024 Assessment & Plan (1) Fracture of humerus, left, closed: (2) Fracture of radius, distal, left, closed: (3) Fall: Plan: Patient is 89 year old female with PMH HTN, HLD, DM II, CKD III, depression, anxiety, hypothyroidism presented to ER with complaint of ground level fall this morning after getting up out of bed and feeling lightheaded. Denies LOC, CP, SOB Fracture of the Left Humerus and left distal Radius CT Head: No acute intracranial abnormality CT C-Spine: no acute fracture Left Shoulder xray: Acute to subacute appearing comminuted, impacted and mildly displaced proximal humeral fracture. Right knee x-ray: No acute fracture In ER given IV Tylenol, total morphine 4 mg IV, fentanyl 50 mcg IV, Zofran Placed in splint in ER Pain control hydrocodone, morphine as needed pain. Patient reports in past oxycodone made her "feel weird" so prefers hydrocodone Hold home aspirin pending possible surgical procedure Appreciate Ortho input and recommendation The left upper extremity is in a sling for continued conservative management with a follow-up in orthopedic office in 2 weeks The patient complains more pain and will be given additional pain medications Continue PT OT Complains of increasing pain in the left upper extremity Her doses of morphine have been increased to 4 mg Q4 hourly as needed Her pain is not yet controlled and will continue the current pain regimen and try to reduce the narcotic pain medications as much as possible to avoid complications like confusion which she is already having at times Discussed this pain management measure with the patient and she is agreeable to it Will continue with PT and OT and will need rehab placement Severe pain in the right hip Right hip movement is moderately painful Right knee x-ray did not show any fracture Will get x-ray of the right hip to rule out any fracture X-ray of the right hip did show old healed proximal femoral fracture with intact hardware and mild arthritic changes of the right hipno fracture identified Will continue with physical therapy #Peripheral neuropathy Continue gabapentin Discussed with the daughter and she will have her usual doses of gabapentin as an outpatient (4) Dizziness: Plan: Chronic dizziness with sitting up, standing and walking Suspect orthostatic component Negative troponin EKG: sinus rhythm, rate 73, RBBB per my interpretation. Per chart review chronic RBBB CXR: Cardiomegaly, pulmonary vascular congestion, possible small left pleural effusion, left basilar opacity suggestive of atelectasis Obtain orthostatic vitals Fall precautions (5) T2DM (type 2 diabetes mellitus): Plan: A1c: 6.2 on 03/13/24 Hold home Tradjenta Novolog sliding scale correction per protocol (6) CKD (chronic kidney disease) stage 3, GFR 30-59 ml/min: Plan: BUN: 41, Cr: 1.35. Baseline Cr: ~1.3 Monitor renal functions, avoid nephrotoxic agents when possible (7) HTN (hypertension): Plan: Hold home Lasix Continue metoprolol succinate, losartan with holding parameters Hypotension Blood pressure is noted to be low since this morning with systolic around 96/59 Will hold losartan and continue beta-beata for now with hold parameters (8) HLD (hyperlipidemia): Plan: Continue simvastatin (9) History of pulmonary embolism: Plan: Reported history of PE several weeks after hip replacement years ago Will do SCDs for now pending possible procedure but will need to consider possible anticoagulation post op Will restart aspirin from tomorrow if there is no drop in hemoglobin Had aspirin has been started from today (10) Hypothyroidism: Plan: TSH in am Continue home levothyroxine (11) Anxiety and depression: Plan: Continue home venlafaxine, buspirone DVT Prophylaxis SCDs for now Admit med tele DNR/DNI as per discussion with pt Follows with Dr Mazariegos for routine care Admission and Anticipated Discharge Date Admission Date: August 10, 2024 Subjective 08/11/2024 The patient was seen and examined in medical telemetry unit She was lightheaded and dizzy when trying to get out of bed and ended up with a fall at home She has not been able to get up by herself and was brought into the emergency room by the EMS Noted to have Left upper extremity fractures with the humerus and the radius Complains pain in left upper extremity 08/12/2024 The patient was seen and examined in medical telemetry unit in presence of the daughter She has been complaining of more pain with any movement of the left upper extremity She was noted to be minimally confused following the doses of morphine which is resolving Denies any other significant symptoms 08/13/2024 The patient was seen and examined in medical telemetry unit She has been complaining of pain which is not reasonably controlled Has been getting oral and intravenous pain medications to help with and also lidocaine patch She denies any other significant symptoms Review of Systems Review of Systems: All systems reviewed and are unremarkable except as noted below Physical Exam Physical Exam: Sitting on a chair and remains free from any distress Constitutional: well developed, well nourished, + ill appearing and + obese Eyes: PERRL, conjunctivae normal, anicteric sclerae ENMT: external ear and nose normal, oropharynx normal Neck: trachea midline, no thyromegaly Respiratory: no respiratory distress Auscultation: + diminished lung sounds and + crackles (Bibasilar crackles) Cardiovascular: Rate/Rhythm: regular rate and regular rhythm; not tachycardic Heart Sounds: normal S1 and normal S2; no murmur Extremities: + edema (Trace edema bilateral eye) Gastrointestinal (Abdomen): Inspection/Auscultation: normal bowel sounds; abdomen not distended Percussion/Palpation: abdomen soft; abdomen nontender Neurologic: normal touch/pain/proprioception and moves all extremities; no focal motor deficits Lymphatic: no cervical or axillary lymphadenopathy Results & Data Results & Data Vital Signs (Past 12 Hours) Vital Signs Temp Pulse Pulse Resp BP Pulse Ox O2 Del Method 08/13/24 11:47 36.6 C 76 20 103/62 94 Nasal Cannula 08/13/24 10:31 Room Air 08/13/24 08:16 78 08/13/24 08:08 36.6 C 79 16 133/78 93 Nasal Cannula 08/13/24 02:49 36.4 C L 67 18 120/72 94 Room Air Laboratory Results Short CBC 08/13/24 Range/Units 06:00 WBC 10.06 (4.8-10.8) K/ul Hgb 9.6 L (12.0-16.0) g/dl Hct 30.9 L (37.0-47.0) % Plt Count 211 (130-400) K/uL BMP 08/13/24 06:00 Sodium 141 Potassium 4.6 Chloride 110 H Carbon Dioxide 25 BUN 40 H Creatinine 1.32 H Glucose 101 H Calcium 8.6 Medications Administered Current Inpatient Medications Acetaminophen (Acetaminophen 325 Mg Tab) 650 mg PO Q8H PRN PRN Reason: pain or fever Stop: 09/09/24 14:23 Hydrocodone Bitart/Acetaminophen (Hydrocodone/Acetamophen 5/325mg Tab) 1 tab PO Q6H PRN PRN Reason: Moderate Pain (Scale 4, 5, 6) Stop: 08/24/24 14:23 Last Admin: 08/13/24 08:48 Dose: 1 tab Aspirin (Aspirin 81 Mg Ectab) 81 mg PO QPM [facility] Stop: 09/11/24 20:59 Last Admin: 08/12/24 20:27 Dose: 81 mg Baclofen (Baclofen 10 Mg Tab) 10 mg PO HS [facility] Stop: 09/09/24 20:59 Last Admin: 08/12/24 20:56 Dose: 10 mg Buspirone HCl (Buspirone 5 Mg Tab) 10 mg PO TID [facility] Stop: 09/09/24 14:23 Last Admin: 08/13/24 08:44 Dose: 10 mg Gabapentin (Gabapentin 100 Mg Cap) 100 mg PO BID [facility] Stop: 09/09/24 20:59 Last Admin: 08/13/24 08:44 Dose: 100 mg Acetaminophen (Ofirmev) 1,000 mg in 100 mls @ 400 mls/hr IV Q8H PRN PRN Reason: Pain Stop: 08/14/24 11:09 Last Infusion: 08/11/24 21:21 Dose: Infused Levothyroxine Sodium (Levothyroxine Sodium 112 Mcg Tablet) 112 mcg PO DAILYBB [facility] Stop: 09/10/24 06:29 Last Admin: 08/13/24 05:38 Dose: 112 mcg Lorazepam (Lorazepam 0.5 Mg Tab) 0.5 mg PO .AFTERNOON PRN PRN Reason: Anxiety Stop: 09/09/24 14:23 Last Admin: 08/12/24 09:07 Dose: 0.5 mg Losartan Potassium (Losartan Potassium 50 Mg Tab) 100 mg PO QAM [facility] Stop: 09/10/24 08:59 Last Admin: 08/11/24 08:10 Dose: 100 mg Magnesium Hydroxide (Magnesium Hydroxide Susp 30 Ml Udc) 30 ml PO Q12H PRN PRN Reason: Constipation Stop: 09/09/24 14:23 Metoprolol Succinate (Metoprolol Succ 50mg Ext Rel Tab) 50 mg PO DAILY [facility] Stop: 09/10/24 08:59 Last Admin: 08/13/24 08:44 Dose: 50 mg Mirtazapine (Mirtazapine Tab 15 Mg Tab) 30 mg PO PM [facility] Stop: 09/09/24 20:59 Last Admin: 08/12/24 20:27 Dose: 30 mg Morphine Sulfate (Morphine Sulfate 2 Mg/Ml Carp) 4 mg IV Q4H PRN PRN Reason: Severe Pain (Scale 7, 8, 9,10) Stop: 08/24/24 14:23 Last Admin: 08/13/24 11:45 Dose: 4 mg Ondansetron HCl (Ondansetron Inj 2 Mg/Ml 2 Ml Vial) 4 mg IV Q6H PRN PRN Reason: Nausea Stop: 09/09/24 14:23 Last Admin: 08/11/24 21:25 Dose: 4 mg Pantoprazole Sodium ([facility]op[facility] 40 Mg Tab) [facility] [place]: 09/10/24 08:59 Last Admin: 08/13/24 08:44 Dose: 40 mg Polyethylene Glycol (Polyethylene (Miralax) 17 Gm Pack) 17 gm PO DAILY PRN PRN Reason: Constipation Stop: 09/09/24 14:23 Simvastatin (Simvastatin 20 Mg Tab) 20 mg PO QPM [facility] Stop: 09/09/24 20:59 Last Admin: 08/12/24 20:27 Dose: 20 mg Venlafaxine HCl (Venlafaxine Hcl Xr 75 Mg Capxr) [facility] Stop: 09/09/24 14:23 Last Admin: 08/13/24 08:44 Dose: 75 mg Venlafaxine HCl (Venlafaxine Hcl Xr 150 Mg Capxr) [facility] Stop: 09/09/24 14:23 Last Admin: 08/13/24 08:44 Dose: 150 mg
[2024-08-13] MEDS: POLYETHYLENE (MIRALAX) 17 GM PACK PO PRN (13:52)
[2024-08-13] MEDS: ACETAMINOPHEN 325 MG TAB PO PRN (20:58)
--- NOTE | 2024-08-14 14:03 | Hospitalist Progress Note ---
Date of Service August 14, 2024 Assessment & Plan (1) Fracture of humerus, left, closed: (2) Fracture of radius, distal, left, closed: (3) Fall: Plan: Patient is 89 year old female with PMH HTN, HLD, DM II, CKD III, depression, anxiety, hypothyroidism presented to ER with complaint of ground level fall this morning after getting up out of bed and feeling lightheaded. Denies LOC, CP, SOB Fracture of the Left Humerus and left distal Radius CT Head: No acute intracranial abnormality CT C-Spine: no acute fracture Left Shoulder xray: Acute to subacute appearing comminuted, impacted and mildly displaced proximal humeral fracture. Right knee x-ray: No acute fracture In ER given IV Tylenol, total morphine 4 mg IV, fentanyl 50 mcg IV, Zofran Placed in splint in ER Pain control hydrocodone, morphine as needed pain. Patient reports in past oxycodone made her "feel weird" so prefers hydrocodone Hold home aspirin pending possible surgical procedure Appreciate Ortho input and recommendation The left upper extremity is in a sling for continued conservative management with a follow-up in orthopedic office in 2 weeks The patient complains more pain and will be given additional pain medications Continue PT OT Complains of increasing pain in the left upper extremity Her doses of morphine have been increased to 4 mg Q4 hourly as needed Her pain is not yet controlled and will continue the current pain regimen and try to reduce the narcotic pain medications as much as possible to avoid complications like confusion which she is already having at times Discussed this pain management measure with the patient and she is agreeable to it Will continue with PT and OT and will need rehab placement She has been stable and feeling a lot better today and her pain is controlled with current pain medications Will continue PT and OT and CM is working to find a place for her Severe pain in the right hip Right hip movement is moderately painful Right knee x-ray did not show any fracture Will get x-ray of the right hip to rule out any fracture X-ray of the right hip did show old healed proximal femoral fracture with intact hardware and mild arthritic changes of the right hipno fracture identified Pain seems to be reasonably controlled #Peripheral neuropathy Continue gabapentin Discussed with the daughter and she will have her usual doses of gabapentin as an outpatient (4) Dizziness: Plan: Chronic dizziness with sitting up, standing and walking Suspect orthostatic component Negative troponin EKG: sinus rhythm, rate 73, RBBB per my interpretation. 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 Baseline Cr: ~1.3 Monitor renal functions, avoid nephrotoxic agents when possible (7) HTN (hypertension): Plan: Hold home Lasix Continue metoprolol succinate, losartan with holding parameters Hypotension Blood pressure is noted to be low since this morning with systolic around 96/59 Will hold losartan and continue beta-beata for now with hold parameters (8) HLD (hyperlipidemia): Plan: Continue simvastatin (9) History of pulmonary embolism: Plan: Reported history of PE several weeks after hip replacement years ago Will do SCDs for now pending possible procedure but will need to consider possible anticoagulation post op Will restart aspirin from tomorrow if there is no drop in hemoglobin Her aspirin has been restarted (10) Hypothyroidism: Plan: TSH in am Continue home levothyroxine (11) Anxiety and depression: Plan: Continue home venlafaxine, buspirone DVT Prophylaxis SCDs for now Admit med tele DNR/DNI as per discussion with pt Follows with Dr Mazariegos for routine care Admission and Anticipated Discharge Date Admission Date: August 10, 2024 Subjective 08/11/2024 The patient was seen and examined in medical telemetry unit She was lightheaded and dizzy when trying to get out of bed and ended up with a fall at home She has not been able to get up by herself and was brought into the emergency room by the EMS Noted to have Left upper extremity fractures with the humerus and the radius Complains pain in left upper extremity 08/12/2024 The patient was seen and examined in medical telemetry unit in presence of the daughter She has been complaining of more pain with any movement of the left upper extremity She was noted to be minimally confused following the doses of morphine which is resolving Denies any other significant symptoms 08/13/2024 The patient was seen and examined in medical telemetry unit She has been complaining of pain which is not reasonably controlled Has been getting oral and intravenous pain medications to help with and also lidocaine patch She denies any other significant symptoms 08/14/2024 The patient was seen and examined in medical telemetry unit She has been feeling much better today and is out of bed on a chair Denies any significant symptoms and the pain is controlled She is awaiting placement Review of Systems Review of Systems: All systems reviewed and are unremarkable except as noted below Physical Exam Physical Exam: Sitting on a chair and remains free from any distress Constitutional: well developed, well nourished, + ill appearing and + obese Eyes: PERRL, conjunctivae normal, anicteric sclerae ENMT: external ear and nose normal, oropharynx normal Neck: trachea midline, no thyromegaly Respiratory: no respiratory distress Auscultation: + diminished lung sounds and + crackles (Bibasilar crackles) Cardiovascular: Rate/Rhythm: regular rate and regular rhythm; not tachycardic Heart Sounds: normal S1 and normal S2; no murmur Extremities: + edema (Trace edema bilateral eye) Gastrointestinal (Abdomen): Inspection/Auscultation: normal bowel sounds; abdomen not distended Percussion/Palpation: abdomen soft; abdomen nontender Musculoskeletal: Pain in left upper extremity is better controlled Neurologic: normal touch/pain/proprioception and moves all extremities; no focal motor deficits Lymphatic: no cervical or axillary lymphadenopathy Results & Data Results & Data Vital Signs (Past 12 Hours) Vital Signs Temp Pulse Pulse Resp BP Pulse Ox O2 Del Method 08/14/24 11:34 36.6 C 75 18 100/64 95 Room Air 08/14/24 08:36 Room Air 08/14/24 07:16 36.7 C 55 L 18 117/72 98 Room Air 08/14/24 07:05 78 08/14/24 03:40 36.3 C L 71 20 130/63 92 Room Air Medications Administered Current Inpatient Medications Acetaminophen (Acetaminophen 325 Mg Tab) 650 mg PO Q8H PRN PRN Reason: pain or fever Stop: 09/09/24 14:23 Last Admin: 08/13/24 20:58 Dose: 650 mg Hydrocodone Bitart/Acetaminophen (Hydrocodone/Acetamophen 5/325mg Tab) 1 tab PO Q6H PRN PRN Reason: Moderate Pain (Scale 4, 5, 6) Stop: 08/24/24 14:23 Last Admin: 08/14/24 10:04 Dose: 1 tab Aspirin (Aspirin 81 Mg Ectab) 81 mg PO QPM [facility] Stop: 09/11/24 20:59 Last Admin: 08/13/24 21:00 Dose: 81 mg Baclofen (Baclofen 10 Mg Tab) 10 mg PO HS [facility] Stop: 09/09/24 20:59 Last Admin: 08/13/24 21:01 Dose: 10 mg Buspirone HCl (Buspirone 5 Mg Tab) 10 mg PO TID [facility] Stop: 09/09/24 14:23 Last Admin: 08/14/24 12:59 Dose: 10 mg Gabapentin (Gabapentin 100 Mg Cap) 100 mg PO BID [facility] Stop: 09/09/24 20:59 Last Admin: 08/14/24 08:06 Dose: 100 mg Levothyroxine Sodium (Levothyroxine Sodium 112 Mcg Tablet) 112 mcg PO DAILYBB [facility] Stop: 09/10/24 06:29 Last Admin: 08/14/24 05:36 Dose: 112 mcg Lorazepam (Lorazepam 0.5 Mg Tab) 0.5 mg PO .AFTERNOON PRN PRN Reason: Anxiety Stop: 09/09/24 14:23 Last Admin: 08/12/24 09:07 Dose: 0.5 mg Losartan Potassium (Losartan Potassium 50 Mg Tab) 100 mg PO QAM [facility] Stop: 09/10/24 08:59 Last Admin: 08/11/24 08:10 Dose: 100 mg Magnesium Hydroxide (Magnesium Hydroxide Susp 30 Ml Udc) 30 ml PO Q12H PRN PRN Reason: Constipation Stop: 09/09/24 14:23 Metoprolol Succinate (Metoprolol Succ 50mg Ext Rel Tab) 50 mg PO DAILY [facility] Stop: 09/10/24 08:59 Last Admin: 08/14/24 08:05 Dose: 50 mg Mirtazapine (Mirtazapine Tab 15 Mg Tab) 30 mg PO PM [facility] Stop: 09/09/24 20:59 Last Admin: 08/13/24 21:01 Dose: 30 mg Morphine Sulfate (Morphine Sulfate 2 Mg/Ml Carp) 4 mg IV Q4H PRN PRN Reason: Severe Pain (Scale 7, 8, 9,10) Stop: 08/24/24 14:23 Last Admin: 08/14/24 05:36 Dose: 4 mg Ondansetron HCl (Ondansetron Inj 2 Mg/Ml 2 Ml Vial) 4 mg IV Q6H PRN PRN Reason: Nausea Stop: 09/09/24 14:23 Last Admin: 08/11/24 21:25 Dose: 4 mg Pantoprazole Sodium (Pantoprazole 40 Mg Tab) [facility] Stop: 09/10/24 08:59 Last Admin: 08/14/24 08:06 Dose: 40 mg Polyethylene Glycol (Polyethylene (Miralax) 17 Gm Pack) 17 gm PO DAILY PRN PRN Reason: Constipation Stop: 09/09/24 14:23 Last Admin: 08/13/24 13:52 Dose: 17 gm Simvastatin (Simvastatin 20 Mg Tab) 20 mg PO QPM [facility] Stop: 09/09/24 20:59 Last Admin: 08/13/24 21:03 Dose: 20 mg Venlafaxine HCl (Venlafaxine Hcl Xr 75 Mg Capxr) 75 mg PO [facility] Stop: 09/09/24 14:23 Last Admin: 08/14/24 08:06 Dose: 75 mg Venlafaxine HCl (Venlafaxine Hcl Xr 150 Mg Capxr) 150 mg PO [facility] Stop: 09/09/24 14:23 Last Admin: 08/14/24 08:06 Dose: 150 mg
[2024-08-15 06:07] LABS: Basophils # (auto) 0.03 K/uL (0.00-0.20); Basophils % (auto) 0.4 %; Eosinophils # (auto) 0.33 K/uL (0.00-0.50); Eosinophils % (auto) 3.9 %; Hematocrit (blood only) 30.9 % (37.0-47.0); Hemoglobin 9.6 g/dl (12.0-16.0); Immature Granulocytes # (auto) 0.07 K/uL (0.01-0.20); Immature Granulocytes % (auto) 0.8 %; Lymphocytes # (auto) 2.13 K/uL (1.20-3.40); Lymphocytes % (auto) 24.9 %; Mean Corpuscular Hemoglobin 30.9 pg (25.0-34.0); Mean Corpuscular Hgb Conc 31.1 g/dL (32.0-36.0); Mean Corpuscular Volume 99.4 fL (80.0-100.0); Mean Platelet Volume 10.1 fL (9.4-12.4); Monocytes # (auto) 1.13 K/uL (0.11-0.59); Monocytes % (auto) 13.2 %; Neutrophils # (auto) 4.86 K/uL (1.40-6.50); Neutrophils % (auto) 56.8 %; Platelet Count 222 K/uL (130-400); RDW Coefficient of Variation 13.1 % (11.5-14.5); RDW Standard Deviation 46.6 fL (36.4-46.3); Red Blood Count 3.11 M/uL (4.20-5.40); White Blood Count 8.55 K/ul (4.8-10.8)
[2024-08-15 06:33] LABS: Calcium 8.6 mg/dl (8.6-10.3); Magnesium 2.2 mg/dl (1.7-2.4); Potassium 4.7 mmol/L (3.5-5.1)
[2024-08-15 07:01] LABS: Creatinine Clr Calc Pharmacy 38.6 ml/min
[2024-08-15 07:02] LABS: BUN Creatinine Ratio 31.3 (10-20)
[2024-08-15] MEDS: LACTULOSE SYRUP 20 GM/30 ML UDC PO ONE (13:39)
--- NOTE | 2024-08-15 15:36 | Hospitalist Progress Note ---
Date of Service August 15, 2024 Assessment & Plan (1) Dizziness: Plan 89 year old female with PMH of HTN, HLD, DM II, CKD III, depression, anxiety, hypothyroidism presented to ER with complaint of ground level fall the morning of arrival after getting up out of bed and feeling lightheaded. Denies LOC, CP, SOB. She is being managed for the following: Fracture of humerus, left, closed: Fracture of radius, distal, left, closed: Fall: Fracture of the Left Humerus and left distal Radius noted in imaging. CT Head: No acute intracranial abnormality CT C-Spine: no acute fracture Right knee x-ray: No acute fracture Orthopedics evaluated, conservative management, RUE in splint and sling. NWB RUE. f/u orthos in 2 wks on dc. Continue with PT/OT Patient with significant pain needing IV and p.o. pain medications. Continue with bowel regimen.Will add Dulcolax [place] scheduled, hold for bowel movement then continue with p.o. bowel regimen. Severe pain in the right hip: Right hip movement is moderately painful, right knee x-ray did not show any fracture. Right hip x-ray with old healed proximal femur fracture with intact hardware. Continue with pain management and PT OT. Relatively better lately. Peripheral neuropathy: Continue gabapentin. Dizziness: Chronic dizziness with sitting up, standing and walking. Likely orthostatic component. Negative troponin. Fall precaution, continue PT/OT. Other chronic medical conditions: Continue with/resume home meds as when able. T2DM: A1c 6.2 on 03/13/2024. Continue with sliding scale insulin while in hospital. CKD stage III: Stable, monitor. HTN: Hold home Lasix and losartan, continue with home metoprolol with holding parameters. Blood pressure running soft to low normal. 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 Continue with home aspirin. Not on anticoagulation currently. Hypothyroidism: Continue home levothyroxine Anxiety and depression: Continue home venlafaxine and buspirone DVT prophylaxis: Heparin subcu DNI/DNI PT/OT, will need rehab, CM assisting with disposition. P2P done 08/15, declined rehab, stated acute rehab is not extension of hospital care and they don't want pt be discharged if we feel Pt needs daily MD/DO supervision. As of now, pt is medically stable for acute rehab w/ daily MD/DO supervision for concern of ileus/bowel obstruction while needing much pain meds (po /iv needs). currently no bowel obstruction, getting bowel regimen. If she can continue w/ PT at rehab, she might get better with pain management and might need lower pain meds helping w/ constipation issues. Such has been explained to insurance MD over the phone. Admission and Anticipated Discharge Date Admission Date: August 10, 2024 Subjective Patient was seen and examined at bedside. Patient was sitting up in chair, on room air, NAD, resting comfortably. Patient reports feeling better but has significant pain needing with p.o. and IV pain medications. Patient reports not moving bowels since 5 days, will add one-time dose lactulose today, patient is moving gas and does not have belly pain, reports tolerating diet well. Peer to peer conducted today, spent around 10 minutes for this, was declined. Case management aware. Physical Exam Physical Exam: GENERAL: Alert and oriented x3. NAD, on RA. Obese class I. HEENT: No pallor, no icterus. Pupils equal, round and reactive to light. Oral mucosa moist. NECK: No JVD, no neck masses. HEART: S1 and S2 heard. Regular rate and rhythm. No murmur, no gallop. RESPIRATORY SYSTEM: Normal AP diameter. No accessory muscle use. No wheezing, no crackles. ABDOMEN: Soft, bowel sounds present, nontender, no distention. CENTRAL NERVOUS SYSTEM: No facial droop. Speech is clear. Obeys simple commands. Moves extremities. EXTREMITIES: No edema, no erythema seen. RUE in sling. UC w/ light yellow urine in bag. Results & Data Results & Data Vital Signs (Past 12 Hours) Vital Signs Temp Pulse Pulse Resp BP Pulse Ox O2 Del Method 08/15/24 15:27 36.7 C 70 20 100/58 L 96 Room Air 08/15/24 11:28 36.6 C 77 20 105/63 95 Room Air 08/15/24 08:30 36.7 C 67 20 127/68 99 Room Air 08/15/24 08:00 77
[2024-08-15] MEDS ORDERED: Nursing to Pharmacy Communication SCH (17:00)
[2024-08-15] MEDS: DOCUSATE SODIUM 100 MG CAP PO SCH (17:21)
[2024-08-15] MEDS: HEPARIN SOD 5,000 UNIT/0.5 ML VIAL SQ SCH (20:17)
[2024-08-15] MEDS ORDERED: bisacodyL 10 MG SUPP PR SCH (21:00)
[2024-08-16 07:43] LABS: Hematocrit (blood only) 31.4 % (37.0-47.0); Hemoglobin 9.9 g/dl (12.0-16.0); Mean Corpuscular Hemoglobin 30.9 pg (25.0-34.0); Mean Corpuscular Hgb Conc 31.5 g/dL (32.0-36.0); Mean Corpuscular Volume 98.1 fL (80.0-100.0); Mean Platelet Volume 10.6 fL (9.4-12.4); Platelet Count 225 K/uL (130-400); RDW Standard Deviation 46.1 fL (36.4-46.3); White Blood Count 8.35 K/ul (4.8-10.8)
[2024-08-16 08:18] LABS: Anion Gap 6 (3-11); BUN Creatinine Ratio 26.5 (10-20); Blood Urea Nitrogen 31 mg/dl (6-23); Calcium 8.9 mg/dl (8.6-10.3); Carbon Dioxide 25 mmol/L (21-32); Chloride 108 mmol/L (98-107); Creatinine Clr Calc Pharmacy 31.6 ml/min; Glucose 119 mg/dl (70-99(Fasting)); Magnesium 2.3 mg/dl (1.7-2.4); Phosphorus 3.4 mg/dl (2.5-4.9); Sodium 139 mmol/L (136-145)
--- NOTE | 2024-08-16 13:47 | Hospitalist Progress Note ---
Date of Service August 16, 2024 Assessment & Plan (1) Dizziness: Plan 89 year old female with PMH of HTN, HLD, DM II, CKD III, depression, anxiety, hypothyroidism presented to ER with complaint of ground level fall the morning of arrival after getting up out of bed and feeling lightheaded. Denies LOC, CP, SOB. She is being managed for the following: Fracture of humerus, left, closed: Fracture of radius, distal, left, closed: Fall: Fracture of the Left Humerus and left distal Radius noted in imaging. CT Head: No acute intracranial abnormality CT C-Spine: no acute fracture Right knee x-ray: No acute fracture Orthopedics evaluated, conservative management, RUE in splint and sling. NWB RUE. f/u orthos in 2 wks on dc. Continue with PT/OT Patient with significant pain needing IV and p.o. pain medications. Continue with bowel regimen. Severe pain in the right hip: Right hip movement is moderately painful, right knee x-ray did not show any fracture. Right hip x-ray with old healed proximal femur fracture with intact hardware. Continue with pain management and PT OT. Relatively better lately. Peripheral neuropathy: Continue gabapentin. Dizziness: Chronic dizziness with sitting up, standing and walking. Likely orthostatic component. Negative troponin. Fall precaution, continue PT/OT. Other chronic medical conditions: Continue with/resume home meds as when able. T2DM: A1c 6.2 on 03/13/2024. Continue with sliding scale insulin while in hospital. CKD stage III: Stable, monitor. HTN: Hold home Lasix and losartan, continue with home metoprolol with holding parameters. Blood pressure running soft to low normal. 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 Continue with home aspirin. Not on anticoagulation currently. Hypothyroidism: Continue home levothyroxine Anxiety and depression: Continue home venlafaxine and buspirone DVT prophylaxis: Heparin subcu DNI/DNI PT/OT, will need rehab, CM assisting with disposition. P2P done 08/15, declined rehab. Admission and Anticipated Discharge Date Admission Date: August 10, 2024 Subjective Patient was seen and examined at bedside. Patient was sitting up in chair, on room air, NAD, resting comfortably. Patient reports feeling better but has significant pain needing with p.o. and IV pain medications. Continue with bowel regimen. Patient moved bowel yesterday, patient reports eating well. Physical Exam Physical Exam: GENERAL: Alert and oriented x3. NAD, on RA. Obese class I. HEENT: No pallor, no icterus. Pupils equal, round and reactive to light. Oral mucosa moist. NECK: No JVD, no neck masses. HEART: S1 and S2 heard. Regular rate and rhythm. No murmur, no gallop. RESPIRATORY SYSTEM: Normal AP diameter. No accessory muscle use. No wheezing, no crackles. ABDOMEN: Soft, bowel sounds present, nontender, no distention. CENTRAL NERVOUS SYSTEM: No facial droop. Speech is clear. Obeys simple commands. Moves extremities. EXTREMITIES: No edema, no erythema seen. RUE in sling. UC w/ light yellow urine in bag. Results & Data Results & Data Vital Signs (Past 12 Hours) Vital Signs Temp Pulse Pulse Resp BP Pulse Ox O2 Del Method 08/16/24 11:33 37 C 80 19 119/57 L 95 Room Air 08/16/24 08:00 85 08/16/24 08:00 Room Air 08/16/24 07:50 36.7 C 86 16 128/71 93 Room Air 08/16/24 03:19 36.5 C 68 18 135/80 94 Room Air
[2024-08-17 09:45] LABS: Hematocrit (blood only) 30.7 % (37.0-47.0); Hemoglobin 9.6 g/dl (12.0-16.0); Mean Corpuscular Hemoglobin 30.7 pg (25.0-34.0); Mean Corpuscular Hgb Conc 31.3 g/dL (32.0-36.0); Mean Corpuscular Volume 98.1 fL (80.0-100.0); Mean Platelet Volume 10.1 fL (9.4-12.4); Platelet Count 301 K/uL (130-400); RDW Coefficient of Variation 13.2 % (11.5-14.5); RDW Standard Deviation 47.2 fL (36.4-46.3); Red Blood Count 3.13 M/uL (4.20-5.40)
[2024-08-17 09:53] LABS: Calcium 8.9 mg/dl (8.6-10.3); Creatinine Clr Calc Pharmacy 33.5 ml/min; Potassium 4.6 mmol/L (3.5-5.1)
--- NOTE | 2024-08-17 15:26 | Hospitalist Progress Note ---
Date of Service August 17, 2024 Assessment & Plan (1) Dizziness: Plan 89 year old female with PMH of HTN, HLD, DM II, CKD III, depression, anxiety, hypothyroidism presented to ER with complaint of ground level fall the morning of arrival after getting up out of bed and feeling lightheaded. Denies LOC, CP, SOB. She is being managed for the following: Fracture of humerus, left, closed: Fracture of radius, distal, left, closed: Fall: Fracture of the Left Humerus and left distal Radius noted in imaging. CT Head: No acute intracranial abnormality CT C-Spine: no acute fracture Right knee x-ray: No acute fracture Orthopedics evaluated, conservative management, RUE in splint and sling. NWB RUE. f/u orthos in 2 wks on dc. Continue with PT/OT Patient with significant pain needing IV and p.o. pain medications. Continue with bowel regimen. Severe pain in the right hip: Right hip movement is moderately painful, right knee x-ray did not show any fracture. Right hip x-ray with old healed proximal femur fracture with intact hardware. Continue with pain management and PT OT. Relatively better lately. Peripheral neuropathy: Continue gabapentin. Dizziness: Chronic dizziness with sitting up, standing and walking. Likely orthostatic component. Negative troponin. Fall precaution, continue PT/OT. Other chronic medical conditions: Continue with/resume home meds as when able. T2DM: A1c 6.2 on 03/13/2024. Continue with sliding scale insulin while in hospital. CKD stage III: Stable, monitor. HTN: Hold home Lasix and losartan, continue with home metoprolol with holding parameters. Blood pressure running soft to low normal. 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 Continue with home aspirin. Not on anticoagulation currently. Hypothyroidism: Continue home levothyroxine Anxiety and depression: Continue home venlafaxine and buspirone DVT prophylaxis: Heparin subcu DNI/DNI PT/OT, will need rehab, CM assisting with disposition. P2P done 08/15, declined rehab. Admission and Anticipated Discharge Date Admission Date: August 10, 2024 Subjective Patient was seen and examined at bedside. Patient was sitting up in chair, on room air, NAD, resting comfortably. Patient reports feeling better but has significant pain needing with p.o. and IV pain medications. Continue with bowel regimen. Patient Reports moving bowels now, patient reports eating well. Physical Exam Physical Exam: GENERAL: Alert and oriented x3. NAD, on RA. Obese class I. HEENT: No pallor, no icterus. Pupils equal, round and reactive to light. Oral mucosa moist. NECK: No JVD, no neck masses. HEART: S1 and S2 heard. Regular rate and rhythm. No murmur, no gallop. RESPIRATORY SYSTEM: Normal AP diameter. No accessory muscle use. No wheezing, no crackles. ABDOMEN: Soft, bowel sounds present, nontender, no distention. CENTRAL NERVOUS SYSTEM: No facial droop. Speech is clear. Obeys simple commands. Moves extremities. EXTREMITIES: No edema, no erythema seen. RUE in sling. UC w/ light yellow urine in bag. Results & Data Results & Data Vital Signs (Past 12 Hours) Vital Signs Temp Pulse Pulse Resp BP Pulse Ox O2 Del Method 08/17/24 14:06 71 08/17/24 12:31 36.8 C 73 16 110/60 92 Room Air 08/17/24 10:57 Room Air 08/17/24 07:39 36.7 C 83 20 127/55 L 95 Room Air 08/17/24 07:39 80 08/17/24 03:48 36.5 C 75 20 116/74 93 Room Air
[2024-08-18 06:06] LABS: Hematocrit (blood only) 29.9 % (37.0-47.0); Hemoglobin 9.4 g/dl (12.0-16.0)
--- NOTE | 2024-08-18 13:57 | Hospitalist Progress Note ---
Date of Service August 18, 2024 Assessment & Plan (1) Dizziness: Plan 89 year old female with PMH of HTN, HLD, DM II, CKD III, depression, anxiety, hypothyroidism presented to ER with complaint of ground level fall the morning of arrival after getting up out of bed and feeling lightheaded. Denies LOC, CP, SOB. She is being managed for the following: Fracture of humerus, left, closed: Fracture of radius, distal, left, closed: Fall: Fracture of the Left Humerus and left distal Radius noted in imaging. CT Head: No acute intracranial abnormality CT C-Spine: no acute fracture Right knee x-ray: No acute fracture Orthopedics evaluated, conservative management, RUE in splint and sling. NWB RUE. f/u orthos in 2 wks on dc. Continue with PT/OT Patient with significant pain needing IV and p.o. pain medications. Continue with bowel regimen. Severe pain in the right hip: Right hip movement is moderately painful, right knee x-ray did not show any fracture. Right hip x-ray with old healed proximal femur fracture with intact hardware. Continue with pain management and PT OT. Relatively better lately. Peripheral neuropathy: Continue gabapentin. Dizziness: Chronic dizziness with sitting up, standing and walking. Likely orthostatic component. Negative troponin. Fall precaution, continue PT/OT. Other chronic medical conditions: Continue with/resume home meds as when able. T2DM: A1c 6.2 on 03/13/2024. Continue with sliding scale insulin while in hospital. CKD stage III: Stable, monitor. HTN: Hold home Lasix and losartan, continue with home metoprolol with holding parameters. Blood pressure running soft to low normal. 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 Continue with home aspirin. Not on anticoagulation currently. Hypothyroidism: Continue home levothyroxine Anxiety and depression: Continue home venlafaxine and buspirone DVT prophylaxis: Heparin subcu DNI/DNI PT/OT, will need rehab, CM assisting with disposition. P2P done 08/15, declined rehab. Admission and Anticipated Discharge Date Admission Date: August 10, 2024 Subjective Patient was seen and examined at bedside. Patient was sitting up in chair, on room air, NAD, resting comfortably. Patient reports feeling better but has significant pain needing with p.o. and IV pain medications. Continue with bowel regimen. Patient Reports moving bowels , patient reports eating well. Physical Exam Physical Exam: GENERAL: Alert and oriented x3. NAD, on RA. Obese class I. HEENT: No pallor, no icterus. Pupils equal, round and reactive to light. Oral mucosa moist. NECK: No JVD, no neck masses. HEART: S1 and S2 heard. Regular rate and rhythm. No murmur, no gallop. RESPIRATORY SYSTEM: Normal AP diameter. No accessory muscle use. No wheezing, no crackles. ABDOMEN: Soft, bowel sounds present, nontender, no distention. CENTRAL NERVOUS SYSTEM: No facial droop. Speech is clear. Obeys simple commands. Moves extremities. EXTREMITIES: No edema, no erythema seen. RUE in sling. UC w/ light yellow urine in bag. Results & Data Results & Data Vital Signs (Past 12 Hours) Vital Signs Temp Pulse Pulse Resp BP Pulse Ox O2 Del Method 08/18/24 13:53 80 08/18/24 11:06 36.9 C 91 H 18 119/71 93 Room Air 08/18/24 10:38 Room Air 08/18/24 08:11 79 08/18/24 07:46 36.7 C 81 18 108/59 L 95 Room Air 08/18/24 04:44 36.8 C 73 20 111/68 93 Room Air
[2024-08-18] MEDS: KETOROLAC TROMETHAMINE 15 MG/ML VIAL IV ONE (22:10)
[2024-08-19 07:28] LABS: Hematocrit (blood only) 30.4 % (37.0-47.0); Hemoglobin 9.4 g/dl (12.0-16.0)
[2024-08-19] MEDS: FUROSEMIDE 20 MG TAB PO SCH (09:13)
[2024-08-19] MEDS: HYDROmorphone HCL 2 MG TAB PO PRN (10:26)
[2024-08-19] MEDS: ACETAMINOPHEN 325 MG TAB PO SCH (10:51)
--- NOTE | 2024-08-19 15:40 | Hospitalist Progress Note ---
Date of Service August 19, 2024 Assessment & Plan (1) Dizziness: Plan 89 year old female with PMH of HTN, HLD, DM II, CKD III, depression, anxiety, hypothyroidism presented to ER with complaint of ground level fall the morning of arrival after getting up out of bed and feeling lightheaded. Denies LOC, CP, SOB. She is being managed for the following: Fracture of humerus, left, closed: Fracture of radius, distal, left, closed: Fall: Fracture of the Left Humerus and left distal Radius noted in imaging. CT Head: No acute intracranial abnormality CT C-Spine: no acute fracture Right knee x-ray: No acute fracture Orthopedics evaluated, conservative management, RUE in splint and sling. NWB RUE. f/u orthos in 2 wks on dc. Continue with PT/OT Patient with significant pain needing IV and p.o. pain medications. Increased pain meds today, appears poor pain control today. Continue with bowel regimen. Severe pain in the right hip: Right hip movement is moderately painful, right knee x-ray did not show any fracture. Right hip x-ray with old healed proximal femur fracture with intact hardware. Continue with pain management and PT OT. Relatively better lately. Peripheral neuropathy: Continue gabapentin. Dizziness: Chronic dizziness with sitting up, standing and walking. Likely orthostatic component. Negative troponin. Fall precaution, continue PT/OT. Other chronic medical conditions: Continue with/resume home meds as when able. T2DM: A1c 6.2 on 03/13/2024. Continue with sliding scale insulin while in hospital. CKD stage III: Stable, monitor. HTN: Hold home Lasix and losartan, continue with home metoprolol with holding parameters. Blood pressure running soft to low normal. 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 Continue with home aspirin. Not on anticoagulation currently. Hypothyroidism: Continue home levothyroxine Anxiety and depression: Continue home venlafaxine and buspirone DVT prophylaxis: Heparin subcu DNI/DNI PT/OT, will need rehab, CM assisting with disposition. P2P done 08/15, declined rehab. Admission and Anticipated Discharge Date Admission Date: August 10, 2024 Subjective Patient was seen and examined at bedside. Patient was sitting up in chair, on room air, NAD, in mild distress due to pain. Patient reports more pain today, and hence poor appetite, reports moving bowels though. will increase pain meds, continue to follow. Continue with bowel regimen. Physical Exam Physical Exam: GENERAL: Alert and oriented x3. NAD, on RA. Obese class I. HEENT: No pallor, no icterus. Pupils equal, round and reactive to light. Oral mucosa moist. NECK: No JVD, no neck masses. HEART: S1 and S2 heard. Regular rate and rhythm. No murmur, no gallop. RESPIRATORY SYSTEM: Normal AP diameter. No accessory muscle use. No wheezing, no crackles. ABDOMEN: Soft, bowel sounds present, nontender, no distention. CENTRAL NERVOUS SYSTEM: No facial droop. Speech is clear. Obeys simple commands. Moves extremities. EXTREMITIES: No edema, no erythema seen. RUE in sling. UC w/ light yellow urine in bag. Results & Data Results & Data Vital Signs (Past 12 Hours) Vital Signs Temp Pulse Pulse Resp BP Pulse Ox O2 Del Method 08/19/24 15:33 36.7 C 70 16 100/52 L 96 Room Air 08/19/24 14:39 68 08/19/24 11:22 36.6 C 65 16 109/65 94 Room Air 08/19/24 09:52 Room Air 08/19/24 07:55 36.7 C 83 18 123/71 94 Room Air 08/19/24 06:59 79
[2024-08-19] MEDS: oxyCODONE HCL IR 5 MG TAB (IMMEDIATE RELEASE) PO PRN (18:47)
[2024-08-20 06:44] LABS: Hematocrit (blood only) 29.5 % (37.0-47.0); Hemoglobin 9.1 g/dl (12.0-16.0); Mean Corpuscular Hemoglobin 30.7 pg (25.0-34.0); Mean Corpuscular Hgb Conc 30.8 g/dL (32.0-36.0); Mean Corpuscular Volume 99.7 fL (80.0-100.0); Mean Platelet Volume 9.7 fL (9.4-12.4); Platelet Count 336 K/uL (130-400); RDW Coefficient of Variation 13.3 % (11.5-14.5); RDW Standard Deviation 48.5 fL (36.4-46.3); Red Blood Count 2.96 M/uL (4.20-5.40); White Blood Count 7.27 K/ul (4.8-10.8)
[2024-08-20 07:12] LABS: BUN Creatinine Ratio 26.4 (10-20); Calcium 8.7 mg/dl (8.6-10.3); Creatinine Clr Calc Pharmacy 25.1 ml/min; Potassium 4.5 mmol/L (3.5-5.1)
--- NOTE | 2024-08-20 11:18 | Hospitalist Progress Note ---
Date of Service August 20, 2024 Assessment & Plan (1) Dizziness: Plan 89 year old female with PMH of HTN, HLD, DM II, CKD III, depression, anxiety, hypothyroidism presented to ER with complaint of ground level fall the morning of arrival after getting up out of bed and feeling lightheaded. Denies LOC, CP, SOB. She is being managed for the following: Fracture of humerus, left, closed: Fracture of radius, distal, left, closed: Fall: Fracture of the Left Humerus and left distal Radius noted in imaging. CT Head: No acute intracranial abnormality CT C-Spine: no acute fracture Right knee x-ray: No acute fracture Orthopedics evaluated, conservative management, RUE in splint and sling. NWB RUE. f/u orthos in 2 wks on dc. Continue with PT/OT Patient reports better pain control with oxycodone, reports gradually improving pain control, still with significant pain. Continue with bowel regimen. Severe pain in the right hip: Right hip movement is moderately painful, right knee x-ray did not show any fracture. Right hip x-ray with old healed proximal femur fracture with intact hardware. Continue with pain management and PT OT. Relatively better lately. Peripheral neuropathy: Continue gabapentin. Dizziness: Chronic dizziness with sitting up, standing and walking. Likely orthostatic component. Negative troponin. Fall precaution, continue PT/OT. Other chronic medical conditions: Continue with/resume home meds as when able. T2DM: A1c 6.2 on 03/13/2024. Continue with sliding scale insulin while in hospital. CKD stage III: Stable, monitor. HTN: Hold home Lasix and losartan, continue with home metoprolol with holding parameters. Blood pressure running soft to low normal. 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 Continue with home aspirin. Not on anticoagulation currently. Hypothyroidism: Continue home levothyroxine Anxiety and depression: Continue home venlafaxine and buspirone DVT prophylaxis: Heparin subcu DNI/DNI PT/OT, will need rehab, CM assisting with disposition. P2P done 08/15, declined rehab. Admission and Anticipated Discharge Date Admission Date: August 10, 2024 Subjective Patient was seen and examined at bedside. Patient was lying in bed, on room air, NAD, in mild distress due to pain. Patient reports better pain control with oxycodone, did work with physical therapy better today, reports fairly better pain control today. Patient reports moving bowels okay, appetite ok today per pt. Physical Exam Physical Exam: GENERAL: Alert and oriented x3. NAD, on RA. Obese class I. HEENT: No pallor, no icterus. Pupils equal, round and reactive to light. Oral mucosa moist. NECK: No JVD, no neck masses. HEART: S1 and S2 heard. Regular rate and rhythm. No murmur, no gallop. RESPIRATORY SYSTEM: Normal AP diameter. No accessory muscle use. No wheezing, no crackles. ABDOMEN: Soft, bowel sounds present, nontender, no distention. CENTRAL NERVOUS SYSTEM: No facial droop. Speech is clear. Obeys simple commands. Moves extremities. EXTREMITIES: No edema, no erythema seen. RUE in sling. UC w/ light yellow urine in bag. Results & Data Results & Data Vital Signs (Past 12 Hours) Vital Signs Temp Pulse Pulse Resp BP Pulse Ox O2 Del Method 08/20/24 08:23 36.6 C 84 18 127/64 95 Room Air 08/20/24 07:43 76 08/20/24 02:09 36.5 C 69 18 105/52 L 93 Room Air
[2024-08-21] MEDS: MoRPHine SULFATE 2 MG/ML CARP IV PRN (02:10)
[2024-08-21 07:45] LABS: BUN Creatinine Ratio 29.7 (10-20); Calcium 8.8 mg/dl (8.6-10.3); Creatinine Clr Calc Pharmacy 29.9 ml/min; Potassium 4.5 mmol/L (3.5-5.1)
--- NOTE | 2024-08-21 10:38 | Discharge Summary ---
Date of Service August 21, 2024 Admission HPI Per Admitting Provider Patient is 89 year old female with PMH HTN, HLD, DM II, CKD III, depression, anxiety, hypothyroidism presented to ER with complaint of fall this morning. Patient reports chronic dizziness and lightheadedness with sitting up, standing and walking. States typically will sit up at edge of bed for awhile prior to standing. States today woke up and sat up and attempted to ambulate to bathroom. When she stood up she felt lightheaded and off balance and fell onto left arm. Complains of pain to left shoulder that radiates down to left hand and fingers. States fingers feel tingling. Reports unable to move left arm or left wrist of fingers as causes pain. Denies history prior LUE injury. Doesn't think she hit her head and denies LOC. Denies CP, SOB prior to fall. She states wasn't able to get herself up off floor so used her fall alert button to call for help. Reports chronic balance issues and ambulates with walker at baseline. Has caregivers 8a- 1:30p Mon-Fri and 9a-2p on sat & sun to help get her dressed, cook meals, clean. Reports last fall was in summer 2023. Right hand dominant. Chronic poor vision and denies any acute vision changes. Denies fever/chills, diaphoresis, N/V/D/C, [place], dizziness, syncope, neck pain, CP, SOB, palpitations, cough, rhinorrhea, abdominal pain, RUE pain, LLE pain or RLE pain, extremity edema, rashes, urinary symptoms. Admission Exam Per Admitting Provider General: mild distress secondary to pain, obese elderly female Head: normocephalic, atraumatic Eyes: PERRL, EOM's intact, conjunctiva non-injected, anicteric ENT: normal inspection external ears, nose, mucous membranes mildly dry Neck: supple, trachea midline, non-tender to palpation Lungs: clear, no respiratory distress, no wheezing/rhonchi/rales CV: RRR, no pretibial edema Abd: protuberant, normal BS, soft, non-tender Ext: LUE: +sling in place. +tenderness to palpation entire shoulder and proximal humerus, +tenderness to palpation distal forearm and wrist, minimal active ROM of fingers secondary to reported pain, distal pulses palpable, sensation to light touch intact. RUE with normal appearance and non-tender. LLE and RLE norm al appearance and non-tender. no cyanosis, no calf tenderness Neuro: A&O x 3, no focal deficits noted, mildly anxious affect Skin: warm, dry Principal Diagnosis Fracture of humerus, left, closed Fracture of radius, distal, left, closed Fall Severe pain in the right hip Peripheral neuropathy, ho Chronic dizziness HTN, ho Discharge Exam GENERAL: Alert and oriented x3. NAD, on RA. Obese class I. HEENT: No pallor, no icterus. Pupils equal, round and reactive to light. Oral mucosa moist. NECK: No JVD, no neck masses. HEART: S1 and S2 heard. Regular rate and rhythm. No murmur, no gallop. RESPIRATORY SYSTEM: Normal AP diameter. No accessory muscle use. No wheezing, no crackles. ABDOMEN: Soft, bowel sounds present, nontender, no distention. CENTRAL NERVOUS SYSTEM: No facial droop. Speech is clear. Obeys simple commands. Moves extremities. EXTREMITIES: No edema, no erythema seen. RUE in sling. Discharge Data Allergies Allergy/AdvReac Type Severity Reaction Status Date / Time Cipro Allergy Intermediate rash and Verified 08/25/17 08:14 itchiness ciprofloxacin [Cipro] Allergy Unknown rash and Verified 06/30/21 10:57 itchiness Consultations 08/10/24 12:45 ED Decision to Admit Stat 08/10/24 14:24 Consult Orthopedic Surgery Routine 08/11/24 16:11 Consult Urology Routine Ordered Studies 08/10/24 08:48 CT cervical spine wo con Stat CT head/brain wo con Stat Hospital Course (1) Dizziness: Plan 89 year old female with PMH of HTN, HLD, DM II, CKD III, depression, anxiety, hypothyroidism presented to ER with complaint of ground level fall the morning of arrival after getting up out of bed and feeling lightheaded. Denies LOC, CP, SOB. She was managed for the following: Fracture of humerus, left, closed: Fracture of radius, distal, left, closed: Fall: Fracture of the Left Humerus and left distal Radius noted in imaging. CT Head: No acute intracranial abnormality CT C-Spine: no acute fracture Right knee x-ray: No acute fracture Orthopedics evaluated, conservative management, RUE in splint and sling. NWB RUE. f/u orthos in 1 - 2 wks on dc. Continue with PT/OT at snf. Patient reports better pain control with oxycodone, reports gradually improving pain control, will need ongoing pain mx eval/prescription. Continue with bowel regimen w/ a goal of 1-2 BMs a day. Severe pain in the right hip: Right hip movement is moderately painful, right knee x-ray did not show any fracture. Right hip x-ray with old healed proximal femur fracture with intact hardware. Continue with pain management and PT OT. Relatively better lately. Peripheral neuropathy: Continue gabapentin. Dizziness: Chronic dizziness with sitting up, standing and walking. Likely orthostatic component. Negative troponin. Fall precaution, continue PT/OT. Other chronic medical conditions: Continue with/resume home meds as when able. T2DM: A1c 6.2 on 03/13/2024. Continue with sliding scale insulin while in hospital. CKD stage III: Stable, monitor. HTN: Hold home Lasix and losartan, continue with home metoprolol with holding parameters. Blood pressure running soft to low normal. 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 Continue with home aspirin. Not on anticoagulation currently. Hypothyroidism: Continue home levothyroxine Anxiety and depression: Continue home venlafaxine and buspirone DVT prophylaxis: Heparin subcu DNI/DNI Patient is being discharged to rehab with following instruction at the point of discharge: Follow-up with your primary care physician within a week time and likely you will need labs CBC/CMP/magnesium/phosphorus. Follow-up with orthopedics in 1 to 2 weeks time upon discharge. You will be discharged on few days worth of oxycodone and Dilaudid for pain management, you will need ongoing evaluation for pain management/prescription. Continue with bowel regimen while on pain management with a goal of 1-2 bowel movements a day. Given your blood pressure was soft while in the hospital, your losartan has been on hold at discharge. Continue to hold your losartan until further evaluation by PCP in a week to decide on resuming the medication. Take your medications as prescribed. Please make sure that you are able to get your medications today by calling your pharmacy before you leave the hospital so that your treatment continuity is not broken. Home Health Attestation I certify that this patient is under my care and that I, or a physicians podiatrist assistant working with me, had a face to-face encounter that meets the home health [id number] encounter requirements with this patient. The encounter with the patient was in whole, or in part, for the following medical condition, which is the primary reason for home health care (list medical condition): I certify that, based on my findings, the following services are medically necessary home health services: My clinical findings support the need for the above services because: Further, I certify that my clinical findings support that this patient is homebound (i.e. absences from home require considerable and taxing effort and are for medical reasons or holiness services or infrequently or of short duration when for other reasons) because: Certification for Home Health Services: Based on the above findings, I certify that this patient is confined to the home and needs intermittent custodial care, physical therapy and/or speech therapy or continues to need occupational therapy. The patient is under my care, and I have initiated the establishment of the plan of care. This patient will be followed by a physician who will periodically review the plan of care. Total Time Total Time Spent Total Time Spent (In Minutes): 40 Discharge Plan Discharge Items Patient Disposition: Transfer [facility] Fac Reason For Visit: FALL, LEFT HUMERUS FRACTURE Discharge Diagnosis: Fracture of humerus, left, closed Fracture of radius, distal, left, closed Fall Severe pain in the right hip Peripheral neuropathy, ho Chronic dizziness HTN, ho Activity: As commented below Activity Comment: c/w PT/OT at snf. Non-emergency contact: Primary Care Provider Call non-emergency contact if: you have any medication questions, your symptoms worsen and your temperature is above 101 Follow-up/Referrals: Trevor Mazariegos MD [Primary Care Provider] - Diet: Regular Addtl Attending Provider Instructions: Follow-up with your primary care physician within a week time and likely you will need labs CBC/CMP/magnesium/phosphorus. Follow-up with orthopedics in 1 to 2 weeks time upon discharge. You will be discharged on few days worth of oxycodone and Dilaudid for pain management, you will need ongoing evaluation for pain management/prescription. Continue with bowel regimen while on pain management with a goal of 1-2 bowel movements a day. Given your blood pressure was soft while in the hospital, your losartan has been on hold at discharge. Continue to hold your losartan until further evaluation by PCP in a week to decide on resuming the medication. Take your medications as prescribed. Please make sure that you are able to get your medications today by calling your pharmacy before you leave the hospital so that your treatment continuity is not broken. Addtl Electric Switch Tester Provider Instructions: ORTHOPEDIC INSTRUCTIONS Activity Recommendations: Nonweightbearing with the left upper extremity Dressing Care: Leave left wrist splint clean and dry. Do not remove it. Stay in left arm sling at all times. You may remove the sling to put on a shirt. Showering: Do not get the left arm splint wet. Diet: You may resume your previous diet. Follow-Up Visit: Follow-up with Dr. Cook's office in 2 weeks. We will get x-rays of your left shoulder and wrist to ensure there is been no further displacement of the fracture. Please call the office to set up an appointment for a time that works for you. Pending Studies at Discharge: No Stand-Alone Forms: My [facility] [employer] [employer] Skilled Items Patient informed of condition?: Yes DNR: Yes Discharge Level of Care: Skilled Communicable Disease: No Discharge Prognosis: Stable Lines: None Urinary Catheter: No Medications and DC Order Prescriptions: New hydromorphone [Dilaudid] 2 mg Tablet 2 mg PO Q8H PRN (Reason: severe pain (scale score 7-10)) 5 Days Qty: 15 0RF oxycodone 5 mg Tablet 5 mg PO Q8H PRN (Reason: moderate pain (scale score 5-6)) 5 Days Qty: 15 0RF docusate sodium 100 mg Capsule 100 mg PO BID PRN (Reason: constipation. ) Qty: 30 0RF Continued venlafaxine 75 mg Tablet 75 mg PO QAM aspirin 81 mg Tablet,Delayed Release (Dr/Ec) 81 mg PO QPM levothyroxine 100 mcg tablet 112 mcg PO DAILYBB baclofen 10 mg Tablet 10 mg PO HS pantoprazole [Protonix] 40 mg Tablet,Delayed Release (Dr/Ec) 40 mg PO QAM simvastatin [Zocor] 20 mg Tablet 20 mg PO QPM mirtazapine [Remeron] 30 mg Tablet 30 mg PO PM buspirone 10 mg Tablet 10 mg PO TID Patient Comments: MORNING, EVENING AND ONE IN MIDDLE OF DAY furosemide [Lasix] 20 mg Tablet 20 mg PO Q OTHER DAY Patient Comments: IN THE MORNING EVERY OTHER DAY PreserVision AREDS [id number] Capsule 1 cap PO BID venlafaxine 150 mg Tablet Extended Release 24hr 150 mg PO QAM Tradjenta 5 mg Tablet 5 mg PO QAM gabapentin 100 mg capsule 100 mg PO BID lorazepam [Ativan] 0.5 mg tablet 0.5 mg PO .AFTERNOON metoprolol succinate 50 mg tablet extended release 24 hr 50 mg PO DAILY Held losartan 100 mg Tablet 100 mg PO QAM Hold Instructions: Resume on 08/28/24. hold until further evaluation by pcp in a week time. Discharge Orders: Discharge Order (Routine); Ordered 08/21/24 Ordered By: Lanny Maza Admission Data Admit Date/Time: 08/10/24 12:59 Attending Provider: Lanny Maza Admit Provider: Heber Oakes Primary Care Provider: Trevor Mazariegos Other Providers: Larry Cook; Heber Oakes; [facility]; Angela Martin [facility]; [facility]
[2024-08-21 11:28] VITALS: BP 105/66; PULSE 79; RESP 18; TEMP 98.1; O2SAT 94
== END 2024-08-21 15:47 | DRG 563 ==
LOC: ED 08:24 → 2N 12:59 → SUATTDRO 12:59 → 2N 14:09